=== PATIENT | male | born 1925 | race American Indian/Alaskan Native ===

== ENCOUNTER 2017-01-18 13:23 | Emergency (ER) | payer MEDICARE ==
[2017-01-18 13:35] VITALS: BMI 21.1
[2017-01-18 13:41] VITALS: TEMP 98.2
--- NOTE | 2017-01-18 13:42 | ED PDOC ---
Arrival/HPI - General Time Seen by Provider: 01/18/17 13:27 Historian: Patient, Family (Daughter) - History of Present Illness Time/Duration: Other (Several days) Symptom Onset: Gradual Symptom Course: Unchanged Severity Level: Mild Activities at Onset: Rest Associated Symptoms (Text): 01/18/17 13:40 Daughter reports that for the last several days the patient has been more lethargic than usual and hypotensive with a blood pressure in the range of 90/ 60. His appetite has not been as good as usual. No cough congestion or URI. No vomiting or diarrhea. He has a chronic Mcintosh in place. 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 He denies any chest pain or abdominal pain or dyspnea. No fever or chills. No injury or trauma. There is generalized weakness. Past Medical History - Infectious Disease Hx of Infectious Diseases: None - Tetanus Immunization Tetanus Immunization: Unknown - Cardiac Hx Cardiac Disorders: Yes (cad) Hx Hypertension: Yes - Pulmonary Hx Respiratory Disorders: No - Neurological HX Cerebrovascular Accident: Yes (left side weakness) - HEENT Hx HEENT Disorder: Yes Hx Blind: Yes (left eye opaque) Hx Cataracts: Yes (left eye) Hx Glaucoma: Yes - Renal Hx Renal Disorder: No - Endocrine/Metabolic Hx Endocrine Disorders: No - Hematological/Oncological Hx Blood Disorders: No - Integumentary Hx Dermatological Disorder: No Other/Comment: decubiti buttocks and heel healed, multiple skin discolorations ble and knees, left 2nd toe callous x2 brown in color, dry toenails b/l elbows brown discolored skin, brown skin to buttocks - Musculoskeletal/Rheumatological Hx Arthritis: Yes - Gastrointestinal Hx Gastrointestinal Disorders: Yes Hx Gastroesophageal Reflux: Yes - Genitourinary/Gynecological Hx Genitourinary Disorders: Yes (RETENTION) Hx Incontinence: Yes Hx Prostate Problems: Yes (BPH) - Psychiatric Hx Psychophysiologic Disorder: No Hx Substance Use: No - Surgical History Hx Orthopedic Surgery: Yes (Left hip repair) - Anesthesia Hx Anesthesia: Yes - Suicidal Assessment Feels Threatened In Home Enviroment: No Family/Social History - Physician Review Nursing Documentation Reviewed: Yes Family/Social History: Unknown Family HX Smoking Status: Former Smoker Hx Alcohol Use: No Hx Substance Use: No Hx Substance Use Treatment: No Allergies/Home Meds Allergies/Adverse Reactions: Allergies peanut Allergy (Severe, Verified 01/18/17 13:35) ANAPHYLAXIS PORK Allergy (Verified 01/18/17 13:35) VOMITING Home Medications: Home Meds Medication Instructions Recorded Confirmed Latanoprost 0.005% Opht [XALATAN 1 drp BOTHEYES HS 06/28/13 01/18/17 2.5 Ml] Lisinopril [Zestril] 5 mg PO DAILY 07/18/16 01/18/17 Metoprolol Succinate [Toprol XL] 0.5 tab PO DAILY 07/18/16 01/18/17 Nepafenac [Ilevro] 1 drop LEFTEYE DAILY 07/18/16 01/18/17 Tamsulosin [Flomax] 0.4 mg PO DAILY 07/18/16 01/18/17 Ipratropium [place] [Ipratropium 1 spray NS PRN PRN 01/18/17 01/18/17 [place] 15 ml] Review of Systems - Physician Review All systems were reviewed & negative as marked: Yes - Review of Systems Constitutional: Fatigue. absent: Fevers Respiratory: absent: SOB, Cough, Wheezing Cardiovascular: absent: Chest Pain, Palpitations, Syncope Gastrointestinal: absent: Abdominal Pain, Diarrhea, Vomiting Neurological: absent: Headache, Dizziness Physical Exam Vital Signs Temp Pulse Pulse Resp BP BP Pulse Ox 01/18/17 14:00 98.2 F 01/18/17 13:40 98.2 F 71 18 124/60 95 01/18/17 13:25 71 124/60 Temperature: Afebrile Blood Pressure: Normal Pulse: Regular Respiratory Rate: Normal Appearance: Positive for: Well-Appearing, Non-Toxic, Comfortable Pain Distress: None Mental Status: Positive for: other (Awake alert and cooperative, pale, dense left hemiparesis, chronic Mcintosh catheter in place) - Systems Exam Head: Present: Atraumatic, Normocephalic Pupils: Present: PERRL Extroacular Muscles: Present: EOMI Conjunctiva: Present: Normal Mouth: Present: Moist Mucous Membranes Pharnyx: No: ERYTHEMA, EXUDATE, TONSILS ENLARGED Neck: Present: Normal Range of Motion Respiratory/Chest: Present: Clear to Auscultation, Good Air Exchange, Decreased Breath Sounds. No: Respiratory Distress, Accessory Muscle Use Cardiovascular: Present: Regular Rate and Rhythm, Normal S1, S2. No: Murmurs Abdomen: Present: Normal Bowel Sounds. No: Tenderness, Distention, Peritoneal Signs, Rebound, Guarding Upper Extremity: Present: Normal Inspection. No: Cyanosis, Edema Lower Extremity: Present: Normal Inspection. No: Edema Neurological: Present: GCS=15, CN II-XII Intact, Speech Normal. No: Motor Func Grossly Intact (Old left sided hemiparesis) Skin: Present: Warm, Dry, Normal Color. No: Rashes Medical Decision Making ED Course and Treatment: 01/18/17 14:17 EKG shows normal sinus rhythm rate approximately 70 with a primary AV block and no acute ST or T-wave changes 01/18/17 14:58 Discussed in detail with the daughter. Patient has a chronic Mcintosh catheter in place and his UA may not indicate infection. A culture has been obtained. He will be treated with a dose of IV Rocephin to cover him along with IV fluids. She wants to take him home. If the urine culture is positive we will call in antibiotics for her to give to the patient. - Lab Interpretations Lab Results: 01/18/17 14:00 01/18/17 14:00 Lab Results 01/18/17 14:20: Urine Color Yellow, Urine Appearance Sl cloudy, Urine pH 6.5, Ur Specific [place] 1.020, Urine Protein 30 H, Urine Glucose (UA) Negative, Urine Ketones Negative, Urine Blood Moderate H, Urine Nitrate Positive H, Urine Bilirubin Negative, Urine Urobilinogen 0.2, Ur Leukocyte Esterase Large H, Urine RBC 5 - 10, Urine WBC Tntc, Ur Epithelial Cells 3 - 4, Urine Bacteria Many 01/18/17 14:00: WBC 9.9, RBC 3.94, Hgb 12.3 L, Hct 37.2 L, MCV 94.4, MCH 31.2, MCHC 33.1, RDW 14.1, Plt Count 161, MPV 10.4, Gran % 82.1 H, Lymph % (Auto) 12.4 L, [place] % (Auto) 4.5, Eos % (Auto) 0.9 L, Baso % (Auto) 0.1, Gran # 8.14 H , Lymph # 1.2, [place] # 0.5, Eos # 0.1, Baso # 0.01, Sodium 141, Potassium 4.5, Chloride 102, Carbon Dioxide 32, Anion Gap 12, BUN 32 H, Creatinine 1.1, Est GFR ( Amer) > 60, Est GFR (Non-Af Amer) > 60, Random Glucose 96, Calcium 9.3, Total Bilirubin 0.6, AST 21, ALT 12, Alkaline Phosphatase 236 H, Lactate Dehydrogenase 883 H, Total Creatine Kinase 32 L, Troponin I < 0.01, Total Protein 7.4, Albumin 3.7, Globulin 3.7, Albumin/Globulin Ratio 1.0 L - RAD Interpretation Radiology Orders: 01/18/17 13:35 CHEST PORTABLE [RAD] Stat Chest 1 view shows no infiltrate effusion or cardiomegaly. There is hyperinflation. 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: ED Physician - Medication Orders Current Medication Orders: Discontinued Medications Ceftriaxone Sodium (Rocephin 1 Gram Ivpb) 100 mls @ 200 mls/hr IVPB STAT STA PRN Reason: Protocol Stop: 01/18/17 15:19 Last Admin: 01/18/17 15:04 Dose: 200 MLS/HR eMAR Start Stop Document 01/18/17 15:04 SF (Rec: 01/18/17 15:04 SF [id number]) Intravenous Solution Start Date 01/18/17 Start Time 15:04 End Date 01/18/17 End time 15:34 Total Infusion Time 30 Sodium Chloride (Sodium Chloride 0.9%) 500 mls @ 500 mls/hr IV ONCE ONE Stop: 01/18/17 15:55 Last Admin: 01/18/17 15:05 Dose: 500 MLS/HR eMAR Start Stop Document 01/18/17 15:05 SF (Rec: 01/18/17 15:05 SF [id number]) Intravenous Solution Start Date 01/18/17 Start Time 15:05 End Date 01/18/17 End time 16:05 Total Infusion Time 60 Disposition/Present on Arrival - Present on Arrival Any Indicators Present on Arrival: No History of DVT/PE: No History of Uncontrolled Diabetes: No Urinary Catheter: Yes History of Decub. Ulcer: No History Surgical Site Infection Following: None - Disposition Have Diagnosis and Disposition been Completed?: Yes Diagnosis: Hypotension, UTI (urinary tract infection), Dehydration Disposition: HOME/ ROUTINE Disposition Time: 15:00 Patient Plan: Discharge Patient Problems: Current Active Problems Problem Status Diagnosed Altered mental status Acute Dehydration Acute Hypotension Acute UTI (urinary tract infection) Acute Condition: FAIR Discharge Instructions (ExitCare): Dehydration (ED), Hypotension (ED), Urinary Tract Infection in Men (ED) Additional Instructions: Waiting for urine culture report. Increase fluids. Follow-up with PMD. Follow up in ER as needed.
--- NOTE | 2017-01-18 13:56 | RAD ---
HISTORY: weakness COMPARISON: Chest x-ray performed 07/18/16 TECHNIQUE: Chest, one view. FINDINGS: LUNGS: Hyperinflation may be seen in the setting of COPD. No focal consolidation. Scattered tiny probable calcified granulomas. Please note that chest x-ray has limited sensitivity for the detection of pulmonary masses. PLEURA: No significant pleural effusion identified. No definite pneumothorax. CARDIOVASCULAR: Heart size appears within normal limits. Atherosclerotic calcifications of the aortic knob. OSSEOUS STRUCTURES: Degenerative changes of the spine. VISUALIZED UPPER ABDOMEN: Unremarkable. OTHER FINDINGS: None. IMPRESSION: Hyperinflation may be seen in the setting of COPD.
[2017-01-18 14:15] LABS: ADD MANUAL DIFF? NO
[2017-01-18 14:25] LABS: BASO # 0.01 K/mm3 (0.0-2.0); BASO % 0.1 % (0.0-3.0); EOS # 0.1 (0.0-0.7); EOS % 0.9 % (1.5-5.0); GRAN # 8.14 (1.4-6.5); GRAN % 82.1 % (50.0-68.0); HEMATOCRIT 37.2 % (42.0-52.0); LYMPH # 1.2 (1.2-3.4); LYMPH % 12.4 % (22.0-35.0); MEAN CELL VOLUME 94.4 fL (80.0-105.0); MEAN CORPUSCULAR HEMOGLOBIN 31.2 pg (25.0-35.0); MEAN CORPUSCULAR HGB CONC 33.1 g/dl (31.0-37.0); MEAN PLATELET VOLUME 10.4 fl (7.0-11.0); MONO # 0.5 (0.1-0.6); MONO % 4.5 % (1.0-6.0); PLATELET COUNT 161 10^3/uL (120.0-450.0); RED CELL DISTRIBUTION WIDTH 14.1 % (11.5-14.5); WHITE BLOOD COUNT 9.9 10^3/ul (4.5-11.0)
[2017-01-18 14:34] LABS: ALKALINE PHOSPHATASE 236 U/L (38-133); ALT/SGPT 12 U/L (7-56); AST/SGOT 21 U/L (15-59); BILIRUBIN,TOTAL 0.6 mg/dL (0.2-1.3); BLOOD UREA NITROGEN 32 mg/dL (7-21); CALCIUM 9.3 mg/dL (8.4-10.5); CARBON DIOXIDE 32 mmol/L (21-33); CHLORIDE 102 mmol/L (98-107); GFR AFRICAN-AMERICAN > 60; GLUCOSE,RANDOM 96 mg/dL (70-110); POTASSIUM 4.5 mmol/L (3.6-5.0); SODIUM 141 mmol/L (132-148); TOTAL PROTEIN 7.4 g/dL (5.8-8.3)
[2017-01-18 14:36] LABS: PH,URINE 6.5 (4.7-8.0); URINE BILIRUBIN NEGATIVE (NEGATIVE); URINE BLOOD MODERATE (NEGATIVE); URINE GLUCOSE (UA) NEGATIVE (NEGATIVE); URINE KETONE NEGATIVE (NEGATIVE); URINE LEUKOCYTE ESTERASE LARGE Leu/uL (NEGATIVE); URINE PROTEIN 30 mg/dL (<30 mg/dL); URINE UROBILINOGEN 0.2 E.U./dL (<1 E.U./dL)
[2017-01-18 14:46] LABS: TROPONIN I < 0.01 ng/mL
[2017-01-18 14:47] LABS: URINE APPEARANCE SL CLOUDY (CLEAR); URINE COLOR YELLOW (YELLOW)
[2017-01-18 14:49] LABS: URINE BACTERIA MANY (NEG); URINE WBC TNTC /hpf (0-6)
[2017-01-18] MEDS ORDERED: cefTRIAXone 1 gm 100 ML IVPB STA (14:50)
[2017-01-18] MEDS ORDERED: Sodium Chloride 0.9% 500 ML IV ONE (14:56)
[2017-01-18 16:23] VITALS: PULSE 65
[2017-01-18 18:18] VITALS: BP 122/65; RESP 69; O2SAT 97
--- NOTE | 2017-01-19 09:43 | CARD ---
APPROVED REPORT EKG Measurement Heart [id number] <Conclusion> Sinus rhythm with 1st degree AV block with premature atrial complexes Left anterior fascicular block Anteroseptal infarct, old No change
== END 2017-01-18 18:20 | disposition home or self-care (01) ==
LOC: ED 13:23
DX: I95.9 Hypotension, unspecified (principal); N39.0 Urinary tract infection, site not specified; E86.0 Dehydration; Z87.891 Personal history of nicotine dependence
CPT/HCPCS: 71010; 80053; 81001; 82550; 83615; 84484; 85025; 87086; 93005; 96365; 99285; J0696; J7040

== ENCOUNTER 2017-01-28 12:42 | Inpatient (IN) | payer MEDICARE ==
--- NOTE | 2017-01-28 13:21 | ED PDOC ---
Arrival/HPI - General Chief Complaint: Altered Mental Status Time Seen by Provider: 01/28/17 12:43 Historian: Patient, Family (daughter) - History of Present Illness Narrative History of Present Illness (Text): 01/28/17 12:43 A 89 year old male, whose past medical history includes subarachnoid hemorrhag, CVA (30 years ago that resulted into dense left hemiparesis), seizure disorder , hypertension, and chronic/dwelling Mcintosh catheter, presents to emergency department for evaluation of a wet cough. According to his daughter, the patient has had a wet cough for the past day and a half. She states today patient appeared more short of breath. Daughter states when the visiting nurse came, she listened to his lungs and was concerned about a developing infection. Nurse called patient's PMD, who recommended the patient comes into emergency department for further evaluation. Daughter says patient has been more lethargic over the past day. According to EMS, the patient's blood pressure was 59/30 upon there arrival on the scene so they administered IV fluids. Blood pressure improved to 90's systolic. Patient denies chest pain or abdominal pain. Daughter denies any vomiting, fever, or any other complaints at this time. PMD: Condo Time/Duration: < week (1 day and a half) Symptom Onset: Gradual Symptom Course: Worsening Quality: Other Activities at Onset: Rest Modifying Factors (Text): IV fluids improved blood pressure Context: Home Past Medical History - Provider Review Nursing Documentation Reviewed: Yes - Infectious Disease Hx of Infectious Diseases: None - Tetanus Immunization Tetanus Immunization: Unknown - Cardiac Hx Cardiac Disorders: Yes (cad) Hx Hypertension: Yes - Pulmonary Hx Respiratory Disorders: No Hx Pneumonia: Yes (aspiration) - Neurological HX Cerebrovascular Accident: Yes (left side weakness) - HEENT Hx HEENT Disorder: Yes Hx Blind: Yes (left eye opaque) Hx Cataracts: Yes (left eye) Hx Glaucoma: Yes - Renal Hx Renal Disorder: No - Endocrine/Metabolic Hx Endocrine Disorders: No - Hematological/Oncological Hx Blood Disorders: No - Integumentary Hx Dermatological Disorder: No Other/Comment: decubiti buttocks and heel healed, multiple skin discolorations ble and knees, left 2nd toe callous x2 brown in color, dry toenails b/l elbows brown discolored skin, brown skin to buttocks - Musculoskeletal/Rheumatological Hx Arthritis: Yes - Gastrointestinal Hx Gastrointestinal Disorders: Yes Hx Gastroesophageal Reflux: Yes - Genitourinary/Gynecological Hx Genitourinary Disorders: Yes (RETENTION) Hx Incontinence: Yes Hx Prostate Problems: Yes (BPH) - Psychiatric Hx Psychophysiologic Disorder: No Hx Substance Use: No - Surgical History Hx Orthopedic Surgery: Yes (Left hip repair) - Anesthesia Hx Anesthesia: Yes Hx Anesthesia Reactions: No Hx Malignant Hyperthermia: No - Suicidal Assessment Feels Threatened In Home Enviroment: No Family/Social History - Physician Review Nursing Documentation Reviewed: Yes Family/Social History: Unknown Family HX Smoking Status: Former Smoker Hx Alcohol Use: No Hx Substance Use: No Hx Substance Use Treatment: No Allergies/Home Meds Allergies/Adverse Reactions: Allergies peanut Allergy (Severe, Verified 01/28/17 12:53) ANAPHYLAXIS PORK Allergy (Verified 01/28/17 12:53) VOMITING Home Medications: Home Meds Medication Instructions Recorded Confirmed Latanoprost 0.005% Opht [XALATAN 1 drp BOTHEYES HS 06/28/13 01/28/17 2.5 Ml] Lisinopril [Zestril] 5 mg PO DAILY 07/18/16 01/28/17 Metoprolol Succinate [Toprol XL] 0.5 tab PO DAILY 07/18/16 01/28/17 Nepafenac [Ilevro] 1 drop LEFTEYE DAILY 07/18/16 01/28/17 Tamsulosin [Flomax] 0.4 mg PO DAILY 07/18/16 01/28/17 Ipratropium [place] [Ipratropium 1 spray NS PRN PRN 01/18/17 01/28/17 [place] 15 ml] Review of Systems - Physician Review All systems were reviewed & negative as marked: Yes - Review of Systems Systems not reviewed;Unavailable: Altered Mental Status (limits ROS) Constitutional: Other (lethargic) Respiratory: SOB, Cough, Sputum Cardiovascular: absent: Chest Pain Gastrointestinal: absent: Abdominal Pain, Vomiting Physical Exam Vital Signs Reviewed: Yes Vital Signs Temp Pulse Resp BP Pulse Ox 01/28/17 17:22 98.3 F 93 H 18 105/86 99 01/28/17 15:02 74 18 90/48 L 100 01/28/17 14:25 77 18 99/41 L 100 01/28/17 12:43 98.7 F 85 18 82/48 L 100 Temperature: Afebrile Blood Pressure: Hypotensive Pulse: Regular Respiratory Rate: Normal Appearance: Positive for: Well-Appearing, Non-Toxic, Comfortable, Cachectic Pain Distress: None Mental Status: Positive for: Lethargic. No: Alert and Oriented X 3 (alert and oriented to time and place) - Systems Exam Head: Present: Atraumatic, Normocephalic Pupils: Present: Other (opacified left pupil, and right is reactive to light) Conjunctiva: Present: Normal Mouth: Present: Dry Pharnyx: Present: Normal. No: ERYTHEMA Neck: Present: Normal Range of Motion Respiratory/Chest: Present: Good Air Exchange, Rhonchi (bilaterally). No: Clear to Auscultation, Respiratory Distress, Accessory Muscle Use, Wheezes, Rales Cardiovascular: Present: Regular Rate and Rhythm, Normal S1, S2. No: Murmurs Abdomen: Present: Normal Bowel Sounds. No: Tenderness, Distention, Peritoneal Signs Upper Extremity: Present: Other (chronic dense left hemiparesis). No: Normal Inspection, Cyanosis, Edema Lower Extremity: Present: Other (chronic dense left hemiparesis). No: Normal Inspection, Edema Neurological: Present: GCS=15, CN II-XII Intact, Speech Normal (very minimal speaking ), Other (dense left hemiparesis with atrophy) Skin: Present: Warm, Dry, Normal Color. No: Rashes Psychiatric: Present: Lethargic. No: Oriented x 3 (oriented to person and place ) Medical Decision Making ED Course and Treatment: 01/28/17 12:43 Impression: A 89 year old with productive cough and shortness of breath. Differential Diagnosis included but are not limited to: Pneumonia vs. Bronchitis Plan: -- Chest x-ray -- EKG -- Labs -- Urinalysis -- IV fluids -- Reassess and disposition Prior Visits: Notes and results from previous visits were reviewed. The patient last presented to the emergency department on 01/18/17 for evaluation of lethargy and low blood pressures. Progress Notes: 01/28/17 14:00 Chest X-ray: Creator : Baylee Torres MD COMPARISON: 01/18/2017 FINDINGS: LUNGS: The lungs are hyperinflated and there is peribronchial thickening with chronic changes in both lungs. There is no focal consolidation. PLEURA: No significant pleural effusion identified, no pneumothorax apparent. CARDIOVASCULAR: Normal. OSSEOUS STRUCTURES: No significant abnormalities. VISUALIZED UPPER ABDOMEN: Normal. OTHER FINDINGS: None. IMPRESSION: No active pulmonary disease. COPD. 01/28/17 15:[address] 01/28/17 17:[address]: Creator : Parish Ingram MD COMPARISON: 07/18/2016 FINDINGS: HEMORRHAGE: No intracranial hemorrhage. BRAIN: No mass effect or edema. There is a small amount of gas seen in the right cavernous sinus and along the medial right temporal bone. Most likely, this results from venous air embolism. Severe atrophy. Old right posterior parietal encephalomalacia. Severe chronic microvascular white matter ischemic change, unchanged from prior CT examination. No evidence of acute infarct. VENTRICLES: Unremarkable. No hydrocephalus. CALVARIUM: Unremarkable. PARANASAL SINUSES: Unremarkable as visualized. No significant inflammatory changes. MASTOID AIR CELLS: Unremarkable as visualized. No inflammatory changes. OTHER FINDINGS: None. IMPRESSION: No intracranial mass, hemorrhage or evidence of acute infarct. Atrophy and severe chronic white matter ischemic change. Old right posterior parietal encephalomalacia. Small amount of air in the right cavernous sinus and along medial right temporal bone most likely due to venous air embolism. No additional abnormality. 01/28/17 17:30 Patient's labs with normal total WBC but neutrophilia is present. Chemistry shows pre-renal) BUN/Cr. with dehydration - patient's BP has responded to IVF and up to 105 systolic. lactic acid is normal. Will start antibiotics for presumptive sepsis - discussed with Dr. Diez for admission to his service. - Lab Interpretations Lab Results: 01/28/17 12:59 01/28/17 12:59 Lab Results 01/28/17 12:59: WBC 8.8, RBC 3.67, Hgb 11.5 L, Hct 35.0 L, MCV 95.4, MCH 31.3, MCHC 32.9, RDW 14.1, Plt Count 226, MPV 9.6, Gran % 82.4 H, Lymph % (Auto) 12.4 L, [place] % (Auto) 5.0, Eos % (Auto) 0.1 L, Baso % (Auto) 0.1, Gran # 7.22 H, Lymph # 1.1 L, [place] # 0.4, Eos # 0.0, Baso # 0.01, ESR 66 H, PT 11.0, INR 1.02, APTT 22.7 L, pO2 36, VBG pH 7.28 L, VBG pCO2 59.0, VBG HCO3 27.7, VBG Total CO2 29.5 H, VBG O2 Sat (Calc) 64.1, VBG Base Excess -0.3 L, VBG Potassium 4.0, Glucose 187 H, Lactate 1.4, FiO2 21.0, Sodium 149.0 H, Potassium 3.9, Chloride 118.0 H, Carbon Dioxide 27, Anion Gap 13, BUN 36 H, Creatinine 1.1, Est GFR ( Amer) > 60, Est GFR (Non-Af Amer) > 60, Random Glucose 179 H, Calcium 8.7, Phosphorus 2.7, Magnesium 2.6 H, Total Bilirubin 0.5, AST 31, ALT 14, Alkaline Phosphatase 163 H, Lactate Dehydrogenase 889 H, Total Creatine Kinase 74, Troponin I 0.04 D, C-React Prot High Sens > 15.00 H, Total Protein 6.9, Albumin 3.2, Globulin 3.7, Albumin/Globulin Ratio 0.9 L, Lipase 48, Procalcitonin 0.09 L, Venous Blood Potassium 4.0, Urine Color Yellow, Urine Appearance Sl cloudy, Urine pH 6.0, Ur Specific [place] >= 1.030, Urine Protein 100 H, Urine Glucose (UA) Negative, Urine Ketones Trace H, Urine Blood Large H, Urine Nitrate Negative, Urine Bilirubin Small H, Urine Urobilinogen 1.0 H, Ur Leukocyte Esterase Moderate H, Urine RBC 2 - 5, Urine WBC Tntc, Urine Bacteria Mod 01/28/17 12:53: POC Glucose (mg/dL) 229 H I have reviewed the lab results: Yes - RAD Interpretation Radiology Orders: 01/28/17 13:20 CHEST PORTABLE [RAD] Stat - EKG Interpretation EKG Interpretation (Text): 01/28/17 17:34 NSR @ 83 with left axis deviation with T wave inversions in avL; no other ST/T changes. Interpreted by ED Physician: Yes Type: 12 lead EKG - Medication Orders Current Medication Orders: Sodium Chloride (Sodium Chloride 0.9%) 1,000 mls @ 250 mls/hr IV .Q4H STA Stop: 01/28/17 18:12 Last Admin: 01/28/17 14:45 Dose: 250 MLS/HR eMAR Start Stop Document 01/28/17 14:45 SRE (Rec: 01/28/17 14:45 [id number]) Intravenous Solution Start Date 01/28/17 Start Time 14:45 End Date 01/28/17 End time 16:45 Total Infusion Time 120 Discontinued Medications Sodium Chloride (Sodium Chloride 0.9%) 1,000 mls @ 999 mls/hr IV .Q1H1M STA Stop: 01/28/17 15:12 Last Admin: 01/28/17 14:44 Dose: 999 MLS/HR eMAR Start Stop Document 01/28/17 14:44 SRE (Rec: 01/28/17 14:45 SRE [id number]) Intravenous Solution Start Date 01/28/17 Start Time 14:10 End Date 01/28/17 End time 15:10 Total Infusion Time 60 Cefepime HCl (Maxipime 1gm) 100 mls @ 100 mls/hr IVPB ONCE ONE PRN Reason: Protocol Stop: 01/28/17 16:08 Last Admin: 01/28/17 15:37 Dose: 100 MLS/HR eMAR Start Stop Document 01/28/17 15:37 SRE (Rec: 01/28/17 15:37 [id number] [id number]) Intravenous Solution Start Date 01/28/17 Start Time 15:15 End Date 01/28/17 End time 16:00 Total Infusion Time 45 Vancomycin HCl 1 gm/ Sodium (Chloride) 250 mls @ 133.333 mls/hr IV STAT STA PRN Reason: Protocol Stop: 01/28/17 17:02 Last Admin: 01/28/17 17:20 Dose: 133.333 MLS/HR eMAR Start Stop Document 01/28/17 17:20 SRE (Rec: 01/28/17 17:21 SRE [id number]) Intravenous Solution Start Date 01/28/17 Start Time 17:00 End Date 01/28/17 End time 18:40 Total Infusion Time 100 - Scribe Statement The provider has reviewed the documentation as recorded by the Scriballen Wong, training with Hayder Berrios Provider Scribe Attestation: All medical record entries made by the Scribe were at my direction and personally dictated by me. I have reviewed the chart and agree that the record accurately reflects my personal performance of the history, physical exam, medical decision making, and the department course for this patient. I have also personally directed, reviewed, and agree with the discharge instructions and disposition. Disposition/Present on Arrival - Present on Arrival Any Indicators Present on Arrival: Yes History of DVT/PE: No History of Uncontrolled Diabetes: No Urinary Catheter: Yes History of Decub. Ulcer: No History Surgical Site Infection Following: None - Disposition Have Diagnosis and Disposition been Completed?: Yes Diagnosis: Altered mental status, Hypotension, Dehydration Disposition: HOSPITALIZED Disposition Time: 15:15 Patient Plan: Admission, Telemetry Patient Problems: Current Active Problems Problem Status Diagnosed Altered mental status Acute Hypotension Acute Condition: FAIR
[2017-01-28 13:29] LABS: ADD MANUAL DIFF? NO
[2017-01-28 13:34] LABS: VENOUS BLOOD GAS BASE EXCESS -0.3 mmol/L (0.0-2.0); VENOUS BLOOD PH 7.28 (7.32-7.43)
[2017-01-28 13:41] LABS: BASO # 0.01 K/mm3 (0.0-2.0); BASO % 0.1 % (0.0-3.0); EOS % 0.1 % (1.5-5.0); GRAN # 7.22 (1.4-6.5); GRAN % 82.4 % (50.0-68.0); LYMPH # 1.1 (1.2-3.4); LYMPH % 12.4 % (22.0-35.0); MEAN CELL VOLUME 95.4 fL (80.0-105.0); MEAN CORPUSCULAR HEMOGLOBIN 31.3 pg (25.0-35.0); MEAN CORPUSCULAR HGB CONC 32.9 g/dl (31.0-37.0); MEAN PLATELET VOLUME 9.6 fl (7.0-11.0); MONO # 0.4 (0.1-0.6); PLATELET COUNT 226 10^3/uL (120.0-450.0); RED CELL DISTRIBUTION WIDTH 14.1 % (11.5-14.5); URINE BILIRUBIN SMALL (NEGATIVE); URINE BLOOD LARGE (NEGATIVE); URINE GLUCOSE (UA) NEGATIVE (NEGATIVE); URINE KETONE TRACE mg/dL (NEGATIVE); URINE LEUKOCYTE ESTERASE MODERATE Leu/uL (NEGATIVE); URINE PROTEIN 100 mg/dL (<30 mg/dL); WHITE BLOOD COUNT 8.8 10^3/ul (4.5-11.0)
[2017-01-28 13:47] LABS: ALB/GLOB RATIO 0.9 (1.1-1.8); ALKALINE PHOSPHATASE 163 U/L (38-133); ALT/SGPT 14 U/L (7-56); AST/SGOT 31 U/L (15-59); BILIRUBIN,TOTAL 0.5 mg/dL (0.2-1.3); BLOOD UREA NITROGEN 36 mg/dL (7-21); CALCIUM 8.7 mg/dL (8.4-10.5); CARBON DIOXIDE 27 mmol/L (21-33); CHLORIDE 113 mmol/L (98-107); GFR AFRICAN-AMERICAN > 60; GLUCOSE,RANDOM 179 mg/dL (70-110); LIPASE 48 U/L (23-300); MAGNESIUM 2.6 mg/dL (1.7-2.2); PHOSPHOROUS 2.7 mg/dL (2.5-4.5); POTASSIUM 3.9 mmol/L (3.6-5.0); SODIUM 149 mmol/L (132-148); TOTAL PROTEIN 6.9 g/dL (5.8-8.3)
[2017-01-28 13:49] LABS: URINE APPEARANCE SL CLOUDY (CLEAR); URINE COLOR YELLOW (YELLOW)
[2017-01-28 13:51] LABS: INR 1.02 (0.93-1.08); PARTIAL THROMBOPLASTIN TIME 22.7 Seconds (23.7-30.8)
[2017-01-28 13:53] LABS: URINE BACTERIA MOD (NEG); URINE WBC TNTC /hpf (0-6)
[2017-01-28 13:58] LABS: TROPONIN I 0.04 ng/mL
--- NOTE | 2017-01-28 13:59 | RAD ---
HISTORY: Sepsis Patient COMPARISON: 01/18/2017 FINDINGS: LUNGS: The lungs are hyperinflated and there is peribronchial thickening with chronic changes in both lungs. There is no focal consolidation. PLEURA: No significant pleural effusion identified, no pneumothorax apparent. CARDIOVASCULAR: Normal. OSSEOUS STRUCTURES: No significant abnormalities. VISUALIZED UPPER ABDOMEN: Normal. OTHER FINDINGS: None. IMPRESSION: No active pulmonary disease. COPD.
[2017-01-28] MEDS ORDERED: Sodium Chloride 0.9% 1,000 ML IV STA ×2 (14:12→14:13)
[2017-01-28 14:55] LABS: ERYTHROCYTE SEDIMENTATION RATE 66 mm/hr (0.00-15.0)
[2017-01-28] MEDS ORDERED: Cefepime 1gm in NS 100ml 100 ML IVPB ONE (15:09)
--- NOTE | 2017-01-28 17:12 | CT ---
PROCEDURE: CT HEAD WITHOUT CONTRAST. HISTORY: alt ms COMPARISON: 07/18/2016 TECHNIQUE: Axial computed tomography images were obtained through the head/brain without intravenous contrast. Radiation dose: Total exam DLP = 774.23 mGy-cm. FINDINGS: HEMORRHAGE: No intracranial hemorrhage. BRAIN: No mass effect or edema. There is a small amount of gas seen in the right cavernous sinus and along the medial right temporal bone. Most likely, this results from venous air embolism. Severe atrophy. Old right posterior parietal encephalomalacia. Severe chronic microvascular white matter ischemic change, unchanged from prior CT examination. No evidence of acute infarct. VENTRICLES: Unremarkable. No hydrocephalus. CALVARIUM: Unremarkable. PARANASAL SINUSES: Unremarkable as visualized. No significant inflammatory changes. MASTOID AIR CELLS: Unremarkable as visualized. No inflammatory changes. OTHER FINDINGS: None. IMPRESSION: No intracranial mass, hemorrhage or evidence of acute infarct. Atrophy and severe chronic white matter ischemic change. Old right posterior parietal encephalomalacia. Small amount of air in the right cavernous sinus and along medial right temporal bone most likely due to venous air embolism. No additional abnormality.
[2017-01-28] MEDS ORDERED: Albuterol-Ipratrop 3 mg / 0.5 (3 ml) UD IH PRN (18:13)
[2017-01-28] MEDS: Sodium Chloride 0.9% 1,000 ML IV SCH (18:45)
[2017-01-28 19:54] VITALS: BMI 16.9
[2017-01-28] MEDS ORDERED: Influenza Vaccine 45 MCG/0.5 ml IM ONE (19:54)
[2017-01-28] MEDS ORDERED: Pneumococcal 23-Valent Vaccine IM ONE (19:54)
[2017-01-28] MEDS: Latanoprost 2.5 ml Opht Soln OU SCH (22:08)
[2017-01-28] MEDS: Cefepime 1gm in NS 100ml 100 ML IVPB SCH (22:54)
[2017-01-29] MEDS ORDERED: Sodium Chloride 0.9% 250 ML IV SCH (07:00)
[2017-01-29] MEDS: Metoprolol Succinate 25 mg XL Tab PO SCH (08:21)
--- NOTE | 2017-01-29 09:09 | CARD ---
APPROVED REPORT EKG Measurement Heart [id number] <Conclusion> Atrial fibrillation Left anterior fascicular block Possible Anteroseptal infarct, age undetermined Abnormal ECG
[2017-01-29] MEDS: NEPAFENAC OS SCH (10:11)
[2017-01-29] MEDS: Cefepime 1gm in NS 100ml 100 ML IVPB SCH ×2 (10:12→22:58)
--- NOTE | 2017-01-29 10:13 | HP ---
CHIEF COMPLAINT AND HISTORY OF PRESENT ILLNESS: The patient is an 89-year-old male who is coming int o the hospital because of changes in his mental status. The patient has a past medical history of a subarachnoid hemorrhage and CVA. He has significant left hemiparesis with contractures. 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 The patient is not able t o give much of a history because of his underlying confusion. The patient's daughter had brought the patient in and she says the visiting nurses were concerned about his change in his condition and so was advised to take the patient to the ER. The patient has been more lethargic. His blood pressure has been low. The patient was unable to do a review of symptoms because of the patient's underlying condition. There is no vomiting, fevers or chills according to the notes. ALLERGIES: PEANUTS AND PORK. HOME MEDICATIONS: Xalatan, lisinopril, Toprol, nepafenac, Flomax, ipratropium. PAST MEDICAL HISTORY: 1. Hypertension. 2. 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 3. Dyslipidemia. 4. Subarachnoid hemorrhage. 5. GERD. 6. Seizure disorder. PAST SURGICAL HISTORY: Left hip replacement. SOCIAL HISTORY: No smoking, drinking. He lives with his daughter who is the primary caregiver. FAMILY HISTORY: Noncontributory. PHYSICAL EXAMINATION: VITAL SIGNS: Temperature is 98.7, pulse is 79, blood pressure is 88/53, respirations 20, O2 saturati on 97%, height is 6 feet, weight is 125 pounds, BMI is 17. GENERAL: Patient lying in bed, flat, and in no apparent distress. HEAD AND NECK EXAM: Atraumatic, normocephalic. Conjunctivae are pink. Throat clear and mouth with moist mucosa. Oropharynx benign. EYES: Unable to do an eye exam. NECK: Supple. No JVD, thyromegaly, or adenopathy. No bruits. HEART: S1 and S2 regular rate and rhythm. No murmurs, rubs, or gallops. LUNGS: Clear to auscultation bilaterally. No wheezing rales or rhonchi appreciated. No retraction s on exam. ABDOMEN: Soft, nontender, nondistended. Bowel sounds are positive in all quadrants. No rebound. No hepatosplenomegaly. EXTREMITIES: Left arm, left leg contractions. No cyanosis, clubbing, or edema. NEURO: Unable to assess. PSYCH: Unable to assess. . : No CVA tenderness VASCULAR: 2+ pulses in carotid and pedal pulses. SKIN: No erythema or abnormal nodules noted. BACK: There is left hip stage 1 pressure ulcer. LYMPHADENOPATHY: No anterior cervical or posterior cervical adenopathy. No inguinal adenopathy. LABORATORY DATA: White count of 8.8, hemoglobin 11.5, platelet count is 226. INR is 1.02. Chemistr y shows a pH of 7.28 with a pCO2 of 59: Sodium is 149, potassium is 3.9. AST, ALT are 31 and 39, al k phos of 163, LDH is 889. C-reactive protein is greater than 15. Procalcitonin 0.09. Urine shows blood that is large, nitrites are small and bilirubin is small, esterase is moderate. His EKG shows atrial fibrillation with a rate of 83, the QTC is 460. Head CT done is no intracranial mass, hemorrhage, or evidence of acute infarct with an old right posterior parietal encephalomalacia , small amount of air in the right cavernous sinus. A chest x-ray done shows no active pulmonary disease. ASSESSMENT: 1. Delirium. 2. Urinary tract infection. 3. Dementia, vascular type. 4. Hypotension. 5. Left arm and leg contractures. 6. Dyslipidemia. 7. Gastroesophageal reflux disease. 8. Seizure disorder. 9. Frailty. PLAN: The patient is going to be admitted to the hospital. The patient has low blood pressure. The patient has respiratory rate of 20. The patient's urinalysis is abnormal. Most likely, the patient has sepsis. The patient has urine and blood cultures that are done. The results are pending. The patient was started on IV antibiotics. He had low blood pressures. He was given IV fluids. He is o n timolol for his eyedrops. I will hold off his metoprolol because of his hypotension. He does have a history of hypertension. He is on aspirin. He is going to continue with his Keppra for seizures. He is on Lipitor for dyslipidemia. I will speak to the patient's daughter to give her an update on the patient's diagnosis and plan of care. Overall, prognosis is guarded. I am not sure about his a dvanced directives. We will get palliative care to evaluate the patient as well as he is very frail. Jerome Diez MD cc: [id number] TT: 01/29/2017 10:12:23 tn
--- NOTE | 2017-01-29 11:14 | CON ---
DATE: 01/29/2017 REQUESTING PHYSICIAN: Jerome Diez MD. REASON FOR CONSULTATION: Hypotension. HISTORY: This is an 89-year-old man known to us from prior evaluation and outpatient followup, who w as admitted with increasing cough, weakness. In the Emergency Room, he was markedly hypotensive, whi ch improved with IV fluid administration. He is seen lying in bed on telemetry. He is arousable, but somewhat somnolent. He offers no complai nts. PAST MEDICAL HISTORY: Notable for coronary artery disease, hypertension, hyperlipidemia, carotid dis ease for which he underwent bilateral carotid endarterectomy, history of glaucoma, prior cerebrovascu lar accident. He has had a prior cerebrovascular accident, which caused severe left hemiplegia. He has also had a subarachnoid hemorrhage in the past and has gastroesophageal reflux disease. He under went prior left hip replacement as well. His last stress test was in 2009 revealing a fixed inferior and inferolateral defect with no evidence of ischemia and a normal ejection fraction. CURRENT MEDICATIONS: Include Toprol XL, Flomax, lisinopril, and Xalatan eyedrops. ALLERGIES: He has no drug allergies, but apparently HAS HAD REACTION TO PEANUTS AND PORK IN THE PAST . SOCIAL HISTORY: He is a former smoker. He does not drink. He lives with his daughter. He is ed. FAMILY HISTORY: He is unable to provide at the present time. REVIEW OF SYSTEMS: A 10-point review of systems is limited, but otherwise unremarkable. PHYSICAL EXAMINATION: GENERAL: He is a frail-appearing, very elderly man. VITAL SIGNS: His blood pressure is 96/56 with a pulse of 80 in sinus. Respirations are 16. He is c urrently afebrile, but temperature overnight was 100.5. HEENT: Marked temporal wasting is noted. NECK: Bilateral carotid endarterectomy scar is noted. No JVD present. CHEST: A few scattered rhonchi with no rales. HEART: PMI is displaced laterally with a systolic murmur at the left sternal border. ABDOMEN: Soft, nontender, normoactive bowel sounds. EXTREMITIES: No edema. PSYCHIATRIC: Flat affect noted. NEUROLOGIC: A dense left hemiplegia is present with left-sided contracture as well. DIAGNOSTIC DATA: White count is 8.8 with hematocrit 11.5 and 35.0. Platelet count is 226,000. PT a nd PTT are normal. Potassium is 3.9. Sodium is 149. BUN and creatinine are 36 and 1.1. Alkaline p hosphatase 163, LDH of 889. Troponin is 0.04. Electrocardiogram reveals baseline artifact with underlying sinus rhythm, first-degree AV block. Lef t anterior hemiblock is present as well. Chest x-ray reveals a rotated film with flattened diaphragms and normal cardiac silhouette. IMPRESSION: 1. Weakness and hypotension, appears to be volume-depleted, improved with IV fluids. 2. Possible underlying sepsis. 3. Coronary artery disease appears fairly stable. 4. Status post remote cerebrovascular accident. 5. The rest of the problems as noted. RECOMMENDATIONS: IV fluids should be continued. Cultures have been drawn and are pending. Empiric antibiotics have been started as well, and we will continue. An echocardiogram will be obtained as sriram jim. In general, conservative management appears most appropriate at this time. Thank you for this consultation. I will be happy to follow along as needed. Pancho Mariee MD cc: [id number] TT: 01/29/2017 11:13:40 Confirmation # [id number] Dictation # [id number] [email or web address]
--- NOTE | 2017-01-29 11:51 | CP.PCM.CON ---
History of Present Illness - History of Present Illness History of Present Illness: 89 year old male with PMH of urinary tract infection with Proteus, HTN, history of subarachnoid hemorrhage and cerebrovascular accident with left sided residual weakness, seizure disorder was brought in to [facility] because of cough for the past 2 days. The patient was also noted to have low blood pressure which was responsive to fluid challenge in the ED. The patient denies sore throat, no colds, no SOB currently, no abdominal pain, no nausea or vomiting, no dysuria or diarrhea, however, the patient did have a low grade fever last night. Infectious Diseases consult is requested to further evaluate and manage. Review of Systems - Review of Systems All systems: reviewed and no additional remarkable complaints except (as per HPI ) Past Patient History - Infectious Disease Hx of Infectious Diseases: None - Tetanus Immunizations Tetanus Immunization: Unknown - Past Social History Smoking Status: Former Smoker - CARDIAC Hx Cardiac Disorders: Yes (cad) Hx Hypertension: Yes - PULMONARY Hx Respiratory Disorders: Yes (H/O OF SMOKING CIGARETTES) Hx Bronchitis: Yes Hx Chronic Obstructive Pulmonary Disease (COPD): Yes Hx Pneumonia: Yes (aspiration) - NEUROLOGICAL Hx Neurological Disorder: Yes (SUBARACHNOID HEMORRHAGE) HX Cerebrovascular Accident: Yes (left side weakness) - HEENT Hx HEENT Problems: Yes Hx Blind: Yes (left eye opaque) Hx Cataracts: Yes (left eye) Hx Glaucoma: Yes - RENAL Hx Chronic Kidney Disease: No - ENDOCRINE/METABOLIC Hx Endocrine Disorders: No - HEMATOLOGICAL/ONCOLOGICAL Hx Blood Disorders: No - INTEGUMENTARY Hx Dermatological Problems: Yes Other/Comment: R decubiti buttock SCARRED and heel healed, multiple skin discolorations ble and knees, left 2nd toe callous x2 brown in color, dry toenails b/l elbows brown discolored skin, brown skin to buttocks. 01-28-17 LEFT BUTTOCK WITH DTI,DEEP BURGUNDY COLOR INTACT SKIN.LEFT SIDE OF PINKY TOE WITH A 1.5 CM OPEN WOUND. 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 2ND TOE WITH CALLOUSED SKIN. LEFT NECK AREA HAS A LARGE LUMP MEASUREING 3 CM IN DM SOFT.INTACT. - MUSCULOSKELETAL/RHEUMATOLOGICAL Hx Musculoskeletal Disorders: Yes Hx Arthritis: Yes (CONTRACTURE UPPER AND LE) Hx Falls: Yes - GASTROINTESTINAL Hx Gastrointestinal Disorders: Yes Hx Gastroesophageal Reflux: Yes HX Swallowing Problems: Yes (01-28-17) - GENITOURINARY/GYNECOLOGICAL Hx Genitourinary Disorders: Yes (RETENTION) Hx Incontinence: Yes Hx Prostate Problems: Yes (BPH) - PSYCHIATRIC Hx Psychophysiologic Disorder: Yes Hx Substance Use: No - SURGICAL HISTORY Hx Surgeries: Yes (LEFT NECK LUMP,) Hx Orthopedic Surgery: Yes (Left hip repair) - ANESTHESIA Hx Anesthesia: Yes Hx Anesthesia Reactions: No Hx Malignant Hyperthermia: No Meds Allergies/Adverse Reactions: Allergies Allergy/AdvReac Type Severity Reaction Status Date / Time peanut Allergy Severe ANAPHYLAXIS Verified 01/28/17 17:44 PORK Allergy VOMITING Verified 01/28/17 17:44 - Medications Medications: Current Medications Albuterol/Ipratropium (Duoneb 3 Mg/0.5 Mg (3 Ml) Ud) 3 ml IH [id number] PRN PRN Reason: Shortness of Breath Aspirin (Aspirin Chewable) 81 mg PO DAILY [facility] Atorvastatin Calcium (Lipitor) 10 mg PO DIN [facility] Last Admin: 01/28/17 18:44 Dose: 10 mg Home Med (Home Med) 1 unit OS DAILY [facility] Sodium Chloride (Sodium Chloride 0.9%) 1,000 mls @ 50 mls/hr IV .Q20H [facility] Last Admin: 01/28/17 18:45 Dose: 50 mls/hr Doxycycline Hyclate 100 mg/ (Sodium Chloride) 100 mls @ 100 mls/hr IVPB Q12 [facility] PRN Reason: Protocol Latanoprost (Xalatan Opht) 0.02 ml OU HS [facility] Last Admin: 01/28/17 22:08 Dose: 0.02 ml Levetiracetam (Keppra) 500 mg PO BID [facility] Last Admin: 01/28/17 18:44 Dose: 500 mg Lisinopril (Zestril) 5 mg PO DAILY [facility] Metoprolol Succinate (Toprol Xl) 12.5 mg PO BRK [facility] Tamsulosin HCl (Flomax) 0.4 mg PO DAILY [facility] Timolol Maleate (Timoptic 0.5% Oph Soln) 1 drop OS BID [facility] Last Admin: 01/28/17 18:45 Dose: 1 drop Physical Exam - Constitutional Appears: Non-toxic, No Acute Distress - Head Exam Head Exam: NORMAL INSPECTION - Neck Exam Neck exam: Negative for: Lymphadenopathy, Meningismus - Respiratory Exam Respiratory Exam: Decreased Breath Sounds - Cardiovascular Exam Cardiovascular Exam: +S1, +S2 - GI/Abdominal Exam GI & Abdominal Exam: Soft. absent: Tenderness Results - Vital Signs Recent Vital Signs: Last Vital Signs Temp 98.3 F 01/28/17 19:15 Pulse 82 01/28/17 22:00 Resp 18 01/28/17 19:15 BP 105/86 01/28/17 19:15 Pulse Ox 99 01/28/17 17:22 - Labs Result Diagrams: 01/28/17 12:59 01/28/17 12:59 Assessment & Plan - Assessment and Plan (Free Text) Plan: Assessment Low grade fever, R/O pneumonia R/O acute bronchitis history of urinary tract infection with Proteus history of obstructive uropathy and chronic Mcintosh catheter use HTN history of subarachnoid hemorrhage and cerebrovascular accident with left sided residual weakness seizure disorder Plan started patient on Cefepime and Doxycycline pending blood, urine cx, PCT, CXR Will follow clinically
--- NOTE | 2017-01-29 14:56 | CP.PCM.CON ---
<Jasmin Sweet - Last Filed: 01/29/17 14:52> History of Present Illness - History of Present Illness History of Present Illness: 89 year old male with PMH of urinary tract infection with Proteus, HTN, history of subarachnoid hemorrhage and cerebrovascular accident with left sided residual weakness, seizure disorder seen at bedside with attending Dr. Tovar after podiatry consultation. Patient has left foot ulceration on the outside of his foot. Patient awake and alert but unable to respond to questioning at this time. patient appears in NAD. duoderm dressing noted to left foot. Review of Systems - Constitutional Constitutional: As Per HPI Past Patient History - Infectious Disease Hx of Infectious Diseases: None - Tetanus Immunizations Tetanus Immunization: Unknown - Past Social History Smoking Status: Former Smoker - CARDIAC Hx Cardiac Disorders: Yes (cad) Hx Hypertension: Yes - PULMONARY Hx Respiratory Disorders: Yes (H/O OF SMOKING CIGARETTES) Hx Bronchitis: Yes Hx Chronic Obstructive Pulmonary Disease (COPD): Yes Hx Pneumonia: Yes (aspiration) - NEUROLOGICAL Hx Neurological Disorder: Yes (SUBARACHNOID HEMORRHAGE) HX Cerebrovascular Accident: Yes (left side weakness) - HEENT Hx HEENT Problems: Yes Hx Blind: Yes (left eye opaque) Hx Cataracts: Yes (left eye) Hx Glaucoma: Yes - RENAL Hx Chronic Kidney Disease: No - ENDOCRINE/METABOLIC Hx Endocrine Disorders: No - HEMATOLOGICAL/ONCOLOGICAL Hx Blood Disorders: No - INTEGUMENTARY Hx Dermatological Problems: Yes Other/Comment: R decubiti buttock SCARRED and heel healed, multiple skin discolorations ble and knees, left 2nd toe callous x2 brown in color, dry toenails b/l elbows brown discolored skin, brown skin to buttocks. 01-28-17 LEFT BUTTOCK WITH DTI,DEEP BURGUNDY COLOR INTACT SKIN.LEFT SIDE OF PINKY TOE WITH A 1.5 CM OPEN WOUND. 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 2ND TOE WITH CALLOUSED SKIN. LEFT NECK AREA HAS A LARGE LUMP MEASUREING 3 CM IN DM SOFT.INTACT. - MUSCULOSKELETAL/RHEUMATOLOGICAL Hx Musculoskeletal Disorders: Yes Hx Arthritis: Yes (CONTRACTURE UPPER AND LE) Hx Falls: Yes - GASTROINTESTINAL Hx Gastrointestinal Disorders: Yes Hx Gastroesophageal Reflux: Yes HX Swallowing Problems: Yes (01-28-17) - GENITOURINARY/GYNECOLOGICAL Hx Genitourinary Disorders: Yes (RETENTION) Hx Incontinence: Yes Hx Prostate Problems: Yes (BPH) - PSYCHIATRIC Hx Psychophysiologic Disorder: Yes Hx Substance Use: No - SURGICAL HISTORY Hx Surgeries: Yes (LEFT NECK LUMP,) Hx Orthopedic Surgery: Yes (Left hip repair) - ANESTHESIA Hx Anesthesia: Yes Hx Anesthesia Reactions: No Hx Malignant Hyperthermia: No Meds Allergies/Adverse Reactions: Allergies Allergy/AdvReac Type Severity Reaction Status Date / Time peanut Allergy Severe ANAPHYLAXIS Verified 01/28/17 17:44 PORK Allergy VOMITING Verified 01/28/17 17:44 - Medications Medications: Current Medications Albuterol/Ipratropium (Duoneb 3 Mg/0.5 Mg (3 Ml) Ud) 3 ml IH [id number] PRN PRN Reason: Shortness of Breath Albuterol/Ipratropium (Duoneb 3 Mg/0.5 Mg (3 Ml) Ud) 3 ml IH BIDRESP [facility] Aspirin (Aspirin Chewable) 81 mg PO DAILY [facility] Last Admin: 01/29/17 10:11 Dose: 81 mg Atorvastatin Calcium (Lipitor) 10 mg PO DIN [facility] Last Admin: 01/28/17 18:44 Dose: 10 mg Home Med (Home Med) 1 unit OS DAILY [facility] Last Admin: 01/29/17 10:11 Dose: 1 unit Sodium Chloride (Sodium Chloride 0.9%) 1,000 mls @ 50 mls/hr IV .Q20H [facility] Last Admin: 01/28/17 18:45 Dose: 50 mls/hr Doxycycline Hyclate 100 mg/ (Sodium Chloride) 100 mls @ 100 mls/hr IVPB Q12 [facility] PRN Reason: Protocol Last Admin: 01/29/17 10:12 Dose: 100 mls/hr Cefepime HCl (Maxipime 1gm) 100 mls @ 100 mls/hr IVPB Q12 [facility] PRN Reason: Protocol Last Admin: 01/29/17 10:12 Dose: 100 mls/hr Sodium Chloride (Sodium Chloride 0.9%) 250 mls @ 999 mls/hr IV .Q16M [facility] Last Admin: 01/29/17 07:03 Dose: 999 mls/hr Latanoprost (Xalatan Opht) 0.02 ml OU HS [facility] Last Admin: 01/28/17 22:08 Dose: 0.02 ml Levetiracetam (Keppra) 500 mg PO BID [facility] Last Admin: 01/29/17 10:12 Dose: 500 mg Lisinopril (Zestril) 5 mg PO DAILY [facility] Metoprolol Succinate (Toprol Xl) 12.5 mg PO BRK [facility] Last Admin: 01/29/17 08:21 Dose: Not Given Mupirocin (Bactroban Ointment) 0 gm TOP BID [facility] Tamsulosin HCl (Flomax) 0.4 mg PO DAILY [facility] Last Admin: 01/29/17 10:11 Dose: 0.4 mg Timolol Maleate (Timoptic 0.5% Ophth Soln) 1 drop OS BID [facility] Last Admin: 01/28/17 18:45 Dose: 1 drop Physical Exam - Constitutional Appears: Well, Non-toxic, No Acute Distress - Extremities Exam Additional comments: Vasc: nonpalpable pedal pulses bilaterally, TG wnl, CFT < 3 sec to all digits, no edema, pedal hair absent neuro: grossly diminished derm: superficial ulceration to left lateral 5th metatarsal head measuring 2cm x 1.5cm x 0.2cm with granular base and fibrotic border, no purulence, no probe to bone, no undermining, no malodor, mild serous drainage, no underlying cellulitis, no acute clinical signs of infection pre-ulcerative hyperkeratotic lesion noted to left heel ortho: mild pain on palpation of left lateral foot, contractures of 2nd digits b /l Results - Vital Signs Recent Vital Signs: Last Vital Signs Temp 98.7 F 01/29/17 11:50 Pulse 85 01/29/17 14:00 Resp 18 01/29/17 11:50 BP 151/82 H 01/29/17 11:50 Pulse Ox 97 01/29/17 06:00 - Labs Result Diagrams: 01/28/17 12:59 01/28/17 12:59 Assessment & Plan - Assessment and Plan (Free Text) Assessment: 89 y/o male w/ PMH of urinary tract infection with Proteus, HTN, history of subarachnoid hemorrhage and cerebrovascular accident with left sided residual weakness, seizure disorder seen at bedside for Plan: patient evaluated and seen at bedside with attending Dr. Tovar labs and vitals reviewed; afebrile continue IV abx as per ID applied optifoam to left foot ulceration, heels b/l Rx bactroban ointment to be applied daily to left foot ulcer ordered multipodus boots to offload heels while in bed podiatry will continue to monitor while patient remains in house <Jackie Tovar - Last Filed: 02/02/17 12:24> Results - Vital Signs Recent Vital Signs: Last Vital Signs Temp 97.7 F 02/01/17 06:00 Pulse 80 02/01/17 09:00 Resp 20 02/01/17 06:00 BP 152/79 H 02/01/17 09:00 Pulse Ox 93 L 02/01/17 06:00 - Labs Result Diagrams: 01/31/17 05:30 01/31/17 05:30 Attending/Attestation - Attestation I have personally seen and examined this patient.: Yes I have fully participated in the care of the patient.: Yes I have reviewed all pertinent clinical information: Yes
[2017-01-29] MEDS: Sodium Chloride 0.9% 1,000 ML IV SCH (19:56)
[2017-01-29] MEDS: Albuterol-Ipratrop 3 mg / 0.5 (3 ml) UD IH SCH (20:10)
[2017-01-29] MEDS: Latanoprost 2.5 ml Opht Soln OU SCH (22:59)
[2017-01-30 07:01] LABS: HEMATOCRIT 32.3 % (42.0-52.0); MEAN CELL VOLUME 93.9 fL (80.0-105.0); MEAN CORPUSCULAR HEMOGLOBIN 30.5 pg (25.0-35.0); MEAN CORPUSCULAR HGB CONC 32.5 g/dl (31.0-37.0); MEAN PLATELET VOLUME 9.7 fl (7.0-11.0); RED CELL DISTRIBUTION WIDTH 13.8 % (11.5-14.5); WHITE BLOOD COUNT 9.4 10^3/ul (4.5-11.0)
[2017-01-30 07:22] LABS: ALB/GLOB RATIO 0.8 (1.1-1.8); ALKALINE PHOSPHATASE 148 U/L (38-133); ALT/SGPT 23 U/L (7-56); AST/SGOT 30 U/L (15-59); BILIRUBIN,TOTAL 0.5 mg/dL (0.2-1.3); BLOOD UREA NITROGEN 16 mg/dL (7-21); CALCIUM 8.8 mg/dL (8.4-10.5); CARBON DIOXIDE 24 mmol/L (21-33); CHLORIDE 115 mmol/L (98-107); GFR AFRICAN-AMERICAN > 60; GLUCOSE,RANDOM 97 mg/dL (70-110); POTASSIUM 3.1 mmol/L (3.6-5.0); SODIUM 148 mmol/L (132-148); TOTAL PROTEIN 6.5 g/dL (5.8-8.3)
--- NOTE | 2017-01-30 07:51 | PN ---
DATE: 01/30/2017 SUBJECTIVE: The patient has no complaints of any chest pain, no shortness of breath, no headaches. PHYSICAL EXAMINATION: VITAL SIGNS: Temperature is 98.4, pulse of 80, blood pressure 147/60, respirations 22. GENERAL: The patient comfortable, in no acute distress. HEENT: Anicteric sclerae. Moist mucosa. NECK: No JVD or adenopathy. In the posterior portion of the neck, there is a large mass palpable. No pain. CARDIAC: S1/S2. No murmurs. No rubs. Regular. RESPIRATORY: Clear to auscultation bilaterally. No wheezes, rales, or rhonchi. Good air entry. ABDOMEN: Bowel sounds are positive, soft, nontender, and nondistended. EXTREMITIES: No edema. Has 1+ pulses. Left arm and left leg contractures. LABS: Pending. ASSESSMENT: 1. Urinary tract infection. 2. Left fifth toe 2 x 1.5 cm foot ulceration. 3. Sacral pressure ulcers. 4. Delirium. 5. Dementia, vascular type. 6. Hypotension, improved. 7. Left arm and left leg contractures. 8. Dyslipidemia. 9. Seizure disorder. 10. Gastroesophageal reflux disease. 11. Frailty. 12. Hypernatremia. 13. Sepsis. PLAN: The patient is currently comfortable. He is receiving cefepime for antibiotics. He is on metoprolol. He is receiving his latanoprost 0.005% eyedrops. The patient is on Keppra for seizures. He is on Flomax for his BPH. The patient is on doxycycline for antibiotics. He is on D5W plus fluids. The patient has urine cultures that are positive for gram-positive cocci. Blood cultures are negative. I appreciate the input from Dr. Tovar and Dr. Maldonado as well as Dr. Garay. I did speak to the patient's daughter yesterday to give her an update on the patient's diagnosis and plan of care.Spoke to daughter about D/C in am. Will speak to ID about change of ABx to PO Ampicillin nell UCx being positive Jerome Diez MD cc: [id number] TT: 01/30/2017 07:51:01 Confirmation # [id number] Dictation # [id number] [email or web address]
[2017-01-30] MEDS: Albuterol-Ipratrop 3 mg / 0.5 (3 ml) UD IH SCH ×2 (07:59→20:00)
[2017-01-30] MEDS: Ampicillin/Sulbactam 3 GM in Sodium Chloride 0.9% 100 ML IVPB SCH ×3 (08:20→18:20)
[2017-01-30] MEDS: Potassium Chloride 20 mEq 100 ML IVPB SCH ×2 (08:32→14:15)
--- NOTE | 2017-01-30 08:36 | CP.PCM.PN ---
Subjective - Date & Time of Evaluation Date of Evaluation: 01/30/17 Time of Evaluation: 08:00 - Subjective Subjective: Stable on 2R. Somnolent. No CP or SOB reported. V/S noted. PE: Lungs: clear Cor.: S1S2 Abd.: soft Ext.: no edema Neuro.; somnolent I/O= 1740/900 Labs noted: K+= 3.1 BC x2 NG at 24 hrs. Urine C+S: + Enterococcus faec. Objective - Vital Signs/Intake and Output Vital Signs (last 24 hours): Temp Pulse Resp BP Pulse Ox 98.4 F 80 20 147/60 97 01/30/17 06:00 01/30/17 06:00 01/30/17 06:00 01/30/17 06:00 01/30/17 06:00 Intake and Output: 01/30/17 01/30/17 06:59 18:59 Intake Total 1380 Output Total 600 Balance 780 - Medications Medications: Current Medications Albuterol/Ipratropium (Duoneb 3 Mg/0.5 Mg (3 Ml) Ud) 3 ml IH [id number] PRN PRN Reason: Shortness of Breath Albuterol/Ipratropium (Duoneb 3 Mg/0.5 Mg (3 Ml) Ud) 3 ml IH BIDRESP [facility] Last Admin: 01/30/17 07:59 Dose: 3 ml Aspirin (Aspirin Chewable) 81 mg PO DAILY [facility] Last Admin: 01/29/17 10:11 Dose: 81 mg Atorvastatin Calcium (Lipitor) 10 mg PO DIN [facility] Last Admin: 01/29/17 17:07 Dose: 10 mg Home Med (Home Med) 1 unit OS DAILY [facility] Last Admin: 01/29/17 10:11 Dose: 1 unit Doxycycline Hyclate 100 mg/ (Sodium Chloride) 100 mls @ 100 mls/hr IVPB Q12 [facility] PRN Reason: Protocol Last Admin: 01/29/17 22:58 Dose: 100 mls/hr Dextrose (Dextrose 5% In Water 1000 Ml) 1,000 mls @ 100 mls/hr IV .Q10H [facility] Last Admin: 01/30/17 06:09 Dose: Not Given Potassium Chloride (Potassium Chloride 20 Meq/100 Ml) 100 mls @ 50 mls/hr IVPB Q2H [facility] Stop: 01/30/17 11:59 Ampicillin Sodium/Sulbactam (Sodium 3 gm/ Sodium Chloride) 100 mls @ 200 mls/ hr IVPB Q6 [facility] PRN Reason: Protocol Stop: 02/06/17 08:16 Latanoprost (Xalatan Opht) 0.02 ml OU HS [facility] Last Admin: 01/29/17 22:59 Dose: 0.02 ml Levetiracetam (Keppra) 500 mg PO BID [facility] Last Admin: 01/29/17 17:07 Dose: 500 mg Lisinopril (Zestril) 5 mg PO DAILY [facility] Metoprolol Succinate (Toprol Xl) 12.5 mg PO BRK [facility] Last Admin: 01/29/17 08:21 Dose: Not Given Mupirocin (Bactroban Ointment) 0 gm TOP BID [facility] Last Admin: 01/29/17 17:07 Dose: 1 appl Tamsulosin HCl (Flomax) 0.4 mg PO DAILY [facility] Last Admin: 01/29/17 10:11 Dose: 0.4 mg Timolol Maleate (Timoptic 0.5% [facility] Sol) 1 drop OS BID [facility] Last Admin: 01/28/17 18:45 Dose: 1 drop - Labs Labs: 01/30/17 06:30 01/30/17 06:30 PT 11.0 Seconds (9.9-11.8) 01/28/17 12:59 INR 1.02 (0.93-1.08) 01/28/17 12:59 APTT 22.7 Seconds (23.7-30.8) L 01/28/17 12:59 Assessment and Plan - Assessment and Plan (Free Text) Plan: Assessment; Weak/Initial hypotension/Urosepsis Hypernatremia/Hypokalemia CAD/CABG HBP HLD Dementia Seizure Disorder UTI's/Indwelling Mcintosh CVA CVD/Bilat CEA's SAH Left THR Former Smoker Toe ulceration Glaucoma Plan: IVF/replace K+ AB Monitor I/O, labs, cultures, etc. As per Dr. Diez, ID, Podiatry Will follow. Conservative cardiac care anticipated.
[2017-01-30] MEDS: Metoprolol Succinate 25 mg XL Tab PO SCH (08:37)
[2017-01-30] MEDS ORDERED: Potassium Chloride 20 mEq ER Tab PO ONE ×2 (08:50→18:00)
--- NOTE | 2017-01-30 09:14 | CP.PCM.PN ---
<Jasmin Sweet - Last Filed: 01/30/17 09:11> Subjective - Date & Time of Evaluation Date of Evaluation: 01/30/17 Time of Evaluation: 09:11 - Subjective Subjective: 89 year old male seen at bedside with attending Dr. Tovar for left foot ulceration. Patient awake and alert but unable to respond to questioning at this time. patient appears in NAD. dressing appears clean,dry,intact Objective - Vital Signs/Intake and Output Vital Signs (last 24 hours): Temp Pulse Resp BP Pulse Ox 98.4 F 88 20 120/58 L 97 01/30/17 06:00 01/30/17 08:37 01/30/17 06:00 01/30/17 08:37 01/30/17 06:00 Intake and Output: 01/30/17 01/30/17 06:59 18:59 Intake Total 1380 Output Total 600 Balance 780 - Medications Medications: Current Medications Albuterol/Ipratropium (Duoneb 3 Mg/0.5 Mg (3 Ml) Ud) 3 ml IH [id number] PRN PRN Reason: Shortness of Breath Albuterol/Ipratropium (Duoneb 3 Mg/0.5 Mg (3 Ml) Ud) 3 ml IH BIDRESP [facility] Last Admin: 01/30/17 07:59 Dose: 3 ml Aspirin (Aspirin Chewable) 81 mg PO DAILY [facility] Last Admin: 01/29/17 10:11 Dose: 81 mg Atorvastatin Calcium (Lipitor) 10 mg PO DIN [facility] Last Admin: 01/29/17 17:07 Dose: 10 mg Home Med (Home Med) 1 unit OS DAILY [facility] Last Admin: 01/29/17 10:11 Dose: 1 unit Doxycycline Hyclate 100 mg/ (Sodium Chloride) 100 mls @ 100 mls/hr IVPB Q12 [facility] PRN Reason: Protocol Last Admin: 01/29/17 22:58 Dose: 100 mls/hr Dextrose (Dextrose 5% In Water 1000 Ml) 1,000 mls @ 100 mls/hr IV .Q10H [facility] Last Admin: 01/30/17 06:09 Dose: Not Given Potassium Chloride (Potassium Chloride 20 Meq/100 Ml) 100 mls @ 50 mls/hr IVPB Q2H [facility] Stop: 01/30/17 11:59 Last Admin: 01/30/17 08:32 Dose: 50 mls/hr Ampicillin Sodium/Sulbactam (Sodium 3 gm/ Sodium Chloride) 100 mls @ 200 mls/ hr IVPB Q6 [facility] PRN Reason: Protocol Stop: 02/06/17 08:16 Latanoprost (Xalatan Opht) 0.02 ml OU HS [facility] Last Admin: 01/29/17 22:59 Dose: 0.02 ml Levetiracetam (Keppra) 500 mg PO BID [facility] Last Admin: 01/29/17 17:07 Dose: 500 mg Lisinopril (Zestril) 5 mg PO DAILY [facility] Metoprolol Succinate (Toprol Xl) 12.5 mg PO BRK [facility] Last Admin: 01/30/17 08:37 Dose: 12.5 mg Mupirocin (Bactroban Ointment) 0 gm TOP BID [facility] Last Admin: 01/29/17 17:07 Dose: 1 appl Potassium Chloride (K-Dur 20 Meq Er Tab) 40 meq PO ONCE ONE Stop: 01/30/17 18:01 Tamsulosin HCl (Flomax) 0.4 mg PO DAILY [facility] Last Admin: 01/29/17 10:11 Dose: 0.4 mg Timolol Maleate (Timoptic 0.5% Oph Soln) 1 drop OS BID [facility] Last Admin: 01/28/17 18:45 Dose: 1 drop - Labs Labs: 01/30/17 06:30 01/30/17 06:30 PT 11.0 Seconds (9.9-11.8) 01/28/17 12:59 INR 1.02 (0.93-1.08) 01/28/17 12:59 APTT 22.7 Seconds (23.7-30.8) L 01/28/17 12:59 - Constitutional Appears: Well, Non-toxic, No Acute Distress - Extremities Exam Additional comments: Vasc: nonpalpable pedal pulses bilaterally, TG wnl, CFT < 3 sec to all digits, no edema, pedal hair absent neuro: grossly diminished derm: superficial ulceration to left lateral 5th metatarsal head measuring 2cm x 1.5cm x 0.2cm with granular base and fibrotic border, no purulence, no probe to bone, no undermining, no malodor, mild serous drainage, no underlying cellulitis, no acute clinical signs of infection pre-ulcerative hyperkeratotic lesion noted to left heel ortho: mild pain on palpation of left lateral foot, contractures of 2nd digits b /l - Neurological Exam Neurological Exam: Alert - Psychiatric Exam Psychiatric exam: Normal Affect, Normal Mood Assessment and Plan - Assessment and Plan (Free Text) Assessment: 89 y/o male seen at bedside for left foot ulceration secondary to pressure Plan: patient evaluated and seen at bedside with attending Dr. Tovar labs and vitals reviewed; afebrile continue IV abx as per ID applied bactroban, optifoam to left foot ulceration, heels b/l ordered multipodus boots to offload heels while in bed podiatry will continue to monitor while patient remains in house <Jackie Tovar - Last Filed: 02/02/17 12:24> Objective - Vital Signs/Intake and Output Vital Signs (last 24 hours): Temp Pulse Resp BP Pulse Ox 97.7 F 80 20 152/79 H 93 L 02/01/17 06:00 02/01/17 09:00 02/01/17 06:00 02/01/17 09:00 02/01/17 06:00 - Labs Labs: 01/31/17 05:30 01/31/17 05:30 PT 11.0 Seconds (9.9-11.8) 01/28/17 12:59 INR 1.02 (0.93-1.08) 01/28/17 12:59 APTT 22.7 Seconds (23.7-30.8) L 01/28/17 12:59 Attending/Attestation - Attestation I have personally seen and examined this patient.: Yes I have fully participated in the care of the patient.: Yes I have reviewed all pertinent clinical information, including history, physical exam and plan: Yes
--- NOTE | 2017-01-30 09:31 | CARD ---
APPROVED REPORT EXAM: Two-dimensional and M-mode echocardiogram with Doppler and color Doppler. Other Information Quality : PoorRhythm : INDICATION HYPOTENSION 2D DIMENSIONS Left Atrium (2D)3.7 (1.6-4.0cm)IVSd1.1 (0.7-1.1cm) LVDd3.5 (3.9-5.9cm)PWd1.2 (0.7-1.1cm) Aortic Valve AoV Peak Ivqqwhvw501.0cm/sAoV VTI27.7cmAO Peak GR.8mmHg LVOT Peak Rzpcmaoe268.0cm/sLVOT VTI21.70cmAO Mean GR.4mmHg Mitral Valve MV E Ymqsjbhj65.4cm/sMV A Zhoqzpei095.0cm/sE/A ratio0.7 TDI E/Lateral E'0.0E/Medial E'0.0 Tricuspid Valve TR Peak Rfzeqapa148bq/sRAP [id number] Peak Gr.29mmHg [id number] LEFT VENTRICLE The left ventricle is normal size. There is normal left ventricular wall thickness. The left ventricular function is normal. The left ventricular ejection fraction is within the normal range. There is normal LV segmental wall motion. RIGHT VENTRICLE The right ventricle is normal size. ATRIA The left atrium size is normal. The right atrium size is normal. AORTIC VALVE The aortic valve is not well visualized. MITRAL VALVE The mitral valve is normal in structure. Mitral annular calcification is mild to moderate. TRICUSPID VALVE The tricuspid valve is normal in structure. There is trace to mild tricuspid regurgitation. PULMONIC VALVE The pulmonic valve is not well visualized. GREAT VESSELS The aortic root is normal in size. PERICARDIAL EFFUSION There is a trace circumferential pericardial effusion. <Conclusion> This is a very limited study. The left ventricle is normal size. There is normal left ventricular wall thickness. The left ventricular function is normal.
[2017-01-30] MEDS: NEPAFENAC OS SCH (10:50)
--- NOTE | 2017-01-30 10:57 | CP.PCM.PN ---
Subjective - Date & Time of Evaluation Date of Evaluation: 01/30/17 Time of Evaluation: 08:50 - Subjective Subjective: Comfortable on a chair, not in distress, afebrile overnight. Objective - Vital Signs/Intake and Output Vital Signs (last 24 hours): Temp Pulse Resp BP Pulse Ox 98.4 F 80 20 147/60 97 01/30/17 06:00 01/30/17 06:00 01/30/17 06:00 01/30/17 06:00 01/30/17 06:00 Intake and Output: 01/30/17 01/30/17 06:59 18:59 Intake Total 1380 Output Total 600 Balance 780 - Medications Medications: Current Medications Albuterol/Ipratropium (Duoneb 3 Mg/0.5 Mg (3 Ml) Ud) 3 ml IH [id number] PRN PRN Reason: Shortness of Breath Albuterol/Ipratropium (Duoneb 3 Mg/0.5 Mg (3 Ml) Ud) 3 ml IH BIDRESP [facility] Last Admin: 01/30/17 07:59 Dose: 3 ml Aspirin (Aspirin Chewable) 81 mg PO DAILY [facility] Last Admin: 01/29/17 10:11 Dose: 81 mg Atorvastatin Calcium (Lipitor) 10 mg PO DIN [facility] Last Admin: 01/29/17 17:07 Dose: 10 mg Home Med (Home Med) 1 unit OS DAILY [facility] Last Admin: 01/29/17 10:11 Dose: 1 unit Doxycycline Hyclate 100 mg/ (Sodium Chloride) 100 mls @ 100 mls/hr IVPB Q12 [facility] PRN Reason: Protocol Last Admin: 01/29/17 22:58 Dose: 100 mls/hr Cefepime HCl (Maxipime 1gm) 100 mls @ 100 mls/hr IVPB Q12 [facility] PRN Reason: Protocol Last Admin: 01/29/17 22:58 Dose: 100 mls/hr Dextrose (Dextrose 5% In Water 1000 Ml) 1,000 mls @ 100 mls/hr IV .Q10H [facility] Last Admin: 01/30/17 06:09 Dose: Not Given Potassium Chloride (Potassium Chloride 20 Meq/100 Ml) 100 mls @ 50 mls/hr IVPB Q2H [facility] Stop: 01/30/17 11:59 Latanoprost (Xalatan Opht) 0.02 ml OU HS [facility] Last Admin: 01/29/17 22:59 Dose: 0.02 ml Levetiracetam (Keppra) 500 mg PO BID [facility] Last Admin: 01/29/17 17:07 Dose: 500 mg Lisinopril (Zestril) 5 mg PO DAILY [facility] Metoprolol Succinate (Toprol Xl) 12.5 mg PO BRK [facility] Last Admin: 01/29/17 08:21 Dose: Not Given Mupirocin (Bactroban Ointment) 0 gm TOP BID [facility] Last Admin: 01/29/17 17:07 Dose: 1 appl Tamsulosin HCl (Flomax) 0.4 mg PO DAILY [facility] Last Admin: 01/29/17 10:11 Dose: 0.4 mg Timolol Maleate (Timoptic 0.5% Oph Soln) 1 drop OS BID [facility] Last Admin: 01/28/17 18:45 Dose: 1 drop - Labs Labs: 01/30/17 06:30 01/30/17 06:30 PT 11.0 Seconds (9.9-11.8) 01/28/17 12:59 INR 1.02 (0.93-1.08) 01/28/17 12:59 APTT 22.7 Seconds (23.7-30.8) L 01/28/17 12:59 - Constitutional Appears: Non-toxic, No Acute Distress - Head Exam Head Exam: NORMAL INSPECTION - Neck Exam Neck Exam: absent: Lymphadenopathy, Meningismus - Respiratory Exam Respiratory Exam: Decreased Breath Sounds - Cardiovascular Exam Cardiovascular Exam: +S1, +S2 - GI/Abdominal Exam GI & Abdominal Exam: Soft. 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
--- NOTE | 2017-01-30 13:35 | CP.PCM.CON ---
History of Present Illness - History of Present Illness History of Present Illness: Palliative services consulted by Dr Eulalia Diez Reason: Advance care planning 89 year old male sent from home due to increasing weakness and cough. Wrpup revealed patient t have speis secondary to UTI. He was hypotensive on admission. PMHx:Dementia, CAD, HTN, hyperlipidemia, carotid stenosis s/p bilateral carotid endarterectomy CVA, glaucoma,subarachnoid hemorrhage, seizure disorder, ANIL, left hip replacement. Social History: Former smoker,no alcohol or drug use.,lives with his daughter Gisselle Hu. Family History: Unknown. Advance Care Planning: Daughter states the patient has an Advance Directive. He is a full code. Review Of Systems: Unremarkable, negative. Past Patient History - Infectious Disease Hx of Infectious Diseases: None - Tetanus Immunizations Tetanus Immunization: Unknown - Past Social History Smoking Status: Former Smoker - CARDIAC Hx Cardiac Disorders: Yes Hx Congestive Heart Failure: Yes Hx Hypercholesterolemia: No Hx Hypertension: Yes - PULMONARY Hx Chronic Obstructive Pulmonary Disease (COPD): Yes Hx Pneumonia: No - NEUROLOGICAL HX Cerebrovascular Accident: Yes - HEENT Hx HEENT Problems: Yes Hx Blind: Yes (left eye opaque) Hx Cataracts: Yes (left eye) Hx Glaucoma: Yes - RENAL Hx Renal Failure: No - ENDOCRINE/METABOLIC Hx Diabetes Mellitus Type 1: No Hx Diabetes Mellitus Type 2: No Hx Hypothyroidism: No - HEMATOLOGICAL/ONCOLOGICAL Hx Cancer: No - INTEGUMENTARY Hx Dermatological Problems: Yes Other/Comment: R decubiti buttock SCARRED and heel healed, multiple skin discolorations ble and knees, left 2nd toe callous x2 brown in color, dry toenails b/l elbows brown discolored skin, brown skin to buttocks. 317 LEFT BUTTOCK WITH DTI,DEEP BURGUNDY COLOR INTACT SKIN.LEFT SIDE OF PINKY TOE WITH A 1.5 CM OPEN WOUND. SEES A OUTREACH REPRESENTATIVE.TOENAILS DRY. 2ND TOE WITH CALLOUSED SKIN. LEFT NECK AREA HAS A LARGE LUMP MEASUREING 3 CM IN DM SOFT.INTACT. - MUSCULOSKELETAL/RHEUMATOLOGICAL Hx Arthritis: No Hx Rheumatoid Arthritis: No - GASTROINTESTINAL Hx Gastroesophageal Reflux: Yes - GENITOURINARY/GYNECOLOGICAL Hx Genitourinary Disorders: Yes (RETENTION) Hx Incontinence: Yes Hx Prostate Problems: Yes (BPH) - PSYCHIATRIC Hx Psychophysiologic Disorder: Yes Hx Substance Use: No - SURGICAL HISTORY Hx Surgeries: Yes (LEFT NECK LUMP,) Hx Orthopedic Surgery: Yes (Left hip repair) - ANESTHESIA Hx Anesthesia: Yes Hx Anesthesia Reactions: No Hx Malignant Hyperthermia: No Meds Allergies/Adverse Reactions: Allergies Allergy/AdvReac Type Severity Reaction Status Date / Time peanut Allergy Severe ANAPHYLAXIS Verified 01/28/17 17:44 PORK Allergy VOMITING Verified 01/28/17 17:44 - Medications Medications: Current Medications Albuterol/Ipratropium (Duoneb 3 Mg/0.5 Mg (3 Ml) Ud) 3 ml IH [id number] PRN PRN Reason: Shortness of Breath Albuterol/Ipratropium (Duoneb 3 Mg/0.5 Mg (3 Ml) Ud) 3 ml IH BIDRESP [facility] Last Admin: 01/30/17 07:59 Dose: 3 ml Aspirin (Aspirin Chewable) 81 mg PO DAILY [facility] Last Admin: 01/30/17 10:50 Dose: 81 mg Atorvastatin Calcium (Lipitor) 10 mg PO DIN [facility] Last Admin: 01/29/17 17:07 Dose: 10 mg Home Med (Home Med) 1 unit OS DAILY [facility] Last Admin: 01/30/17 10:50 Dose: 1 unit Doxycycline Hyclate 100 mg/ (Sodium Chloride) 100 mls @ 100 mls/hr IVPB Q12 [facility] PRN Reason: Protocol Last Admin: 01/29/17 22:58 Dose: 100 mls/hr Dextrose (Dextrose 5% In Water 1000 Ml) 1,000 mls @ 100 mls/hr IV .Q10H [facility] Last Admin: 01/30/17 06:09 Dose: Not Given Ampicillin Sodium/Sulbactam (Sodium 3 gm/ Sodium Chloride) 100 mls @ 200 mls/ hr IVPB Q6 [facility] PRN Reason: Protocol Stop: 02/06/17 08:16 Last Admin: 01/30/17 08:20 Dose: 200 mls/hr Latanoprost (Xalatan Opht) 0.02 ml OU HS [facility] Last Admin: 01/29/17 22:59 Dose: 0.02 ml Levetiracetam (Keppra) 500 mg PO BID [facility] Last Admin: 01/30/17 10:50 Dose: 500 mg Lisinopril (Zestril) 5 mg PO DAILY [facility] Metoprolol Succinate (Toprol Xl) 12.5 mg PO BRK [facility] Last Admin: 01/30/17 08:37 Dose: 12.5 mg Mupirocin (Bactroban Ointment) 0 gm TOP BID [facility] Last Admin: 01/30/17 10:53 Dose: Not Given Potassium Chloride (K-Dur 20 Meq Er Tab) 40 meq PO ONCE ONE Stop: 01/30/17 18:01 Tamsulosin HCl (Flomax) 0.4 mg PO DAILY [facility] Last Admin: 01/30/17 10:50 Dose: 0.4 mg Timolol Maleate (Timoptic 0.5% Ophth Soln) 1 drop OS BID [facility] Last Admin: 01/28/17 18:45 Dose: 1 drop Physical Exam - Constitutional Appears: Cachectic, Chronically Ill - Eye Exam Eye Exam: Normal appearance, PERRL - ENT Exam ENT Exam: Mucous Membranes Moist - Neck Exam Neck exam: Positive for: Normal Inspection - Respiratory Exam Respiratory Exam: Decreased Breath Sounds, NORMAL BREATHING PATTERN - Cardiovascular Exam Cardiovascular Exam: REGULAR RHYTHM, +S1, +S2, Systolic Murmur - GI/Abdominal Exam GI & Abdominal Exam: Normal Bowel Sounds, Soft - Extremities Exam Additional comments: left hemiparesis - Back Exam Back exam: NORMAL INSPECTION - Skin Skin Exam: Dry Additional comments: small open wound right buttock - Additional Findings Additional findings: Palliative performance scale rang 30% Results - Vital Signs Recent Vital Signs: Last Vital Signs Temp 98.4 F 01/30/17 06:00 Pulse 88 01/30/17 08:37 Resp 20 01/30/17 06:00 BP 120/58 L 01/30/17 08:37 Pulse Ox 97 01/30/17 06:00 - Labs Result Diagrams: 01/30/17 06:30 01/30/17 06:30 Labs: Laboratory Results - last 24 hr 01/30/17 06:30 WBC 9.4 RBC 3.44 L Hgb 10.5 L Hct 32.3 L MCV 93.9 MCH 30.5 MCHC 32.5 RDW 13.8 Plt Count 194 MPV 9.7 Sodium 148 Potassium 3.1 L Chloride 115 H Carbon Dioxide 24 Anion Gap 12 BUN 16 Creatinine 0.8 Est GFR ( Amer) > 60 Est GFR (Non-Af Amer) > 60 Random Glucose 97 Calcium 8.8 Total Bilirubin 0.5 AST 30 ALT 23 Alkaline Phosphatase 148 H Total Protein 6.5 Albumin 2.9 L Globulin 3.6 Albumin/Globulin Ratio 0.8 L Assessment & Plan - Assessment and Plan (Free Text) Assessment: 89 year old male admitted with UTI, weakness, dehydration, hypotension. The patient is sitting in chair. He responds to simple questions. Appetite fair , swallowing pudding without difficulty. Patient's daughter Iris at bedside. She is her father's multimedia designer direct care staffer and health care proxy. She states that her father has been through a lot over the past few years but feels he still has good quality of life. She states he has an Advanced Directive at home. When asked of her father's wishes she states he wants "everything done". She understands that this means aggressive measures such as CPR, intubation and mechanical ventilation.Benefits and burdens of these interventions explained. Daughter wants her father to remain a full code at this time. Time spent discussing goals of care and advance care planning with daughter, 20 minutes Plan: No new recommendations. Thank you for allowing me to participate in this patients care
[2017-01-30] MEDS: Latanoprost 2.5 ml Opht Soln OU SCH (21:47)
[2017-01-31] MEDS: Ampicillin/Sulbactam 3 GM in Sodium Chloride 0.9% 100 ML IVPB SCH ×4 (00:58→18:32)
[2017-01-31 06:48] LABS: HEMATOCRIT 32.3 % (42.0-52.0); MEAN CORPUSCULAR HEMOGLOBIN 30.8 pg (25.0-35.0); MEAN CORPUSCULAR HGB CONC 33.4 g/dl (31.0-37.0); MEAN PLATELET VOLUME 9.4 fl (7.0-11.0); RED CELL DISTRIBUTION WIDTH 13.9 % (11.5-14.5); WHITE BLOOD COUNT 7.3 10^3/ul (4.5-11.0)
[2017-01-31 07:01] LABS: ALB/GLOB RATIO 0.8 (1.1-1.8); ALKALINE PHOSPHATASE 143 U/L (38-133); ALT/SGPT 22 U/L (7-56); AST/SGOT 24 U/L (15-59); BILIRUBIN,TOTAL 0.5 mg/dL (0.2-1.3); BLOOD UREA NITROGEN 10 mg/dL (7-21); CALCIUM 8.5 mg/dL (8.4-10.5); CARBON DIOXIDE 25 mmol/L (21-33); CHLORIDE 110 mmol/L (98-107); GFR AFRICAN-AMERICAN > 60; GLUCOSE,RANDOM 88 mg/dL (70-110); MAGNESIUM 1.9 mg/dL (1.7-2.2); POTASSIUM 3.5 mmol/L (3.6-5.0); SODIUM 141 mmol/L (132-148)
[2017-01-31] MEDS: Metoprolol Succinate 25 mg XL Tab PO SCH (08:04)
--- NOTE | 2017-01-31 08:29 | CP.PCM.PN ---
Subjective - Date & Time of Evaluation Date of Evaluation: 01/31/17 Time of Evaluation: 08:00 - Subjective Subjective: Stable on 2R. No CP or SOB reported. V/S noted. PE: Lungs: clear Cor.: S1S2 Abd.: soft Ext.: no edema Neuro.; confusion I/O= 1680/350 Labs noted: K+= 3.5 BC x2 NG at 48 hrs. Urine C+S: + Enterococcus faec. Echo: Very limited study. NL LV fx. Objective - Vital Signs/Intake and Output Vital Signs (last 24 hours): Temp Pulse Resp BP Pulse Ox 98.0 F 76 18 143/53 L 97 01/31/17 05:53 01/31/17 08:04 01/31/17 05:53 01/31/17 08:04 01/30/17 06:00 Intake and Output: 01/31/17 01/31/17 06:59 18:59 Intake Total 1680 Output Total 350 Balance 1330 - Medications Medications: Current Medications Albuterol/Ipratropium (Duoneb 3 Mg/0.5 Mg (3 Ml) Ud) 3 ml IH [id number] PRN PRN Reason: Shortness of Breath Last Admin: 01/31/17 08:12 Dose: 3 ml Aspirin (Aspirin Chewable) 81 mg PO DAILY [facility] Last Admin: 01/30/17 10:50 Dose: 81 mg Atorvastatin Calcium (Lipitor) 10 mg PO DIN [facility] Last Admin: 01/30/17 18:20 Dose: 10 mg Home Med (Home Med) 1 unit OS DAILY [facility] Last Admin: 01/30/17 10:50 Dose: 1 unit Doxycycline Hyclate 100 mg/ (Sodium Chloride) 100 mls @ 100 mls/hr IVPB Q12 [facility] PRN Reason: Protocol Last Admin: 01/30/17 21:46 Dose: 100 mls/hr Dextrose (Dextrose 5% In Water 1000 Ml) 1,000 mls @ 100 mls/hr IV .Q10H [facility] Last Admin: 01/30/17 21:55 Dose: 100 mls/hr Ampicillin Sodium/Sulbactam (Sodium 3 gm/ Sodium Chloride) 100 mls @ 200 mls/ hr IVPB Q6 [facility] PRN Reason: Protocol Stop: 02/06/17 08:16 Last Admin: 01/31/17 06:04 Dose: 200 mls/hr Latanoprost (Xalatan Opht) 0.02 ml OU HS [facility] Last Admin: 01/30/17 21:47 Dose: 0.02 ml Levetiracetam (Keppra) 500 mg PO BID [facility] Last Admin: 01/30/17 18:20 Dose: 500 mg Lisinopril (Zestril) 5 mg PO DAILY [facility] Metoprolol Succinate (Toprol Xl) 12.5 mg PO BRK [facility] Last Admin: 01/31/17 08:04 Dose: 12.5 mg Mupirocin (Bactroban Ointment) 0 gm TOP BID [facility] Last Admin: 01/30/17 18:30 Dose: Not Given Tamsulosin HCl (Flomax) 0.4 mg PO DAILY [facility] Last Admin: 01/30/17 10:50 Dose: 0.4 mg Timolol Maleate (Timoptic 0.5% Oph Soln) 1 drop OS BID [facility] Last Admin: 01/28/17 18:45 Dose: 1 drop - Labs Labs: 01/31/17 05:30 01/31/17 05:30 PT 11.0 Seconds (9.9-11.8) 01/28/17 12:59 INR 1.02 (0.93-1.08) 01/28/17 12:59 APTT 22.7 Seconds (23.7-30.8) L 01/28/17 12:59 Assessment and Plan - Assessment and Plan (Free Text) Plan: Assessment; Weak/Initial hypotension/Urosepsis Hypernatremia/Hypokalemia CAD/CABG HBP HLD Dementia Seizure Disorder UTI's/Indwelling Mcintosh CVA CVD/Bilat CEA's SAH Left THR Former Smoker Toe ulceration Glaucoma Plan: AB PO KCL Monitor I/O, labs, cultures, etc. As per Dr. Diez, ID, Podiatry Conservative cardiac care anticipated. Can D/C tel.
[2017-01-31] MEDS ORDERED: Potassium Chloride 20 mEq ER Tab PO ONE ×2 (08:44→10:00)
[2017-01-31] MEDS: NEPAFENAC OS SCH ×3 (09:46→10:18)
--- NOTE | 2017-01-31 11:19 | DS ---
This is an 89-year-old male who had come into the hospital with sepsis. The patient was found to hav e a urinary tract infection secondary to Enterococcus faecalis. It was sensitive to ampicillin. The patient had improvement of his symptoms. He was much more awake and alert. He was seen by Johanna Schreiber for end-of-life evaluation, and the patient's daughter did not wish to m po him DNR; would prefer a Full Code. The patient is currently comfortable. He has no complaints o f any headaches, or dizziness, no nausea. Temperature is 98, pulse of 76, blood pressure is 143/53, respirations 18. GENERAL: The patient comfortable, in no acute distress. HEENT: Anicteric sclerae. Moist mucosa. NECK: No JVD or adenopathy. CARDIAC: S1/S2. No murmurs. No rubs. Regular. RESPIRATORY: Clear to auscultation bilaterally. No wheezes, rales, or rhonchi. Good air entry. ABDOMEN: Bowel sounds are positive, soft, nontender, and nondistended. EXTREMITIES: No edema. Has 1+ pulses. The left foot: There is a foot ulceration. In the left h ip and right, there is a small stage I pressure ulcer. ASSESSMENT: 1. Urinary tract infection secondary to Enterococcus faecalis. 2. Sepsis. 3. Left 5th toe 2 x 1.5 cm foot ulceration. 4. Sacral pressure ulcer, stage I. 5. Delirium, resolved. 6. Dementia, vascular type. 7. Left arm and left leg contractures. 8. Hypotension, improved. 9. Dyslipidemia. 10. Seizure disorder. 11. Gastroesophageal reflux disease. 12. Gastroesophageal reflux disease. 13. Frailty. 14. Hypernatremia, improved. PLAN: The patient is currently comfortable. He is able to take p.o. antibiotics. I will see if ID is comfortable changing the patient to oral antibiotics. The patient is currently on nebulizer treat ments. He is going to be on Keppra for his seizures. He is on Lipitor for dyslipidemia. He is on h is eye drops, latanoprost 0.05%. The patient's Zestril has been on hold because of his hypertension. He is on a pureed diet, but this is because he was confused when he first came in. He should be ab le to take in a regular diet. The patient was also seen by physical therapy, and he does not qualify for physical therapy because of his spastic tone in the left upper extremity and lower extremity, bu t he does not have much skill for inpatient rehabilitation. CONDITION: Stable. ACTIVITIES: Increase as tolerated. FOLLOWUP: With primary care doctor in 1-2 weeks after discharge. Jerome Diez MD cc: [id number] TT: 01/31/2017 11:19:10 jn
--- NOTE | 2017-01-31 11:31 | PQF GENQUE ---
This form is a permanent part of the medical record Dr. Garay, Patient admitted with UTI with hx chronic klein catheter use. Please specify, if possible, if the UTI is a catheter associated infection so coding can be more accurate. Also the term "urosepsis" has been used. Is this a localized UTI or sepsis infection secondary to urinary source? Clarification of your documentation is requested to better reflect the severity of illness and intensity of treatment of your patient. Indicators present [] Specify: [] [] Specify: [] [] Specify: [] [] Specify: [] Location in the medical record that reflects the above clinical findings: [] Treatment Provided: [] PHYSICIAN'S RESPONSE Based on your medical judgment of the clinical indicators outlined above please clarify the following: [] Practitioner response [] If unable to determine, please check the box, sign and date. Present On Admission (POA) Indicator: [] Present at the time of admission [X] Not present at the time of admission [] Clinically Undetermined Patient has UTI not related to catheter. In responding to this query, please exercise your independent professional judgment. The fact that a question is asked does not imply that any particular answer is desired or expected. Thank you for your clarification on this documentation. If you have any questions please call:[ ] * Thank you, [ ]Diamante Byrne [facility] #[id number] thrill performer AWA
--- NOTE | 2017-01-31 12:40 | CP.PCM.PN ---
Subjective - Date & Time of Evaluation Date of Evaluation: 01/31/17 Time of Evaluation: 09:05 - Subjective Subjective: Comfortable in bed, not in distress, no fevers, feeling a little better. Objective - Vital Signs/Intake and Output Vital Signs (last 24 hours): Temp Pulse Resp BP Pulse Ox 98.0 F 76 18 143/53 L 97 01/31/17 05:53 01/31/17 08:04 01/31/17 05:53 01/31/17 08:04 01/30/17 06:00 Intake and Output: 01/31/17 01/31/17 06:59 18:59 Intake Total 1680 Output Total 350 Balance 1330 - Medications Medications: Current Medications Albuterol/Ipratropium (Duoneb 3 Mg/0.5 Mg (3 Ml) Ud) 3 ml IH [id number] PRN PRN Reason: Shortness of Breath Last Admin: 01/31/17 08:12 Dose: 3 ml Aspirin (Aspirin Chewable) 81 mg PO DAILY [facility] Last Admin: 01/30/17 10:50 Dose: 81 mg Atorvastatin Calcium (Lipitor) 10 mg PO DIN [facility] Last Admin: 01/30/17 18:20 Dose: 10 mg Home Med (Home Med) 1 unit OS DAILY [facility] Last Admin: 01/30/17 10:50 Dose: 1 unit Doxycycline Hyclate 100 mg/ (Sodium Chloride) 100 mls @ 100 mls/hr IVPB Q12 [facility] PRN Reason: Protocol Last Admin: 01/30/17 21:46 Dose: 100 mls/hr Dextrose (Dextrose 5% In Water 1000 Ml) 1,000 mls @ 100 mls/hr IV .Q10H [facility] Last Admin: 01/30/17 21:55 Dose: 100 mls/hr Ampicillin Sodium/Sulbactam (Sodium 3 gm/ Sodium Chloride) 100 mls @ 200 mls/ hr IVPB Q6 [facility] PRN Reason: Protocol Stop: 02/06/17 08:16 Last Admin: 01/31/17 06:04 Dose: 200 mls/hr Latanoprost (Xalatan Opht) 0.02 ml OU HS [facility] Last Admin: 01/30/17 21:47 Dose: 0.02 ml Levetiracetam (Keppra) 500 mg PO BID [facility] Last Admin: 01/30/17 18:20 Dose: 500 mg Lisinopril (Zestril) 5 mg PO DAILY [facility] Metoprolol Succinate (Toprol Xl) 12.5 mg PO BRK [facility] Last Admin: 01/31/17 08:04 Dose: 12.5 mg Mupirocin (Bactroban Ointment) 0 gm TOP BID [facility] Last Admin: 01/30/17 18:30 Dose: Not Given Tamsulosin HCl (Flomax) 0.4 mg PO DAILY [facility] Last Admin: 01/30/17 10:50 Dose: 0.4 mg Timolol Maleate (Timoptic 0.5% Ophth Soln) 1 drop OS BID [facility] Last Admin: 01/28/17 18:45 Dose: 1 drop - Labs Labs: 01/31/17 05:30 01/31/17 05:30 PT 11.0 Seconds (9.9-11.8) 01/28/17 12:59 INR 1.02 (0.93-1.08) 01/28/17 12:59 APTT 22.7 Seconds (23.7-30.8) L 01/28/17 12:59 - Constitutional Appears: Non-toxic, No Acute Distress - Head Exam Head Exam: NORMAL INSPECTION - ENT Exam ENT Exam: Mucous Membranes Moist - Neck Exam Neck Exam: absent: Lymphadenopathy, Meningismus - Respiratory Exam Respiratory Exam: Decreased Breath Sounds - Cardiovascular Exam Cardiovascular Exam: +S1, +S2 - GI/Abdominal Exam GI & Abdominal Exam: Soft. 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 Ortiz, patient can be switched to PO Augmentin or Ampicillin, PSA level should be followed up Will follow clinically while the patient is in the hospital
--- NOTE | 2017-01-31 14:23 | CP.PCM.PN ---
<Jasmin Sweet - Last Filed: 01/31/17 14:21> Subjective - Date & Time of Evaluation Date of Evaluation: 01/31/17 Time of Evaluation: 14:22 - Subjective Subjective: 89 year old male seen at bedside for left foot ulceration. Patient awake and alert but unable to respond to questioning at this time. patient appears in NAD. dressing appears clean,dry,intact Objective - Vital Signs/Intake and Output Vital Signs (last 24 hours): Temp Pulse Resp BP Pulse Ox 97.1 F L 113 H 19 163/73 H 97 01/31/17 12:00 01/31/17 12:00 01/31/17 12:00 01/31/17 12:00 01/30/17 06:00 Intake and Output: 01/31/17 01/31/17 06:59 18:59 Intake Total 1680 Output Total 350 Balance 1330 - Medications Medications: Current Medications Albuterol/Ipratropium (Duoneb 3 Mg/0.5 Mg (3 Ml) Ud) 3 ml IH [id number] PRN PRN Reason: Shortness of Breath Last Admin: 01/31/17 08:12 Dose: 3 ml Aspirin (Aspirin Chewable) 81 mg PO DAILY [facility] Last Admin: 01/31/17 09:44 Dose: 81 mg Atorvastatin Calcium (Lipitor) 10 mg PO DIN [facility] Last Admin: 01/30/17 18:20 Dose: 10 mg Home Med (Home Med) 1 unit OS DAILY [facility] Last Admin: 01/31/17 10:18 Dose: 1 unit Doxycycline Hyclate 100 mg/ (Sodium Chloride) 100 mls @ 100 mls/hr IVPB Q12 [facility] PRN Reason: Protocol Last Admin: 01/31/17 09:45 Dose: 100 mls/hr Dextrose (Dextrose 5% In Water 1000 Ml) 1,000 mls @ 100 mls/hr IV .Q10H [facility] Last Admin: 01/30/17 21:55 Dose: 100 mls/hr Ampicillin Sodium/Sulbactam (Sodium 3 gm/ Sodium Chloride) 100 mls @ 200 mls/ hr IVPB Q6 [facility] PRN Reason: Protocol Stop: 02/06/17 08:16 Last Admin: 01/31/17 11:21 Dose: 200 mls/hr Latanoprost (Xalatan Opht) 0.02 ml OU HS [facility] Last Admin: 01/30/17 21:47 Dose: 0.02 ml Levetiracetam (Keppra) 500 mg PO BID [facility] Last Admin: 01/31/17 09:45 Dose: 500 mg Lisinopril (Zestril) 5 mg PO DAILY [facility] Metoprolol Succinate (Toprol Xl) 12.5 mg PO BRK [facility] Last Admin: 01/31/17 08:04 Dose: 12.5 mg Mupirocin (Bactroban Ointment) 0 gm TOP BID [facility] Last Admin: 01/31/17 09:38 Dose: Not Given Tamsulosin HCl (Flomax) 0.4 mg PO DAILY [facility] Last Admin: 01/31/17 09:44 Dose: 0.4 mg Timolol Maleate (Timoptic 0.5% Oph Soln) 1 drop OS BID [facility] Last Admin: 01/28/17 18:45 Dose: 1 drop - Labs Labs: 01/31/17 05:30 01/31/17 05:30 PT 11.0 Seconds (9.9-11.8) 01/28/17 12:59 INR 1.02 (0.93-1.08) 01/28/17 12:59 APTT 22.7 Seconds (23.7-30.8) L 01/28/17 12:59 - Constitutional Appears: Well, Non-toxic, No Acute Distress - Extremities Exam Additional comments: Vasc: nonpalpable pedal pulses bilaterally, TG wnl, CFT < 3 sec to all digits, no edema, pedal hair absent neuro: grossly diminished derm: superficial ulceration to left lateral 5th metatarsal head measuring 2cm x 1.5cm x 0.2cm with granular base and fibrotic border, no purulence, no probe to bone, no undermining, no malodor, mild serous drainage, no underlying cellulitis, no acute clinical signs of infection pre-ulcerative hyperkeratotic lesion noted to left heel ortho: mild pain on palpation of left lateral foot, contractures of 2nd digits b /l - Neurological Exam Neurological Exam: Alert, Awake, Oriented x3 - Psychiatric Exam Psychiatric exam: Normal Affect, Normal Mood Assessment and Plan - Assessment and Plan (Free Text) Assessment: 89 y/o male seen at bedside for left foot ulceration secondary to pressure Plan: patient evaluated discussed in detail with attending Dr. Arloro labs and vitals reviewed; afebrile continue IV abx as per ID applied bactroban, optifoam to left foot ulceration, heels b/l ordered multipodus boots to offload heels while in bed podiatry will continue to monitor while patient remains in house <Kvng Sinclair - Last Filed: 01/31/17 14:46> Objective - Vital Signs/Intake and Output Vital Signs (last 24 hours): Temp Pulse Resp BP Pulse Ox 97.1 F L 113 H 19 163/73 H 97 01/31/17 12:00 01/31/17 12:00 01/31/17 12:00 01/31/17 12:00 01/30/17 06:00 Intake and Output: 01/31/17 01/31/17 06:59 18:59 Intake Total 1680 Output Total 350 Balance 1330 - Medications Medications: Current Medications Albuterol/Ipratropium (Duoneb 3 Mg/0.5 Mg (3 Ml) Ud) 3 ml IH [id number] PRN PRN Reason: Shortness of Breath Last Admin: 01/31/17 08:12 Dose: 3 ml Aspirin (Aspirin Chewable) 81 mg PO DAILY [facility] Last Admin: 01/31/17 09:44 Dose: 81 mg Atorvastatin Calcium (Lipitor) 10 mg PO DIN [facility] Last Admin: 01/30/17 18:20 Dose: 10 mg Home Med (Home Med) 1 unit OS DAILY [facility] Last Admin: 01/31/17 10:18 Dose: 1 unit Doxycycline Hyclate 100 mg/ (Sodium Chloride) 100 mls @ 100 mls/hr IVPB Q12 [facility] PRN Reason: Protocol Last Admin: 01/31/17 09:45 Dose: 100 mls/hr Dextrose (Dextrose 5% In Water 1000 Ml) 1,000 mls @ 100 mls/hr IV .Q10H [facility] Last Admin: 01/30/17 21:55 Dose: 100 mls/hr Ampicillin Sodium/Sulbactam (Sodium 3 gm/ Sodium Chloride) 100 mls @ 200 mls/ hr IVPB Q6 [facility] PRN Reason: Protocol Stop: 02/06/17 08:16 Last Admin: 01/31/17 11:21 Dose: 200 mls/hr Latanoprost (Xalatan Opht) 0.02 ml OU HS [facility] Last Admin: 01/30/17 21:47 Dose: 0.02 ml Levetiracetam (Keppra) 500 mg PO BID [facility] Last Admin: 01/31/17 09:45 Dose: 500 mg Lisinopril (Zestril) 5 mg PO DAILY [facility] Metoprolol Succinate (Toprol Xl) 12.5 mg PO BRK [facility] Last Admin: 01/31/17 08:04 Dose: 12.5 mg Mupirocin (Bactroban Ointment) 0 gm TOP BID [facility] Last Admin: 01/31/17 09:38 Dose: Not Given Tamsulosin HCl (Flomax) 0.4 mg PO DAILY [facility] Last Admin: 01/31/17 09:44 Dose: 0.4 mg Timolol Maleate (Timoptic 0.5% Oph Soln) 1 drop OS BID [facility] Last Admin: 01/28/17 18:45 Dose: 1 drop - Labs Labs: 01/31/17 05:30 01/31/17 05:30 PT 11.0 Seconds (9.9-11.8) 01/28/17 12:59 INR 1.02 (0.93-1.08) 01/28/17 12:59 APTT 22.7 Seconds (23.7-30.8) L 01/28/17 12:59 Attending/Attestation - Attestation I have personally seen and examined this patient.: Yes I have fully participated in the care of the patient.: Yes I have reviewed all pertinent clinical information, including history, physical exam and plan: Yes
[2017-01-31 17:01] VITALS: RESP 20
[2017-01-31] MEDS: Latanoprost 2.5 ml Opht Soln OU SCH (23:18)
[2017-02-01] MEDS: Ampicillin/Sulbactam 3 GM in Sodium Chloride 0.9% 100 ML IVPB SCH ×2 (01:05→06:10)
[2017-02-01 06:09] VITALS: TEMP 97.7; O2SAT 93
--- NOTE | 2017-02-01 08:36 | CP.PCM.PN ---
Subjective - Date & Time of Evaluation Date of Evaluation: 02/01/17 Time of Evaluation: 08:20 - Subjective Subjective: 89 year old male seen at bedside for left foot ulceration. Patient sleeping upon arrival, reacting to tactile and verbal mstimuli, but unable to respond to questioning at this time. Patient appears in NAD and resting comfortably. Objective - Vital Signs/Intake and Output Vital Signs (last 24 hours): Temp Pulse Resp BP Pulse Ox 97.7 F 77 20 154/66 H 93 L 02/01/17 06:00 02/01/17 06:00 02/01/17 06:00 02/01/17 06:00 02/01/17 06:00 Intake and Output: 02/01/17 02/01/17 06:59 18:59 Intake Total 420 Output Total 700 Balance -280 - Medications Medications: Current Medications Albuterol/Ipratropium (Duoneb 3 Mg/0.5 Mg (3 Ml) Ud) 3 ml IH [id number] PRN PRN Reason: Shortness of Breath Last Admin: 01/31/17 08:12 Dose: 3 ml Aspirin (Aspirin Chewable) 81 mg PO DAILY [facility] Last Admin: 01/31/17 09:44 Dose: 81 mg Atorvastatin Calcium (Lipitor) 10 mg PO DIN [facility] Last Admin: 01/31/17 18:32 Dose: 10 mg Home Med (Home Med) 1 unit OS DAILY [facility] Last Admin: 01/31/17 10:18 Dose: 1 unit Doxycycline Hyclate 100 mg/ (Sodium Chloride) 100 mls @ 100 mls/hr IVPB Q12 [facility] PRN Reason: Protocol Last Admin: 02/01/17 01:05 Dose: Not Given Dextrose (Dextrose 5% In Water 1000 Ml) 1,000 mls @ 100 mls/hr IV .Q10H [facility] Last Admin: 02/01/17 01:04 Dose: Not Given Ampicillin Sodium/Sulbactam (Sodium 3 gm/ Sodium Chloride) 100 mls @ 200 mls/ hr IVPB Q6 [facility] PRN Reason: Protocol Stop: 02/06/17 08:16 Last Admin: 02/01/17 06:10 Dose: Not Given Latanoprost (Xalatan Opht) 0.02 ml OU HS [facility] Last Admin: 01/31/17 23:18 Dose: 0.02 ml Levetiracetam (Keppra) 500 mg PO BID [facility] Last Admin: 01/31/17 18:32 Dose: 500 mg Lisinopril (Zestril) 5 mg PO DAILY [facility] Metoprolol Succinate (Toprol Xl) 12.5 mg PO BRK [facility] Last Admin: 01/31/17 08:04 Dose: 12.5 mg Mupirocin (Bactroban Ointment) 0 gm TOP BID [facility] Last Admin: 01/31/17 18:40 Dose: Not Given Tamsulosin HCl (Flomax) 0.4 mg PO DAILY [facility] Last Admin: 01/31/17 09:44 Dose: 0.4 mg Timolol Maleate (Timoptic 0.5% Oph Soln) 1 drop OS BID [facility] Last Admin: 01/28/17 18:45 Dose: 1 drop - Labs Labs: 01/31/17 05:30 01/31/17 05:30 PT 11.0 Seconds (9.9-11.8) 01/28/17 12:59 INR 1.02 (0.93-1.08) 01/28/17 12:59 APTT 22.7 Seconds (23.7-30.8) L 01/28/17 12:59 - Constitutional Appears: Well, Non-toxic, No Acute Distress - Extremities Exam Additional comments: VASC: Non-palpable pedal pulses bilaterally, TG wnl, CFT < 3 sec to all digits , no edema, pedal hair absent NEURO: grossly diminished DERM: Superficial ulceration to left lateral 5th metatarsal head measuring 2cm x 1.2cm x 0.1cm with granular base and fibrotic border, no purulence, no probe to bone, no undermining, no malodor, mild serous drainage, no underlying cellulitis, no acute clinical signs of infection pre-ulcerative hyperkeratotic lesion noted to left heel MUSCK: mild pain on palpation of left lateral foot, contractures of 2nd digits b /l Assessment and Plan - Assessment and Plan (Free Text) Assessment: 89 y/o male seen at bedside for left foot ulceration secondary to pressure Plan: Patient evaluated & treated at bedside, with attending Dr. Sinclair present. Chart , labs, and vitals reviewed. Labs and vitals reviewed; afebrile Continue IV abx as per ID Applied bactroban, optifoam to left foot ulceration, heels b/l Ordered multipodus boots to offload heels while in bed Podiatry will continue to monitor while patient remains in house
[2017-02-01] MEDS: Metoprolol Succinate 25 mg XL Tab PO SCH (08:54)
[2017-02-01] MEDS: NEPAFENAC OS SCH (09:01)
[2017-02-01 09:08] VITALS: BP 152/79; PULSE 80
--- NOTE | 2017-02-02 00:08 | PN ---
DATE: 02/01/2017 HISTORY OF PRESENT ILLNESS: The patient was admitted to the hospital with sepsis. He was found to h ave UTI with Enterococcus faecalis. He was treated with IV antibiotics, symptoms improved. He was f ound to have elevated PSA of 72. He has prior history of seizure disorder and subarachnoid hemorrhag e and CVA. He also has anemia with hemoglobin of 10.8. PAST MEDICAL HISTORY: Seizure disorder, GE reflux, recurrent UTI, dementia, CVA. PAST SURGICAL HISTORY: Left hip replacement. SOCIAL HISTORY: No history of smoking, drinking. Lives with a daughter at home. FAMILY HISTORY: Negative in mother, father. CURRENT MEDICATIONS: Augmentin q. 6 hours, aspirin 81 mg daily, Lipitor 10 mg daily, doxycycline 100 daily, lisinopril 5 daily, metoprolol 12.5 scheduled, Flomax 0.4 mg daily, DuoNeb 3 mL q. 4 hours p. r.n. REVIEW OF SYSTEMS: As per HPI. PHYSICAL EXAMINATION: GENERAL: Comfortable in bed, in no acute distress. VITAL SIGNS: Temperature 97.8, heart rate is 80 per minute, blood pressure 150/79, oxygen saturation 93% on oxygen via nasal cannula. HEENT: Normal. NECK: No lymphadenopathy. CARDIOVASCULAR: S1, S2 normal. No murmur, no gallop. LUNGS: Air entry present, equal bilateral. No added sounds. ABDOMEN: Soft, nontender, no hepatosplenomegaly. EXTREMITIES: Left leg contractions. SKIN: No edema. NEUROLOGIC: Cannot be assessed. VASCULAR: 2+ pulsations, pedal. SKIN: No erythema. LYMPHADENOPATHY: None. LABORATORY DATA: White count 7.3, hemoglobin 10.8, hematocrit 32.3, MCV 92, platelet count 178. Sod ium 141, potassium 3.5, BUN 10, creatinine 0.8. Total bilirubin 0.5, alkaline phosphatase 143. PSA 96.9. ASSESSMENT: 1. Anemia. 2. Elevated prostate-specific antigen. 3. Urinary tract infection. 4. Hypertension. 5. Gastroesophageal reflux. 6. Dementia. PLAN: Hemoglobin and hematocrit stable during hospitalization. He had anemia and granulocytosis and lymphopenia also. Blood count remains stable. He has mild coagulopathy with mildly elevated PTT. No overt bleeding. He has elevated PSA of 96. Prostate cancer needs to be ruled out. He has a hist ory of CVA, stable. UTI resolved with IV antibiotics. Seizure disorder, none recently. He will be discharged home today. Nellie Corley MD cc: [id number] TT: 02/02/2017 00:07:40 Confirmation # [id number] Dictation # [id number] vn
== END 2017-02-01 10:51 | disposition home or self-care (01) | DRG 872 ==
LOC: ED 12:42 → ERH 15:18 → 2RNO 17:33
PROVIDERS: ADMIT Internal Medicine Nephrology; ATTEND Internal Medicine Nephrology
DX: A41.9 Sepsis, unspecified organism (principal); L89.151 Pressure ulcer of sacral region, stage 1; E87.0 Hyperosmolality and hypernatremia; I11.0 Hypertensive heart disease with heart failure; J44.0 Chronic obstructive pulmonary disease with (acute) lower respiratory infection; I69.354 Hemiplegia and hemiparesis following cerebral infarction affecting left non-dominant side; I50.9 Heart failure, unspecified; N39.0 Urinary tract infection, site not specified; I95.9 Hypotension, unspecified; F01.50 Vascular dementia, unspecified severity, without behavioral disturbance, psychotic disturbance, mood disturbance, and anxiety; E86.0 Dehydration; D64.9 Anemia, unspecified; B95.2 Enterococcus as the cause of diseases classified elsewhere; E78.5 Hyperlipidemia, unspecified; G40.909 Epilepsy, unspecified, not intractable, without status epilepticus; H40.9 Unspecified glaucoma; H54.42 Blindness, left eye, normal vision right eye; I25.10 Atherosclerotic heart disease of native coronary artery without angina pectoris; K21.9 Gastro-esophageal reflux disease without esophagitis; L97.529 Non-pressure chronic ulcer of other part of left foot with unspecified severity; N40.0 Benign prostatic hyperplasia without lower urinary tract symptoms; Z79.899 Other long term (current) drug therapy; Z87.01 Personal history of pneumonia (recurrent); Z87.440 Personal history of urinary (tract) infections; Z87.891 Personal history of nicotine dependence; Z96.642 Presence of left artificial hip joint; Z91.010 Allergy to peanuts; Z87.892 Personal history of anaphylaxis; Z91.018 Allergy to other foods; M20.5X2 Other deformities of toe(s) (acquired), left foot; M20.5X1 Other deformities of toe(s) (acquired), right foot; M24.50 Contracture, unspecified joint; N40.1 Benign prostatic hyperplasia with lower urinary tract symptoms; R33.8 Other retention of urine; R32 Unspecified urinary incontinence; H26.9 Unspecified cataract; R22.1 Localized swelling, mass and lump, neck; Z91.81 History of falling; Z95.1 Presence of aortocoronary bypass graft; J20.9 Acute bronchitis, unspecified; L89.899 Pressure ulcer of other site, unspecified stage; R97.20 Elevated prostate specific antigen [PSA]

== ENCOUNTER 2017-02-26 19:46 | Inpatient (IN) | payer MEDICARE ==
[2017-02-26] MEDS ORDERED: Vancomycin 1gm in NS 250ml 1 GM/250 ML BAG IVPB STA (20:02)
[2017-02-26] MEDS ORDERED: Piperacill/Tazo 4.5gm in NS 4.5 GM/100 ML BAG IVPB STA (20:02)
--- NOTE | 2017-02-26 20:03 | ED PDOC ---
Arrival/HPI - General Time Seen by Provider: 02/26/17 19:47 Historian: EMS - History of Present Illness Narrative History of Present Illness (Text): 02/26/17 20:00 89 year old male with a past medical history that includes hypertension, hyperlipidemia, CVA with right sided deficit, presents to the emergency department with decreasing mental status for the past two days. EMS reports patient's blood pressure was approx 80/40 after 500 cc's and satting in the 80' s in the field. As per EMS, family reports at baseline the patient is alert and oriented x 3. Family also reports patient presented with similar symptoms two weeks ago when he had an "infection." On arrival, patient is arousable by sternal rub but non verbal. Time/Duration: < week Symptom Onset: Gradual Symptom Course: Unchanged Modifying Factors (Text): None Associated Symptoms (Text): None Past Medical History - Provider Review Nursing Documentation Reviewed: Yes - Infectious Disease Hx of Infectious Diseases: None - Tetanus Immunization Tetanus Immunization: Unknown - Cardiac Hx Cardiac Disorders: Yes Hx Congestive Heart Failure: Yes Hx Hypertension: Yes - Pulmonary Hx Chronic Obstructive Pulmonary Disease (COPD): Yes Hx Pneumonia: No - Neurological HX Cerebrovascular Accident: Yes - HEENT Hx HEENT Disorder: Yes Hx Blind: Yes (left eye opaque) Hx Cataracts: Yes (left eye) Hx Glaucoma: Yes - Renal Hx Renal Failure: No - Endocrine/Metabolic Hx Diabetes Mellitus Type 1: No Hx Diabetes Mellitus Type 2: No Hx Hypothyroidism: No - Hematological/Oncological Hx Cancer: No - Integumentary Hx Dermatological Disorder: Yes Other/Comment: R decubiti buttock SCARRED and heel healed, multiple skin discolorations ble and knees, left 2nd toe callous x2 brown in color, dry toenails b/l elbows brown discolored skin, brown skin to buttocks. 01-28-17 LEFT BUTTOCK WITH DTI,DEEP BURGUNDY COLOR INTACT SKIN.LEFT SIDE OF PINKY TOE WITH A 1.5 CM OPEN WOUND. 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 2ND TOE WITH CALLOUSED SKIN. LEFT NECK AREA HAS A LARGE LUMP MEASUREING 3 CM IN DM SOFT.INTACT. - Musculoskeletal/Rheumatological Hx Arthritis: No Hx Rheumatoid Arthritis: No - Gastrointestinal Hx Gastroesophageal Reflux: Yes - Genitourinary/Gynecological Hx Genitourinary Disorders: Yes (RETENTION) Hx Incontinence: Yes Hx Prostate Problems: Yes (BPH) - Psychiatric Hx Psychophysiologic Disorder: Yes Hx Substance Use: No - Surgical History Hx Orthopedic Surgery: Yes (Left hip repair) - Anesthesia Hx Anesthesia: Yes Hx Anesthesia Reactions: No Hx Malignant Hyperthermia: No - Suicidal Assessment Feels Threatened In Home Enviroment: No Family/Social History - Physician Review Nursing Documentation Reviewed: Yes Family/Social History: Unknown Family HX Smoking Status: Former Smoker Hx Alcohol Use: No Hx Substance Use: No Hx Substance Use Treatment: No Allergies/Home Meds Allergies/Adverse Reactions: Allergies peanut Allergy (Severe, Verified 01/28/17 17:44) ANAPHYLAXIS PORK Allergy (Verified 01/28/17 17:44) VOMITING Home Medications: Home Meds Medication Instructions Recorded Confirmed Latanoprost 0.005% Opht [XALATAN 1 drp BOTHEYES HS 06/28/13 01/28/17 2.5 Ml] Lisinopril [Zestril] 5 mg PO DAILY 07/18/16 01/28/17 Metoprolol Succinate [Toprol XL] 0.5 tab PO DAILY 07/18/16 01/31/17 Nepafenac [Ilevro] 1 drop LEFTEYE DAILY 07/18/16 01/31/17 Tamsulosin [Flomax] 0.4 mg PO DAILY 07/18/16 01/31/17 Ipratropium Austin [Ipratropium 1 spray NS PRN PRN 01/18/17 01/28/17 Austin 15 ml] Ampicillin 500 mg PO TID 01/31/17 01/31/17 Review of Systems - Review of Systems Systems not reviewed;Unavailable: Altered Mental Status Physical Exam Vital Signs Reviewed: Yes Vital Signs Temp Pulse Resp BP Pulse Ox 02/27/17 00:00 90 18 100/70 95 02/26/17 22:39 118 H 16 126/80 97 02/26/17 22:27 126/80 02/26/17 20:17 99.7 F H 88 18 130/90 95 02/26/17 20:16 130/90 Appearance: Positive for: Ill-Appearing Mental Status: Positive for: Lethargic - Systems Exam Head: Present: Atraumatic Pupils: Present: PERRL Mouth: Present: Dry Nose (External): Present: Atraumatic Neck: Present: Normal Range of Motion Respiratory/Chest: Present: Clear to Auscultation, Respiratory Distress Cardiovascular: Present: Regular Rate and Rhythm Abdomen: No: Distention Genitourinary Male: Present: Other (klein in place draining concentrated urine) Upper Extremity: No: Edema Lower Extremity: Present: Edema Neurological: Present: Other (opens eyes, localized painful stimulus. chronic left side deficit from old stroke. ) Skin: Present: Dry, Other (decreased skin turgor) Psychiatric: No: Oriented x 3 Medical Decision Making ED Course and Treatment: EKG shows sinus tachycardia at 116 BPM with LAFB (old), no STEMI. Interpreted by me. 02/26/17 21:15 Case discussed with drivers' cash clerk Dr. Bloom who evaluated patient in ER and accepts patient to ICU. Case discussed with interventional radiologist Dr. Nicolas who recommends starting Heparin, getting MELISSA- he will review results tonight. cxr- RLL opacity - Critical Care Critical Care Minutes: 90 minutes - Lab Interpretations Microbiology Results: Microbiology Results 02/26/17 21:00 Blood Blood Culture - Final Corynebacterium Species 02/26/17 21:00 Blood Gram Stain - Final 02/26/17 20:37 Blood Blood Culture - Final Corynebacterium Species 02/26/17 20:37 Blood Gram Stain - Final Lab Results: 02/26/17 20:37 02/26/17 20:37 Lab Results 02/26/17 21:00: Urine Color Yellow, Urine Appearance Sl cloudy, Urine pH 5.5, Ur Specific Ponder >= 1.030, Urine Protein 100 H, Urine Glucose (UA) Negative, Urine Ketones 15 H, Urine Blood Large H, Urine Nitrate Negative, Urine Bilirubin Moderate H, Urine Urobilinogen 1.0 H, Ur Leukocyte Esterase Moderate H , Urine RBC 25 - 30, Urine WBC 2 - 5, Ur Epithelial Cells 0 - 2, Amorphous Sediment Many, Urine Bacteria Many 02/26/17 20:37: Levetiracetam 50.2 02/26/17 20:37: Sodium 153 H, Chloride 120 H, Potassium 4.3, Carbon Dioxide 18 L , Anion Gap 19, BUN 90 H, Creatinine 3.6 H, Est GFR ( Amer) 19, Est GFR ( Non-Af Amer) 16, Random Glucose 190 H, Calcium 8.3 L, Phosphorus 4.0, Magnesium 2.6 H, Total Bilirubin 0.7, AST 33, ALT 39, Alkaline Phosphatase 201 H, Troponin I 0.28 H* D, Total Protein 6.5, Albumin 2.9 L, Globulin 3.6, Albumin/ Globulin Ratio 0.8 L 02/26/17 20:37: pO2 65 H, VBG pH 7.37, VBG pCO2 34.0 L, VBG HCO3 19.7 L, VBG Total CO2 20.7 L, VBG O2 Sat (Calc) 93.8 H, VBG Base Excess -4.8 L, VBG Potassium 4.7, Sodium 152.0 H, Chloride 124.0 H, Glucose 203 H, Lactate 3.0 H, FiO2 21.0, Venous Blood Potassium 4.7 02/26/17 20:37: PT 14.0 H, INR 1.30 H, APTT 25.0 02/26/17 20:37: WBC 18.0 H D, RBC 3.79, Hgb 11.8 L, Hct 35.3 L, MCV 93.1, MCH 31.1, MCHC 33.4, RDW 15.3 H, Plt Count 147, MPV 10.5, Neutrophils % (Manual) 67 , Band Neutrophils % 24 H*, Lymphocytes % (Manual) 7 L, Monocytes % (Manual) 0 L , Metamyelocytes % 2, Platelet Evaluation Normal, Basophilic Stippling 1+ - RAD Interpretation Radiology Orders: 02/26/17 20:02 CHEST PORTABLE [RAD] Stat 02/26/17 20:05 HEAD W/O CONTRAST [CT] Stat - EKG Interpretation Interpreted by ED Physician: Yes Type: 12 lead EKG - Medication Orders Current Medication Orders: Heparin Sodium (Porcine) (Heparin) 5,000 units SC Q12 [facility]ANYA PRN Reason: Protocol Last Admin: 03/01/17 22:16 Dose: 5,000 units Home Med (Home Med) 1 unit OS DAILY [facility] Last Admin: 03/03/17 10:33 Dose: 1 unit Hydromorphone HCl (Dilaudid) 0.5 mg IVP Q4H PRN PRN Reason: Pain, moderate (4-7) Levetiracetam (Keppra 500mg Ivpb) 500 mg in 100 mls @ 400 mls/hr IVPB Q12 [facility] Last Admin: 03/03/17 10:19 Dose: 400 mls/hr Daptomycin 290 mg/ Sodium (Chloride) 100 mls @ 200 mls/hr IV Q48H [facility] Stop: 03/07/17 21:16 Last Admin: 03/02/17 23:35 Dose: 200 mls/hr Meropenem 1g/NS 100mL IVPB (Meropenem 1g/Ns 100ml Ivpb) 1 gm in 100 mls @ 100 mls/hr IVPB Q12 [facility] PRN Reason: Protocol Stop: 03/12/17 10:01 Latanoprost (Xalatan Opht) 0 ml OS HS [facility] Last Admin: 03/02/17 22:42 Dose: 2.5 ml Pantoprazole Sodium (Protonix Inj) 40 mg IVP DAILY [facility] Last Admin: 03/03/17 10:20 Dose: 40 mg Pilocarpine HCl (Isopto Carpine 2% Opht Soln) 0 ml OS DAILY [facility] Last Admin: 03/03/17 10:33 Dose: 1 drop Timolol Maleate (Timoptic 0.5% Ophth Soln) 1 drop OS BID [facility] Last Admin: 03/03/17 18:33 Dose: 1 drop Discontinued Medications Bacitracin (Bacitracin) Confirm Administered Dose 50,000 unit .ROUTE .STK-MED ONE Stop: 03/03/17 12:11 Bupivacaine HCl (Marcaine 0.5%) Confirm Administered Dose 30 ml .ROUTE .STK-MED ONE Stop: 03/03/17 12:11 Last Admin: 03/03/17 13:02 Dose: 15 ml Dextrose (Dextrose 50% Inj) 50 ml IVP ONCE ONE Stop: 02/27/17 05:56 Last Admin: 02/27/17 06:01 Dose: 50 ml Dextrose (Dextrose 50% Inj) Confirm Administered Dose 50 ml .ROUTE .STK-MED ONE Stop: 02/27/17 06:02 Last Admin: 02/27/17 06:12 Dose: Dextrose (Dextrose 50% Inj) 25 ml IVP ONCE ONE Stop: 02/27/17 17:20 Last Admin: 02/27/17 17:43 Dose: 25 ml Dextrose (Dextrose 50% Inj) Confirm Administered Dose 50 ml .ROUTE .STK-MED ONE Stop: 02/28/17 08:06 Last Admin: 02/28/17 08:09 Dose: 50 ml Dextrose (Dextrose 50% Inj) Confirm Administered Dose 50 ml .ROUTE .STK-MED ONE Stop: 02/28/17 09:06 Last Admin: 02/28/17 09:07 Dose: 50 ml Dextrose (Dextrose 50% Inj) Confirm Administered Dose 50 ml .ROUTE .STK-MED ONE Stop: 02/28/17 17:40 Last Admin: 02/28/17 17:43 Dose: 50 ml Dextrose (Dextrose 50% Inj) Confirm Administered Dose 50 ml .ROUTE .STK-MED ONE Stop: 03/01/17 06:01 Last Admin: 03/01/17 06:08 Dose: 50 ml Dextrose (Dextrose 50% Inj) 50 ml IVP ONCE ONE Stop: 03/01/17 06:08 Last Admin: 03/01/17 06:35 Dose: 50 ml Comments: [id number] Dextrose (Dextrose 50% Inj) Confirm Administered Dose 50 ml .ROUTE .STK-MED ONE Stop: 03/01/17 11:40 Last Admin: 03/01/17 11:44 Dose: 50 ml Dextrose (Dextrose 50% Inj) Confirm Administered Dose 50 ml .ROUTE .STK-MED ONE Stop: 03/01/17 14:44 Last Admin: 03/01/17 14:50 Dose: 50 ml Dextrose (Dextrose 50% Inj) 50 ml IVP ONCE ONE Stop: 03/02/17 06:12 Last Admin: 03/02/17 06:21 Dose: 50 ml Dextrose (Dextrose 50% Inj) Confirm Administered Dose 50 ml .ROUTE .STK-MED ONE Stop: 03/02/17 08:21 Last Admin: 03/02/17 08:27 Dose: 50 ml Dextrose (Dextrose 50% Inj) Confirm Administered Dose 50 ml .ROUTE .STK-MED ONE Stop: 03/02/17 16:52 Last Admin: 03/02/17 16:56 Dose: 50 ml Ephedrine (Ephedrine) Confirm Administered Dose 50 mg .ROUTE .STK-MED ONE Stop: 03/03/17 12:15 Etomidate (Amidate) Confirm Administered Dose 20 mg IV .STK-MED ONE Stop: 03/03/17 11:24 Fentanyl (Fentanyl) Confirm Administered Dose 100 mcg .ROUTE .STK-MED ONE Stop: 03/03/17 11:22 Heparin Sodium (Porcine) (Heparin) 4,400 units 80 units/kg (4400 units) IV ONCE ONE PRN Reason: Protocol Stop: 02/26/17 22:43 Last Admin: 02/26/17 22:59 Dose: 4,400 units Hydromorphone HCl (Dilaudid) 0.5 mg IVP Q15M PRN PRN Reason: Pain, moderate (4-7) Stop: 03/03/17 15:23 Norepinephrine Bitartrate 4 mg (/ Sodium Chloride) 254 mls @ 19.05 mls/hr IV .[id number] PRN; Protocol; 5 MCG/MIN PRN Reason: TITRATE PER MD ORDER Last Admin: 02/26/17 20:38 Dose: 19.05 mls/hr Sodium Chloride 2,000 ml/ IV (SUPPLIES) 2,000 mls @ 3,265.86 mls/hr IV ONCE ONE PRN Reason: 60 ML/KG/HR Stop: 02/26/17 20:03 Last Admin: 02/26/17 20:38 Dose: 3,265.86 mls/hr Vancomycin HCl (Vancomycin 1gm) 1 gm in 250 mls @ 167 mls/hr IVPB STAT STA PRN Reason: Protocol Stop: 02/26/17 21:31 Last Admin: 02/26/17 21:28 Dose: 167 mls/hr Piperacillin Sod/Tazobactam Sod (Zosyn 4.5 Gm In Ns 100ml) 4.5 gm in 100 mls @ 200 mls/hr IVPB STAT STA PRN Reason: Protocol Stop: 02/26/17 20:31 Last Admin: 02/26/17 21:05 Dose: 200 mls/hr Azithromycin (Zithromax 500mg In Ns) 500 mg in 250 mls @ 167 mls/hr IVPB STAT STA PRN Reason: Protocol Stop: 02/26/17 23:42 Last Admin: 02/26/17 22:59 Dose: 167 mls/hr Sodium Chloride (Sodium Chloride 0.9%) 1,000 mls @ 999 mls/hr IV .Q1H1M [facility] Stop: 02/26/17 23:38 Last Admin: 02/26/17 22:59 Dose: 999 mls/hr Heparin Sodium/Sodium Chloride (Heparin 25985 Units/250ml 1/2 Normal Saline) 25 ,000 units in 250 mls @ 10.53 mls/hr IV .[id number] PRN; Protocol; 18 UNITS/KG/HR PRN Reason: ADJUST RATE PER PROTOCOL Last Titration: 02/27/17 15:12 Dose: 12 units/kg/hr, 7.02 mls/hr Cefepime HCl 0.5 gm/ Sodium (Chloride) 100 mls @ 100 mls/hr IVPB Q24H [facility] PRN Reason: Protocol Last Admin: 02/27/17 01:05 Dose: 100 mls/hr Vancomycin HCl (Vancomycin 1gm) 1 gm in 250 mls @ 167 mls/hr IVPB Q12H [facility] PRN Reason: Protocol Last Admin: 02/28/17 08:45 Dose: 167 mls/hr Sodium Chloride (Sodium Chloride 0.9%) 500 mls @ 500 mls/hr IV .Q1H [facility] Stop: 02/27/17 05:15 Last Admin: 02/27/17 04:36 Dose: 500 mls/hr Dextrose/Sodium Chloride (Dextrose 5%/0.45% Ns 1000 Ml) 1,000 mls @ 150 mls/hr IV .[id number] [facility] Last Admin: 02/27/17 06:13 Dose: 150 mls/hr Dextrose (Dextrose 5% In Water 1000 Ml) 1,000 mls @ 125 mls/hr IV .Q8H [facility] Last Admin: 03/01/17 02:28 Dose: 125 mls/hr Heparin Sodium/Sodium Chloride (Heparin 18469 Units/250ml 1/2 Normal Saline) 25 ,000 units in 250 mls @ 8.72 mls/hr IV .Q24H PRN; Protocol; 18 UNITS/KG/HR PRN Reason: ADJUST RATE PER PROTOCOL Last Admin: 02/27/17 15:49 Dose: 12 units/kg/hr, 5.813 mls/hr Ceftaroline Fosamil 300 mg/ (Sodium Chloride) 50 mls @ 50 mls/hr IVPB Q12H [facility] PRN Reason: Protocol Stop: 03/08/17 20:01 Last Admin: 03/02/17 21:51 Dose: 50 mls/hr Heparin Sodium (Porcine) (Heparin 1000 Units/500 Ml Ns) Confirm Administered Dose 500 mls @ ud IV .STK-MED ONE Stop: 02/28/17 15:30 Potassium Chloride (Potassium Chloride 20 Meq/100 Ml) 20 meq in 100 mls @ 50 mls/hr IV Q2H [facility] Stop: 03/01/17 13:29 Last Admin: 03/01/17 18:17 Dose: 50 mls/hr Potassium Chloride 40 meq/ (Sodium Chloride) 1,020 mls @ 100 mls/hr IV .[id number] [facility] Last Admin: 03/02/17 05:15 Dose: 100 mls/hr Sodium Chloride (Sodium Chloride 0.9%) 500 mls @ 999 mls/hr IV .Q31M [facility] Stop: 03/01/17 10:17 Last Admin: 03/01/17 10:00 Dose: 999 mls/hr Sodium Chloride (Sodium Chloride 0.9%) 500 mls @ 999 mls/hr IV .Q31M [facility] Stop: 03/01/17 15:33 Last Admin: 03/01/17 15:05 Dose: 999 mls/hr Potassium Phosphate 40 mmole/ (Dextrose/Sodium Chloride) 1,013.3333 mls @ 75 mls/hr IV .[id number] [facility] Potassium Phosphate 20 mmole/ (Dextrose/Sodium Chloride) 1,006.6667 mls @ 75 mls/hr IV .[id number] [facility] Stop: 03/03/17 07:40 Last Admin: 03/03/17 07:08 Dose: 75 mls/hr Ampicillin 2 gm/ Sodium (Chloride) 100 mls @ 200 mls/hr IVPB Q6 [facility] PRN Reason: Protocol Stop: 03/17/17 00:01 Last Admin: 03/03/17 18:33 Dose: 200 mls/hr Potassium Chloride (Potassium Chloride 10 Meq/100 Ml) 10 meq in 100 mls @ 50 mls/hr IVPB Q2H [facility] Stop: 03/03/17 12:29 Last Admin: 03/03/17 11:29 Dose: Lactated Ringer's (Lactated Ringer's) 1,000 mls @ 75 mls/hr IV .[id number] [facility] Stop: 03/03/17 15:24 Lidocaine (Lidocaine (Bolus)) Confirm Administered Dose 100 mg IV .STK-MED ONE Stop: 03/03/17 11:23 Lidocaine HCl (Lidocaine 2% 20ml Vial) Confirm Administered Dose 20 ml .ROUTE .STK-MED ONE Stop: 02/28/17 15:30 Phenylephrine HCl (Phenylephrine Inj) Confirm Administered Dose 10 mg .ROUTE .STK-MED ONE Stop: 03/03/17 11:03 Propofol (Diprivan) Confirm Administered Dose 200 mg .ROUTE .STK-MED ONE Stop: 03/03/17 11:25 Rocuronium Austin (Zemuron) Confirm Administered Dose 50 mg .ROUTE .STK-MED ONE Stop: 03/03/17 11:22 - Scribe Statement The provider has reviewed the documentation as recorded by the Joanne Cooley Provider Scribe Attestation: All medical record entries made by the Joanne were at my direction and personally dictated by me. I have reviewed the chart and agree that the record accurately reflects my personal performance of the history, physical exam, medical decision making, and the department course for this patient. I have also personally directed, reviewed, and agree with the discharge instructions and disposition. Disposition/Present on Arrival - Present on Arrival Any Indicators Present on Arrival: Yes History of DVT/PE: No History of Uncontrolled Diabetes: No Urinary Catheter: Yes History Surgical Site Infection Following: None - Disposition Have Diagnosis and Disposition been Completed?: Yes Diagnosis: UTI (urinary tract infection), Altered mental status, Sepsis, Ischemia of foot , Pneumonia Disposition: HOSPITALIZED Disposition Time: 21:15 Patient Problems: Current Active Problems Problem Status Onset Altered mental status Acute Ischemia of foot Acute Pneumonia Acute Sepsis Acute UTI (urinary tract infection) Acute Condition: CRITICAL
[2017-02-26 20:57] LABS: VENOUS BLOOD GAS BASE EXCESS -4.8 mmol/L (0.0-2.0); VENOUS BLOOD PH 7.37 (7.32-7.43)
[2017-02-26 21:03] LABS: HEMATOCRIT 35.3 % (42.0-52.0); INR 1.3 (0.93-1.08); MEAN CELL VOLUME 93.1 fL (80.0-105.0); MEAN CORPUSCULAR HEMOGLOBIN 31.1 pg (25.0-35.0); MEAN CORPUSCULAR HGB CONC 33.4 g/dl (31.0-37.0); MEAN PLATELET VOLUME 10.5 fl (7.0-11.0); PLATELET COUNT 147 [, 10^3/uL] (120.0-450.0); RED CELL DISTRIBUTION WIDTH 15.3 % (11.5-14.5)
[2017-02-26 21:04] LABS: ADD MANUAL DIFF? YES
[2017-02-26 21:07] LABS: ALB/GLOB RATIO 0.8 (1.1-1.8); BILIRUBIN,TOTAL 0.7 mg/dL (0.2-1.3); CALCIUM 8.3 mg/dL (8.4-10.5); MAGNESIUM 2.6 mg/dL (1.7-2.2); POTASSIUM 4.3 mmol/L (3.6-5.0); TOTAL PROTEIN 6.5 g/dL (5.8-8.3)
[2017-02-26 21:17] LABS: PH,URINE 5.5 (4.7-8.0); URINE BILIRUBIN MODERATE (NEGATIVE); URINE BLOOD LARGE (NEGATIVE); URINE GLUCOSE (UA) NEGATIVE (NEGATIVE); URINE KETONE 15 mg/dL (NEGATIVE); URINE LEUKOCYTE ESTERASE MODERATE Leu/uL (NEGATIVE); URINE PROTEIN 100 mg/dL (<30 mg/dL)
[2017-02-26 21:20] LABS: URINE APPEARANCE SL CLOUDY (CLEAR); URINE COLOR YELLOW (YELLOW)
[2017-02-26 21:21] LABS: TROPONIN I 0.28 ng/mL
[2017-02-26] MEDS ORDERED: Heparin25000 units/250ml 1/2NS 25,000 UNITS/250 ML BAG IV PRN ×2 (21:25→22:42)
[2017-02-26 21:26] LABS: URINE AMORPHOUS SEDIMENT MANY; URINE BACTERIA MANY (NEG); URINE EPITHELIAL CELLS 0 - 2 /hpf (0-5); URINE RBC 25 - 30 /hpf (0-2)
--- NOTE | 2017-02-26 22:01 | CP.PCM.CON ---
<Pallavi Mahajan - Last Filed: 02/27/17 00:30> History of Present Illness - History of Present Illness History of Present Illness: Critical Care Consult note for Dr. Niraj Mahajan, PGY-1 Pt S & E at bedside. History as per daughter at bedside. 89M w/PMH sig for dementia, CAD, HTN, HLD, carotid s/p B/L carotid endarterectomy, CVA, glaucoma, subarachnoid hemorrhage, seizure disorder, GERD, recurrent UTIs w/indwelling Klein, recent HCAP, toe ulceration admitted to ICU for lethargy x 4-5 days. Daughter reports that for the past few days, pt has been hypotensive at home with poor appetite, lethargy, fatigue , weakness, increased sleeping, decreased mobility. Pt is usually in bed or sits in a wheelchair. Daughter notes that dusky appearance of left lower leg/ foot is new- likely within the past 1-2 days. Baseline pt is verbal, however sometimes withdraws into himself. Unable to obtain ROS from pt due to AMS/acuity of condition PMH:Dementia, CAD, HTN, HLD, carotid stenosis s/p B/L carotid endarterectomy, CVA, glaucoma, subarachnoid hemorrhage, seizure disorder, GERD, recurrent UTIs w /indwelling Klein, recent HCAP, toe ulceration PSH: left hip replacement, B/L carotid endarterectomy All: Peanuts (anaphylaxis), pork (emesis) SH: Former tobacco use, no ETOH or illicit drug use. Lives with Daughter- Gisselle Hu. Pt recently in Rehab 09/2016 for weakness/deconditioning. Pt usually in bed or sits in wheelchair. Pt requires assistance with all ADLs. Family History: Unknown. PMD: Condo Review of Systems - Review of Systems Systems not reviewed;Unavailable: Acuity of Condition, Dementia, Altered Mental Status All systems: reviewed and no additional remarkable complaints except - Constitutional Constitutional: Fatigue, Lethargy, Malaise, Weight Loss, Weakness - Genitourinary Genitourinary: Freq UTI - Integumentary Integumentary: Non-Healing Lesions, Skin Ulcer - Neurological Neurological: Behavioral Changes, Focal Weakness (chronic, Left hemiparesis) - Psychiatric Psychiatric: Abnormal Sleep Pattern, Change in Appetite (decreased) Past Patient History - Infectious Disease Hx of Infectious Diseases: None - Tetanus Immunizations Tetanus Immunization: Unknown - Past Social History Smoking Status: Former Smoker - CARDIAC Hx Cardiac Disorders: Yes Hx Congestive Heart Failure: Yes Hx Hypertension: Yes - PULMONARY Hx Chronic Obstructive Pulmonary Disease (COPD): Yes Hx Pneumonia: No - NEUROLOGICAL HX Cerebrovascular Accident: Yes - HEENT Hx HEENT Problems: Yes Hx Blind: Yes (left eye opaque) Hx Cataracts: Yes (left eye) Hx Glaucoma: Yes - RENAL Hx Renal Failure: No - ENDOCRINE/METABOLIC Hx Diabetes Mellitus Type 1: No Hx Diabetes Mellitus Type 2: No Hx Hypothyroidism: No - HEMATOLOGICAL/ONCOLOGICAL Hx Cancer: No - INTEGUMENTARY Hx Dermatological Problems: Yes Other/Comment: R decubiti buttock SCARRED and heel healed, multiple skin discolorations ble and knees, left 2nd toe callous x2 brown in color, dry toenails b/l elbows brown discolored skin, brown skin to buttocks. 01-28-17 LEFT BUTTOCK WITH DTI,DEEP BURGUNDY COLOR INTACT SKIN.LEFT SIDE OF PINKY TOE WITH A 1.5 CM OPEN WOUND. SEES A INSIDE SALES DIRECTOR.TOENAILS DRY. 2ND TOE WITH CALLOUSED SKIN. LEFT NECK AREA HAS A LARGE LUMP MEASUREING 3 CM IN DM SOFT.INTACT. - MUSCULOSKELETAL/RHEUMATOLOGICAL Hx Arthritis: No Hx Rheumatoid Arthritis: No - GASTROINTESTINAL Hx Gastroesophageal Reflux: Yes - GENITOURINARY/GYNECOLOGICAL Hx Genitourinary Disorders: Yes (RETENTION) Hx Incontinence: Yes Hx Prostate Problems: Yes (BPH) - PSYCHIATRIC Hx Psychophysiologic Disorder: Yes Hx Substance Use: No - SURGICAL HISTORY Hx Orthopedic Surgery: Yes (Left hip repair) - ANESTHESIA Hx Anesthesia: Yes Hx Anesthesia Reactions: No Hx Malignant Hyperthermia: No Meds Allergies/Adverse Reactions: Allergies Allergy/AdvReac Type Severity Reaction Status Date / Time peanut Allergy Severe ANAPHYLAXIS Verified 01/28/17 17:44 PORK Allergy VOMITING Verified 01/28/17 17:44 - Medications Medications: Current Medications Norepinephrine Bitartrate 4 mg (/ Sodium Chloride) 254 mls @ 19.05 mls/hr IV .[id number] PRN; Protocol; 5 MCG/MIN PRN Reason: TITRATE PER MD ORDER Last Admin: 02/26/17 20:38 Dose: 19.05 mls/hr Heparin Sodium/Sodium Chloride (Heparin 14457 Units/250ml 1/2 Normal Saline) 25 ,000 units in 250 mls @ 9.798 mls/hr IV .Q24H PRN; Protocol; 18 UNITS/KG/HR PRN Reason: ADJUST RATE PER PROTOCOL Physical Exam - Constitutional Appears: Cachectic, Chronically Ill - Head Exam Head Exam: absent: NORMAL INSPECTION (temporal wasting) - Respiratory Exam Respiratory Exam: NORMAL BREATHING PATTERN. absent: Accessory Muscle Use, Clear to Auscultation Bilateral (coase breath sounds B/L), Rhonchi, Wheezes, Respiratory Distress, Stridor - Cardiovascular Exam Cardiovascular Exam: Tachycardia, +S1, +S2 - GI/Abdominal Exam GI & Abdominal Exam: Diminished Bowel Sounds, Soft. absent: Distended, Firm, Guarding, Tenderness - Exam Additional comments: indwelling klein in place - Extremities Exam Extremities exam: Negative for: normal inspection (Left lower extremity/foot cold to touch with dusky appearance vs. RLE, severe muscle wasting noted, Left hand severely contracted. ), tenderness, pedal pulses present (no popliteal, dorsalis pedis or posterior tibial on palpation of Left lower extremity, popliteal present on right extremity) Additional comments: IO present in Right shoulder, Right groin with peripheral line at groin - Neurological Exam Additional comments: Pt currently non verbal - Psychiatric Exam Additional comments: non verbal - Skin Additional comments: Left lower extremity dusky compared to right lower extremity Results - Vital Signs Recent Vital Signs: Last Vital Signs Temp Pulse Resp BP 130/90 02/26/17 20:16 Pulse Ox - Labs Result Diagrams: 02/26/17 20:37 02/26/17 20:37 Assessment & Plan - Assessment and Plan (Free Text) Assessment: 89M w/PMH sig for dementia and multiple comorbidities admitted to ICU for AMS, failure to thrive, lethargy likely due to severe sepsis with response to IVF. Pt to be managed in ICU. Plan: Neuro hx Dementia, carotid stenosis s/p B/L carotid endarterectomy, CVA, glaucoma, subarachnoid hemorrhage, seizure disorder, stable HOB to 30 degrees Neuro checks Q4H CT brain- findings suggestive of cavernous venous thrombosis as per [facility]. Pt already on Heparin drip Pt already on IV ABx Will order MR venogram to evaluate for acute vs. chornic cavernous venous thrombosis vs. artifact on imaging Keppra 1000mg Q12H for seizure d/o Monitor Cardio Hx CAD, HTN, HL BP 130/90 Briefly on pressors in ED- discontinued MAPT >75% HR low 100's Troponin 0.28, likely 2/2 renal failure Maintain IVF for hemodynamic stability Target euvolemia On Heparin drip FU AM trop Monitor Pulm Hx HCAP- recent O2 via NC Target SaO2 >94% SaO2 95% HOB to 30 degrees VBG pH 7.37, pO2 65, pCO2 34, HCO3 19.7 CXR -hyperinflation of lung mendes- RLL infiltrate vs. atelectasis Pt already on vancomycin and cefepime FU AM ABG Monitor Renal KIMBERLY BUN 90 Cr 3.6 Free water deficit= 2.3L Hypernatremia at 153- likely 2/2 dehydration Hypermagnesemia at 2.6 NS@150 Daily wts Strict I/O's Monitor lytes daily GI Hx GERD NPO T bili 0.7 AST 33 ALT 39 ALP 201 Protonix Endo BS 190 Accuchecks Q6H Will consider insulin coverage if required Target euglycemia Monitor recurrent UTIs w/indwelling Klein Will replace Klein U/A pos for mod LE, neg for nitrates, mod bilirubin, 100 protein, 15 ketones, lrg blood I/O's FU Urine cx Monitor ID leukocytosis 18 Bandemia 24 Lactate 3.0 U/A positive for mod LE, neg for nitrates Given Vancomycin 1gm in ED Given Zosyn 4.5gm in ED Given Azithromycin in ED Started on Vancomycin Started on Cefepime FU Blood cx FU urine cx FU procalcitonin ID consult as per primary Heme Hgb 11.8, baseline 10.8-13.9 Hct 35.3m baseline 32.3 - 40.5 INR 1.3 Bandemia 24 Musculosketal Hx toe ulceration Wound care PRN Severe cachexia Dietary consult (?)- TPN vs. tube feeds? Possible LLE ischemic limb FU stat MELISSA FU IR recs- Parish phipps GI/DVT ppx SCDS contraindicated due to possible ischemic limb On Heparin drip Protonix Dispo Admit to ICU VS @4H Full code as per daughter/POA DW attending - Date & Time Date: 02/26/17 Time: 22:06 <Yayo Bloom - Last Filed: 02/27/17 00:55> Meds - Medications Medications: Current Medications Heparin Sodium/Sodium Chloride (Heparin 13709 Units/250ml 1/2 Normal Saline) 25 ,000 units in 250 mls @ 10.53 mls/hr IV .[id number] PRN; Protocol; 18 UNITS/KG/HR PRN Reason: ADJUST RATE PER PROTOCOL Cefepime HCl 0.5 gm/ Sodium (Chloride) 100 mls @ 100 mls/hr IVPB Q24H SARANYA PRN Reason: Protocol Sodium Chloride (Sodium Chloride 0.9%) 1,000 mls @ 150 mls/hr IV .Q6H40M SARANYA Vancomycin HCl (Vancomycin 1gm) 1 gm in 250 mls @ 167 mls/hr IVPB Q12H SARANYA PRN Reason: Protocol Levetiracetam (Keppra 500mg Ivpb) 500 mg in 100 mls @ 400 mls/hr IVPB Q12 SARANYA Pantoprazole Sodium (Protonix Inj) 40 mg IVP DAILY SARANYA Results - Vital Signs Recent Vital Signs: Last Vital Signs Temp Pulse 118 H 02/26/17 22:39 Resp 16 02/26/17 22:39 BP 126/80 02/26/17 22:39 Pulse Ox 97 02/26/17 22:39 - Labs Result Diagrams: 02/26/17 20:37 02/26/17 20:37 Attending/Attestation - Attestation I have personally seen and examined this patient.: Yes I have fully participated in the care of the patient.: Yes I have reviewed all pertinent clinical information: Yes Notes (Text): 02/27/17 00:40 I agree with the above mentioned note by Dr. Mahajan with the following additions/ exceptions: 89 y/o male with an extensive PMHx (CVA with residual left sided weakness, Dementia, Htn, CAD, Carotid stenosis s/p bilateral CEA >20yrs ago, history of multiple SAH's, Seizure disorder, GERD, recurrent UTI's and a recent hospitalization for HCAP was brought to the ED today by EMS after his daughter noticed failure to thrive type symptoms for the past 4-5 days along with a discolored and cold left foot for the past 1-2 days as well. Patient was noted to be acidotic in the ED with a + UTI; hypernatremia and KIMBERLY indicating dehydration and failure to thrive with a Free water deficit of 2.5L; Bandemia with an unclear source (Pt has an active UTI, for which the klein has been changed and he's started on IV Abx; also a possible RLL/RML PNA which would be considered HCAP given his recent hospitalizations as well as the left as well as the left lower extremity with a possible arterial occlusion). His CT of the head was read as a possible venous sinus thrombosis vs a hyperdense artifact. Patient will be admitted to the ICU for further care and monitoring to include IVF resuscitation, IV Abx; MELISSA's performed stat in the ED and reviewed by Dr. Phipps (Interventional Radiology); recommended heparin drip which has been running, no acute intervention planned at this time. I discussed the case at length with both the patient's daughter and son who are aware of the grim prognosis and multiple comorbidities and they elect to continue aggressive management including Intubation with mechanical ventilation and ACLS in the event of cardiac arrest. Case discussed with Dr. Yepez in the ED at great length all labs and images available thus far on today's visit have been reviewed personally Total time of care: greater than 60 minutes
[2017-02-26 22:11] LABS: NEUTROPHIL 67 % (50.0-70.0)
[2017-02-26 22:13] LABS: BAND 24 % (0-2)
[2017-02-26] MEDS ORDERED: Azithromycin 500MG/NS 250ml 500 MG/250 ML BAG IVPB STA (22:13)
[2017-02-26 22:14] LABS: METAMYELOCYTE 2 %; PLATELET ESTIMATE NORMAL (NORMAL)
[2017-02-26] MEDS ORDERED: Sodium Chloride 0.9% 1,000 ML IV STA (22:38)
[2017-02-26 22:43] VITALS: BMI 17.0
[2017-02-27] MEDS ORDERED: Cefepime 0.5 GM in Sodium Chloride 0.9% 100 ML IVPB SCH (00:15)
[2017-02-27] MEDS ORDERED: Sodium Chloride 0.9% 1,000 ML IV SCH (00:15)
[2017-02-27] MEDS ORDERED: levETIRAcetam 1,000 MG in Sodium Chloride 0.9% 100 ML IV ONE (00:28)
[2017-02-27] MEDS: levETIRAcetam 500mg IVPB 500 MG/100 ML BAG IVPB SCH ×3 (01:15→23:00)
[2017-02-27 01:35] LABS: ARTERIAL BLOOD GAS HCO3 14.9 mmol/L (21-28)
--- NOTE | 2017-02-27 02:37 | PCM.SEPTIC ---
<Pallavi Mahajan - Last Filed: 02/27/17 02:34> Sepsis Progress Note - Reassessment Type Date of Evaluation: 02/27/17 Time of Evaluation: 02:38 Reassessment Type: Non-invasive reassessment - Non Invasive Reassessment Were the most recent vital sign reviewed: Yes Vital Sign (Latest): Temp Pulse Resp BP Pulse Ox 99.7 F H 90 18 100/70 95 02/26/17 20:17 02/27/17 00:00 02/27/17 00:00 02/27/17 00:00 02/27/17 00:00 Cardiovascular: Yes: Regular Rate, Rhythm Respiratory: Yes: Normal Breath Sounds. No: Decreased Breath Sounds, Accessory Muscle Use, Crackles, Rales, Rhonchi, Stridor, Wheezing, Respiratory Distress, Plerual Rub Capillary Refill: Delayed Skin: Mottled (Left lower extremity) - Invasive Reassessment (complete 2 of 4) Was a Central Venous Pressure Measurement obtained within 6 Hours after the presentation of septic shock: No Was a central venous oxygen measurement obtained within 6 hours after the presentation of septic shock: No Was a bedside cardiovascular ultrasound performed within 6 hours after the presentation of septic shock: No Was a passive leg raise performed or was a fluid challenge performed within 6 hrs of the initial fluid bolus: No Fluid Challenge performed: Yes <Yayo Bloom - Last Filed: 02/27/17 07:41> Sepsis Progress Note - Non Invasive Reassessment Vital Sign (Latest): Temp Pulse Resp BP Pulse Ox 97.1 F L 90 17 98/43 L 95 02/27/17 01:00 02/27/17 05:56 02/27/17 05:56 02/27/17 01:00 02/27/17 00:00 Was a passive leg raise performed or was a fluid challenge performed within 6 hrs of the initial fluid bolus: Yes Fluid Challenge performed: Yes
[2017-02-27 02:58] LABS: VENOUS BLOOD GAS BASE EXCESS -8.2 mmol/L (0.0-2.0); VENOUS BLOOD PH 7.35 (7.32-7.43)
[2017-02-27 03:23] LABS: HEMATOCRIT 33.4 % (42.0-52.0); MEAN CELL VOLUME 94.9 fL (80.0-105.0); MEAN CORPUSCULAR HEMOGLOBIN 30.1 pg (25.0-35.0); MEAN CORPUSCULAR HGB CONC 31.7 g/dl (31.0-37.0); MEAN PLATELET VOLUME 10.5 fl (7.0-11.0); PLATELET COUNT 117 [, 10^3/uL] (120.0-450.0); RED CELL DISTRIBUTION WIDTH 15.6 % (11.5-14.5); WHITE BLOOD COUNT 16.7 [, 10^3/ul] (4.5-11.0)
[2017-02-27 03:29] LABS: ADD MANUAL DIFF? YES
[2017-02-27 03:30] LABS: ALB/GLOB RATIO 0.8 (1.1-1.8); BILIRUBIN,TOTAL 0.7 mg/dL (0.2-1.3); CALCIUM 8.2 mg/dL (8.4-10.5); MAGNESIUM 2.5 mg/dL (1.7-2.2); PHOSPHOROUS 4.4 mg/dL (2.5-4.5); POTASSIUM 4.1 mmol/L (3.6-5.0)
[2017-02-27 03:41] LABS: INR 1.37 (0.93-1.08); PARTIAL THROMBOPLASTIN TIME 126.9 Seconds (23.7-30.8)
[2017-02-27] MEDS ORDERED: Sodium Chloride 0.9% 500 ML IV STA (04:16)
[2017-02-27 04:29] LABS: TROPONIN I 0.29 ng/mL
[2017-02-27 05:53] LABS: NEUTROPHIL 84 % (50.0-70.0)
[2017-02-27 05:55] LABS: PLATELET ESTIMATE LOW (NORMAL)
[2017-02-27] MEDS ORDERED: Dextrose 50% SYRINGE Inj (50 ml) IVP ONE ×2 (05:55→17:19)
[2017-02-27 06:01] LABS: BAND 10 % (0-2)
[2017-02-27] MEDS ORDERED: Dextrose 50% SYRINGE Inj (50 ml) ONE (06:01)
[2017-02-27] MEDS ORDERED: Dextrose 5%/0.45% NS 1,000 ML IV SCH (06:15)
--- NOTE | 2017-02-27 08:17 | CT ---
PROCEDURE: CT HEAD WITHOUT CONTRAST. HISTORY: ams COMPARISON: 01/28/2017 TECHNIQUE: Axial computed tomography images were obtained through the head/brain without intravenous contrast. Radiation dose: Total exam DLP = 774 mGy-cm. This CT exam was performed using one or more of the following dose reduction techniques: Automated exposure control, adjustment of the mA and/or kV according to patient size, and/or use of iterative reconstruction technique. FINDINGS: HEMORRHAGE: No intracranial hemorrhage. BRAIN: No mass effect or edema. Severe chronic microvascular changes are seen in the periventricular white matter right greater than left. There is also an old infarct of the right basal ganglia. There is a moderate amount of atrophy right greater than left. VENTRICLES: Unremarkable. No hydrocephalus. CALVARIUM: Unremarkable. PARANASAL SINUSES: Unremarkable as visualized. No significant inflammatory changes. MASTOID AIR CELLS: Unremarkable as visualized. No inflammatory changes. OTHER FINDINGS: The report concurs with the preliminary [facility] report IMPRESSION: Severe chronic microvascular changes. No acute intracranial findings
--- NOTE | 2017-02-27 08:36 | US ---
PROCEDURE: Lower extremity MELISSA exam HISTORY: Peripheral vascular disease with ischemic pain PHYSICIAN(S): Parish Nicolas MD. FINDINGS: The ABIs are severely abnormal bilaterally. The right MELISSA is 0.39. The left MELISSA is not obtainable The left PVR waveforms at are flat at all levels. No pressures are obtainable. The right low thigh PVR waveform is normal. The right calf PVR waveform is severely blunted. This is consistent with distal right SFA, popliteal, and/or trifurcation disease. The right ankle and metatarsal waveforms are flat. IMPRESSION: 1. Severely abnormal ABIs bilaterally. 2. The left PVR waveforms are flat at all levels. 3. Distal right SFA, popliteal, and/ trifurcation disease. 4. The right ankle and metatarsal waveforms are flat.
--- NOTE | 2017-02-27 08:50 | RAD ---
HISTORY: Sepsis Patient COMPARISON: 01/28/2017 FINDINGS: LUNGS: Opacity at right base suspicious for pneumonia. No other abnormal opacity elsewhere. PLEURA: No evidence of pleural effusion. Extreme left costophrenic angle is not included on this film. No pneumothorax. CARDIOVASCULAR: Normal. OSSEOUS STRUCTURES: No significant abnormalities. VISUALIZED UPPER ABDOMEN: Normal. OTHER FINDINGS: None. IMPRESSION: Right basilar infiltrate. Probable pneumonia. Followup advised.
[2017-02-27] MEDS: Vancomycin 1gm in NS 250ml 1 GM/250 ML BAG IVPB SCH ×2 (09:29→20:46)
[2017-02-27] MEDS ORDERED: levETIRAcetam 1,000 MG in Sodium Chloride 0.9% 100 ML IV SCH (10:00)
--- NOTE | 2017-02-27 10:36 | CARD ---
APPROVED REPORT EKG Measurement Heart [id number] TN [id number] <Conclusion> Sinus tachycardia with premature atrial complexes RSR' or QR pattern in V1 suggests right ventricular conduction delay Inferior infarct, age undetermined Possible Anterolateral infarct, age undetermined Abnormal ECG
--- NOTE | 2017-02-27 13:47 | HP ---
CHIEF COMPLAINT AND HISTORY OF PRESENT ILLNESS: This is an 89-year-old male who is coming into the [facility] with a past medical history of CVA, dyslipidemia, and hypertension. He is having worsening a ltered mental status. The patient's daughter states that his foot started changing color about 2 day s ago. He was brought in for further evaluation. His blood pressure was in the 80s. He was given I V fluids in the Emergency Room by EMS. He is usually awake and alert and able to answer questions. He was recently discharged from the hospital about 1 month ago. He is not able to answer any questio ns as he is significantly confused. ALLERGIES: PEANUTS AND PORK. PAST MEDICAL HISTORY: 1. Hypertension. 2. 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 3. Dyslipidemia. 4. Subarachnoid hemorrhage. 5. GERD. 6. Seizures. PAST SURGICAL HISTORY: Left hip replacement. SOCIAL HISTORY: He does not smoke or drink. His daughter is the primary transport operations inspector. MEDICATIONS: Unknown but I did review the meds from in the computer. FAMILY HISTORY: Unable to assess. PHYSICAL EXAMINATION: VITAL SIGNS: Temperature is 99.7, pulse of 78, respirations 12, blood pressure is 97/36. Height is 6 foot 1 inch. Weight is 106 pounds. BMI is ____. GENERAL: Patient lying in bed, flat, and in no apparent distress. HEAD AND NECK EXAM: Atraumatic, normocephalic. Conjunctivae are pink. Throat clear and mouth with moist mucosa. Oropharynx benign. EYES: Eye exam unable to assess. NECK: Supple. No JVD, thyromegaly, or adenopathy. No bruits. HEART: S1 and S2 regular rate and rhythm. No murmurs, rubs, or gallops. LUNGS: Clear to auscultation bilaterally. No wheezing rales or rhonchi appreciated. No retraction s on exam. ABDOMEN: Soft, nontender, nondistended. Bowel sounds are positive in all quadrants. No rebound. No hepatosplenomegaly. EXTREMITIES: In the left leg, there are no pulses. Pulse is only felt in the femoral area. There i s discoloration and changes in the left side, possibly early gangrene. There is a callus that is on the left toe. NEURO: Unable to assess. PSYCH: Unable to assess. : No CVA tenderness VASCULAR: 2+ pulses in carotid and pedal pulses. SKIN: No erythema or abnormal nodules noted. SPINE: Normal curvature. LYMPHADENOPATHY: No anterior cervical or posterior cervical adenopathy. No inguinal adenopathy. BACK: There is a right decubitus ulcer. LABORATORY DATA: White count of 18, hemoglobin 11.8. Chemistry shows sodium 153, bicarb of 18, crea tinine is 3.6, and troponin 0.28. All of the other blood work has been reviewed. Chest x-ray done shows right basilar infiltrates. Dopplers of the legs show severe abnormal ABIs christopher aterally, the left ____ is flat ____ veins. CT of the head done shows severe chronic microvascular changes. EKG shows a heart rate of 116 that s hows sinus tachycardia. There are nonspecific ST changes. ASSESSMENT: 1. Sepsis. 2. Left leg gangrene. 3. Peripheral arterial disease. 4. Hypernatremia. 5. Acute kidney injury. 6. Cerebrovascular accident with left-sided residual weakness. 7. Dyslipidemia. 8. Hypotension. PLAN: The patient is critically ill, is admitted to the ICU. He has a high white count. He has a l eft leg that shows ischemia. He has overall poor prognosis given that he has multiple comorbidities and is not a good surgical candidate. I did speak to Dr. Parish Nicolas regarding intervention and he d id not feel that he is a candidate. The patient is on Keppra for his seizures. He is on heparin. Eulalia villa is going to be on Protonix. I did speak to the patient's daughter at length to give her an update on the patient's diagnosis and plan of care. He will most likely need to be comfort care. We will g et palliative care to evaluate. I also spoke with Dr. Beatty, the patient's primary care doctor, and he also spoke with the daughter to recommend that the patient be made comfortable, no aggressive hali ures to be done as his prognosis is poor and he most likely will not survive this unfortunate illness that he has been admitted for. Jerome Diez MD cc: [id number] TT: 02/27/2017 13:46:51 sn
[2017-02-27 14:22] LABS: VENOUS BLOOD GAS BASE EXCESS -9.3 mmol/L (0.0-2.0); VENOUS BLOOD PH 7.26 (7.32-7.43)
[2017-02-27 14:33] LABS: CALCIUM 8.1 mg/dL (8.4-10.5); POTASSIUM 3.4 mmol/L (3.6-5.0)
[2017-02-27] MEDS ORDERED: Heparin25000 units/250ml 1/2NS 25,000 UNITS/250 ML BAG IV PRN (15:22)
--- NOTE | 2017-02-27 15:56 | CP.CCUPN ---
<Nadir Ibrahim - Last Filed: 02/27/17 16:10> CCU Subjective - Physician Review Subjective (Free Text): 02/27/17 15:53 Patient seen and examined at bedside in the ICU. Not responsive to staff during exam, minimally responsive to son in room at bedside on repeat exam. No retraction from noxious stimuli, no response to verbal stimuli, eyes not tracking staff in room. On high flow nasal canula. CCU Objective - Vital Signs / Intake & Output Vital Signs (Last 4 hours): Vital Signs Temp Pulse Resp BP 02/27/17 13:27 90 14 02/27/17 13:26 89 11 L 02/27/17 13:25 90 15 02/27/17 13:24 89 12 02/27/17 13:23 91 H 13 02/27/17 13:22 89 13 02/27/17 13:21 88 14 02/27/17 13:20 89 12 02/27/17 13:19 95 H 12 02/27/17 13:18 90 12 02/27/17 13:17 88 16 02/27/17 13:16 89 12 02/27/17 13:15 92 H 13 02/27/17 13:14 91 H 13 02/27/17 13:13 89 13 02/27/17 13:12 91 H 13 02/27/17 13:11 92 H 14 02/27/17 13:10 89 13 02/27/17 13:09 89 12 02/27/17 13:08 87 11 L 02/27/17 13:07 92 H 12 02/27/17 13:06 92 H 13 02/27/17 13:05 87 13 02/27/17 13:04 87 13 02/27/17 13:03 92 H 14 02/27/17 13:02 89 14 02/27/17 13:01 90 13 02/27/17 13:00 104/44 L 02/27/17 12:59 97 H 13 02/27/17 12:58 91 H 13 02/27/17 12:57 89 13 02/27/17 12:56 88 11 L 02/27/17 12:55 89 12 02/27/17 12:54 85 13 02/27/17 12:53 91 H 11 L 02/27/17 12:52 90 14 02/27/17 12:51 83 12 02/27/17 12:50 89 11 L 02/27/17 12:49 92 H 13 02/27/17 12:48 88 12 02/27/17 12:47 85 11 L 02/27/17 12:46 89 12 02/27/17 12:45 91 H 13 02/27/17 12:44 87 12 02/27/17 12:43 84 9 L 02/27/17 12:42 86 11 L 02/27/17 12:41 86 12 02/27/17 12:40 90 13 02/27/17 12:39 91 H 12 02/27/17 12:38 90 11 L 02/27/17 12:22 13 02/27/17 12:19 78 11 L 02/27/17 12:18 89 11 L 02/27/17 12:17 90 12 02/27/17 12:16 87 13 02/27/17 12:15 90 13 02/27/17 12:14 88 13 02/27/17 12:13 87 13 02/27/17 12:12 90 13 02/27/17 12:11 90 13 02/27/17 12:10 87 12 02/27/17 12:09 87 13 02/27/17 12:08 87 12 02/27/17 12:07 85 12 02/27/17 12:06 88 12 02/27/17 12:05 84 12 02/27/17 12:04 85 12 02/27/17 12:03 88 13 02/27/17 12:02 99 H 12 02/27/17 12:01 89 13 02/27/17 12:00 97.7 F 97/36 L 02/27/17 11:59 93 H 12 02/27/17 11:58 102 H 11 L 02/27/17 11:57 117 H 12 02/27/17 11:56 12 02/27/17 11:55 95 H 13 02/27/17 11:54 92 H 12 Intake and Output (Last 8hrs): Intake & Output 02/27/17 02/27/17 02/27/17 06:59 14:59 22:59 Intake Total 1152 147 Output Total 175 Balance 977 147 Weight 48.444 kg Intake: IV 1152 147 Left Hand 1152 Output: Stool 175 Other: Voiding Method Indwelling Catheter - Physical Exam Physical Exam Limitations: Positive for: Other (AMS/unresponsiveness) Head: Positive for: Atraumatic, Normocephalic Pupils: Positive for: PERRL Extroacular Muscles: Positive for: Other (not moving eyes/following commands for EOMI testing, no avoiding of direct light challenge for PERRL, intermittently moving eyes to track son in room). Negative for: EOMI Conjunctiva: Positive for: Other (dirty sclera). Negative for: Injected, Icteric Mouth: Positive for: Moist Mucous Membranes Nose (External): Positive for: Atraumatic, Other (wearing high flow nasal canula ). Negative for: Abrasion, Contusion, Laceration Neck: Positive for: Trachea Midline. Negative for: JVD Respiratory/Chest: Positive for: Decreased Breath Sounds (decreased in all mendes), Rhonchi (mild ronchi in bilateral bases). Negative for: Clear to Auscultation, Good Air Exchange, Tachypneic Cardiovascular: Positive for: Regular Rate and Rhythm, Normal S1, S2. Negative for: Murmurs, Irregular Rhythm, Tachycardic, Bradycardic Abdomen: Negative for: Distention, Mass/Organomegaly Upper Extremity: Positive for: Other (thin and frail upper limbs, +1 radial pulses) Lower Extremity: Positive for: Other (right leg warm to palpation, no open wounds on RLE; LLE dusky, cool to palpation, open non-healing ulcer along left 5th toe not actively oozing/bleeding) Neurological: Negative for: GCS=15 ([id number]), Speech Normal, Motor Func Grossly Intact Skin: Positive for: Warm, Dry, Normal Color, Other (Except as noted in lower extremities exam) Psychiatric: Positive for: Other (not arousable on exam, minimal arousability with son in room) - Medications Active Medications: Active Medications Generic Name Dose Route Start Last Admin Trade Name Freq PRN Reason Stop Dose Admin Cefepime HCl 0.5 gm/ Sodium 100 mls @ 100 mls/hr 02/27/17 00:15 02/27/17 01: 05 Chloride IVPB 100 mls/hr Q24H SARANYA Administration Protocol Vancomycin HCl 1 gm in 250 mls @ 167 mls/hr 02/27/17 08:00 02/27/17 09:29 Vancomycin 1gm IVPB 167 mls/hr Q12H SARANYA Administration Protocol Levetiracetam 500 mg in 100 mls @ 400 mls/hr 02/27/17 00:45 02/27/17 09:45 Keppra 500mg Ivpb IVPB 400 mls/hr Q12 SARANYA Administration Dextrose 1,000 mls @ 125 mls/hr 02/27/17 11:30 02/27/17 12:03 Dextrose 5% In Water 1000 Ml IV 125 mls/hr .Q8H SARANYA Administration Heparin Sodium/Sodium Chloride 25,000 units in 250 mls @ 8.72 mls/hr 02/27/17 15:22 02/27/17 15:49 Heparin 22085 Units/250ml 1/2 Normal Saline IV 12 units/kg/hr .Q24H PRN 5.813 mls/hr ADJUST RATE PER PROTOCOL Administration Protocol 18 UNITS/KG/HR Pantoprazole Sodium 40 mg 02/27/17 10:00 02/27/17 09:43 Protonix Inj IVP 40 mg DAILY SARANYA Administration - Patient Studies Lab Studies: Lab Studies 02/27/17 02/27/17 02/27/17 Range/Units 14:15 14:15 14:15 WBC (4.5-11.0) 10^3/ul RBC (3.5-6.1) 10^6/uL Hgb (14.0-18.0) gm/dL Hct (42.0-52.0) % MCV (80.0-105.0) fL MCH (25.0-35.0) pg MCHC (31.0-37.0) g/dl RDW (11.5-14.5) % Plt Count (120.0-450.0) 10^3/uL MPV (7.0-11.0) fl Neutrophils % (Manual) (50.0-70.0) % Band Neutrophils % (0-2) % Lymphocytes % (Manual) (22.0-35.0) % Monocytes % (Manual) Platelet Evaluation (NORMAL) PT (9.9-11.8) Seconds INR (0.93-1.08) APTT 103.9 H* (23.7-30.8) Seconds pCO2 (35-45) mm/Hg pO2 31 (80-100) mm/Hg HCO3 (21-28) mmol/L ABG pH (7.35-7.45) ABG Total CO2 (22-28) mmol.L ABG O2 Saturation (95-98) % ABG Base Excess (-2.0-3.0) mmol/L ABG Potassium (3.6-5.2) mmol/L VBG pH 7.26 L (7.32-7.43) VBG pCO2 38.0 L (40-60) VBG HCO3 17.1 L (21-28) mmol/l VBG Total CO2 18.3 L (22-28) mmol.L VBG O2 Sat (Calc) 54.7 (40-65) % VBG Base Excess -9.3 L (0.0-2.0) mmol/L VBG Potassium 3.4 L (3.6-5.2) mmol/L Sodium 153.0 H 154 H (132-148) mmol/L Chloride 131.0 H 124 H (98-107) mmol/L Glucose 135 H (75-110) mg/dl Lactate 3.2 H (0.7-2.1) mmol/L FiO2 21.0 % Potassium 3.4 L (3.6-5.0) mmol/L Carbon Dioxide 17 L (21-33) mmol/L Anion Gap 16 (10-20) BUN 70 H (7-21) mg/dL Creatinine 2.3 H (0.5-1.4) mg/dL Est GFR ( Amer) 33 Est GFR (Non-Af Amer) 27 POC Glucose (mg/dL) (65-110) mg/dL Random Glucose 126 H (70-110) mg/dL Calcium 8.1 L (8.4-10.5) mg/dL Phosphorus (2.5-4.5) mg/dL Magnesium (1.7-2.2) mg/dL Total Bilirubin (0.2-1.3) mg/dL AST (15-59) U/L ALT (7-56) U/L Alkaline Phosphatase (38-133) U/L Total Creatine Kinase (35-230) U/L CK-MB (CK-2) (0.0-3.6) ng/mL CK-MB (CK-2) % (2.5-3.0) % Troponin I ng/mL Total Protein (5.8-8.3) g/dL Albumin (3.0-4.8) g/dL Globulin gm/dL Albumin/Globulin Ratio (1.1-1.8) Procalcitonin (0.19-0.49) NG/ML Arterial Blood Potassium (3.6-5.2) mmol/L Venous Blood Potassium 3.4 L (3.6-5.2) mmol/L 02/27/17 02/27/17 02/27/17 Range/Units 05:52 03:05 03:05 WBC (4.5-11.0) 10^3/ul RBC (3.5-6.1) 10^6/uL Hgb (14.0-18.0) gm/dL Hct (42.0-52.0) % MCV (80.0-105.0) fL MCH (25.0-35.0) pg MCHC (31.0-37.0) g/dl RDW (11.5-14.5) % Plt Count (120.0-450.0) 10^3/uL MPV (7.0-11.0) fl Neutrophils % (Manual) (50.0-70.0) % Band Neutrophils % (0-2) % Lymphocytes % (Manual) (22.0-35.0) % Monocytes % (Manual) Platelet Evaluation (NORMAL) PT 14.8 H (9.9-11.8) Seconds INR 1.37 H (0.93-1.08) APTT 126.9 H* (23.7-30.8) Seconds pCO2 (35-45) mm/Hg pO2 (80-100) mm/Hg HCO3 (21-28) mmol/L ABG pH (7.35-7.45) ABG Total CO2 (22-28) mmol.L ABG O2 Saturation (95-98) % ABG Base Excess (-2.0-3.0) mmol/L ABG Potassium (3.6-5.2) mmol/L VBG pH (7.32-7.43) VBG pCO2 (40-60) VBG HCO3 (21-28) mmol/l VBG Total CO2 (22-28) mmol.L VBG O2 Sat (Calc) (40-65) % VBG Base Excess (0.0-2.0) mmol/L VBG Potassium (3.6-5.2) mmol/L Sodium (132-148) mmol/L Chloride (98-107) mmol/L Glucose (75-110) mg/dl Lactate (0.7-2.1) mmol/L FiO2 % Potassium (3.6-5.0) mmol/L Carbon Dioxide (21-33) mmol/L Anion Gap (10-20) BUN (7-21) mg/dL Creatinine (0.5-1.4) mg/dL Est GFR ( Amer) Est GFR (Non-Af Amer) POC Glucose (mg/dL) 40 L (65-110) mg/dL Random Glucose (70-110) mg/dL Calcium (8.4-10.5) mg/dL Phosphorus (2.5-4.5) mg/dL Magnesium (1.7-2.2) mg/dL Total Bilirubin (0.2-1.3) mg/dL AST (15-59) U/L ALT (7-56) U/L Alkaline Phosphatase (38-133) U/L Total Creatine Kinase (35-230) U/L CK-MB (CK-2) (0.0-3.6) ng/mL CK-MB (CK-2) % (2.5-3.0) % Troponin I ng/mL Total Protein (5.8-8.3) g/dL Albumin (3.0-4.8) g/dL Globulin gm/dL Albumin/Globulin Ratio (1.1-1.8) Procalcitonin 4.81 H (0.19-0.49) NG/ML Arterial Blood Potassium (3.6-5.2) mmol/L Venous Blood Potassium (3.6-5.2) mmol/L 02/27/17 02/27/17 02/27/17 Range/Units 03:05 03:05 02:40 WBC 16.7 H (4.5-11.0) 10^3/ul RBC 3.52 (3.5-6.1) 10^6/uL Hgb 10.6 L (14.0-18.0) gm/dL Hct 33.4 L (42.0-52.0) % MCV 94.9 (80.0-105.0) fL MCH 30.1 (25.0-35.0) pg MCHC 31.7 (31.0-37.0) g/dl RDW 15.6 H (11.5-14.5) % Plt Count 117 L (120.0-450.0) 10^3/uL MPV 10.5 (7.0-11.0) fl Neutrophils % (Manual) 84 H (50.0-70.0) % Band Neutrophils % 10 H (0-2) % Lymphocytes % (Manual) 6 L (22.0-35.0) % Monocytes % (Manual) TEST NOT PERFORMED Platelet Evaluation Low (NORMAL) PT (9.9-11.8) Seconds INR (0.93-1.08) APTT (23.7-30.8) Seconds pCO2 (35-45) mm/Hg pO2 (80-100) mm/Hg HCO3 (21-28) mmol/L ABG pH (7.35-7.45) ABG Total CO2 (22-28) mmol.L ABG O2 Saturation (95-98) % ABG Base Excess (-2.0-3.0) mmol/L ABG Potassium (3.6-5.2) mmol/L VBG pH (7.32-7.43) VBG pCO2 (40-60) VBG HCO3 (21-28) mmol/l VBG Total CO2 (22-28) mmol.L VBG O2 Sat (Calc) (40-65) % VBG Base Excess (0.0-2.0) mmol/L VBG Potassium (3.6-5.2) mmol/L Sodium 156 H* (132-148) mmol/L Chloride 122 H (98-107) mmol/L Glucose (75-110) mg/dl Lactate (0.7-2.1) mmol/L FiO2 % Potassium 4.1 (3.6-5.0) mmol/L Carbon Dioxide 18 L (21-33) mmol/L Anion Gap 20 (10-20) BUN 79 H (7-21) mg/dL Creatinine 3.0 H (0.5-1.4) mg/dL Est GFR ( Amer) 24 Est GFR (Non-Af Amer) 20 POC Glucose (mg/dL) 122 H (65-110) mg/dL Random Glucose 134 H (70-110) mg/dL Calcium 8.2 L (8.4-10.5) mg/dL Phosphorus 4.4 (2.5-4.5) mg/dL Magnesium 2.5 H (1.7-2.2) mg/dL Total Bilirubin 0.7 (0.2-1.3) mg/dL AST 40 (15-59) U/L ALT 43 (7-56) U/L Alkaline Phosphatase 200 H (38-133) U/L Total Creatine Kinase 691 H (35-230) U/L CK-MB (CK-2) 8.2 H (0.0-3.6) ng/mL CK-MB (CK-2) % 1.2 L (2.5-3.0) % Troponin I 0.29 H* ng/mL Total Protein 6.0 (5.8-8.3) g/dL Albumin 2.7 L (3.0-4.8) g/dL Globulin 3.3 gm/dL Albumin/Globulin Ratio 0.8 L (1.1-1.8) Procalcitonin (0.19-0.49) NG/ML Arterial Blood Potassium (3.6-5.2) mmol/L Venous Blood Potassium (3.6-5.2) mmol/L 02/27/17 02/27/17 Range/Units 02:30 01:20 WBC (4.5-11.0) 10^3/ul RBC (3.5-6.1) 10^6/uL Hgb (14.0-18.0) gm/dL Hct (42.0-52.0) % MCV (80.0-105.0) fL MCH (25.0-35.0) pg MCHC (31.0-37.0) g/dl RDW (11.5-14.5) % Plt Count (120.0-450.0) 10^3/uL MPV (7.0-11.0) fl Neutrophils % (Manual) (50.0-70.0) % Band Neutrophils % (0-2) % Lymphocytes % (Manual) (22.0-35.0) % Monocytes % (Manual) Platelet Evaluation (NORMAL) PT (9.9-11.8) Seconds INR (0.93-1.08) APTT (23.7-30.8) Seconds pCO2 24 L (35-45) mm/Hg pO2 66 H 160.0 H (80-100) mm/Hg HCO3 14.9 L (21-28) mmol/L ABG pH 7.40 (7.35-7.45) ABG Total CO2 15.6 L (22-28) mmol.L ABG O2 Saturation 99.9 H (95-98) % ABG Base Excess -8.0 L (-2.0-3.0) mmol/L ABG Potassium 3.4 L (3.6-5.2) mmol/L VBG pH 7.35 (7.32-7.43) VBG pCO2 29.0 L (40-60) VBG HCO3 16.0 L (21-28) mmol/l VBG Total CO2 16.9 L (22-28) mmol.L VBG O2 Sat (Calc) 93.9 H (40-65) % VBG Base Excess -8.2 L (0.0-2.0) mmol/L VBG Potassium 4.2 (3.6-5.2) mmol/L Sodium 153.0 H 155.0 H (132-148) mmol/L Chloride 129.0 H 134.0 H (98-107) mmol/L Glucose 146 H 136 H (75-110) mg/dl Lactate 3.2 H 1.0 (0.7-2.1) mmol/L FiO2 21.0 100.0 % Potassium (3.6-5.0) mmol/L Carbon Dioxide (21-33) mmol/L Anion Gap (10-20) BUN (7-21) mg/dL Creatinine (0.5-1.4) mg/dL Est GFR ( Amer) Est GFR (Non-Af Amer) POC Glucose (mg/dL) (65-110) mg/dL Random Glucose (70-110) mg/dL Calcium (8.4-10.5) mg/dL Phosphorus (2.5-4.5) mg/dL Magnesium (1.7-2.2) mg/dL Total Bilirubin (0.2-1.3) mg/dL AST (15-59) U/L ALT (7-56) U/L Alkaline Phosphatase (38-133) U/L Total Creatine Kinase (35-230) U/L CK-MB (CK-2) (0.0-3.6) ng/mL CK-MB (CK-2) % (2.5-3.0) % Troponin I ng/mL Total Protein (5.8-8.3) g/dL Albumin (3.0-4.8) g/dL Globulin gm/dL Albumin/Globulin Ratio (1.1-1.8) Procalcitonin (0.19-0.49) NG/ML Arterial Blood Potassium 3.4 L (3.6-5.2) mmol/L Venous Blood Potassium 4.2 (3.6-5.2) mmol/L Laboratory Results - last 24 hr 02/27/17 02/27/17 02/27/17 01:20 02:30 02:40 WBC RBC Hgb Hct MCV MCH MCHC RDW Plt Count MPV Neutrophils % (Manual) Band Neutrophils % Lymphocytes % (Manual) Monocytes % (Manual) Platelet Evaluation PT INR APTT pCO2 24 L pO2 160.0 H 66 H HCO3 14.9 L ABG pH 7.40 ABG Total CO2 15.6 L ABG O2 Saturation 99.9 H ABG Base Excess -8.0 L ABG Potassium 3.4 L VBG pH 7.35 VBG pCO2 29.0 L VBG HCO3 16.0 L VBG Total CO2 16.9 L VBG O2 Sat (Calc) 93.9 H VBG Base Excess -8.2 L VBG Potassium 4.2 Sodium 155.0 H 153.0 H Chloride 134.0 H 129.0 H Glucose 136 H 146 H Lactate 1.0 3.2 H FiO2 100.0 21.0 Potassium Carbon Dioxide Anion Gap BUN Creatinine Est GFR ( Amer) Est GFR (Non-Af Amer) POC Glucose (mg/dL) 122 H Random Glucose Calcium Phosphorus Magnesium Total Bilirubin AST ALT Alkaline Phosphatase Total Creatine Kinase CK-MB (CK-2) CK-MB (CK-2) % Troponin I Total Protein Albumin Globulin Albumin/Globulin Ratio Procalcitonin Arterial Blood Potassium 3.4 L Venous Blood Potassium 4.2 02/27/17 02/27/17 02/27/17 03:05 03:05 03:05 WBC 16.7 H RBC 3.52 Hgb 10.6 L Hct 33.4 L MCV 94.9 MCH 30.1 MCHC 31.7 RDW 15.6 H Plt Count 117 L MPV 10.5 Neutrophils % (Manual) 84 H Band Neutrophils % 10 H Lymphocytes % (Manual) 6 L Monocytes % (Manual) TEST NOT PERFORMED Platelet Evaluation Low PT 14.8 H INR 1.37 H APTT 126.9 H* pCO2 pO2 HCO3 ABG pH ABG Total CO2 ABG O2 Saturation ABG Base Excess ABG Potassium VBG pH VBG pCO2 VBG HCO3 VBG Total CO2 VBG O2 Sat (Calc) VBG Base Excess VBG Potassium Sodium 156 H* Chloride 122 H Glucose Lactate FiO2 Potassium 4.1 Carbon Dioxide 18 L Anion Gap 20 BUN 79 H Creatinine 3.0 H Est GFR ( Amer) 24 Est GFR (Non-Af Amer) 20 POC Glucose (mg/dL) Random Glucose 134 H Calcium 8.2 L Phosphorus 4.4 Magnesium 2.5 H Total Bilirubin 0.7 AST 40 ALT 43 Alkaline Phosphatase 200 H Total Creatine Kinase 691 H CK-MB (CK-2) 8.2 H CK-MB (CK-2) % 1.2 L Troponin I 0.29 H* Total Protein 6.0 Albumin 2.7 L Globulin 3.3 Albumin/Globulin Ratio 0.8 L Procalcitonin Arterial Blood Potassium Venous Blood Potassium 02/27/17 02/27/17 02/27/17 03:05 05:52 14:15 WBC RBC Hgb Hct MCV MCH MCHC RDW Plt Count MPV Neutrophils % (Manual) Band Neutrophils % Lymphocytes % (Manual) Monocytes % (Manual) Platelet Evaluation PT INR APTT pCO2 pO2 HCO3 ABG pH ABG Total CO2 ABG O2 Saturation ABG Base Excess ABG Potassium VBG pH VBG pCO2 VBG HCO3 VBG Total CO2 VBG O2 Sat (Calc) VBG Base Excess VBG Potassium Sodium 154 H Chloride 124 H Glucose Lactate FiO2 Potassium 3.4 L Carbon Dioxide 17 L Anion Gap 16 BUN 70 H Creatinine 2.3 H Est GFR ( Amer) 33 Est GFR (Non-Af Amer) 27 POC Glucose (mg/dL) 40 L Random Glucose 126 H Calcium 8.1 L Phosphorus Magnesium Total Bilirubin AST ALT Alkaline Phosphatase Total Creatine Kinase CK-MB (CK-2) CK-MB (CK-2) % Troponin I Total Protein Albumin Globulin Albumin/Globulin Ratio Procalcitonin 4.81 H Arterial Blood Potassium Venous Blood Potassium 02/27/17 02/27/17 14:15 14:15 WBC RBC Hgb Hct MCV MCH MCHC RDW Plt Count MPV Neutrophils % (Manual) Band Neutrophils % Lymphocytes % (Manual) Monocytes % (Manual) Platelet Evaluation PT INR APTT 103.9 H* pCO2 pO2 31 HCO3 ABG pH ABG Total CO2 ABG O2 Saturation ABG Base Excess ABG Potassium VBG pH 7.26 L VBG pCO2 38.0 L VBG HCO3 17.1 L VBG Total CO2 18.3 L VBG O2 Sat (Calc) 54.7 VBG Base Excess -9.3 L VBG Potassium 3.4 L Sodium 153.0 H Chloride 131.0 H Glucose 135 H Lactate 3.2 H FiO2 21.0 Potassium Carbon Dioxide Anion Gap BUN Creatinine Est GFR ( Amer) Est GFR (Non-Af Amer) POC Glucose (mg/dL) Random Glucose Calcium Phosphorus Magnesium Total Bilirubin AST ALT Alkaline Phosphatase Total Creatine Kinase CK-MB (CK-2) CK-MB (CK-2) % Troponin I Total Protein Albumin Globulin Albumin/Globulin Ratio Procalcitonin Arterial Blood Potassium Venous Blood Potassium 3.4 L Fingerstick Blood Sugar Results: 99 Review of Systems - Review of Systems Systems not reviewed;Unavailable: Other (unresponsive) Critical Care Progress Note - Nutrition Nutrition: Nutrition Category Date Time Status NPO Diet [DIET] Diets 02/27/17 Breakfast Ordered Assessment/Plan - Assessment and Plan (Free Text) Assessment: This is a 89 yo AA M with significant PMH including dementia, multiple vasculopathies, recent HCAP, and seizure disorder who was admitted to ICU for AMS/lethargy likely due to severe sepsis and ischemic left leg. After discussion with IR and ICU staff, patient's daughter (OFELIA Pitts) has elected for the patient to be made DNR/DNI and is pending discussion with Palliative Service regarding comfort-care/hospice/home-hospice. Plan: Neuro: -hx Dementia, carotid stenosis s/p B/L carotid endarterectomy, CVA, glaucoma, subarachnoid hemorrhage, seizure disorder -Neuro checks Q4H -CT brain- findings suggestive of cavernous venous thrombosis, on heparin drip -Keppra 1000mg Q12H for seizure d/o -maintain normothermia Cardio: -Hx CAD, HTN, HL -Briefly on pressors in ED- discontinued since arrival in ICU -Maintain MAP > 65 -Troponin 0.28, repeat 0.29; more likely 2/2 renal failure than ACS, continue to monitor -On Heparin drip for ischemic leg and cavernous sinus thrombosis, also covers for DVT -Ischemic left leg, IR consulted but notes nothing to be done, recs continue heparin drip Pulm: -Hx recent HCAP -On high flow nasal canula, unable to get readings from pulse ox on multiple body sites but ABG/VBG indicates appropriate sats -Target SaO2 > 92%, paO2 > 60 -DNR/DNI as per daughter, documentation in chart -HOB to 30 degrees, aspiration precautions -CXR -hyperinflation of lung mendes- RLL infiltrate vs. atelectasis -vancomycin and cefepime for abx coverage GI: -NPO -Protonix for GI ppx -severe cachexia Renal: -KIMBERLY on CKD -Cr improved to 2.3 (was 3.6) -Hypernatremia 156 on admit likely 2/2 dehydration, now 154 -monitor and replete electolytes as needed -avoid nephrotoxic drugs as feasible -recurrent UTIs w/indwelling Mcintosh -U/A pos for mod LE, neg for nitrates, mod bilirubin, 100 protein, 15 ketones, lrg blood -f/u urine cultures Endo: Maintain euglycemia (BG 140-180) ID: -leukocytosis decreased to 16.7 -Bandemia decreased to 10 -U/A positive for mod LE, neg for nitrates, CXR indicative of possible infiltrates -Given Vancomycin, Zosyn, and Zithromax x1 each in ED, currently on Vanco and Cefepime -F/U Blood and urine cx -procal 4.81 -ID consulted, appreciate all recs Heme: -Hgb 10.6 (was 11.8) -INR 1.37 this AM -Heparin drip for ischemic leg and cavernous venous thrombosis, covers DVT ppx as well Musculosketal: -Hx L-toe ulceration, non-healing on exam -Wound care PRN -LLE ischemic limb, on heparin drip, as per IR no intervention to be done -muscle wasting and cachexia, but given AMS high risk for feeds at this time Dispo: ICU, now DNR/DNI per daughter, pending hospice/comfort-care decision by daughter after meeting with Palliative FEN: NPO Access: Peripheral IV Consults: IR, ID, Palliative Ppx: Protonix for GI, Heparin drip covers for DVT Patient seen, reviewed, and discussed with attending, Dr. Valadez. - Date & Time Date: 02/27/17 Time: 16:29 <Rory TELLO,Inamul H - Last Filed: 02/27/17 17:05> CCU Objective - Vital Signs / Intake & Output Vital Signs (Last 4 hours): Vital Signs Temp Pulse Resp 02/27/17 16:57 93 H 14 02/27/17 16:56 96 H 17 02/27/17 16:55 94 H 11 L 02/27/17 16:54 93 H 13 02/27/17 16:53 90 12 02/27/17 16:52 93 H 11 L 02/27/17 16:51 89 11 L 02/27/17 16:50 89 13 02/27/17 16:49 87 12 02/27/17 16:48 90 13 02/27/17 16:47 93 H 11 L 02/27/17 16:46 91 H 11 L 02/27/17 16:45 89 12 02/27/17 16:44 91 H 12 02/27/17 16:43 89 12 02/27/17 16:42 87 12 02/27/17 16:41 90 12 02/27/17 16:40 98 H 12 02/27/17 16:39 93 H 13 02/27/17 16:38 95 H 13 02/27/17 16:37 88 12 02/27/17 16:36 93 H 12 02/27/17 16:35 91 H 12 02/27/17 16:34 92 H 16 02/27/17 16:33 95 H 18 02/27/17 16:32 99 H 20 02/27/17 16:00 97.4 F L 02/27/17 13:27 90 14 02/27/17 13:26 89 11 L 02/27/17 13:25 90 15 02/27/17 13:24 89 12 02/27/17 13:23 91 H 13 02/27/17 13:22 89 13 02/27/17 13:21 88 14 02/27/17 13:20 89 12 02/27/17 13:19 95 H 12 02/27/17 13:18 90 12 02/27/17 13:17 88 16 02/27/17 13:16 89 12 02/27/17 13:15 92 H 13 02/27/17 13:14 91 H 13 02/27/17 13:13 89 13 02/27/17 13:12 91 H 13 02/27/17 13:11 92 H 14 02/27/17 13:10 89 13 02/27/17 13:09 89 12 02/27/17 13:08 87 11 L 02/27/17 13:07 92 H 12 02/27/17 13:06 92 H 13 02/27/17 13:05 87 13 Intake and Output (Last 8hrs): Intake & Output 02/27/17 02/27/17 02/27/17 06:59 14:59 22:59 Intake Total 1152 147 Output Total 175 Balance 977 147 Weight 106 lb 12.8 oz Intake: IV 1152 147 Left Hand 1152 Output: Stool 175 Other: Voiding Method Indwelling Catheter - Medications Active Medications: Active Medications Generic Name Dose Route Start Last Admin Trade Name Freq PRN Reason Stop Dose Admin Cefepime HCl 0.5 gm/ Sodium 100 mls @ 100 mls/hr 02/27/17 00:15 02/27/17 01: 05 Chloride IVPB 100 mls/hr Q24H SARANYA Administration Protocol Vancomycin HCl 1 gm in 250 mls @ 167 mls/hr 02/27/17 08:00 02/27/17 09:29 Vancomycin 1gm IVPB 167 mls/hr Q12H SARANYA Administration Protocol Levetiracetam 500 mg in 100 mls @ 400 mls/hr 02/27/17 00:45 02/27/17 09:45 Keppra 500mg Ivpb IVPB 400 mls/hr Q12 SARANYA Administration Dextrose 1,000 mls @ 125 mls/hr 02/27/17 11:30 02/27/17 12:03 Dextrose 5% In Water 1000 Ml IV 125 mls/hr .Q8H SARANYA Administration Heparin Sodium/Sodium Chloride 25,000 units in 250 mls @ 8.72 mls/hr 02/27/17 15:22 02/27/17 15:49 Heparin 69408 Units/250ml 1/2 Normal Saline IV 12 units/kg/hr .Q24H PRN 5.813 mls/hr ADJUST RATE PER PROTOCOL Administration Protocol 18 UNITS/KG/HR Pantoprazole Sodium 40 mg 02/27/17 10:00 02/27/17 09:43 Protonix Inj IVP 40 mg DAILY SARANYA Administration - Patient Studies Lab Studies: Lab Studies 02/27/17 02/27/17 02/27/17 Range/Units 14:15 14:15 14:15 WBC (4.5-11.0) 10^3/ul RBC (3.5-6.1) 10^6/uL Hgb (14.0-18.0) gm/dL Hct (42.0-52.0) % MCV (80.0-105.0) fL MCH (25.0-35.0) pg MCHC (31.0-37.0) g/dl RDW (11.5-14.5) % Plt Count (120.0-450.0) 10^3/uL MPV (7.0-11.0) fl Neutrophils % (Manual) (50.0-70.0) % Band Neutrophils % (0-2) % Lymphocytes % (Manual) (22.0-35.0) % Monocytes % (Manual) Platelet Evaluation (NORMAL) PT (9.9-11.8) Seconds INR (0.93-1.08) APTT 103.9 H* (23.7-30.8) Seconds pCO2 (35-45) mm/Hg pO2 31 (80-100) mm/Hg HCO3 (21-28) mmol/L ABG pH (7.35-7.45) ABG Total CO2 (22-28) mmol.L ABG O2 Saturation (95-98) % ABG Base Excess (-2.0-3.0) mmol/L ABG Potassium (3.6-5.2) mmol/L VBG pH 7.26 L (7.32-7.43) VBG pCO2 38.0 L (40-60) VBG HCO3 17.1 L (21-28) mmol/l VBG Total CO2 18.3 L (22-28) mmol.L VBG O2 Sat (Calc) 54.7 (40-65) % VBG Base Excess -9.3 L (0.0-2.0) mmol/L VBG Potassium 3.4 L (3.6-5.2) mmol/L Sodium 153.0 H 154 H (132-148) mmol/L Chloride 131.0 H 124 H (98-107) mmol/L Glucose 135 H (75-110) mg/dl Lactate 3.2 H (0.7-2.1) mmol/L FiO2 21.0 % Potassium 3.4 L (3.6-5.0) mmol/L Carbon Dioxide 17 L (21-33) mmol/L Anion Gap 16 (10-20) BUN 70 H (7-21) mg/dL Creatinine 2.3 H (0.5-1.4) mg/dL Est GFR ( Amer) 33 Est GFR (Non-Af Amer) 27 POC Glucose (mg/dL) (65-110) mg/dL Random Glucose 126 H (70-110) mg/dL Calcium 8.1 L (8.4-10.5) mg/dL Phosphorus (2.5-4.5) mg/dL Magnesium (1.7-2.2) mg/dL Total Bilirubin (0.2-1.3) mg/dL AST (15-59) U/L ALT (7-56) U/L Alkaline Phosphatase (38-133) U/L Total Creatine Kinase (35-230) U/L CK-MB (CK-2) (0.0-3.6) ng/mL CK-MB (CK-2) % (2.5-3.0) % Troponin I ng/mL Total Protein (5.8-8.3) g/dL Albumin (3.0-4.8) g/dL Globulin gm/dL Albumin/Globulin Ratio (1.1-1.8) Procalcitonin (0.19-0.49) NG/ML Arterial Blood Potassium (3.6-5.2) mmol/L Venous Blood Potassium 3.4 L (3.6-5.2) mmol/L 02/27/17 02/27/17 02/27/17 Range/Units 05:52 03:05 03:05 WBC (4.5-11.0) 10^3/ul RBC (3.5-6.1) 10^6/uL Hgb (14.0-18.0) gm/dL Hct (42.0-52.0) % MCV (80.0-105.0) fL MCH (25.0-35.0) pg MCHC (31.0-37.0) g/dl RDW (11.5-14.5) % Plt Count (120.0-450.0) 10^3/uL MPV (7.0-11.0) fl Neutrophils % (Manual) (50.0-70.0) % Band Neutrophils % (0-2) % Lymphocytes % (Manual) (22.0-35.0) % Monocytes % (Manual) Platelet Evaluation (NORMAL) PT 14.8 H (9.9-11.8) Seconds INR 1.37 H (0.93-1.08) APTT 126.9 H* (23.7-30.8) Seconds pCO2 (35-45) mm/Hg pO2 (80-100) mm/Hg HCO3 (21-28) mmol/L ABG pH (7.35-7.45) ABG Total CO2 (22-28) mmol.L ABG O2 Saturation (95-98) % ABG Base Excess (-2.0-3.0) mmol/L ABG Potassium (3.6-5.2) mmol/L VBG pH (7.32-7.43) VBG pCO2 (40-60) VBG HCO3 (21-28) mmol/l VBG Total CO2 (22-28) mmol.L VBG O2 Sat (Calc) (40-65) % VBG Base Excess (0.0-2.0) mmol/L VBG Potassium (3.6-5.2) mmol/L Sodium (132-148) mmol/L Chloride (98-107) mmol/L Glucose (75-110) mg/dl Lactate (0.7-2.1) mmol/L FiO2 % Potassium (3.6-5.0) mmol/L Carbon Dioxide (21-33) mmol/L Anion Gap (10-20) BUN (7-21) mg/dL Creatinine (0.5-1.4) mg/dL Est GFR ( Amer) Est GFR (Non-Af Amer) POC Glucose (mg/dL) 40 L (65-110) mg/dL Random Glucose (70-110) mg/dL Calcium (8.4-10.5) mg/dL Phosphorus (2.5-4.5) mg/dL Magnesium (1.7-2.2) mg/dL Total Bilirubin (0.2-1.3) mg/dL AST (15-59) U/L ALT (7-56) U/L Alkaline Phosphatase (38-133) U/L Total Creatine Kinase (35-230) U/L CK-MB (CK-2) (0.0-3.6) ng/mL CK-MB (CK-2) % (2.5-3.0) % Troponin I ng/mL Total Protein (5.8-8.3) g/dL Albumin (3.0-4.8) g/dL Globulin gm/dL Albumin/Globulin Ratio (1.1-1.8) Procalcitonin 4.81 H (0.19-0.49) NG/ML Arterial Blood Potassium (3.6-5.2) mmol/L Venous Blood Potassium (3.6-5.2) mmol/L 02/27/17 02/27/17 02/27/17 Range/Units 03:05 03:05 02:40 WBC 16.7 H (4.5-11.0) 10^3/ul RBC 3.52 (3.5-6.1) 10^6/uL Hgb 10.6 L (14.0-18.0) gm/dL Hct 33.4 L (42.0-52.0) % MCV 94.9 (80.0-105.0) fL MCH 30.1 (25.0-35.0) pg MCHC 31.7 (31.0-37.0) g/dl RDW 15.6 H (11.5-14.5) % Plt Count 117 L (120.0-450.0) 10^3/uL MPV 10.5 (7.0-11.0) fl Neutrophils % (Manual) 84 H (50.0-70.0) % Band Neutrophils % 10 H (0-2) % Lymphocytes % (Manual) 6 L (22.0-35.0) % Monocytes % (Manual) TEST NOT PERFORMED Platelet Evaluation Low (NORMAL) PT (9.9-11.8) Seconds INR (0.93-1.08) APTT (23.7-30.8) Seconds pCO2 (35-45) mm/Hg pO2 (80-100) mm/Hg HCO3 (21-28) mmol/L ABG pH (7.35-7.45) ABG Total CO2 (22-28) mmol.L ABG O2 Saturation (95-98) % ABG Base Excess (-2.0-3.0) mmol/L ABG Potassium (3.6-5.2) mmol/L VBG pH (7.32-7.43) VBG pCO2 (40-60) VBG HCO3 (21-28) mmol/l VBG Total CO2 (22-28) mmol.L VBG O2 Sat (Calc) (40-65) % VBG Base Excess (0.0-2.0) mmol/L VBG Potassium (3.6-5.2) mmol/L Sodium 156 H* (132-148) mmol/L Chloride 122 H (98-107) mmol/L Glucose (75-110) mg/dl Lactate (0.7-2.1) mmol/L FiO2 % Potassium 4.1 (3.6-5.0) mmol/L Carbon Dioxide 18 L (21-33) mmol/L Anion Gap 20 (10-20) BUN 79 H (7-21) mg/dL Creatinine 3.0 H (0.5-1.4) mg/dL Est GFR ( Amer) 24 Est GFR (Non-Af Amer) 20 POC Glucose (mg/dL) 122 H (65-110) mg/dL Random Glucose 134 H (70-110) mg/dL Calcium 8.2 L (8.4-10.5) mg/dL Phosphorus 4.4 (2.5-4.5) mg/dL Magnesium 2.5 H (1.7-2.2) mg/dL Total Bilirubin 0.7 (0.2-1.3) mg/dL AST 40 (15-59) U/L ALT 43 (7-56) U/L Alkaline Phosphatase 200 H (38-133) U/L Total Creatine Kinase 691 H (35-230) U/L CK-MB (CK-2) 8.2 H (0.0-3.6) ng/mL CK-MB (CK-2) % 1.2 L (2.5-3.0) % Troponin I 0.29 H* ng/mL Total Protein 6.0 (5.8-8.3) g/dL Albumin 2.7 L (3.0-4.8) g/dL Globulin 3.3 gm/dL Albumin/Globulin Ratio 0.8 L (1.1-1.8) Procalcitonin (0.19-0.49) NG/ML Arterial Blood Potassium (3.6-5.2) mmol/L Venous Blood Potassium (3.6-5.2) mmol/L 02/27/17 02/27/17 Range/Units 02:30 01:20 WBC (4.5-11.0) 10^3/ul RBC (3.5-6.1) 10^6/uL Hgb (14.0-18.0) gm/dL Hct (42.0-52.0) % MCV (80.0-105.0) fL MCH (25.0-35.0) pg MCHC (31.0-37.0) g/dl RDW (11.5-14.5) % Plt Count (120.0-450.0) 10^3/uL MPV (7.0-11.0) fl Neutrophils % (Manual) (50.0-70.0) % Band Neutrophils % (0-2) % Lymphocytes % (Manual) (22.0-35.0) % Monocytes % (Manual) Platelet Evaluation (NORMAL) PT (9.9-11.8) Seconds INR (0.93-1.08) APTT (23.7-30.8) Seconds pCO2 24 L (35-45) mm/Hg pO2 66 H 160.0 H (80-100) mm/Hg HCO3 14.9 L (21-28) mmol/L ABG pH 7.40 (7.35-7.45) ABG Total CO2 15.6 L (22-28) mmol.L ABG O2 Saturation 99.9 H (95-98) % ABG Base Excess -8.0 L (-2.0-3.0) mmol/L ABG Potassium 3.4 L (3.6-5.2) mmol/L VBG pH 7.35 (7.32-7.43) VBG pCO2 29.0 L (40-60) VBG HCO3 16.0 L (21-28) mmol/l VBG Total CO2 16.9 L (22-28) mmol.L VBG O2 Sat (Calc) 93.9 H (40-65) % VBG Base Excess -8.2 L (0.0-2.0) mmol/L VBG Potassium 4.2 (3.6-5.2) mmol/L Sodium 153.0 H 155.0 H (132-148) mmol/L Chloride 129.0 H 134.0 H (98-107) mmol/L Glucose 146 H 136 H (75-110) mg/dl Lactate 3.2 H 1.0 (0.7-2.1) mmol/L FiO2 21.0 100.0 % Potassium (3.6-5.0) mmol/L Carbon Dioxide (21-33) mmol/L Anion Gap (10-20) BUN (7-21) mg/dL Creatinine (0.5-1.4) mg/dL Est GFR ( Amer) Est GFR (Non-Af Amer) POC Glucose (mg/dL) (65-110) mg/dL Random Glucose (70-110) mg/dL Calcium (8.4-10.5) mg/dL Phosphorus (2.5-4.5) mg/dL Magnesium (1.7-2.2) mg/dL Total Bilirubin (0.2-1.3) mg/dL AST (15-59) U/L ALT (7-56) U/L Alkaline Phosphatase (38-133) U/L Total Creatine Kinase (35-230) U/L CK-MB (CK-2) (0.0-3.6) ng/mL CK-MB (CK-2) % (2.5-3.0) % Troponin I ng/mL Total Protein (5.8-8.3) g/dL Albumin (3.0-4.8) g/dL Globulin gm/dL Albumin/Globulin Ratio (1.1-1.8) Procalcitonin (0.19-0.49) NG/ML Arterial Blood Potassium 3.4 L (3.6-5.2) mmol/L Venous Blood Potassium 4.2 (3.6-5.2) mmol/L Laboratory Results - last 24 hr 02/27/17 02/27/17 02/27/17 01:20 02:30 02:40 WBC RBC Hgb Hct MCV MCH MCHC RDW Plt Count MPV Neutrophils % (Manual) Band Neutrophils % Lymphocytes % (Manual) Monocytes % (Manual) Platelet Evaluation PT INR APTT pCO2 24 L pO2 160.0 H 66 H HCO3 14.9 L ABG pH 7.40 ABG Total CO2 15.6 L ABG O2 Saturation 99.9 H ABG Base Excess -8.0 L ABG Potassium 3.4 L VBG pH 7.35 VBG pCO2 29.0 L VBG HCO3 16.0 L VBG Total CO2 16.9 L VBG O2 Sat (Calc) 93.9 H VBG Base Excess -8.2 L VBG Potassium 4.2 Sodium 155.0 H 153.0 H Chloride 134.0 H 129.0 H Glucose 136 H 146 H Lactate 1.0 3.2 H FiO2 100.0 21.0 Potassium Carbon Dioxide Anion Gap BUN Creatinine Est GFR ( Amer) Est GFR (Non-Af Amer) POC Glucose (mg/dL) 122 H Random Glucose Calcium Phosphorus Magnesium Total Bilirubin AST ALT Alkaline Phosphatase Total Creatine Kinase CK-MB (CK-2) CK-MB (CK-2) % Troponin I Total Protein Albumin Globulin Albumin/Globulin Ratio Procalcitonin Arterial Blood Potassium 3.4 L Venous Blood Potassium 4.2 02/27/17 02/27/17 02/27/17 03:05 03:05 03:05 WBC 16.7 H RBC 3.52 Hgb 10.6 L Hct 33.4 L MCV 94.9 MCH 30.1 MCHC 31.7 RDW 15.6 H Plt Count 117 L MPV 10.5 Neutrophils % (Manual) 84 H Band Neutrophils % 10 H Lymphocytes % (Manual) 6 L Monocytes % (Manual) TEST NOT PERFORMED Platelet Evaluation Low PT 14.8 H INR 1.37 H APTT 126.9 H* pCO2 pO2 HCO3 ABG pH ABG Total CO2 ABG O2 Saturation ABG Base Excess ABG Potassium VBG pH VBG pCO2 VBG HCO3 VBG Total CO2 VBG O2 Sat (Calc) VBG Base Excess VBG Potassium Sodium 156 H* Chloride 122 H Glucose Lactate FiO2 Potassium 4.1 Carbon Dioxide 18 L Anion Gap 20 BUN 79 H Creatinine 3.0 H Est GFR ( Amer) 24 Est GFR (Non-Af Amer) 20 POC Glucose (mg/dL) Random Glucose 134 H Calcium 8.2 L Phosphorus 4.4 Magnesium 2.5 H Total Bilirubin 0.7 AST 40 ALT 43 Alkaline Phosphatase 200 H Total Creatine Kinase 691 H CK-MB (CK-2) 8.2 H CK-MB (CK-2) % 1.2 L Troponin I 0.29 H* Total Protein 6.0 Albumin 2.7 L Globulin 3.3 Albumin/Globulin Ratio 0.8 L Procalcitonin Arterial Blood Potassium Venous Blood Potassium 02/27/17 02/27/17 02/27/17 03:05 05:52 14:15 WBC RBC Hgb Hct MCV MCH MCHC RDW Plt Count MPV Neutrophils % (Manual) Band Neutrophils % Lymphocytes % (Manual) Monocytes % (Manual) Platelet Evaluation PT INR APTT pCO2 pO2 HCO3 ABG pH ABG Total CO2 ABG O2 Saturation ABG Base Excess ABG Potassium VBG pH VBG pCO2 VBG HCO3 VBG Total CO2 VBG O2 Sat (Calc) VBG Base Excess VBG Potassium Sodium 154 H Chloride 124 H Glucose Lactate FiO2 Potassium 3.4 L Carbon Dioxide 17 L Anion Gap 16 BUN 70 H Creatinine 2.3 H Est GFR ( Amer) 33 Est GFR (Non-Af Amer) 27 POC Glucose (mg/dL) 40 L Random Glucose 126 H Calcium 8.1 L Phosphorus Magnesium Total Bilirubin AST ALT Alkaline Phosphatase Total Creatine Kinase CK-MB (CK-2) CK-MB (CK-2) % Troponin I Total Protein Albumin Globulin Albumin/Globulin Ratio Procalcitonin 4.81 H Arterial Blood Potassium Venous Blood Potassium 02/27/17 02/27/17 14:15 14:15 WBC RBC Hgb Hct MCV MCH MCHC RDW Plt Count MPV Neutrophils % (Manual) Band Neutrophils % Lymphocytes % (Manual) Monocytes % (Manual) Platelet Evaluation PT INR APTT 103.9 H* pCO2 pO2 31 HCO3 ABG pH ABG Total CO2 ABG O2 Saturation ABG Base Excess ABG Potassium VBG pH 7.26 L VBG pCO2 38.0 L VBG HCO3 17.1 L VBG Total CO2 18.3 L VBG O2 Sat (Calc) 54.7 VBG Base Excess -9.3 L VBG Potassium 3.4 L Sodium 153.0 H Chloride 131.0 H Glucose 135 H Lactate 3.2 H FiO2 21.0 Potassium Carbon Dioxide Anion Gap BUN Creatinine Est GFR ( Amer) Est GFR (Non-Af Amer) POC Glucose (mg/dL) Random Glucose Calcium Phosphorus Magnesium Total Bilirubin AST ALT Alkaline Phosphatase Total Creatine Kinase CK-MB (CK-2) CK-MB (CK-2) % Troponin I Total Protein Albumin Globulin Albumin/Globulin Ratio Procalcitonin Arterial Blood Potassium Venous Blood Potassium 3.4 L Critical Care Progress Note - Nutrition Nutrition: Nutrition Category Date Time Status NPO Diet [DIET] Diets 02/27/17 Breakfast Ordered Attending/Attestation - Attestation I have personally seen and examined this patient.: Yes I have fully participated in the care of the patient.: Yes I have reviewed all pertinent clinical information: Yes Notes (Text): 02/27/17 17:04 89 y/o M transfered [facility] ICU for L ischemic Limb No plans for revascularization per IR. Family aware of th epoor prognosis . SEPSIS from ischemia. Cachectic patient with no QOL. On HFNC , non verbal and poor mental status. On empiric abx and supportive care awaiting family to come in after Palliative meeting to plan for HOSPICE - comfort care. cc time 55 min
--- NOTE | 2017-02-27 17:17 | CP.PCM.CON ---
History of Present Illness - History of Present Illness History of Present Illness: Palliative consult requested by Dr Eulalia Diez Reason: Goals of care/hospice discussion 89 year old male presented with cyanotic, cold, femoral pulse obtained via doppler. Patient's daughter reports increased lethargy altered mental status.Left lower extremity doppler showed severely abnormal MELISSA bilaterally, left PVR waveforms flat at all levels, distal SFA, popliteal and trifurcation disease. PMHX: Dementia, CAD, HTN, carotid artery stenosis, s/p bilateral carotid endarterectomy, CVA, glaucoma, subarachnoid hemorrhage, seizure disorder, GERD, left hip replacement, UTI. Social History: Former smoker,no alcohol or drug use. , lives with his daughter OFELIA Jacome. Family History: Non contributory. Advance Care Planning: The patent has an Advanced Directive. He is DNR/DNI. Review of Systems: Unable to obtains patient is altered Past Patient History - Infectious Disease Hx of Infectious Diseases: None - Tetanus Immunizations Tetanus Immunization: Unknown - Past Social History Smoking Status: Never Smoked - CARDIAC Hx Cardiac Disorders: Yes Hx Congestive Heart Failure: Yes Hx Hypertension: Yes - PULMONARY Hx Chronic Obstructive Pulmonary Disease (COPD): Yes Hx Pneumonia: No - NEUROLOGICAL HX Cerebrovascular Accident: Yes - HEENT Hx HEENT Problems: Yes Hx Blind: Yes (left eye opaque) Hx Cataracts: Yes (left eye) Hx Glaucoma: Yes - RENAL Hx Renal Failure: No - ENDOCRINE/METABOLIC Hx Diabetes Mellitus Type 1: No Hx Diabetes Mellitus Type 2: No Hx Hypothyroidism: No - HEMATOLOGICAL/ONCOLOGICAL Hx Cancer: No - INTEGUMENTARY Hx Dermatological Problems: Yes Other/Comment: R decubiti buttock SCARRED and heel healed, multiple skin discolorations ble and knees, left 2nd toe callous x2 brown in color, dry toenails b/l elbows brown discolored skin, brown skin to buttocks. 01-28-17 LEFT BUTTOCK WITH DTI,DEEP BURGUNDY COLOR INTACT SKIN.LEFT SIDE OF PINKY TOE WITH A 1.5 CM OPEN WOUND. 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 2ND TOE WITH CALLOUSED SKIN. LEFT NECK AREA HAS A LARGE LUMP MEASUREING 3 CM IN DM SOFT.INTACT. - MUSCULOSKELETAL/RHEUMATOLOGICAL Hx Arthritis: No Hx Falls: No - GASTROINTESTINAL Hx Gastroesophageal Reflux: Yes - GENITOURINARY/GYNECOLOGICAL Hx Genitourinary Disorders: Yes (RETENTION) Hx Incontinence: Yes Hx Prostate Problems: Yes (BPH) - PSYCHIATRIC Hx Psychophysiologic Disorder: Yes - SURGICAL HISTORY Hx Orthopedic Surgery: Yes (Left hip repair) - ANESTHESIA Hx Anesthesia: Yes Hx Anesthesia Reactions: No Hx Malignant Hyperthermia: No Meds Allergies/Adverse Reactions: Allergies Allergy/AdvReac Type Severity Reaction Status Date / Time peanut Allergy Severe ANAPHYLAXIS Verified 01/28/17 17:44 PORK Allergy VOMITING Verified 01/28/17 17:44 - Medications Medications: Current Medications Cefepime HCl 0.5 gm/ Sodium (Chloride) 100 mls @ 100 mls/hr IVPB Q24H SARANYA PRN Reason: Protocol Last Admin: 02/27/17 01:05 Dose: 100 mls/hr Vancomycin HCl (Vancomycin 1gm) 1 gm in 250 mls @ 167 mls/hr IVPB Q12H SARANYA PRN Reason: Protocol Last Admin: 02/27/17 09:29 Dose: 167 mls/hr Levetiracetam (Keppra 500mg Ivpb) 500 mg in 100 mls @ 400 mls/hr IVPB Q12 [facility] Last Admin: 02/27/17 09:45 Dose: 400 mls/hr Dextrose (Dextrose 5% In Water 1000 Ml) 1,000 mls @ 125 mls/hr IV .Q8H [facility] Last Admin: 02/27/17 12:03 Dose: 125 mls/hr Heparin Sodium/Sodium Chloride (Heparin 08246 Units/250ml 1/2 Normal Saline) 25 ,000 units in 250 mls @ 8.72 mls/hr IV .Q24H PRN; Protocol; 18 UNITS/KG/HR PRN Reason: ADJUST RATE PER PROTOCOL Last Admin: 02/27/17 15:49 Dose: 12 units/kg/hr, 5.813 mls/hr Pantoprazole Sodium (Protonix Inj) 40 mg IVP DAILY [facility] Last Admin: 02/27/17 09:43 Dose: 40 mg Physical Exam - Constitutional Appears: Cachectic, Chronically Ill - Head Exam Head Exam: NORMAL INSPECTION - Eye Exam Eye Exam: PERRL - ENT Exam ENT Exam: Mucous Membranes Moist - Neck Exam Additional comments: small movable mass left posterior neck - Respiratory Exam Respiratory Exam: Decreased Breath Sounds, NORMAL BREATHING PATTERN - Cardiovascular Exam Cardiovascular Exam: REGULAR RHYTHM, +S1, +S2 - GI/Abdominal Exam GI & Abdominal Exam: Normal Bowel Sounds, Soft Additional comments: n0 tenderness or guarding - Exam Additional comments: klein - Extremities Exam Additional comments: ledft lower extremity cyanotic, pulseless - Neurological Exam Neurological exam: Altered - Skin Skin Exam: Dry, Pallor Additional comments: left heal ulcer - Additional Findings Additional findings: Palliative performance scale rating 20 % Results - Vital Signs Recent Vital Signs: Last Vital Signs Temp 97.4 F L 02/27/17 16:00 Pulse 93 H 02/27/17 16:57 Resp 14 02/27/17 16:57 BP 104/44 L 02/27/17 13:00 Pulse Ox 95 02/27/17 00:00 - Labs Result Diagrams: 02/27/17 03:05 02/27/17 14:15 Labs: Laboratory Results - last 24 hr 02/27/17 02/27/17 02/27/17 01:20 02:30 02:40 WBC RBC Hgb Hct MCV MCH MCHC RDW Plt Count MPV Neutrophils % (Manual) Band Neutrophils % Lymphocytes % (Manual) Monocytes % (Manual) Platelet Evaluation PT INR APTT pCO2 24 L pO2 160.0 H 66 H HCO3 14.9 L ABG pH 7.40 ABG Total CO2 15.6 L ABG O2 Saturation 99.9 H ABG Base Excess -8.0 L ABG Potassium 3.4 L VBG pH 7.35 VBG pCO2 29.0 L VBG HCO3 16.0 L VBG Total CO2 16.9 L VBG O2 Sat (Calc) 93.9 H VBG Base Excess -8.2 L VBG Potassium 4.2 Sodium 155.0 H 153.0 H Chloride 134.0 H 129.0 H Glucose 136 H 146 H Lactate 1.0 3.2 H FiO2 100.0 21.0 Potassium Carbon Dioxide Anion Gap BUN Creatinine Est GFR ( Amer) Est GFR (Non-Af Amer) POC Glucose (mg/dL) 122 H Random Glucose Calcium Phosphorus Magnesium Total Bilirubin AST ALT Alkaline Phosphatase Total Creatine Kinase CK-MB (CK-2) CK-MB (CK-2) % Troponin I Total Protein Albumin Globulin Albumin/Globulin Ratio Procalcitonin Arterial Blood Potassium 3.4 L Venous Blood Potassium 4.2 02/27/17 02/27/17 02/27/17 03:05 03:05 03:05 WBC 16.7 H RBC 3.52 Hgb 10.6 L Hct 33.4 L MCV 94.9 MCH 30.1 MCHC 31.7 RDW 15.6 H Plt Count 117 L MPV 10.5 Neutrophils % (Manual) 84 H Band Neutrophils % 10 H Lymphocytes % (Manual) 6 L Monocytes % (Manual) TEST NOT PERFORMED Platelet Evaluation Low PT 14.8 H INR 1.37 H APTT 126.9 H* pCO2 pO2 HCO3 ABG pH ABG Total CO2 ABG O2 Saturation ABG Base Excess ABG Potassium VBG pH VBG pCO2 VBG HCO3 VBG Total CO2 VBG O2 Sat (Calc) VBG Base Excess VBG Potassium Sodium 156 H* Chloride 122 H Glucose Lactate FiO2 Potassium 4.1 Carbon Dioxide 18 L Anion Gap 20 BUN 79 H Creatinine 3.0 H Est GFR ( Amer) 24 Est GFR (Non-Af Amer) 20 POC Glucose (mg/dL) Random Glucose 134 H Calcium 8.2 L Phosphorus 4.4 Magnesium 2.5 H Total Bilirubin 0.7 AST 40 ALT 43 Alkaline Phosphatase 200 H Total Creatine Kinase 691 H CK-MB (CK-2) 8.2 H CK-MB (CK-2) % 1.2 L Troponin I 0.29 H* Total Protein 6.0 Albumin 2.7 L Globulin 3.3 Albumin/Globulin Ratio 0.8 L Procalcitonin Arterial Blood Potassium Venous Blood Potassium 02/27/17 02/27/17 02/27/17 03:05 05:52 14:15 WBC RBC Hgb Hct MCV MCH MCHC RDW Plt Count MPV Neutrophils % (Manual) Band Neutrophils % Lymphocytes % (Manual) Monocytes % (Manual) Platelet Evaluation PT INR APTT pCO2 pO2 HCO3 ABG pH ABG Total CO2 ABG O2 Saturation ABG Base Excess ABG Potassium VBG pH VBG pCO2 VBG HCO3 VBG Total CO2 VBG O2 Sat (Calc) VBG Base Excess VBG Potassium Sodium 154 H Chloride 124 H Glucose Lactate FiO2 Potassium 3.4 L Carbon Dioxide 17 L Anion Gap 16 BUN 70 H Creatinine 2.3 H Est GFR ( Amer) 33 Est GFR (Non-Af Amer) 27 POC Glucose (mg/dL) 40 L Random Glucose 126 H Calcium 8.1 L Phosphorus Magnesium Total Bilirubin AST ALT Alkaline Phosphatase Total Creatine Kinase CK-MB (CK-2) CK-MB (CK-2) % Troponin I Total Protein Albumin Globulin Albumin/Globulin Ratio Procalcitonin 4.81 H Arterial Blood Potassium Venous Blood Potassium 02/27/17 02/27/17 14:15 14:15 WBC RBC Hgb Hct MCV MCH MCHC RDW Plt Count MPV Neutrophils % (Manual) Band Neutrophils % Lymphocytes % (Manual) Monocytes % (Manual) Platelet Evaluation PT INR APTT 103.9 H* pCO2 pO2 31 HCO3 ABG pH ABG Total CO2 ABG O2 Saturation ABG Base Excess ABG Potassium VBG pH 7.26 L VBG pCO2 38.0 L VBG HCO3 17.1 L VBG Total CO2 18.3 L VBG O2 Sat (Calc) 54.7 VBG Base Excess -9.3 L VBG Potassium 3.4 L Sodium 153.0 H Chloride 131.0 H Glucose 135 H Lactate 3.2 H FiO2 21.0 Potassium Carbon Dioxide Anion Gap BUN Creatinine Est GFR ( Amer) Est GFR (Non-Af Amer) POC Glucose (mg/dL) Random Glucose Calcium Phosphorus Magnesium Total Bilirubin AST ALT Alkaline Phosphatase Total Creatine Kinase CK-MB (CK-2) CK-MB (CK-2) % Troponin I Total Protein Albumin Globulin Albumin/Globulin Ratio Procalcitonin Arterial Blood Potassium Venous Blood Potassium 3.4 L Assessment & Plan - Assessment and Plan (Free Text) Assessment: 89 year old male admitted with lethargy, alerted mental status, cyantoc left lower extremity. History of dementia, CVA , left kirill paresis. Patient is known to me from previous admission. Daughter and I had an extensive discussion regarding goals of care and advance care planning. Daughter was was not ready to initiate DNR/DNI at that time. Today patient daughter spoke with medical staff via phone and agreed to make patient DNR/DNI. I spoke with daughter via phone as well. She understands the seriousness of her father condition and poor prognosis. She agreed to meet with me in the morning to further discuss options for care. Time spent in goals of care discussion, 20 minutes Plan: Will assist with advance care planning
--- NOTE | 2017-02-27 20:26 | CP.PCM.CON ---
<Matt Hernández - Last Filed: 02/27/17 21:45> History of Present Illness - History of Present Illness History of Present Illness: General Surgery Consult For Dr. Peña CC: AMS and cold foot X 1 week HPI: This is an 89M with a PMH of multiple CVSs, HTN, HLD, Glaucoma, Seizures, Recurrent UTIs with chronic indwelling catheters. He presented with a 1 week history of AMS and a cold left lower extremity that was noted in the ED. The family reports that the patient's confusion is only a week old and that the patient is "with it" otherwise. The family reports that the patient is not mobile and gets around using a wheel chair. The patient is non verbal history was taken from family and extrapolated from other medical notes. PMH: See Above PSH: Coratid endarterectomy bilaterally ALL: Peanuts, Pork Review of Systems - Review of Systems Systems not reviewed;Unavailable: Altered Mental Status Past Patient History - Infectious Disease Hx of Infectious Diseases: None - Tetanus Immunizations Tetanus Immunization: Unknown - Past Social History Smoking Status: Never Smoked - CARDIAC Hx Cardiac Disorders: Yes Hx Congestive Heart Failure: Yes Hx Hypertension: Yes - PULMONARY Hx Chronic Obstructive Pulmonary Disease (COPD): Yes Hx Pneumonia: No - NEUROLOGICAL HX Cerebrovascular Accident: Yes - HEENT Hx HEENT Problems: Yes Hx Blind: Yes (left eye opaque) Hx Cataracts: Yes (left eye) Hx Glaucoma: Yes - RENAL Hx Renal Failure: No - ENDOCRINE/METABOLIC Hx Diabetes Mellitus Type 1: No Hx Diabetes Mellitus Type 2: No Hx Hypothyroidism: No - HEMATOLOGICAL/ONCOLOGICAL Hx Cancer: No - INTEGUMENTARY Hx Dermatological Problems: Yes Other/Comment: R decubiti buttock SCARRED and heel healed, multiple skin discolorations ble and knees, left 2nd toe callous x2 brown in color, dry toenails b/l elbows brown discolored skin, brown skin to buttocks. 01-28-17 LEFT BUTTOCK WITH DTI,DEEP BURGUNDY COLOR INTACT SKIN.LEFT SIDE OF PINKY TOE WITH A 1.5 CM OPEN WOUND. SEES A DRY MIXER.TOENAILS DRY. 2ND TOE WITH CALLOUSED SKIN. LEFT NECK AREA HAS A LARGE LUMP MEASUREING 3 CM IN DM SOFT.INTACT. - MUSCULOSKELETAL/RHEUMATOLOGICAL Hx Arthritis: No Hx Falls: No - GASTROINTESTINAL Hx Gastroesophageal Reflux: Yes - GENITOURINARY/GYNECOLOGICAL Hx Genitourinary Disorders: Yes (RETENTION) Hx Incontinence: Yes Hx Prostate Problems: Yes (BPH) - PSYCHIATRIC Hx Psychophysiologic Disorder: Yes - SURGICAL HISTORY Hx Orthopedic Surgery: Yes (Left hip repair) - ANESTHESIA Hx Anesthesia: Yes Hx Anesthesia Reactions: No Hx Malignant Hyperthermia: No Meds Allergies/Adverse Reactions: Allergies Allergy/AdvReac Type Severity Reaction Status Date / Time peanut Allergy Severe ANAPHYLAXIS Verified 01/28/17 17:44 PORK Allergy VOMITING Verified 01/28/17 17:44 - Medications Medications: Current Medications Vancomycin HCl (Vancomycin 1gm) 1 gm in 250 mls @ 167 mls/hr IVPB Q12H [facility] PRN Reason: Protocol Last Admin: 02/27/17 09:29 Dose: 167 mls/hr Levetiracetam (Keppra 500mg Ivpb) 500 mg in 100 mls @ 400 mls/hr IVPB Q12 [facility] Last Admin: 02/27/17 09:45 Dose: 400 mls/hr Dextrose (Dextrose 5% In Water 1000 Ml) 1,000 mls @ 125 mls/hr IV .Q8H [facility] Last Admin: 02/27/17 12:03 Dose: 125 mls/hr Heparin Sodium/Sodium Chloride (Heparin 25129 Units/250ml 1/2 Normal Saline) 25 ,000 units in 250 mls @ 8.72 mls/hr IV .Q24H PRN; Protocol; 18 UNITS/KG/HR PRN Reason: ADJUST RATE PER PROTOCOL Last Admin: 02/27/17 15:49 Dose: 12 units/kg/hr, 5.813 mls/hr Ceftaroline Fosamil 300 mg/ (Sodium Chloride) 50 mls @ 50 mls/hr IVPB Q12H [facility] PRN Reason: Protocol Stop: 03/08/17 20:01 Pantoprazole Sodium (Protonix Inj) 40 mg IVP DAILY [facility] Last Admin: 02/27/17 09:43 Dose: 40 mg Physical Exam - Constitutional Appears: Confused, Cachectic - Head Exam Head Exam: ATRAUMATIC - Eye Exam Eye Exam: EOMI - ENT Exam ENT Exam: Mucous Membranes Moist - Respiratory Exam Respiratory Exam: NORMAL BREATHING PATTERN - Cardiovascular Exam Cardiovascular Exam: +S1, +S2 - GI/Abdominal Exam GI & Abdominal Exam: Soft. absent: Distended, Tenderness - Extremities Exam Additional comments: Left lower extremity cold cyanotic, and atrophic - Neurological Exam Neurological exam: Altered - Skin Skin Exam: Mottled Results - Vital Signs Recent Vital Signs: Last Vital Signs Temp 99.1 F 02/27/17 19:05 Pulse 88 02/27/17 19:05 Resp 16 02/27/17 19:05 BP 133/106 H 02/27/17 19:05 Pulse Ox 86 L 02/27/17 19:05 - Labs Result Diagrams: 02/27/17 03:05 02/27/17 14:15 Labs: Laboratory Results - last 24 hr 02/27/17 02/27/17 02/27/17 01:20 02:30 02:40 WBC RBC Hgb Hct MCV MCH MCHC RDW Plt Count MPV Neutrophils % (Manual) Band Neutrophils % Lymphocytes % (Manual) Monocytes % (Manual) Platelet Evaluation PT INR APTT pCO2 24 L pO2 160.0 H 66 H HCO3 14.9 L ABG pH 7.40 ABG Total CO2 15.6 L ABG O2 Saturation 99.9 H ABG Base Excess -8.0 L ABG Potassium 3.4 L VBG pH 7.35 VBG pCO2 29.0 L VBG HCO3 16.0 L VBG Total CO2 16.9 L VBG O2 Sat (Calc) 93.9 H VBG Base Excess -8.2 L VBG Potassium 4.2 Sodium 155.0 H 153.0 H Chloride 134.0 H 129.0 H Glucose 136 H 146 H Lactate 1.0 3.2 H FiO2 100.0 21.0 Potassium Carbon Dioxide Anion Gap BUN Creatinine Est GFR ( Amer) Est GFR (Non-Af Amer) POC Glucose (mg/dL) 122 H Random Glucose Calcium Phosphorus Magnesium Total Bilirubin AST ALT Alkaline Phosphatase Total Creatine Kinase CK-MB (CK-2) CK-MB (CK-2) % Troponin I Total Protein Albumin Globulin Albumin/Globulin Ratio Procalcitonin Arterial Blood Potassium 3.4 L Venous Blood Potassium 4.2 02/27/17 02/27/17 02/27/17 03:05 03:05 03:05 WBC 16.7 H RBC 3.52 Hgb 10.6 L Hct 33.4 L MCV 94.9 MCH 30.1 MCHC 31.7 RDW 15.6 H Plt Count 117 L MPV 10.5 Neutrophils % (Manual) 84 H Band Neutrophils % 10 H Lymphocytes % (Manual) 6 L Monocytes % (Manual) TEST NOT PERFORMED Platelet Evaluation Low PT 14.8 H INR 1.37 H APTT 126.9 H* pCO2 pO2 HCO3 ABG pH ABG Total CO2 ABG O2 Saturation ABG Base Excess ABG Potassium VBG pH VBG pCO2 VBG HCO3 VBG Total CO2 VBG O2 Sat (Calc) VBG Base Excess VBG Potassium Sodium 156 H* Chloride 122 H Glucose Lactate FiO2 Potassium 4.1 Carbon Dioxide 18 L Anion Gap 20 BUN 79 H Creatinine 3.0 H Est GFR ( Amer) 24 Est GFR (Non-Af Amer) 20 POC Glucose (mg/dL) Random Glucose 134 H Calcium 8.2 L Phosphorus 4.4 Magnesium 2.5 H Total Bilirubin 0.7 AST 40 ALT 43 Alkaline Phosphatase 200 H Total Creatine Kinase 691 H CK-MB (CK-2) 8.2 H CK-MB (CK-2) % 1.2 L Troponin I 0.29 H* Total Protein 6.0 Albumin 2.7 L Globulin 3.3 Albumin/Globulin Ratio 0.8 L Procalcitonin Arterial Blood Potassium Venous Blood Potassium 02/27/17 02/27/17 02/27/17 03:05 05:52 14:15 WBC RBC Hgb Hct MCV MCH MCHC RDW Plt Count MPV Neutrophils % (Manual) Band Neutrophils % Lymphocytes % (Manual) Monocytes % (Manual) Platelet Evaluation PT INR APTT pCO2 pO2 HCO3 ABG pH ABG Total CO2 ABG O2 Saturation ABG Base Excess ABG Potassium VBG pH VBG pCO2 VBG HCO3 VBG Total CO2 VBG O2 Sat (Calc) VBG Base Excess VBG Potassium Sodium 154 H Chloride 124 H Glucose Lactate FiO2 Potassium 3.4 L Carbon Dioxide 17 L Anion Gap 16 BUN 70 H Creatinine 2.3 H Est GFR ( Amer) 33 Est GFR (Non-Af Amer) 27 POC Glucose (mg/dL) 40 L Random Glucose 126 H Calcium 8.1 L Phosphorus Magnesium Total Bilirubin AST ALT Alkaline Phosphatase Total Creatine Kinase CK-MB (CK-2) CK-MB (CK-2) % Troponin I Total Protein Albumin Globulin Albumin/Globulin Ratio Procalcitonin 4.81 H Arterial Blood Potassium Venous Blood Potassium 02/27/17 02/27/17 14:15 14:15 WBC RBC Hgb Hct MCV MCH MCHC RDW Plt Count MPV Neutrophils % (Manual) Band Neutrophils % Lymphocytes % (Manual) Monocytes % (Manual) Platelet Evaluation PT INR APTT 103.9 H* pCO2 pO2 31 HCO3 ABG pH ABG Total CO2 ABG O2 Saturation ABG Base Excess ABG Potassium VBG pH 7.26 L VBG pCO2 38.0 L VBG HCO3 17.1 L VBG Total CO2 18.3 L VBG O2 Sat (Calc) 54.7 VBG Base Excess -9.3 L VBG Potassium 3.4 L Sodium 153.0 H Chloride 131.0 H Glucose 135 H Lactate 3.2 H FiO2 21.0 Potassium Carbon Dioxide Anion Gap BUN Creatinine Est GFR ( Amer) Est GFR (Non-Af Amer) POC Glucose (mg/dL) Random Glucose Calcium Phosphorus Magnesium Total Bilirubin AST ALT Alkaline Phosphatase Total Creatine Kinase CK-MB (CK-2) CK-MB (CK-2) % Troponin I Total Protein Albumin Globulin Albumin/Globulin Ratio Procalcitonin Arterial Blood Potassium Venous Blood Potassium 3.4 L Assessment & Plan - Assessment and Plan (Free Text) Assessment: TThis is an 89M with a PMH of multiple CVSs, HTN, HLD, Glaucoma, Seizures, Recurrent UTIs with chronic indwelling catheters for whome we have been consulted due to a, ischemis left lower limb It is my opinion that the only surgical option would be an AKA for this patient , however due to his current medical state it would be dangerous and it is my opinion that the patient will not survive the operation. D/W Dr. Casey Hernández PGY-1 <Gerber Peña - Last Filed: 06/04/17 00:39> Results - Vital Signs Recent Vital Signs: Last Vital Signs Temp 97.4 F L 03/12/17 07:30 Pulse 60 03/12/17 13:48 Resp 33 H 03/12/17 07:30 BP 141/57 L 03/12/17 07:30 Pulse Ox 90 L 03/12/17 07:30 - Labs Result Diagrams: 03/12/17 10:30 03/12/17 10:30 Assessment & Plan - Assessment and Plan (Free Text) Plan: Patient was seen and examined by me. I agree with assessment and plan as per resident's note. - Date & Time Date: 02/27/17 Time: 21:10
--- NOTE | 2017-02-28 03:20 | CON ---
DATE: 02/27/2017 The patient seen earlier today in the ICU and patient is in 129, bed 4. CHIEF COMPLAINT: Weakness and leukocytosis x 1 day. HISTORY OF PRESENT ILLNESS: This is an 89-year-old male with hypertension, history of subarachnoid h emorrhage, cerebrovascular accident, left-sided weakness, seizures, urinary tract infections, obstruc tive uropathy, and dementia with a history of bilateral carotid endarterectomy and history of left hi p surgery, who is ALLERGIC TO PEANUTS AND PORK, admitted with a diagnosis of septic shock and acute l imb ischemia and infectious consultation requested this morning. As of this morning, the patient's m ental status was very poor, unable to get any history. Information is what is gathered from the nurs e of the patient. There has been low-grade fevers and the left leg ischemia and no abdom inal pain, diarrhea is reported. He has been short of breath. PAST MEDICAL HISTORY: Significant for subarachnoid hemorrhage, cerebrovascular accident, left-sided weakness, seizures, urinary tract infection, obstructive uropathy, dementia, hypertension. PAST SURGICAL HISTORY: Includes bilateral carotid endarterectomy, left hip surgery. ALLERGIES: THE PATIENT IS ALLERGIC TO PEANUTS AND PORK. MEDICATIONS: Reviewed at home. PHYSICAL EXAMINATION: GENERAL: The patient is in bed, appearing end-stage cachectic with a BMI of only 14. VITAL SIGNS: Temperature of 99.7, respiratory rate of 15. A heart rate of 93, blood pressure is 105 /50. HEENT: Unremarkable. There is temporal wasting. NECK: Supple. LUNGS: Have decreased breath sounds. HEART: Normal S1, S2. ABDOMEN: Soft, nontender. EXTREMITIES: The left leg is cold. LABORATORY EXAMINATION: Reveals a white count of 18,000, 24% bandemia. Coagulation is noted. Chemi stries reveal the patient has a BUN of 70, creatinine of 2.3. The patient's creatinine in the past h as been 0.8 and on admission it was 3.6. Microbiology reveals the blood cultures are no growth. Con sultations are reviewed. CAT scan is reviewed. ASSESSMENT AND PLAN: This is an 89-year-old male with hypertension, subarachnoid hemorrhage, cerebro vascular accident, left-sided weakness, seizures, urinary tract infection, obstructive uropathy, kaushik ntia, severe sepsis, left leg ischemia with acute kidney injury. We will treat the patient with Tefl alberto. Overall, prognosis is quite poor. Should consider hospice setting for this patient, who is cac hectic with end-stage. Jesus Brenner MD cc: [id number] TT: 02/28/2017 03:19:33 Confirmation # [id number] Dictation # [id number] tn
[2017-02-28 07:14] LABS: INR 1.16 (0.93-1.08); PARTIAL THROMBOPLASTIN TIME 50.9 Seconds (23.7-30.8)
[2017-02-28 07:17] LABS: BASO # 0.01 [, K/mm3] (0.0-2.0); EOS % 0.1 % (1.5-5.0); GRAN % 92.7 % (50.0-68.0); HEMATOCRIT 35.6 % (42.0-52.0); LYMPH # 1.1 (1.2-3.4); LYMPH % 5.1 % (22.0-35.0); MEAN CELL VOLUME 100.6 fL (80.0-105.0); MEAN CORPUSCULAR HEMOGLOBIN 30.8 pg (25.0-35.0); MEAN CORPUSCULAR HGB CONC 30.6 g/dl (31.0-37.0); MEAN PLATELET VOLUME 12.1 fl (7.0-11.0); MONO # 0.5 (0.1-0.6); MONO % 2.1 % (1.0-6.0); PLATELET COUNT 120 [, 10^3/uL] (120.0-450.0); RED CELL DISTRIBUTION WIDTH 16.4 % (11.5-14.5)
[2017-02-28 07:21] LABS: ALB/GLOB RATIO 0.8 (1.1-1.8); BILIRUBIN,TOTAL 0.6 mg/dL (0.2-1.3); CALCIUM 8.3 mg/dL (8.4-10.5); MAGNESIUM 2.4 mg/dL (1.7-2.2); PHOSPHOROUS 8.2 mg/dL (2.5-4.5); TOTAL PROTEIN 5.5 g/dL (5.8-8.3)
[2017-02-28 07:28] LABS: ADD MANUAL DIFF? NO
[2017-02-28 07:34] LABS: POTASSIUM 3.8 mmol/L (3.6-5.0)
--- NOTE | 2017-02-28 07:44 | PN ---
DATE: 02/28/2017 SUBJECTIVE: The patient is confused, not able to communicate. PHYSICAL EXAMINATION: VITAL SIGNS: Temperature is 99.1, pulse of 88, blood pressure is 133/106, respirations 16. GENERAL: The patient comfortable, in no acute distress. HEENT: Anicteric sclerae. Moist mucosa. NECK: No JVD or adenopathy. CARDIAC: S1/S2. No murmurs. No rubs. Regular. RESPIRATORY: Clear to auscultation bilaterally. No wheezes, rales, or rhonchi. Good air entry. ABDOMEN: Bowel sounds are positive, soft, nontender, and nondistended. EXTREMITIES: No edema. Has 1+ pulses. LABORATORIES: Yesterday's white count of 16.7. His sodium is 154, creatinine is 2.3. ASSESSMENT: 1. Sepsis. 2. Left leg ischemia with gangrene. 3. Hypernatremia. 4. Acute kidney injury. 5. Cerebrovascular accident with left-sided residual weakness. 6. Dyslipidemia. 7. Hypotension, improved. 8. Do not resuscitate/do not intubate. PLAN: The patient is currently comfortable. He has a significant ischemia in the left leg. He is n ot a surgical candidate nor is he a candidate for interventional radiology per Dr. Parish Nicolas. He i s being followed by Yuly Schreiber for end of life care. I did speak to the patient's daughter yest kayla. She is going to be meeting this morning with Johanna Schreiber. I appreciate her input. The pat jorge has clinically declined. He is malnourished. His weight is 106 pounds. He has an albumin of 2 .7. He is moderately malnourished. The patient is on heparin. He is also on Keppra. The patient i s going to be on Teflaro for antibiotics. He remains n.p.o. Jerome Diez MD cc: [id number] TT: 02/28/2017 07:44:15 Confirmation # [id number] Dictation # [id number] en
[2017-02-28] MEDS ORDERED: Dextrose 50% SYRINGE Inj (50 ml) ONE ×3 (08:05→17:39)
[2017-02-28] MEDS: Vancomycin 1gm in NS 250ml 1 GM/250 ML BAG IVPB SCH (08:45)
--- NOTE | 2017-02-28 09:38 | CP.PCM.PN ---
<Jesus Thakur - Last Filed: 02/28/17 09:38> Subjective - Date & Time of Evaluation Date of Evaluation: 02/28/17 Time of Evaluation: 09:38 - Subjective Subjective: Dr. Jesus Thakur PGY1 Surgery Note for Dr. Peña Patient seen and examined at bedside; is verbal but a man of very few words says "he is fine and has no pain". Objective - Vital Signs/Intake and Output Vital Signs (last 24 hours): Temp Pulse Resp BP Pulse Ox 97.6 F 92 H 20 116/50 L 93 L 02/28/17 08:00 02/28/17 08:00 02/28/17 08:00 02/28/17 08:00 02/28/17 08:00 Intake and Output: 02/28/17 02/28/17 06:59 18:59 Intake Total 1000 Output Total 275 Balance 725 - Medications Medications: Current Medications Heparin Sodium (Porcine) (Heparin) 5,000 units SC Q12 [facility] PRN Reason: Protocol Last Admin: 02/28/17 09:18 Dose: 5,000 units Levetiracetam (Keppra 500mg Ivpb) 500 mg in 100 mls @ 400 mls/hr IVPB Q12 [facility] Last Admin: 02/27/17 23:00 Dose: 400 mls/hr Dextrose (Dextrose 5% In Water 1000 Ml) 1,000 mls @ 125 mls/hr IV .Q8H [facility]ANYA Last Admin: 02/28/17 03:30 Dose: Not Given Ceftaroline Fosamil 300 mg/ (Sodium Chloride) 50 mls @ 50 mls/hr IVPB Q12H [facility] PRN Reason: Protocol Stop: 03/08/17 20:01 Last Admin: 02/28/17 09:18 Dose: 50 mls/hr Pantoprazole Sodium (Protonix Inj) 40 mg IVP DAILY [facility] Last Admin: 02/28/17 09:18 Dose: 40 mg - Labs Labs: 02/28/17 06:30 02/28/17 06:30 PT 12.5 Seconds (9.9-11.8) H 02/28/17 06:30 INR 1.16 (0.93-1.08) H 02/28/17 06:30 APTT 50.9 Seconds (23.7-30.8) H 02/28/17 06:30 - Constitutional Appears: Non-toxic - Head Exam Additional comments: Appears: Confused, Cachectic - Head Exam Head Exam: ATRAUMATIC - Eye Exam Eye Exam: EOMI - ENT Exam ENT Exam: Mucous Membranes Moist, no teeth present - Respiratory Exam Respiratory Exam: NORMAL BREATHING PATTERN - Cardiovascular Exam Cardiovascular Exam: +S1, +S2 - GI/Abdominal Exam GI & Abdominal Exam: Soft. absent: Distended, Tenderness - Extremities Exam Additional comments: Left lower extremity cold cyanotic, and atrophic, no palpable pulses by either palpation or doppler - Neurological Exam Neurological exam: Altered - Skin Skin Exam: Mottled Assessment and Plan - Assessment and Plan (Free Text) Assessment: This is an 89M with a PMHx of multiple CVA's, HTN, HLD, Glaucoma, Seizures, Recurrent UTIs with chronic indwelling catheters for whom we have been consulted due to a, ischemic left lower limb It is the opinion of the attending physician that the only surgical option would be an AKA for this patient, however due to his current medical state it would be extremely dangerous and the patient would likely not survive the operation, or anesthesia. The patients clinical status remains unchanged D/W Dr. Casey Thakur PGY1 Surgery Note for Dr. Peña <Gerber Peña - Last Filed: 06/04/17 00:40> Objective - Vital Signs/Intake and Output Vital Signs (last 24 hours): Temp Pulse Resp BP Pulse Ox 97.4 F L 60 33 H 141/57 L 90 L 03/12/17 07:30 03/12/17 13:48 03/12/17 07:30 03/12/17 07:30 03/12/17 07:30 - Labs Labs: 03/12/17 10:30 03/12/17 10:30 PT 13.2 Seconds (9.9-11.8) H 03/11/17 07:00 INR 1.22 (0.93-1.08) H 03/11/17 07:00 APTT 30.3 Seconds (23.7-30.8) 03/11/17 07:00 Assessment and Plan - Assessment and Plan (Free Text) Plan: Patient was seen and examined by me. I agree with assessment and plan as per resident's note.
[2017-02-28] MEDS: levETIRAcetam 500mg IVPB 500 MG/100 ML BAG IVPB SCH ×2 (10:21→21:11)
--- NOTE | 2017-02-28 11:36 | CP.PCM.PN ---
Subjective - Date & Time of Evaluation Date of Evaluation: 02/28/17 Time of Evaluation: 09:00 - Subjective Subjective: He is more alert today, responding to simple questions. Denies pain Objective - Vital Signs/Intake and Output Vital Signs (last 24 hours): Temp Pulse Resp BP Pulse Ox 97.6 F 92 H 20 116/50 L 93 L 02/28/17 08:00 02/28/17 08:00 02/28/17 08:00 02/28/17 08:00 02/28/17 08:00 Intake and Output: 02/28/17 02/28/17 06:59 18:59 Intake Total 1000 Output Total 275 Balance 725 - Medications Medications: Current Medications Heparin Sodium (Porcine) (Heparin) 5,000 units SC Q12 [facility] PRN Reason: Protocol Last Admin: 02/28/17 09:18 Dose: 5,000 units Levetiracetam (Keppra 500mg Ivpb) 500 mg in 100 mls @ 400 mls/hr IVPB Q12 [facility] Last Admin: 02/28/17 10:21 Dose: 400 mls/hr Dextrose (Dextrose 5% In Water 1000 Ml) 1,000 mls @ 125 mls/hr IV .Q8H [facility] Last Admin: 02/28/17 03:30 Dose: Not Given Ceftaroline Fosamil 300 mg/ (Sodium Chloride) 50 mls @ 50 mls/hr IVPB Q12H [facility] PRN Reason: Protocol Stop: 03/08/17 20:01 Last Admin: 02/28/17 09:18 Dose: 50 mls/hr Pantoprazole Sodium (Protonix Inj) 40 mg IVP DAILY [facility] Last Admin: 02/28/17 09:18 Dose: 40 mg - Labs Labs: 02/28/17 06:30 02/28/17 06:30 PT 12.5 Seconds (9.9-11.8) H 02/28/17 06:30 INR 1.16 (0.93-1.08) H 02/28/17 06:30 APTT 50.9 Seconds (23.7-30.8) H 02/28/17 06:30 - Constitutional Appears: Chronically Ill - Eye Exam Eye Exam: Normal appearance, PERRL - ENT Exam ENT Exam: Mucous Membranes Moist - Respiratory Exam Respiratory Exam: Decreased Breath Sounds, NORMAL BREATHING PATTERN - Cardiovascular Exam Cardiovascular Exam: REGULAR RHYTHM, +S1, +S2 - GI/Abdominal Exam GI & Abdominal Exam: Soft, Normal Bowel Sounds - Neurological Exam Neurological Exam: Alert - Skin Skin Exam: Dry Assessment and Plan - Assessment and Plan (Free Text) Assessment: 89 year old male admitted with altered mental status, lethargy, cyantoic left lower extremity. I met with patient's daughter Gisselle( OFELIA). We discussed patient's current medical status. Gisselle verbalized understanding of her father's condition but having a hard time accepting situation. She states that her father has "bounced back" so many other times in the past. I explained the severity of the situation and that it was unlikely for him to do so under the current circumstances. We discussed hospice care and the support services they could offer her. Gisselle was open to the idea but wanted to speak with surgical team regarding amputation in terms of comfort. She wants to take her father home but is very concerned about caring for him if his leg becomes gangrenous. I expressed that surgery carried risks and that he might not survive the procedure. She is contemplating her options. Gisselle had a preliminary meeting with distance education faculty liaison to discuss services. She will also speak with surgical team before making any further decisions Time spent in conversation with daughter regarding goals of care and end of life discussion, 30 minutes Plan: Continue current medical management Will support family in establishing goals of care.
--- NOTE | 2017-02-28 15:10 | PN ---
DATE: 02/28/2017 The patient is in bed, seen in room 560. The patient seen early this morning in room 560. The patie nt is chronically ill, end-stage. PHYSICAL EXAMINATION: VITAL SIGNS: Temperature is 97, blood pressure is 110/60, respiratory rate of 20, heart rate of 92. HEENT: Unremarkable. NECK: Supple. LUNGS: Have decreased breath sounds. HEART: Normal S1, S2. ABDOMEN: Soft. EXTREMITIES: Examination of the leg is unchanged. Review of the medications reveals the patient to be on Teflaro. Blood cultures are no growth. MRSA is not detected. Yuly Schreiber's note is reviewed. Dr. Thakur's note is reviewed. ASSESSMENT AND PLAN: An 89-year-old male with hypertension, subarachnoid hemorrhage, cerebrovascular accident, left-sided weakness, seizures, urinary tract infection, obstructive uropathy, dementia, ad mitted on this admission with severe sepsis, left leg ischemia, acute kidney injury, on Teflaro. Ove rall prognosis is quite poor. Jesus Brenner MD cc: [id number] TT: 02/28/2017 15:09:15 Confirmation # [id number] Dictation # [id number] tn
[2017-02-28] MEDS ORDERED: Lidocaine 2% Inj (20ml) ONE (15:29)
--- NOTE | 2017-02-28 17:30 | VASCULAR ---
PROCEDURE: Ultrasound and fluoroscopically placed right upper extremity PICC line. HISTORY: Severe sepsis. Bilateral lower extremity ischemia with left leg gangrene. Needs PICC line. PHYSICIAN(S): Parish Nicolas MD. TECHNIQUE: The relative risks and indications of the procedure were explained to the patient's daughter and consent obtained. The patient was placed supine on the arteriogram table and the right arm prepped and draped in the usual sterile fashion. A tourniquet was applied to the right axilla. 1% Xylocaine was used to anesthetize the skin and soft tissues at the puncture site above the elbow. The right basilic vein was punctured under direct ultrasound guidance with a micropuncture set. A 0.018 guidewire was advanced centrally and used to measure the length to the SVC/RA junction. A 5 [place] single-lumen PICC line 48 cm long was advanced to the SVC/RA junction. The catheter was flushed and secured. The patient tolerated the procedure well. IMPRESSION: 1. Ultrasound and fluoroscopically placed right upper extremity PICC line. A 5 [place] single-lumen PICC line 48 cm long was advanced to the SVC/RA junction.
[2017-02-28] MEDS ORDERED: DAPTOmycin 500 mg Inj (Cubicin) IV SCH (20:45)
[2017-03-01] MEDS ORDERED: Dextrose 50% SYRINGE Inj (50 ml) ONE ×3 (06:00→14:43)
[2017-03-01 06:04] LABS: HEMATOCRIT 25.6 % (42.0-52.0); MEAN CELL VOLUME 91.4 fL (80.0-105.0); MEAN CORPUSCULAR HEMOGLOBIN 31.1 pg (25.0-35.0); MEAN PLATELET VOLUME 10.3 fl (7.0-11.0); PLATELET COUNT 109 [, 10^3/uL] (120.0-450.0); WHITE BLOOD COUNT 15.4 [, 10^3/ul] (4.5-11.0)
[2017-03-01] MEDS ORDERED: Dextrose 50% SYRINGE Inj (50 ml) IVP ONE (06:07)
[2017-03-01 06:16] LABS: ALB/GLOB RATIO 0.8 (1.1-1.8); ALKALINE PHOSPHATASE 173 U/L (38-133); ALT/SGPT 50 U/L (7-56); AST/SGOT 89 U/L (15-59); BILIRUBIN,TOTAL 0.6 mg/dL (0.2-1.3); BLOOD UREA NITROGEN 36 mg/dL (7-21); CARBON DIOXIDE 19 mmol/L (21-33); CHLORIDE 114 mmol/L (98-107); GFR AFRICAN-AMERICAN > 60; GLUCOSE,RANDOM 128 mg/dL (70-110); MAGNESIUM 1.9 mg/dL (1.7-2.2); PHOSPHOROUS 2.2 mg/dL (2.5-4.5); SODIUM 142 mmol/L (132-148); TOTAL PROTEIN 4.9 g/dL (5.8-8.3)
[2017-03-01 06:23] LABS: ADD MANUAL DIFF? YES
[2017-03-01 06:32] LABS: POTASSIUM 2.5 mmol/L (3.6-5.0)
[2017-03-01 06:40] LABS: INR 1.14 (0.93-1.08); PARTIAL THROMBOPLASTIN TIME 43.6 Seconds (23.7-30.8)
[2017-03-01 08:37] LABS: HYPOCHROMIA 1+; NEUTROPHIL 92 % (50.0-70.0); PLATELET ESTIMATE LOW (NORMAL)
[2017-03-01 08:38] LABS: ANISOCYTOSIS SLIGHT; POIKILOCYTOSIS SLIGHT
[2017-03-01] MEDS ORDERED: Sodium Chloride 0.9% 500 ML IV STA ×2 (09:47→15:03)
[2017-03-01] MEDS: levETIRAcetam 500mg IVPB 500 MG/100 ML BAG IVPB SCH ×2 (11:44→22:17)
--- NOTE | 2017-03-01 18:01 | CP.PCM.PN ---
Subjective - Date & Time of Evaluation Date of Evaluation: 03/01/17 Time of Evaluation: 18:00 - Subjective Subjective: Surgery: Dr. Nagel covering for Dr. Peña Pt seen and examined. Leg remains cold and pulseless. Pt s/p PICC RUE. With PICC in place, pt currently has arm precautions preventing BP from being taken. BP is being taken in LUE. BP readings have been low w. systolic in the 70s. After receiving 2L bolus. BP remained unchanged. Case was later d.w family. Pt daughter states that PMD has advised that BP not be taken in L arm given the deficits following his stroke, that it would give false reading. BP was reattempted in the forearm of RUE below the PICC and pt had systolic in the 120s. Case was discussed in detail w. pt family. Family was made aware that the prognosis is poor. The treatment for his ischemic leg would be an AKA. Given the pts multiple commorbidities, there is a high chance he would not survive the operation. It was also explained that the prognosis for not proceeding with AKA is dismal as well. Even though the pt is a DNR/DNI, family would like everything to be done to save pt. In order to proceed w. surgery it was explained that pt has to be medically optimized. Pt family states that they understand. It was also explained if pt BP remains low and unresponsive to IVF. The next step in management would be pressor support and even with this, that outcome remains poor. Family states that they understand and would like to proceed with pressor support if it is indicated. Objective - Vital Signs/Intake and Output Vital Signs (last 24 hours): Temp Pulse Resp BP Pulse Ox 98.5 F 96 H 16 119/58 L 90 L 03/01/17 16:00 03/01/17 17:26 03/01/17 16:00 03/01/17 17:26 03/01/17 07:27 Intake and Output: 03/01/17 03/01/17 06:59 18:59 Intake Total 0 3000 Output Total 300 300 Balance -300 2700 - Medications Medications: Current Medications Heparin Sodium (Porcine) (Heparin) 5,000 units SC Q12 [facility] PRN Reason: Protocol Last Admin: 03/01/17 09:52 Dose: 5,000 units Levetiracetam (Keppra 500mg Ivpb) 500 mg in 100 mls @ 400 mls/hr IVPB Q12 [facility] Last Admin: 03/01/17 11:44 Dose: 400 mls/hr Ceftaroline Fosamil 300 mg/ (Sodium Chloride) 50 mls @ 50 mls/hr IVPB Q12H [facility] PRN Reason: Protocol Stop: 03/08/17 20:01 Last Admin: 03/01/17 08:32 Dose: 50 mls/hr Daptomycin 290 mg/ Sodium (Chloride) 100 mls @ 200 mls/hr IV Q48H [facility] Stop: 03/07/17 21:16 Last Admin: 02/28/17 23:27 Dose: 200 mls/hr Potassium Chloride 40 meq/ (Sodium Chloride) 1,020 mls @ 100 mls/hr IV .[id number] [facility] Last Admin: 03/01/17 09:59 Dose: 100 mls/hr Pantoprazole Sodium (Protonix Inj) 40 mg IVP DAILY [facility] Last Admin: 03/01/17 09:52 Dose: 40 mg - Labs Labs: 03/01/17 05:45 03/01/17 05:45 PT 12.3 Seconds (9.9-11.8) H 03/01/17 05:45 INR 1.14 (0.93-1.08) H 03/01/17 05:45 APTT 43.6 Seconds (23.7-30.8) H 03/01/17 05:45 - Constitutional Appears: Non-toxic, No Acute Distress, Cachectic, Chronically Ill - Head Exam Head Exam: ATRAUMATIC, NORMOCEPHALIC - Eye Exam Eye Exam: EOMI. absent: Scleral icterus - Respiratory Exam Respiratory Exam: NORMAL BREATHING PATTERN. absent: Accessory Muscle Use, Respiratory Distress - GI/Abdominal Exam GI & Abdominal Exam: Soft. absent: Tenderness - Extremities Exam Additional comments: cold, pulseless L leg w. mottling - Neurological Exam Neurological Exam: Alert, Awake Assessment and Plan - Assessment and Plan (Free Text) Assessment: 89M w. ischemic L leg -Take BP at R forearm -Medically optimize pt for possible AKA -NPO, hold heparin -case discussed in detail w. Pt daughter Gisselle Hu. She is aware that prognosis is poor and that surgery is very high risk. She would still like to proceed w. surgery if the pt can be medically optimized. We will plan accordingly -will d/w Dr. Robe Taylor PGY2
--- NOTE | 2017-03-01 20:34 | PN ---
DATE: 03/01/2017 The patient was seen earlier in [facility], bed 1. The patient is in poor condition overall and appears end -stage, chronically ill, cachectic. OBJECTIVE: VITAL SIGNS: Temperature 98, blood pressure is 119/50, respiratory rate of 18, heart rate of 97. HEENT: Unremarkable. NECK: Supple. LUNGS: Have decreased breath sounds. HEART: Normal S1, S2. ABDOMEN: Soft. LABORATORY EXAMINATION: Reveals a white count of 15,400, hemoglobin of 8 and platelets of 109 and co agulation is noted. Chemistries reveal the BUN of 36, creatinine of 1.3. Urinalysis is noted with 2 -5 WBCs. Microbiology reveals there is gram-positive cocci in the blood in chains and further identi fication and sensitivity is noted. The urine culture is negative. MRSA nasal screen is negative. Review of the orders reveals the patient to be on daptomycin and ceftaroline. Dr. Jesus Thakur's not e from yesterday is reviewed. Dr. Bajwa note is reviewed from today. Dr. Parish Nicolas's note from yesterday is reviewed. ASSESSMENT AND PLAN: This is an 89-year-old male seen earlier today in [facility] with hypertension, histor y of subarachnoid hemorrhage, cerebrovascular accident, left-sided weakness, seizures, urinary tract infection, admitted with severe sepsis, left leg ischemia, gram-positive cocci bacteremia, acute kidn ey injury on daptomycin and Teflaro, awaiting for identification and sensitivity of the gram-positive cocci and should have an echocardiogram to rule out underlying endocarditis. Overall prognosis is q uite poor for this 89-year-old male, cachectic and wasting with a BMI of 14. Should consider a hospi ce situation and setting for this patient who appears terminal. Jesus Brenner MD cc: 350 TT: 03/01/2017 20:33:26 Confirmation # [id number] Dictation # [id number] lizett
[2017-03-02] MEDS ORDERED: Dextrose 50% SYRINGE Inj (50 ml) IVP ONE (06:11)
[2017-03-02] MEDS ORDERED: Dextrose 50% SYRINGE Inj (50 ml) ONE ×2 (08:20→16:51)
[2017-03-02 08:27] LABS: ADD MANUAL DIFF? NO
[2017-03-02 08:37] LABS: EOS % 0.2 % (1.5-5.0); GRAN # 12.42 (1.4-6.5); GRAN % 93.7 % (50.0-68.0); LYMPH # 0.5 (1.2-3.4); LYMPH % 3.8 % (22.0-35.0); MEAN CELL VOLUME 90.8 fL (80.0-105.0); MEAN CORPUSCULAR HEMOGLOBIN 30.8 pg (25.0-35.0); MEAN CORPUSCULAR HGB CONC 33.9 g/dl (31.0-37.0); MEAN PLATELET VOLUME 10.5 fl (7.0-11.0); MONO # 0.3 (0.1-0.6); MONO % 2.3 % (1.0-6.0); PLATELET COUNT 110 [, 10^3/uL] (120.0-450.0); RED CELL DISTRIBUTION WIDTH 15.2 % (11.5-14.5); WHITE BLOOD COUNT 13.3 [, 10^3/ul] (4.5-11.0)
[2017-03-02 08:39] LABS: INR 1.14 (0.93-1.08); PARTIAL THROMBOPLASTIN TIME 39.4 Seconds (23.7-30.8)
[2017-03-02 08:43] LABS: ALB/GLOB RATIO 0.7 (1.1-1.8); ALKALINE PHOSPHATASE 146 U/L (38-133); ALT/SGPT 51 U/L (7-56); AST/SGOT 84 U/L (15-59); BILIRUBIN,TOTAL 0.7 mg/dL (0.2-1.3); BLOOD UREA NITROGEN 26 mg/dL (7-21); CARBON DIOXIDE 19 mmol/L (21-33); CHLORIDE 120 mmol/L (98-107); GFR AFRICAN-AMERICAN > 60; GLUCOSE,RANDOM 183 mg/dL (70-110); MAGNESIUM 1.8 mg/dL (1.7-2.2); POTASSIUM 3.5 mmol/L (3.6-5.0); SODIUM 144 mmol/L (132-148); TOTAL PROTEIN 4.6 g/dL (5.8-8.3)
[2017-03-02 09:02] LABS: HEMATOCRIT 22.7 % (42.0-52.0)
[2017-03-02] MEDS: levETIRAcetam 500mg IVPB 500 MG/100 ML BAG IVPB SCH ×2 (11:49→23:09)
--- NOTE | 2017-03-02 14:04 | CP.PCM.PN ---
Subjective - Date & Time of Evaluation Date of Evaluation: 03/02/17 Time of Evaluation: 07:01 - Subjective Subjective: General Surgery Progress Note for Dr. Nagel This 89M was seen and examined this Am at bedside. Nurse reports no acute events overnight. Discussed surgical options with family who are interested in surgical intervention at this time. Objective - Vital Signs/Intake and Output Vital Signs (last 24 hours): Temp Pulse Resp BP Pulse Ox 97.8 F 61 18 120/66 94 L 03/02/17 07:26 03/02/17 07:26 03/02/17 07:26 03/02/17 07:26 03/02/17 07:26 - Medications Medications: Current Medications Heparin Sodium (Porcine) (Heparin) 5,000 units SC Q12 [facility] PRN Reason: Protocol Last Admin: 03/01/17 22:16 Dose: 5,000 units Levetiracetam (Keppra 500mg Ivpb) 500 mg in 100 mls @ 400 mls/hr IVPB Q12 [facility] Last Admin: 03/02/17 11:49 Dose: 400 mls/hr Ceftaroline Fosamil 300 mg/ (Sodium Chloride) 50 mls @ 50 mls/hr IVPB Q12H [facility] PRN Reason: Protocol Stop: 03/08/17 20:01 Last Admin: 03/02/17 08:57 Dose: 50 mls/hr Daptomycin 290 mg/ Sodium (Chloride) 100 mls @ 200 mls/hr IV Q48H [facility] Stop: 03/07/17 21:16 Last Admin: 02/28/17 23:27 Dose: 200 mls/hr Potassium Chloride 40 meq/ (Sodium Chloride) 1,020 mls @ 100 mls/hr IV .[id number] [facility] Last Admin: 03/02/17 05:15 Dose: 100 mls/hr Pantoprazole Sodium (Protonix Inj) 40 mg IVP DAILY [facility] Last Admin: 03/02/17 11:49 Dose: 40 mg - Labs Labs: 03/02/17 07:30 03/02/17 07:30 PT 12.3 Seconds (9.9-11.8) H 03/02/17 07:30 INR 1.14 (0.93-1.08) H 03/02/17 07:30 APTT 39.4 Seconds (23.7-30.8) H 03/02/17 07:30 - Constitutional Appears: Non-toxic, No Acute Distress, Cachectic, Chronically Ill - Head Exam Head Exam: ATRAUMATIC, NORMOCEPHALIC - Eye Exam Eye Exam: EOMI. absent: Scleral icterus - Respiratory Exam Respiratory Exam: NORMAL BREATHING PATTERN. absent: Accessory Muscle Use, Respiratory Distress - GI/Abdominal Exam GI & Abdominal Exam: Soft. absent: Tenderness - Extremities Exam Additional comments: cold, pulseless L leg w. mottling - Neurological Exam Neurological Exam: Alert, Awake Assessment and Plan - Assessment and Plan (Free Text) Assessment: 89M w. ischemic L leg -Take BP at R forearm -Medically optimize pt for possible AKA -NPO, hold heparin -Possible OR tomorrow morning -d/w Dr. Robe Hernández PGY-1
--- NOTE | 2017-03-02 17:37 | PN ---
DATE: 03/02/2017 The patient is in bed, in no acute distress, nontoxic. PHYSICAL EXAMINATION: VITAL SIGNS: Temperature is 98, blood pressure is 120/60, respiratory rate of 16. HEENT: Unremarkable. NECK: Supple. LUNGS: Have decreased breath sounds. HEART: Normal S1, S2. ABDOMEN: Soft, nontender. LABORATORY DATA: Reveals a white count is down to 13,000, hemoglobin of 7, platelets of 110. The pa tient did have 24% bandemia. Chemistries reveal the BUN of 26, creatinine is 1.2, alkaline phosphata se is 146. Urinalysis is noted. Toxicology is noted. Microbiology reveals the patient has had gram -positive cocci in the blood which is in chains. The second blood culture is a gram-positive cocci a lso and a gram-positive murray. I called microbiology. It is not identified as a Listeria as of now. It is negative for Enterococcus by PNA FISH, probable strep. REVIEW OF ORDERS: Reveals the patient to be on daptomycin and ceftaroline. Dr. Matt Hernández's prog ress note is reviewed. ASSESSMENT AND PLAN: This is an 89-year-old male who was seen earlier today with history of hyperten donavon, history of subarachnoid hemorrhage, cerebrovascular accident, left-sided weakness, seizures, ur inary tract infection, admitted on this admission with severe sepsis with left leg ischemia with a gr am-positive cocci bacteremia and a gram-positive murray bacteremia with acute kidney injury with left le g ischemia. On daptomycin and Teflaro. Overall prognosis is quite poor for this patient. Must rule out endocarditis with embolic disease to the leg. An echocardiogram has been ordered. Should consi cele hospice setting in this patient who is cachectic, end-stage wasting syndrome with a BMI of 14. W ill check on the echo result. Jesus Brenner MD cc: 350 TT: 03/02/2017 17:36:07 Confirmation # [id number] Dictation # [id number] mn
[2017-03-02] MEDS ORDERED: NS IV SCH ×2 (18:15→18:36)
[2017-03-02] MEDS ORDERED: Potassium Chloride 40 MEQ in Dextrose 5%/0.9% NS 1,000 ML IV SCH (18:15)
[2017-03-02] MEDS ORDERED: POTASSIUM PHOSPHATE IV SCH ×2 (18:15→18:36)
[2017-03-02] MEDS ORDERED: DEXTROSE IV SCH ×2 (18:15→18:36)
--- NOTE | 2017-03-02 18:56 | PN ---
DATE: 03/02/2017 SUBJECTIVE: The patient opens eyes. He is able to answer simple questions. He denies any headaches . No chest pain. PHYSICAL EXAMINATION: VITAL SIGNS: Temperature is 97.6, pulse of 94, blood pressure 144/86, respirations 18. GENERAL: Patient lying in bed, flat, and in no apparent distress. HEAD AND NECK EXAM: Atraumatic, normocephalic. Conjunctivae are pink. Throat clear and mouth with moist mucosa. Oropharynx benign. EYES: Extraocular movements are intact. PERRLA. NECK: Supple. No JVD, thyromegaly, or adenopathy. No bruits. HEART: S1 and S2 regular rate and rhythm. No murmurs, rubs, or gallops. LUNGS: Clear to auscultation bilaterally. No wheezing rales or rhonchi appreciated. No retraction s on exam. ABDOMEN: Soft, nontender, nondistended. Bowel sounds are positive in all quadrants. No rebound. No hepatosplenomegaly. EXTREMITIES: No cyanosis, clubbing, or edema. Left leg ischemia. NEURO: No facial asymmetry, tongue is midline, no uvula deviation. Power is 5/5 in upper extremity and 5/5 in lower extremity. Sensation is normal in upper extremity and lower extremity. PSYCH: Awake, alert, oriented x3. No anxiety or depression symptoms. Good insight. Normal affec t. : No CVA tenderness VASCULAR: 2+ pulses in carotid and pedal pulses. SKIN: No erythema or abnormal nodules noted. SPINE: Normal curvature. LYMPHADENOPATHY: No anterior cervical or posterior cervical adenopathy. No inguinal adenopathy. LABORATORY DATA: White count of 13.3, hemoglobin 7.7, creatinine is 1.2. Potassium 3.5. ASSESSMENT: 1. Sepsis. 2. Left leg ischemia with gangrene. 3. Hypernatremia, improved. 4. Acute kidney injury, improved. 5. Cerebrovascular accident with left-sided residual weakness. 6. Dyslipidemia. 7. Hypotension, improved. 8. Do not resuscitate/do not intubate. PLAN: The patient has blood cultures that are positive for gram-positive cocci. The patient's elect rolytes have significantly improved. The white count is near normal. He does have a low hemoglobin. He has low phosphorus. This will need to be replaced as well. He is clinically better than he was yesterday. I did speak to the patient's daughter. She is still interested in surgery even though s he understands the risks. We will continue the patient on daptomycin. He is on IV fluids with ole l saline. He is on Teflaro. The patient is on Protonix IV. Echo has been ordered to rule out endoc arditis. I did speak to Dr. Nagel regarding the case. The patient's family does want to take the risk of complications and even given that the patient may improve with amputation. Jerome Diez MD cc: 358 TT: 03/02/2017 18:54:51 Confirmation # [id number] Dictation # [id number] mn
[2017-03-02] MEDS ORDERED: Latanoprost 2.5 ml Opht Soln OS SCH (22:00)
[2017-03-02] MEDS: Latanoprost 2.5 ml Opht Soln OS SCH (22:42)
[2017-03-03] MEDS: Ampicillin 2 GM in Sodium Chloride 0.9% 100 ML IVPB SCH ×3 (01:12→18:33)
[2017-03-03 06:03] LABS: HEMATOCRIT 31.8 % (42.0-52.0); MEAN CELL VOLUME 88.8 fL (80.0-105.0); MEAN CORPUSCULAR HEMOGLOBIN 30.7 pg (25.0-35.0); MEAN CORPUSCULAR HGB CONC 34.6 g/dl (31.0-37.0); MEAN PLATELET VOLUME 9.6 fl (7.0-11.0); PLATELET COUNT 101 [, 10^3/uL] (120.0-450.0); RED CELL DISTRIBUTION WIDTH 15.2 % (11.5-14.5); WHITE BLOOD COUNT 13.6 [, 10^3/ul] (4.5-11.0)
[2017-03-03 06:08] LABS: INR 1.12 (0.93-1.08); PARTIAL THROMBOPLASTIN TIME 32.2 Seconds (23.7-30.8)
[2017-03-03 06:18] LABS: ADD MANUAL DIFF? YES
[2017-03-03 06:39] LABS: CHLORIDE 124 mmol/L (98-107)
[2017-03-03 06:40] LABS: ALB/GLOB RATIO 0.7 (1.1-1.8); ALKALINE PHOSPHATASE 142 U/L (38-133); ALT/SGPT 55 U/L (7-56); AST/SGOT 98 U/L (15-59); BILIRUBIN,TOTAL 1.2 mg/dL (0.2-1.3); BLOOD UREA NITROGEN 22 mg/dL (7-21); CALCIUM 8.4 mg/dL (8.4-10.5); CARBON DIOXIDE 19 mmol/L (21-33); GFR AFRICAN-AMERICAN > 60; GLUCOSE,RANDOM 95 mg/dL (70-110); MAGNESIUM 1.8 mg/dL (1.7-2.2); PHOSPHOROUS 2.7 mg/dL (2.5-4.5); POTASSIUM 3.5 mmol/L (3.6-5.0); SODIUM 148 mmol/L (132-148)
[2017-03-03 07:03] LABS: BAND 5 % (0-2); EOSINOPHIL 1 % (0.0-3.0); NEUTROPHIL 87 % (50.0-70.0); PLATELET ESTIMATE LOW (NORMAL)
--- NOTE | 2017-03-03 08:07 | PN ---
DATE: 03/01/2017 SUBJECTIVE: The patient is not communicating well. He does not open his eyes. PHYSICAL EXAMINATION: VITAL SIGNS: Temperature is 98.3, pulse of 51, blood pressure 73/48, respirations are 18 GENERAL: The patient comfortable, in no acute distress. HEENT: Anicteric sclerae. Moist mucosa. NECK: No JVD or adenopathy. CARDIAC: S1/S2. No murmurs. No rubs. Regular. RESPIRATORY: Clear to auscultation bilaterally. No wheezes, rales, or rhonchi. Good air entry. ABDOMEN: Bowel sounds are positive, soft, nontender, and nondistended. EXTREMITIES: No edema. Has 1+ pulses. LABORATORY DATA: White count of 15.4, hemoglobin of 8.7. Potassium is 2.5, creatinine is 1.3. ASSESSMENT: 1. Hypokalemia. 2. ____. 3. Acute kidney injury: 4. Cerebrovascular accident with left-sided residual weakness. 5. Left leg ischemia with gangrene. 6. Dyslipidemia. 7. Hypotension. 8. Do not resuscitate/do not intubate. ____ requires dextrose IV. He is on daptomycin for antibiotics. I will place him on normal saline w ith potassium. The patient is on Teflaro. He is currently n.p.o. Overall, prognosis is guarded. T he patient's daughter is aware of the prognosis that is poor for the patient. PICC line has been chano chris for IV hydration. Jerome Diez MD cc: 358 TT: 03/01/2017 10:10:40 Confirmation # [id number] Dictation # [id number] tn
--- NOTE | 2017-03-03 09:41 | PN ---
DATE: 03/03/2017 SUBJECTIVE: The patient opens eyes, follows simple commands. PHYSICAL EXAMINATION: VITAL SIGNS: Temperature is 97.5, pulse is 75, blood pressure 150/64, respirations 18. GENERAL: The patient comfortable, in no acute distress. HEENT: Anicteric sclerae. Moist mucosa. NECK: No JVD or adenopathy. CARDIAC: S1/S2. No murmurs. No rubs. Regular. RESPIRATORY: Clear to auscultation bilaterally. No wheezes, rales, or rhonchi. Good air entry. ABDOMEN: Bowel sounds are positive, soft, nontender, and nondistended. EXTREMITIES: No edema. Has 1+ pulses. Left foot with gangrene and discoloration. LABORATORY DATA: White count of 13.6, hemoglobin is 11.0, potassium is 3.5, creatinine is 1.2. ASSESSMENT: 1. Left leg ischemia. 2. Sepsis. 3. natremia, improved. 4. Acute kidney injury, improved. 5. Cerebrovascular accident with left-sided residual weakness. 6. Dyslipidemia. 7. Hypotension, improved. 8. Hypophosphatemia. PLAN: The patient is currently on dextrose with phosphorus and potassium that he received overnight. The patient is on meropenem for antibiotics. He is on Protonix. There are discussions about the s urgery. He is at high risk of having complications from his surgery including . The patient's family is aware. I did have a discussion with the patient's daughter, Gisselle, today, yesterday and the day before. The patient is on daptomycin for antibiotics. Overall, prognosis is guarded. Jerome Diez MD cc: 358 TT: 03/03/2017 09:40:56 Confirmation # [id number] Dictation # [id number] [email or web address]
[2017-03-03] MEDS: levETIRAcetam 500mg IVPB 500 MG/100 ML BAG IVPB SCH ×2 (10:19→21:15)
[2017-03-03] MEDS: Pilocarpine 2% Opht (15ml) OS SCH (10:33)
[2017-03-03] MEDS: NEPAFENAC 0.3% OS SCH (10:33)
--- NOTE | 2017-03-03 10:51 | CP.PCM.PN ---
Subjective - Date & Time of Evaluation Date of Evaluation: 03/03/17 Time of Evaluation: 09:00 - Subjective Subjective: Lethargic, answers simple questions. Denies pain. In no apparent distress Objective - Vital Signs/Intake and Output Vital Signs (last 24 hours): Temp Pulse Resp BP Pulse Ox 97.5 F L 75 18 150/64 93 L 03/03/17 07:24 03/03/17 07:24 03/03/17 07:24 03/03/17 07:24 03/03/17 07:24 Intake and Output: 03/03/17 03/03/17 06:59 18:59 Intake Total 650 Output Total 200 Balance 450 - Medications Medications: Current Medications Heparin Sodium (Porcine) (Heparin) 5,000 units SC Q12 [facility] PRN Reason: Protocol Last Admin: 03/01/17 22:16 Dose: 5,000 units Home Med (Home Med) 1 unit OS DAILY [facility] Last Admin: 03/03/17 10:33 Dose: 1 unit Levetiracetam (Keppra 500mg Ivpb) 500 mg in 100 mls @ 400 mls/hr IVPB Q12 [facility] Last Admin: 03/03/17 10:19 Dose: 400 mls/hr Daptomycin 290 mg/ Sodium (Chloride) 100 mls @ 200 mls/hr IV Q48H [facility] Stop: 03/07/17 21:16 Last Admin: 03/02/17 23:35 Dose: 200 mls/hr Ampicillin 2 gm/ Sodium (Chloride) 100 mls @ 200 mls/hr IVPB Q6 [facility] PRN Reason: Protocol Stop: 03/17/17 00:01 Last Admin: 03/03/17 05:23 Dose: 200 mls/hr Meropenem 1g/NS 100mL IVPB (Meropenem 1g/Ns 100ml Ivpb) 1 gm in 100 mls @ 100 mls/hr IVPB Q12 [facility] PRN Reason: Protocol Stop: 03/12/17 10:01 Potassium Chloride (Potassium Chloride 10 Meq/100 Ml) 10 meq in 100 mls @ 50 mls/hr IVPB Q2H [facility] Stop: 03/03/17 12:29 Last Admin: 03/03/17 10:04 Dose: 50 mls/hr Latanoprost (Xalatan Opht) 0 ml OS HS [facility] Last Admin: 03/02/17 22:42 Dose: 2.5 ml Pantoprazole Sodium (Protonix Inj) 40 mg IVP DAILY [facility] Last Admin: 03/03/17 10:20 Dose: 40 mg Pilocarpine HCl (Isopto Carpine 2% Opht Soln) 0 ml OS DAILY [facility] Last Admin: 03/03/17 10:33 Dose: 1 drop Timolol Maleate (Timoptic 0.5% Ophth Soln) 1 drop OS BID [facility] Last Admin: 03/03/17 10:42 Dose: 1 drop - Labs Labs: 03/03/17 05:30 03/03/17 05:30 PT 12.1 Seconds (9.9-11.8) H 03/03/17 05:30 INR 1.12 (0.93-1.08) H 03/03/17 05:30 APTT 32.2 Seconds (23.7-30.8) H 03/03/17 05:30 - Constitutional Appears: Cachectic, Chronically Ill - Head Exam Head Exam: NORMAL INSPECTION - Eye Exam Eye Exam: Normal appearance, PERRL - ENT Exam ENT Exam: Mucous Membranes Moist - Respiratory Exam Respiratory Exam: Decreased Breath Sounds, NORMAL BREATHING PATTERN - Cardiovascular Exam Cardiovascular Exam: REGULAR RHYTHM, +S1, +S2 - GI/Abdominal Exam GI & Abdominal Exam: Soft, Normal Bowel Sounds - Extremities Exam Additional comments: cold , cyanotic LLE. left sided hemiparesis - Back Exam Back Exam: NORMAL INSPECTION - Skin Skin Exam: Dry, Warm Assessment and Plan - Assessment and Plan (Free Text) Assessment: 89 year old male admitted with sepsis, anemia, loss of pulses in left lower extremity. History of CVA residual left sided weakness, dementia,CAD, HTN, bilateral carotid stenosis, seizure disorder. Patient's children at beside. Family understands the risks of left AKA . They understand that due to patient ages and comorbidities he is high risk and could during surgery or from complications of surgery. Family hoping that by proceeding with amputation, he will progress more comfortably towards end of life. Patient's daughter Gisselle states that she intends to initiate hospice services upon discharge to home. Psychosocial support given. Plan: Will follow and assist with establishing future goals of care
[2017-03-03] MEDS ORDERED: Phenylephrine 10 mg/ml Inj ONE (11:02)
[2017-03-03] MEDS ORDERED: Rocuronium 10 mg/ml (5 ml) ONE (11:21)
[2017-03-03] MEDS ORDERED: Etomidate 20 mg/10ml Inj IV ONE (11:23)
[2017-03-03] MEDS ORDERED: Propofol 10 mg/ml Inj (20 ML) ONE (11:24)
[2017-03-03] MEDS ORDERED: Bupivacaine 0.5% Inj(30mL) ONE (12:10)
[2017-03-03] MEDS ORDERED: ePHEDrine 50 mg/ml Inj ONE (12:14)
--- NOTE | 2017-03-03 13:20 | PCM.SURG1 ---
Surgeon's Initial Post Op Note - Surgeon's Notes Surgeon: Dr. Nagel Capsule Inspector: Dr. Lee PGY-2, Dr. Soriano PGY-1 Type of Anesthesia: General Endo Anesthesia Administered By: Dr. Rosado Pre-Operative Diagnosis: left ischemic foot/leg Operative Findings: See operative report Post-Operative Diagnosis: Same Operation Performed: Left above knee amputation Specimen/Specimens Removed: left leg above knee Estimated Blood Loss: EBL {In ML}: 10 Blood Products Given: N/A Drains Used: Parviz Post-Op Condition: Fair Date of Surgery/Procedure: 03/03/17 Time of Surgery/Procedure: 13:21
[2017-03-03] MEDS ORDERED: Lactated Ringer's 1,000 ML IV SCH (13:23)
[2017-03-03] MEDS ORDERED: HYDROmorphone 0.5 mg/0.5 ml ISec IVP PRN (13:23)
--- NOTE | 2017-03-03 19:19 | PN ---
DATE: 03/03/2017 The patient is in bed, in no acute distress, nontoxic. PHYSICAL EXAMINATION: VITAL SIGNS: Temperature is 98, blood pressure is 104/70, respiratory rate of 22. HEENT: Unremarkable. NECK: Supple. LUNGS: Have decreased breath sounds. HEART: Normal S1, S2. ABDOMEN: Soft, nontender. LABORATORY DATA: Reveals the patient's white count of 13,600, hemoglobin of 11 and platelets of 101. Bandemia has improved. Chemistries reveal the BUN of 22, creatinine of 1.2. Alkaline phosphatase is noted. Urinalysis is noted. MICROBIOLOGY: Reported as corynebacterium species. I was notified last night that there has been a change in the reporting. They corrected prior results of a gram-positive cocci; it has been changed to a gram- positive bacillus now identified as corynebacterium. Repeat blood cultures are pending. An echocardiogram is also pending. ASSESSMENT AND PLAN: This is an 89-year-old male seen earlier today with hypertension, subarachnoid; history of subarachnoid hemorrhage, history of cerebrovascular accident with left-sided weakness, se izures and urinary tract infection, admitted with severe sepsis with left leg ischemia and corynebact erium bacteremia, must rule out endocarditis, on daptomycin, with acute kidney injury. The patient i s taken to the operating room today and had an [id number] amputation. Waiting for echocardiogram results. Will discontinue the ampicillin, which was empirically started for possible listeria. Melo l continue with the daptomycin and meropenem. Check on the repeat blood cultures and echo results. W e must rule out endocarditis with embolic disease. Overall prognosis is quite poor for this end-stag e cachectic 89-year-old with a body mass index of only 14, who is presenting with severe sepsis with left leg ischemia status post above-knee amputation. Jesus Brenner MD cc: 350 TT: 03/03/2017 19:19:05 Confirmation # [id number] Dictation # [id number] mn
[2017-03-03] MEDS: Meropenem 1g/NS 100mL IVPB 1 GM/100 ML PIGGYBACK IVPB SCH (21:16)
[2017-03-03] MEDS: Latanoprost 2.5 ml Opht Soln OS SCH (21:16)
[2017-03-03] MEDS: HYDROmorphone 0.5 mg/0.5 ml ISec IVP PRN (21:45)
--- NOTE | 2017-03-04 08:15 | CP.PCM.PN ---
Subjective - Date & Time of Evaluation Date of Evaluation: 03/04/17 Time of Evaluation: 07:30 - Subjective Subjective: Surgery Progress note. Dr. Nagel Pt seen and examined at bedside. No acute events overnight. Patient nods to respond to questions, no apparent distress. As per nursing staff, patient requested pain medication only once last night. No N/V/D. No Abd pain. No F/C. No new complaints Objective - Vital Signs/Intake and Output Vital Signs (last 24 hours): Temp Pulse Resp BP Pulse Ox 98.8 F 82 12 90/58 L 94 L 03/04/17 07:30 03/04/17 07:30 03/04/17 07:30 03/04/17 07:30 03/04/17 07:30 Intake and Output: 03/04/17 03/04/17 06:59 18:59 Intake Total 1680 Output Total 800 Balance 880 - Medications Medications: Current Medications Heparin Sodium (Porcine) (Heparin) 5,000 units SC Q12 [facility] PRN Reason: Protocol Last Admin: 03/01/17 22:16 Dose: 5,000 units Home Med (Home Med) 1 unit OS DAILY [facility] Last Admin: 03/03/17 10:33 Dose: 1 unit Hydromorphone HCl (Dilaudid) 0.5 mg IVP Q4H PRN PRN Reason: Pain, moderate (4-7) Last Admin: 03/03/17 21:45 Dose: 0.5 mg Levetiracetam (Keppra 500mg Ivpb) 500 mg in 100 mls @ 400 mls/hr IVPB Q12 [facility] Last Admin: 03/03/17 21:15 Dose: 400 mls/hr Daptomycin 290 mg/ Sodium (Chloride) 100 mls @ 200 mls/hr IV Q48H [facility] Stop: 03/07/17 21:16 Last Admin: 03/02/17 23:35 Dose: 200 mls/hr Meropenem 1g/NS 100mL IVPB (Meropenem 1g/Ns 100ml Ivpb) 1 gm in 100 mls @ 100 mls/hr IVPB Q12 [facility] PRN Reason: Protocol Stop: 03/12/17 10:01 Last Admin: 03/03/17 21:16 Dose: 100 mls/hr Latanoprost (Xalatan Opht) 0 ml OS HS [facility] Last Admin: 03/03/17 21:16 Dose: 2.5 ml Pantoprazole Sodium (Protonix Inj) 40 mg IVP DAILY [facility] Last Admin: 03/03/17 10:20 Dose: 40 mg Pilocarpine HCl (Isopto Carpine 2% Opht Soln) 0 ml OS DAILY [facility] Last Admin: 03/03/17 10:33 Dose: 1 drop Timolol Maleate (Timoptic 0.5% Ophth Soln) 1 drop OS BID [facility] Last Admin: 03/03/17 18:33 Dose: 1 drop - Labs Labs: 03/03/17 05:30 03/03/17 05:30 PT 12.1 Seconds (9.9-11.8) H 03/03/17 05:30 INR 1.12 (0.93-1.08) H 03/03/17 05:30 APTT 32.2 Seconds (23.7-30.8) H 03/03/17 05:30 - Constitutional Appears: Well, No Acute Distress - Head Exam Head Exam: ATRAUMATIC, NORMAL INSPECTION, NORMOCEPHALIC - Eye Exam Eye Exam: EOMI. absent: Scleral icterus - ENT Exam ENT Exam: Mucous Membranes Moist - Respiratory Exam Respiratory Exam: NORMAL BREATHING PATTERN - GI/Abdominal Exam GI & Abdominal Exam: Soft. absent: Tenderness - Extremities Exam Additional comments: Left Lower extremity bandage clean, dry and intact. Parviz drain in place, to suction, minimal output. - Neurological Exam Neurological Exam: Awake - Skin Skin Exam: Dry, Intact, Normal Color, Warm Assessment and Plan - Assessment and Plan (Free Text) Assessment: 89yo M with Left Ischemic Leg s/p Left AKA on 03/04/17 - Pain management - Continue to monitor drain output. - Keep Dressing clean, dry and intact - PPN vs. Swallow eval noted. Patient may advance diet if tolerated. Discussed case with Dr. Robe Soriano PGY1 Surgery pager: [phone]
--- NOTE | 2017-03-04 08:58 | CP.PCM.PN ---
Subjective - Date & Time of Evaluation Date of Evaluation: 03/03/17 Time of Evaluation: 14:00 - Subjective Subjective: Pt seen after L lower ext amputation Called from PACU for unclear reason. The patient is known from previous admission w/ Sepsis and declining functional status. Plan were to place the patient on Hospice, but amputation was done for palliative reasons. Pt remains DNR/DNI without any escalation of care. Hospice planned per Palliative care nurse. The patient doesn't require ICU admission at this time. Please call if plans have changed. Objective - Vital Signs/Intake and Output Vital Signs (last 24 hours): Temp Pulse Resp BP Pulse Ox 98.8 F 82 12 90/58 L 94 L 03/04/17 07:30 03/04/17 07:30 03/04/17 07:30 03/04/17 07:30 03/04/17 07:30 Intake and Output: 03/04/17 03/04/17 06:59 18:59 Intake Total 1680 Output Total 800 Balance 880 - Medications Medications: Current Medications Heparin Sodium (Porcine) (Heparin) 5,000 units SC Q12 [facility] PRN Reason: Protocol Last Admin: 03/01/17 22:16 Dose: 5,000 units Home Med (Home Med) 1 unit OS DAILY [facility] Last Admin: 03/03/17 10:33 Dose: 1 unit Hydromorphone HCl (Dilaudid) 0.5 mg IVP Q4H PRN PRN Reason: Pain, moderate (4-7) Last Admin: 03/03/17 21:45 Dose: 0.5 mg Levetiracetam (Keppra 500mg Ivpb) 500 mg in 100 mls @ 400 mls/hr IVPB Q12 [facility] Last Admin: 03/03/17 21:15 Dose: 400 mls/hr Daptomycin 290 mg/ Sodium (Chloride) 100 mls @ 200 mls/hr IV Q48H [facility] Stop: 03/07/17 21:16 Last Admin: 03/02/17 23:35 Dose: 200 mls/hr Meropenem 1g/NS 100mL IVPB (Meropenem 1g/Ns 100ml Ivpb) 1 gm in 100 mls @ 100 mls/hr IVPB Q12 [facility] PRN Reason: Protocol Stop: 03/12/17 10:01 Last Admin: 03/03/17 21:16 Dose: 100 mls/hr Latanoprost (Xalatan Opht) 0 ml OS HS [facility] Last Admin: 03/03/17 21:16 Dose: 2.5 ml Pantoprazole Sodium (Protonix Inj) 40 mg IVP DAILY [facility] Last Admin: 03/03/17 10:20 Dose: 40 mg Pilocarpine HCl (Isopto Carpine 2% Opht Soln) 0 ml OS DAILY [facility] Last Admin: 03/03/17 10:33 Dose: 1 drop Timolol Maleate (Timoptic 0.5% Ophth Soln) 1 drop OS BID [facility] Last Admin: 03/03/17 18:33 Dose: 1 drop - Labs Labs: 03/03/17 05:30 03/03/17 05:30 PT 12.1 Seconds (9.9-11.8) H 03/03/17 05:30 INR 1.12 (0.93-1.08) H 03/03/17 05:30 APTT 32.2 Seconds (23.7-30.8) H 03/03/17 05:30
[2017-03-04] MEDS: Pilocarpine 2% Opht (15ml) OS SCH (09:23)
[2017-03-04] MEDS: NEPAFENAC 0.3% OS SCH (09:23)
[2017-03-04] MEDS: Meropenem 1g/NS 100mL IVPB 1 GM/100 ML PIGGYBACK IVPB SCH ×2 (09:43→21:25)
[2017-03-04 09:59] LABS: ADD MANUAL DIFF? NO
[2017-03-04 10:01] LABS: BASO # 0.01 [, K/mm3] (0.0-2.0); BASO % 0.1 % (0.0-3.0); EOS # 0.2 (0.0-0.7); EOS % 1.8 % (1.5-5.0); GRAN # 12.22 (1.4-6.5); GRAN % 89.8 % (50.0-68.0); HEMATOCRIT 34.4 % (42.0-52.0); LYMPH # 0.6 (1.2-3.4); LYMPH % 4.4 % (22.0-35.0); MEAN CELL VOLUME 89.1 fL (80.0-105.0); MEAN CORPUSCULAR HEMOGLOBIN 30.6 pg (25.0-35.0); MEAN CORPUSCULAR HGB CONC 34.3 g/dl (31.0-37.0); MEAN PLATELET VOLUME 9.4 fl (7.0-11.0); MONO # 0.5 (0.1-0.6); MONO % 3.9 % (1.0-6.0); PLATELET COUNT 101 [, 10^3/uL] (120.0-450.0); RED CELL DISTRIBUTION WIDTH 16.2 % (11.5-14.5); WHITE BLOOD COUNT 13.6 [, 10^3/ul] (4.5-11.0)
[2017-03-04 10:11] LABS: CHLORIDE 122 mmol/L (98-107)
[2017-03-04 10:13] LABS: ALB/GLOB RATIO 0.6 (1.1-1.8); ALKALINE PHOSPHATASE 144 U/L (38-133); ALT/SGPT 51 U/L (7-56); AST/SGOT 52 U/L (15-59); BILIRUBIN,TOTAL 0.8 mg/dL (0.2-1.3); BLOOD UREA NITROGEN 20 mg/dL (7-21); CALCIUM 8.1 mg/dL (8.4-10.5); CARBON DIOXIDE 19 mmol/L (21-33); GFR AFRICAN-AMERICAN > 60; GLUCOSE,RANDOM 82 mg/dL (70-110); MAGNESIUM 1.7 mg/dL (1.7-2.2); POTASSIUM 3.4 mmol/L (3.6-5.0); SODIUM 150 mmol/L (132-148); TOTAL PROTEIN 5.2 g/dL (5.8-8.3)
--- NOTE | 2017-03-04 11:19 | OP ---
PROCEDURE DATE: 03/03/2017 PREOPERATIVE DIAGNOSIS: [id number]-ydr-[id number] amputation on the left side. POSTOPERATIVE DIAGNOSIS: Vjdix-dzs-cath amputation on the left side. SURGEON: Osman Nagel MD. ASSISTANTS: Ana Maria Villarreal DO and Dwain Brooks DO ESTIMATED BLOOD LOSS: Minimal. INDICATIONS: The patient has an ischemic limb with contractures, not expected to ever walk or recover. He is a DNR/DNI. DESCRIPTION OF PROCEDURE: In the operating room, the patient was identified by name, number, procedure, laterality, my aranv, his name, number, birthday, and wrist band. The left leg had been previously marked. The anticipated incision was mapped out. The leg was then prepped draped, exsanguinated with an Esmarch bandage, and the tourniquet put up to 300. With the successful timeout and successful prep and drape, the area was exposed. A fish mouth incision was made through the skin and subcutaneous tissues down to the fascia circumferentially. The muscle was then taken down from exposing the bone was a little bit low. The periosteal elevator was used to expose it a little bit higher, and the bone was taken with the saw. The artery was readily identified. It was doubly clamped and tied with a suture ligature. The nerves were identified, high ligated, and clamped and tied. Circumferentially, the muscle was then debrided. Hemostasis was assured. The tourniquet was let down. There was very little bleeding. Bone wax was placed in the bone. There was some bleeding. It was viable at this point. A Parviz was placed medially, and the incision was closed with #1 Vicryl followed by kike. A pressure dressing was applied. The patient was taken to the recovery room in good condition after sponge and needle count was declared correct, noting that the tourniquet was let down, and following that, a 15- minute period looking for hemostasis was easily achieved. The patient was taken to the recovery room in good condition after sponge and needle count was declared correct. Osman Nagel MD cc: [id number] TT: 03/04/2017 10:07:31 Beto # [id number] carmelita 03/04/2017 10:18:18 AWA
--- NOTE | 2017-03-04 15:22 | PN ---
DATE: 03/04/2017 SUBJECTIVE: The patient is not able to answer many questions. He opens his eyes. PHYSICAL EXAMINATION: VITAL SIGNS: Temperature is 98.8, pulse of 82, blood pressure is 90/58, respirations 12. GENERAL: The patient comfortable, in no acute distress. HEENT: Anicteric sclerae. Moist mucosa. NECK: No JVD or adenopathy. CARDIAC: S1/S2. No murmurs. No rubs. Regular. RESPIRATORY: Clear to auscultation bilaterally. No wheezes, rales, or rhonchi. Good air entry. ABDOMEN: Bowel sounds are positive, soft, nontender, and nondistended. EXTREMITIES: No edema. Has 1+ pulses. Left AKA. LABS: White count of 13.6, hemoglobin 11.8, creatinine is 1.2. Sodium is 150, potassium 3.4. ASSESSMENT: 1. Left above-knee amputation. 2. Hypernatremia. 3. Sepsis. 4. Hypokalemia. 5. Cerebrovascular accident with left-sided residual weakness. 6. Dyslipidemia. 7. Hypophosphatemia, improved. PLAN: The patient is currently comfortable. The patient's sodium is elevated at 150, potassium is 3 . 4. He is not able to eat because of failing swallowing evaluation. I will start him on PPN. The patient is going to be on D5W. He is going to be on his timolol eyedrops. He was given potassium IV . He is on daptomycin for antibiotics. Will continue to follow the patient closely. Overall progno sis is guarded. Jerome Diez MD cc: [id number] TT: 03/04/2017 15:21:45 Confirmation # [id number] Dictation # [id number] mn
[2017-03-04] MEDS: levETIRAcetam 500mg IVPB 500 MG/100 ML BAG IVPB SCH ×2 (17:39→21:25)
[2017-03-04] MEDS ORDERED: Amino/Dext 5/20 1,000 ML IV SCH (18:00)
[2017-03-04] MEDS: DEXT IV SCH (18:01)
[2017-03-04] MEDS: AMINO IV SCH (18:01)
--- NOTE | 2017-03-04 19:35 | CARD ---
APPROVED REPORT EXAM: Two-dimensional and M-mode echocardiogram with Doppler and color Doppler. INDICATION Infection:Rule out subacute bacterial endocarditis Aortic Valve AoV Peak Rhoplmfn077.0cm/Debbie Peak GR.15mmHg Mitral Valve MV E Gkputmhh44.9cm/sMV A Omzvddss786.0cm/sE/A ratio0.6 TDI E/Lateral E'0.0E/Medial E'0.0 Tricuspid Valve TR Peak Xccvlayb833gy/sRAP [id number] Peak Gr.25mmHg [id number] LEFT VENTRICLE The left ventricle is normal size. There is normal left ventricular wall thickness. The left ventricular function is normal. The left ventricular ejection fraction is within the normal range. Transmitral Doppler flow pattern is Grade I-abnormal relaxation pattern. RIGHT VENTRICLE The right ventricle is normal size. There is normal right ventricular wall thickness. The right ventricular systolic function is normal. ATRIA The left atrium size is normal. The right atrium size is normal. AORTIC VALVE The aortic valve is not well visualized. MITRAL VALVE The mitral valve is not well visualized. TRICUSPID VALVE There is mild pulmonary hypertension. PERICARDIAL EFFUSION There is a trace loculated anterior pericardial effusion. <Conclusion> Very poor Echow window. The Valvular structures are not well visualized
--- NOTE | 2017-03-04 19:36 | CP.PCM.PN ---
Subjective - Date & Time of Evaluation Date of Evaluation: 03/04/17 Time of Evaluation: 09:50 - Subjective Subjective: Patient is comfortable, afebrile, not in distress. Objective - Vital Signs/Intake and Output Vital Signs (last 24 hours): Temp Pulse Resp BP Pulse Ox 98.8 F 82 12 90/58 L 94 L 03/04/17 07:30 03/04/17 07:30 03/04/17 07:30 03/04/17 07:30 03/04/17 07:30 Intake and Output: 03/04/17 03/04/17 06:59 18:59 Intake Total 1680 Output Total 800 Balance 880 - Medications Medications: Current Medications Heparin Sodium (Porcine) (Heparin) 5,000 units SC Q12 [facility] PRN Reason: Protocol Last Admin: 03/01/17 22:16 Dose: 5,000 units Home Med (Home Med) 1 unit OS DAILY [facility] Last Admin: 03/03/17 10:33 Dose: 1 unit Hydromorphone HCl (Dilaudid) 0.5 mg IVP Q4H PRN PRN Reason: Pain, moderate (4-7) Last Admin: 03/03/17 21:45 Dose: 0.5 mg Levetiracetam (Keppra 500mg Ivpb) 500 mg in 100 mls @ 400 mls/hr IVPB Q12 [facility] Last Admin: 03/03/17 21:15 Dose: 400 mls/hr Daptomycin 290 mg/ Sodium (Chloride) 100 mls @ 200 mls/hr IV Q48H [facility] Stop: 03/07/17 21:16 Last Admin: 03/02/17 23:35 Dose: 200 mls/hr Meropenem 1g/NS 100mL IVPB (Meropenem 1g/Ns 100ml Ivpb) 1 gm in 100 mls @ 100 mls/hr IVPB Q12 [facility] PRN Reason: Protocol Stop: 03/12/17 10:01 Last Admin: 03/03/17 21:16 Dose: 100 mls/hr Amino Acids (Clinimix 5/20 % (1000 Ml)) 1,000 mls @ 41.667 mls/hr IV .Q24H [facility] Stop: 03/07/17 17:59 Latanoprost (Xalatan Opht) 0 ml OS HS [facility] Last Admin: 03/03/17 21:16 Dose: 2.5 ml Pantoprazole Sodium (Protonix Inj) 40 mg IVP DAILY [facility] Last Admin: 03/03/17 10:20 Dose: 40 mg Pilocarpine HCl (Isopto Carpine 2% Opht Soln) 0 ml OS DAILY [facility] Last Admin: 03/03/17 10:33 Dose: 1 drop Timolol Maleate (Timoptic 0.5% Ophth Soln) 1 drop OS BID [facility] Last Admin: 03/03/17 18:33 Dose: 1 drop - Labs Labs: 03/03/17 05:30 03/03/17 05:30 PT 12.1 Seconds (9.9-11.8) H 03/03/17 05:30 INR 1.12 (0.93-1.08) H 03/03/17 05:30 APTT 32.2 Seconds (23.7-30.8) H 03/03/17 05:30 - Constitutional Appears: Non-toxic, No Acute Distress - Head Exam Head Exam: NORMAL INSPECTION - ENT Exam ENT Exam: Mucous Membranes Moist - Neck Exam Neck Exam: absent: Lymphadenopathy, Meningismus - Respiratory Exam Respiratory Exam: Decreased Breath Sounds - Cardiovascular Exam Cardiovascular Exam: +S1, +S2 - GI/Abdominal Exam GI & Abdominal Exam: Soft. absent: Tenderness Assessment and Plan - Assessment and Plan (Free Text) Plan: Assessment Severe sepsis secondary to left lower leg ischemia S/P left above the knee amputation POD #1 Corynebacterium bacteremia R/P endocarditis history of UTI with Enterococcus faecalis history of urinary tract infection with Proteus history of obstructive uropathy and chronic Mcintosh catheter use HTN history of subarachnoid hemorrhage and cerebrovascular accident with left sided residual weakness seizure disorder Plan continue Daptomycin and Merrem pending repeat blood cx, 2D echo Will monitor clinically
[2017-03-04] MEDS: Latanoprost 2.5 ml Opht Soln OS SCH (21:25)
--- NOTE | 2017-03-05 08:59 | PN ---
DATE: 03/05/2017 DATE: 03/05/2017 SUBJECTIVE: The patient opens eyes, is able to answer yes and no questions. No headaches or dizzine ss. PHYSICAL EXAMINATION: VITAL SIGNS: Temperature is 99.1, pulse of 109. Blood pressure is 137/71, respirations 18, O2 satur ation 98%. GENERAL: The patient is comfortable, in no acute distress. HEENT: Anicteric sclerae. Moist mucosa. NECK: No JVD or adenopathy. CARDIAC: S1/S2. No murmurs. No rubs. Regular. RESPIRATORY: Clear to auscultation bilaterally. No wheezes, rales, or rhonchi. Good air entry. ABDOMEN: Bowel sounds are positive, soft, nontender, and nondistended. EXTREMITIES: In the left leg, there is an gblsp-kfo-azeh amputation. LABORATORY DATA: White count of 13.6, hemoglobin 11.8. Chemistry shows a sodium 150. The potassium is 3.4. ASSESSMENT: 1. Sepsis. 2. Left above-knee amputation. 3. Hypernatremia. 4. Hypokalemia. 5. Cerebrovascular accident with left-sided residual weakness. 6. Dyslipidemia. 7. Hypophosphatemia, improved. PLAN: The patient is currently comfortable. He denies any pain. He is on PPN. The patient is on daptomycin for antibiotics. This is going to be continued. The patient is on heparin for DVT prophy laxis. He is on meropenem for antibiotics. The patient is on eyedrops. He is not able to swallow. He is n.p.o. We will repeat the patient's blood work tomorrow. Jerome Diez MD cc: [id number] TT: 03/05/2017 08:59:00 Confirmation # [id number] Dictation # [id number] carmelita
--- NOTE | 2017-03-05 09:47 | CP.PCM.PN ---
Subjective - Date & Time of Evaluation Date of Evaluation: 03/05/17 Time of Evaluation: 06:45 - Subjective Subjective: Surgery Progress note. Dr. Nagel Pt seen and examined at bedside. No acute events reported by nursing staff overnight. Patient is more alert and responds by nodding. Denies any pain. Objective - Vital Signs/Intake and Output Vital Signs (last 24 hours): Temp Pulse Resp BP Pulse Ox 97.9 F 84 18 197/93 H 97 03/05/17 08:42 03/05/17 08:42 03/05/17 08:42 03/05/17 08:42 03/05/17 08:42 Intake and Output: 03/05/17 03/05/17 06:59 18:59 Intake Total 1162 Output Total 1365 Balance -203 - Medications Medications: Current Medications Heparin Sodium (Porcine) (Heparin) 5,000 units SC Q12 [facility] PRN Reason: Protocol Last Admin: 03/01/17 22:16 Dose: 5,000 units Home Med (Home Med) 1 unit OS DAILY [facility] Last Admin: 03/04/17 09:23 Dose: 1 unit Hydromorphone HCl (Dilaudid) 0.5 mg IVP Q4H PRN PRN Reason: Pain, moderate (4-7) Last Admin: 03/03/17 21:45 Dose: 0.5 mg Levetiracetam (Keppra 500mg Ivpb) 500 mg in 100 mls @ 400 mls/hr IVPB Q12 [facility] Last Admin: 03/04/17 21:25 Dose: 400 mls/hr Daptomycin 290 mg/ Sodium (Chloride) 100 mls @ 200 mls/hr IV Q48H [facility] Stop: 03/07/17 21:16 Last Admin: 03/04/17 21:40 Dose: 200 mls/hr Meropenem 1g/NS 100mL IVPB (Meropenem 1g/Ns 100ml Ivpb) 1 gm in 100 mls @ 100 mls/hr IVPB Q12 [facility] PRN Reason: Protocol Stop: 03/12/17 10:01 Last Admin: 03/04/17 21:25 Dose: 100 mls/hr Amino Acids (Clinimix 5/20 % (2000 Ml)) 2,000 mls @ 42 mls/hr IV .Q24H [facility] Stop: 03/05/17 17:47 Last Admin: 03/04/17 18:01 Dose: 42 mls/hr Insulin Human Regular (Humulin R Low) 0 units SC ACHS [facility] PRN Reason: Protocol Latanoprost (Xalatan Opht) 0 ml OS HS [facility] Last Admin: 03/04/17 21:25 Dose: 2.5 ml Pantoprazole Sodium (Protonix Inj) 40 mg IVP DAILY [facility] Last Admin: 03/04/17 17:42 Dose: 40 mg Pilocarpine HCl (Isopto Carpine 2% Opht Soln) 0 ml OS DAILY [facility] Last Admin: 03/04/17 09:23 Dose: 1 drop Timolol Maleate (Timoptic 0.5% Ophth Soln) 1 drop OS BID [facility] Last Admin: 03/04/17 19:44 Dose: 1 drop - Labs Labs: 03/04/17 09:00 03/04/17 09:00 PT 12.1 Seconds (9.9-11.8) H 03/03/17 05:30 INR 1.12 (0.93-1.08) H 03/03/17 05:30 APTT 32.2 Seconds (23.7-30.8) H 03/03/17 05:30 - Constitutional Appears: Well, No Acute Distress - Head Exam Head Exam: ATRAUMATIC, NORMAL INSPECTION, NORMOCEPHALIC - Eye Exam Eye Exam: EOMI - Respiratory Exam Respiratory Exam: NORMAL BREATHING PATTERN - Extremities Exam Additional comments: Left Lower Extremity: Bandage clean, dry and intact. Parviz drain in place: 15cc of serrosanguinous output since insertion. - Neurological Exam Neurological Exam: Alert, Awake Assessment and Plan - Assessment and Plan (Free Text) Assessment: 89yo M with Left Ischemic Leg s/p Left AKA on 03/04/17 - Pain management - Continue to monitor drain output. Dressing change, and drain removal on POD 5. - Keep Dressing clean, dry and intact - Noted TPN for nutrition. Discussed case with Dr. Robe Soriano PGY1 Surgery pager: [phone]
[2017-03-05] MEDS: NEPAFENAC 0.3% OS SCH (10:17)
[2017-03-05] MEDS: Pilocarpine 2% Opht (15ml) OS SCH (10:17)
[2017-03-05] MEDS: levETIRAcetam 500mg IVPB 500 MG/100 ML BAG IVPB SCH ×2 (10:18→23:14)
[2017-03-05] MEDS: Meropenem 1g/NS 100mL IVPB 1 GM/100 ML PIGGYBACK IVPB SCH (10:18)
[2017-03-05 10:50] LABS: ADD MANUAL DIFF? NO
[2017-03-05 10:56] LABS: BASO # 0.01 [, K/mm3] (0.0-2.0); BASO % 0.1 % (0.0-3.0); EOS # 0.2 (0.0-0.7); EOS % 1.7 % (1.5-5.0); GRAN # 11.38 (1.4-6.5); HEMATOCRIT 33.9 % (42.0-52.0); LYMPH # 0.8 (1.2-3.4); MEAN CELL VOLUME 89.9 fL (80.0-105.0); MEAN CORPUSCULAR HEMOGLOBIN 30.8 pg (25.0-35.0); MEAN CORPUSCULAR HGB CONC 34.2 g/dl (31.0-37.0); MEAN PLATELET VOLUME 9.4 fl (7.0-11.0); MONO # 0.5 (0.1-0.6); MONO % 4.2 % (1.0-6.0); PLATELET COUNT 120 [, 10^3/uL] (120.0-450.0); RED CELL DISTRIBUTION WIDTH 16.1 % (11.5-14.5); WHITE BLOOD COUNT 12.9 [, 10^3/ul] (4.5-11.0)
[2017-03-05 11:05] LABS: CHLORIDE 121 mmol/L (98-107)
[2017-03-05 11:06] LABS: ALB/GLOB RATIO 0.7 (1.1-1.8); ALKALINE PHOSPHATASE 144 U/L (38-133); ALT/SGPT 48 U/L (7-56); AST/SGOT 32 U/L (15-59); BILIRUBIN,TOTAL 0.8 mg/dL (0.2-1.3); BLOOD UREA NITROGEN 22 mg/dL (7-21); CALCIUM 8.3 mg/dL (8.4-10.5); CARBON DIOXIDE 21 mmol/L (21-33); CHOLESTEROL 92 mg/dL (130-200); GFR AFRICAN-AMERICAN > 60; GLUCOSE,RANDOM 174 mg/dL (70-110); MAGNESIUM 1.6 mg/dL (1.7-2.2); POTASSIUM 3.1 mmol/L (3.6-5.0); SODIUM 149 mmol/L (132-148); TOTAL PROTEIN 5.4 g/dL (5.8-8.3)
[2017-03-05] MEDS: Insulin Reg-LOW-Coverage SC SCH (12:04)
[2017-03-05] MEDS ORDERED: Magnesium Sulfate 2 GM in Sodium Chloride 0.9% 100 ML IVPB ONE (12:30)
[2017-03-05] MEDS: DEXT IV SCH (17:48)
[2017-03-05] MEDS: AMINO IV SCH (17:48)
--- NOTE | 2017-03-05 18:56 | CP.PCM.PN ---
Subjective - Date & Time of Evaluation Date of Evaluation: 03/05/17 Time of Evaluation: 10:00 - Subjective Subjective: Comfortable in bed, not in distress, afebrile. Objective - Vital Signs/Intake and Output Vital Signs (last 24 hours): Temp Pulse Resp BP Pulse Ox 97.4 F L 77 19 136/98 H 99 03/05/17 16:00 03/05/17 16:00 03/05/17 16:00 03/05/17 16:00 03/05/17 16:00 Intake and Output: 03/05/17 03/05/17 06:59 18:59 Intake Total 1162 0 Output Total 1365 500 Balance -203 -500 - Medications Medications: Current Medications Heparin Sodium (Porcine) (Heparin) 5,000 units SC Q12 [facility] PRN Reason: Protocol Last Admin: 03/01/17 22:16 Dose: 5,000 units Home Med (Home Med) 1 unit OS DAILY [facility] Last Admin: 03/05/17 10:17 Dose: 1 unit Hydromorphone HCl (Dilaudid) 0.5 mg IVP Q4H PRN PRN Reason: Pain, moderate (4-7) Last Admin: 03/03/17 21:45 Dose: 0.5 mg Levetiracetam (Keppra 500mg Ivpb) 500 mg in 100 mls @ 400 mls/hr IVPB Q12 [facility] Last Admin: 03/05/17 10:18 Dose: 400 mls/hr Daptomycin 290 mg/ Sodium (Chloride) 100 mls @ 200 mls/hr IV Q48H [facility] Stop: 03/07/17 21:16 Last Admin: 03/04/17 21:40 Dose: 200 mls/hr Meropenem 1g/NS 100mL IVPB (Meropenem 1g/Ns 100ml Ivpb) 1 gm in 100 mls @ 100 mls/hr IVPB Q12 [facility] PRN Reason: Protocol Stop: 03/12/17 10:01 Last Admin: 03/05/17 10:18 Dose: 100 mls/hr Amino Acids (Clinimix 5/20 % (2000 Ml)) 2,000 mls @ 42 mls/hr IV .Q24H [facility] Stop: 03/08/17 17:59 Last Admin: 03/05/17 17:48 Dose: 42 mls/hr Insulin Human Regular (Humulin R Low) 0 units SC ACHS [facility] PRN Reason: Protocol Last Admin: 03/05/17 12:04 Dose: 1 units Latanoprost (Xalatan Opht) 0 ml OS HS [facility] Last Admin: 03/04/17 21:25 Dose: 2.5 ml Pantoprazole Sodium (Protonix Inj) 40 mg IVP DAILY [facility] Last Admin: 03/05/17 10:18 Dose: 40 mg Pilocarpine HCl (Isopto Carpine 2% Opht Soln) 0 ml OS DAILY [facility] Last Admin: 03/05/17 10:17 Dose: 1 drop Timolol Maleate (Timoptic 0.5% Ophth Soln) 1 drop OS BID [facility] Last Admin: 03/05/17 17:50 Dose: 1 drop - Labs Labs: 03/05/17 10:00 03/05/17 10:00 PT 12.1 Seconds (9.9-11.8) H 03/03/17 05:30 INR 1.12 (0.93-1.08) H 03/03/17 05:30 APTT 32.2 Seconds (23.7-30.8) H 03/03/17 05:30 - Constitutional Appears: Non-toxic - Head Exam Head Exam: NORMAL INSPECTION - ENT Exam ENT Exam: Mucous Membranes Moist - Neck Exam Neck Exam: absent: Lymphadenopathy, Meningismus - Respiratory Exam Respiratory Exam: Decreased Breath Sounds - Cardiovascular Exam Cardiovascular Exam: +S1, +S2 - GI/Abdominal Exam GI & Abdominal Exam: Soft. absent: Tenderness - Extremities Exam Additional comments: left AKA stump with bandages and dressings in place Assessment and Plan - Assessment and Plan (Free Text) Plan: Assessment Severe sepsis secondary to left lower leg ischemia S/P left above the knee amputation POD #2 Corynebacterium bacteremia R/O endocarditis history of UTI with Enterococcus faecalis history of urinary tract infection with Proteus history of obstructive uropathy and chronic Mcintosh catheter use HTN history of subarachnoid hemorrhage and cerebrovascular accident with left sided residual weakness seizure disorder Plan continue Daptomycin - will d/c Merrem since the patient already had AKA and the margins are viable; repeat blood cx on 03/03/2017 are negative so far; 2D echo has poor windows and we are unable to rule out vegetations Will monitor clinically
[2017-03-05] MEDS: Latanoprost 2.5 ml Opht Soln OS SCH (23:18)
[2017-03-06 06:39] LABS: HEMATOCRIT 34.5 % (42.0-52.0); MEAN CELL VOLUME 89.6 fL (80.0-105.0); MEAN CORPUSCULAR HEMOGLOBIN 30.4 pg (25.0-35.0); MEAN CORPUSCULAR HGB CONC 33.9 g/dl (31.0-37.0); MEAN PLATELET VOLUME 9.6 fl (7.0-11.0); RED CELL DISTRIBUTION WIDTH 16.2 % (11.5-14.5); WHITE BLOOD COUNT 14.9 [, 10^3/ul] (4.5-11.0)
[2017-03-06 07:05] LABS: ALB/GLOB RATIO 0.7 (1.1-1.8); ALKALINE PHOSPHATASE 142 U/L (38-133); ALT/SGPT 49 U/L (7-56); AST/SGOT 39 U/L (15-59); BILIRUBIN,TOTAL 0.9 mg/dL (0.2-1.3); BLOOD UREA NITROGEN 23 mg/dL (7-21); CALCIUM 8.6 mg/dL (8.4-10.5); CARBON DIOXIDE 21 mmol/L (21-33); CHLORIDE 120 mmol/L (98-107); GFR AFRICAN-AMERICAN > 60; GLUCOSE,RANDOM 152 mg/dL (70-110); POTASSIUM 3.2 mmol/L (3.6-5.0); SODIUM 148 mmol/L (132-148); TOTAL PROTEIN 5.3 g/dL (5.8-8.3)
[2017-03-06] MEDS: HYDROmorphone 0.5 mg/0.5 ml ISec IVP PRN ×2 (08:14→20:39)
--- NOTE | 2017-03-06 09:37 | PN ---
DATE: 03/06/2017 DATE: 03/06/2017 SUBJECTIVE: The patient opens HIS eyes, but is not responding this morning. PHYSICAL EXAMINATION: VITAL SIGNS: Temperature is 98.2, pulse of 91. Blood pressure IS 149/98, respirations 18. GENERAL: The patient is comfortable, in no acute distress. HEENT: Anicteric sclerae. Moist mucosa. NECK: No JVD or adenopathy. CARDIAC: S1/S2. No murmurs. No rubs. Regular. RESPIRATORY: Clear to auscultation bilaterally. No wheezes, rales, or rhonchi. Good air entry. ABDOMEN: Bowel sounds are positive, soft, nontender, and nondistended. EXTREMITIES: No edema. Has 1+ pulses. In the left leg, there is an AKA. LABORATORY DATA: White count of 14.9, hemoglobin 11.7. Potassium is 3.2. ASSESSMENT: 1. Sepsis. 2. Status post left above-knee amputation. 3. Hypernatremia, improved. 4. Hypokalemia. 5. Cerebrovascular accident with left-sided residual weakness. 6. Dyslipidemia. 7. Hypophosphatemia. 8. Dysphagia. PLAN: The patient is currently comfortable, does not appear to be in pain. The patient is on PPN. He is going to be on daptomycin. He is on Dilaudid for pain. The patient is on magnesium replacemen t, and he is on Protonix IV. The patient will need potassium replacement as well. The discharge chano nning is in progress. The patient has severe oropharyngeal dysphagia. The patient is at high risk f or aspiration. We will see if the patient qualifies for PEG placement. Jerome Diez MD cc: [id number] TT: 03/06/2017 09:37:16 Confirmation # [id number] Dictation # [id number] jn
[2017-03-06] MEDS: Insulin Reg-LOW-Coverage SC SCH ×4 (10:04→22:01)
[2017-03-06] MEDS: NEPAFENAC 0.3% OS SCH (11:00)
[2017-03-06] MEDS: levETIRAcetam 500mg IVPB 500 MG/100 ML BAG IVPB SCH ×2 (11:30→21:59)
[2017-03-06] MEDS: Pilocarpine 2% Opht (15ml) OS SCH (11:31)
--- NOTE | 2017-03-06 14:02 | CP.PCM.PN ---
Subjective - Date & Time of Evaluation Date of Evaluation: 03/06/17 Time of Evaluation: 11:30 - Subjective Subjective: General Surgery Dr. Nagel Pt S&E @bedside. NAEO. Pt sleeping comfortably. minimal NGT output. Objective - Vital Signs/Intake and Output Vital Signs (last 24 hours): Temp Pulse Resp BP Pulse Ox 98.2 F 91 H 18 149/98 H 98 03/06/17 07:30 03/06/17 07:30 03/06/17 07:30 03/06/17 07:30 03/06/17 07:30 Intake and Output: 03/06/17 03/06/17 06:59 18:59 Intake Total 0 Output Total 1000 Balance -1000 - Medications Medications: Current Medications Heparin Sodium (Porcine) (Heparin) 5,000 units SC Q12 SARANYA PRN Reason: Protocol Last Admin: 03/01/17 22:16 Dose: 5,000 units Home Med (Home Med) 1 unit OS DAILY [facility] Last Admin: 03/06/17 11:00 Dose: 1 unit Hydromorphone HCl (Dilaudid) 0.5 mg IVP Q4H PRN PRN Reason: Pain, moderate (4-7) Last Admin: 03/06/17 08:14 Dose: 0.5 mg Levetiracetam (Keppra 500mg Ivpb) 500 mg in 100 mls @ 400 mls/hr IVPB Q12 [facility]ANYA Last Admin: 03/06/17 11:30 Dose: 400 mls/hr Amino Acids (Clinimix 5/20 % (2000 Ml)) 2,000 mls @ 42 mls/hr IV .Q24H [facility]ANYA Stop: 03/08/17 17:59 Last Admin: 03/05/17 17:48 Dose: 42 mls/hr Daptomycin 290 mg/ Sodium (Chloride) 100 mls @ 200 mls/hr IV DAILY [facility]ANYA PRN Reason: Protocol Stop: 03/11/17 10:01 Insulin Human Regular (Humulin R Low) 0 units SC ACHS SARANYA PRN Reason: Protocol Last Admin: 03/06/17 12:30 Dose: Not Given Latanoprost (Xalatan Opht) 0 ml OS HS [facility] Last Admin: 03/05/17 23:18 Dose: 2.5 ml Pantoprazole Sodium (Protonix Inj) 40 mg IVP DAILY [facility] Last Admin: 03/06/17 11:00 Dose: 40 mg Pilocarpine HCl (Isopto Carpine 2% Opht Soln) 0 ml OS DAILY [facility] Last Admin: 03/06/17 11:31 Dose: 1 drop Timolol Maleate (Timoptic 0.5% Ophth Soln) 1 drop OS BID [facility] Last Admin: 03/06/17 11:00 Dose: 1 drop - Labs Labs: 03/06/17 06:00 03/06/17 06:00 PT 12.1 Seconds (9.9-11.8) H 03/03/17 05:30 INR 1.12 (0.93-1.08) H 03/03/17 05:30 APTT 32.2 Seconds (23.7-30.8) H 03/03/17 05:30 - Constitutional Appears: Non-toxic, No Acute Distress, Cachectic - Head Exam Head Exam: NORMAL INSPECTION - Eye Exam Eye Exam: Normal appearance - ENT Exam ENT Exam: Mucous Membranes Moist - Respiratory Exam Respiratory Exam: NORMAL BREATHING PATTERN. absent: Accessory Muscle Use, Respiratory Distress - GI/Abdominal Exam GI & Abdominal Exam: Soft. absent: Distended - Extremities Exam Additional comments: L AKA. dressing c/d/i. lynn in place - Neurological Exam Neurological Exam: absent: Awake - Skin Skin Exam: Dry, Normal Color, Warm Assessment and Plan - Assessment and Plan (Free Text) Assessment: 89 y/o M POD#3 s/p L AKA for ishemia - cont pain management - monitor drain output - dressing change and drain removal on POD 5 - cont TPN - awaiting LTAC placement Pt discussed w/ Dr. Robe Campos DO PGY1
--- NOTE | 2017-03-06 15:37 | PN ---
DATE: 03/06/2017 The patient is in bed in no acute distress, nontoxic. PHYSICAL EXAMINATION: VITAL SIGNS: Temperature is 98, blood pressure is 140/70, respiratory rate of 16. HEENT: Unremarkable. NECK: Supple. LUNGS: Decreased breath sounds. HEART: Normal S1, S2. ABDOMEN: Soft, nontender. LABORATORY EXAMINATION: Reveals a white count of 14,000; hemoglobin of 11 and platelets of 106. Kimber mistries reveal a BUN of 23, creatinine of 1.0. Urinalysis is noted and 2-5 WBCs. MICROBIOLOGY: Reveals the blood cultures are positive, gram-positive cocci in clusters in 1 bottle. Initial ones are positive for corynebacterium and the patient is currently on daptomycin. ASSESSMENT AND PLAN: An 89-year-old with severe sepsis secondary to left lower leg ischemia, status post left above-knee amputation post-procedure day #3 with corynebacterium bacteremia. Must rule out underlying endocarditis in this patient. Currently on daptomycin. Would repeat blood cultures now. One bottle is positive for gram-positive cocci and the patient's echo result reveals, read by Dr. Eulalia hennessy, the valve structures are not visualized as per Dr. Isabel. Jesus Brenner MD cc: 350 TT: 03/06/2017 15:36:49 Confirmation # [id number] Dictation # [id number] sn
[2017-03-06] MEDS: AMINO IV SCH (19:13)
[2017-03-06] MEDS: DEXT IV SCH (19:13)
[2017-03-06] MEDS: Latanoprost 2.5 ml Opht Soln OS SCH (22:00)
--- NOTE | 2017-03-06 22:09 | CON ---
DATE: 03/06/2017 REQUESTING PHYSICIAN: Dr. Diez. REASON FOR CONSULTATION: I have been asked to see this 89-year-old male with multiple comorbidities including multiple CVAs with left-sided weakness, hypertension, seizures who was brought to the [facility] about 1 week ago with worsening mental status as well as an ischemic left leg. The patient under went a left AKA for an ischemic left leg. The patient has had oropharyngeal dysphagia and has not be en able to take anything by mouth. He is currently a DNR and do not intubate. He underwent a swallo wing evaluation on 03/01, which showed severe oropharyngeal dysphagia. I have been asked to see this patient for possible PEG placement. He is currently receiving hyperalimentation. The patient's luis ghter is at the bedside. The patient in the hospital was also found to have Corynebacterium bacterem ia. PAST MEDICAL HISTORY: As above. Again, the patient has a history of CVA, subarachnoid bleed, hypert ension, peripheral arterial disease, hyperlipidemia, GERD, and seizure disorder. PAST SURGICAL HISTORY: The patient had a gastrostomy tube put over 5 years ago when he had a subarac hnoid hemorrhage and this was removed after the patient improved from a subarachnoid hemorrhage and w as again able to swallow. PAST SURGICAL HISTORY: Notable for left hip replacement. SOCIAL HISTORY: He lives at home with his daughter who is the primary supervisor cabinetmaker. REVIEW OF SYSTEMS: A 14-point review of systems is unobtainable as the patient currently is aphasic. PHYSICAL EXAMINATION: GENERAL: Elderly male, lying in bed, appearing comfortable. VITAL SIGNS: Reveal temperature of 98.3, blood pressure 125/84, heart rate 96. HEENT: Reveal bitemporal wasting. Conjunctivae pale. NECK: Supple. CHEST: Revealed distant breath sounds. HEART: Reveals regular rate and rhythm. ABDOMEN: Soft, scaphoid, nontender. EXTREMITIES: Show a left AKA. LABORATORY DATA: Revealed a white blood cell count 14.9, hemoglobin 11.7. Chemistries reveal potass ium of 3.2, albumin 2.1, total protein of 5.3. IMPRESSION: An 89-year-old male with multiple comorbidities including CVA, subarachnoid hemorrhage, status post left above-knee amputation, Corynebacterium sepsis with severe oropharyngeal dysphagia. I have discussed the risks and benefits of PEG placement with the patient's daughter. She asks that she be given several days to make a decision on a feeding tube as opposed to just palliative care giv en the patient's poor overall prognosis. RECOMMENDATIONS: 1. Await family decision on PEG. Julito Myers MD cc: 79 TT: 03/06/2017 22:08:56 Confirmation # [id number] Dictation # [id number] mn
[2017-03-07] MEDS: Insulin Reg-LOW-Coverage SC SCH ×4 (07:03→21:36)
[2017-03-07 07:23] LABS: ADD MANUAL DIFF? NO
[2017-03-07 07:27] LABS: BASO # 0.01 [, K/mm3] (0.0-2.0); BASO % 0.1 % (0.0-3.0); EOS # 0.2 (0.0-0.7); EOS % 1.1 % (1.5-5.0); GRAN # 13.63 (1.4-6.5); GRAN % 90.2 % (50.0-68.0); HEMATOCRIT 30.9 % (42.0-52.0); LYMPH # 0.9 (1.2-3.4); LYMPH % 6.2 % (22.0-35.0); MEAN CELL VOLUME 90.4 fL (80.0-105.0); MEAN CORPUSCULAR HEMOGLOBIN 30.4 pg (25.0-35.0); MEAN CORPUSCULAR HGB CONC 33.7 g/dl (31.0-37.0); MEAN PLATELET VOLUME 9.2 fl (7.0-11.0); MONO # 0.4 (0.1-0.6); MONO % 2.4 % (1.0-6.0); PLATELET COUNT 90 [, 10^3/uL] (120.0-450.0); RED CELL DISTRIBUTION WIDTH 16.5 % (11.5-14.5); WHITE BLOOD COUNT 15.1 [, 10^3/ul] (4.5-11.0)
[2017-03-07 07:48] LABS: ALB/GLOB RATIO 0.7 (1.1-1.8); ALKALINE PHOSPHATASE 132 U/L (38-133); ALT/SGPT 53 U/L (7-56); AST/SGOT 47 U/L (15-59); BILIRUBIN,TOTAL 0.7 mg/dL (0.2-1.3); BLOOD UREA NITROGEN 26 mg/dL (7-21); CALCIUM 8.6 mg/dL (8.4-10.5); CARBON DIOXIDE 23 mmol/L (21-33); CHLORIDE 119 mmol/L (98-107); GFR AFRICAN-AMERICAN > 60; GLUCOSE,RANDOM 113 mg/dL (70-110); MAGNESIUM 1.7 mg/dL (1.7-2.2); POTASSIUM 3.6 mmol/L (3.6-5.0); SODIUM 146 mmol/L (132-148)
--- NOTE | 2017-03-07 07:49 | PN ---
DATE: 03/07/2017 SUBJECTIVE: The patient opens eyes, does not communicate well, not answering my questions today. PHYSICAL EXAMINATION: VITAL SIGNS: Temperature is 98.3, pulse of 96, blood pressure is 125/84, respirations 18. GENERAL: The patient comfortable, in no acute distress. HEENT: Anicteric sclerae. Moist mucosa. NECK: No JVD or adenopathy. CARDIAC: S1/S2. No murmurs. No rubs. Regular. RESPIRATORY: Clear to auscultation bilaterally. No wheezes, rales, or rhonchi. Good air entry. ABDOMEN: Bowel sounds are positive, soft, nontender, and nondistended. EXTREMITIES: In the left leg, AKA. No edema. Has 1+ pulses. LABORATORIES: White count of 14.9, hemoglobin 11.7. Creatinine is 1.0, potassium is 3.2. These are from yesterday. ASSESSMENT: 1. Dysphagia. 2. Status post above knee amputation. 3. Hypernatremia, improved. 4. Hypokalemia. 5. Cerebrovascular accident with left-sided residual weakness. 6. Dyslipidemia. 7. Hypophosphatemia, improved. 8. Do not resuscitate/do not intubate. PLAN: The patient is currently comfortable. I have reviewed the notes from Dr. Myers. The patient h as not been eating. I have asked Dr. Myers to evaluate the patient's dysphagia. I have started the p atient on IV nutrition, but temporarily. Dr. Myers did speak to the patient's daughter about percutan eous endoscopic gastrostomy placement and she is going to be making decision about it. I did speak t o the patient's daughter yesterday to give her an update on the patient's diagnosis and plan of care. It does not seem that he is going to be improving enough in the short term to be able to swallow. The patient is on heparin for deep venous thrombosis prophylaxis. He is on timolol eyedrops. He is on IV anti-seizure medications, levetiracetam. The patient is receiving insulin coverage. He is on daptomycin for antibiotics. He has 1 blood culture bottle that is negative and another blood culture bottle that shows gram-positive cocci in clusters. Overall prognosis remains guarded. Jerome Diez MD cc: [phone] TT: 03/07/2017 07:49:31 Confirmation # [id number] Dictation # [id number] en
--- NOTE | 2017-03-07 10:21 | CP.PCM.PN ---
Subjective - Date & Time of Evaluation Date of Evaluation: 03/07/17 Time of Evaluation: 10:00 - Subjective Subjective: Surgery Progress note. Dr. Nagel Pt seen and examined at bedside. Patient is non-verbal but nods to questions. No acute distress. Denies any current pain. No acute events reported by nursing staff. Objective - Vital Signs/Intake and Output Vital Signs (last 24 hours): Temp Pulse Resp BP Pulse Ox 97.3 F L 91 H 18 117/77 97 03/07/17 07:30 03/07/17 07:30 03/07/17 07:30 03/07/17 07:30 03/07/17 07:30 Intake and Output: 03/07/17 03/07/17 06:59 18:59 Intake Total 600 Output Total 760 Balance -160 - Medications Medications: Current Medications Heparin Sodium (Porcine) (Heparin) 5,000 units SC Q12 SARANYA PRN Reason: Protocol Last Admin: 03/01/17 22:16 Dose: 5,000 units Home Med (Home Med) 1 unit OS DAILY [facility] Last Admin: 03/06/17 11:00 Dose: 1 unit Hydromorphone HCl (Dilaudid) 0.5 mg IVP Q4H PRN PRN Reason: Pain, moderate (4-7) Last Admin: 03/06/17 20:39 Dose: 0.5 mg Levetiracetam (Keppra 500mg Ivpb) 500 mg in 100 mls @ 400 mls/hr IVPB Q12 [facility] Last Admin: 03/06/17 21:59 Dose: 400 mls/hr Daptomycin 290 mg/ Sodium (Chloride) 100 mls @ 200 mls/hr IV DAILY [facility] PRN Reason: Protocol Stop: 03/11/17 10:01 Last Admin: 03/06/17 19:01 Dose: 200 mls/hr Chromium/Copper/Manganese/Zinc 1 ml/ Multivitamins/Vitamin C 10 ml/ Amino Acids/ Electrolytes/Dextrose 1,011 mls @ 42 mls/hr IV .Q24H SARANYA Fat Emulsion Intravenous (Intralipid 20%) 250 mls @ 21 mls/hr IV 1800 SARANYA Insulin Human Regular (Humulin R Low) 0 units SC ACHS SARANYA PRN Reason: Protocol Last Admin: 03/06/17 22:01 Dose: Not Given Latanoprost (Xalatan Opht) 0 ml OS HS [facility] Last Admin: 03/06/17 22:00 Dose: 2.5 ml Pantoprazole Sodium (Protonix Inj) 40 mg IVP DAILY [facility] Last Admin: 03/06/17 11:00 Dose: 40 mg Pilocarpine HCl (Isopto Carpine 2% Opht Soln) 0 ml OS DAILY [facility] Last Admin: 03/06/17 11:31 Dose: 1 drop Timolol Maleate (Timoptic 0.5% Ophth Soln) 1 drop OS BID [facility] Last Admin: 03/06/17 19:01 Dose: 1 drop - Labs Labs: 03/07/17 06:45 03/07/17 06:45 PT 12.1 Seconds (9.9-11.8) H 03/03/17 05:30 INR 1.12 (0.93-1.08) H 03/03/17 05:30 APTT 32.2 Seconds (23.7-30.8) H 03/03/17 05:30 - Constitutional Appears: Well, No Acute Distress - Head Exam Head Exam: ATRAUMATIC, NORMAL INSPECTION, NORMOCEPHALIC - Eye Exam Eye Exam: EOMI - Respiratory Exam Respiratory Exam: NORMAL BREATHING PATTERN - Exam Additional comments: Mcintosh present - Extremities Exam Additional comments: Left AKA: bandage clean, dry and intact. Parviz drain in place with minimal output. bandage and dressing changed at bedside. Skin incision with good approximation of skin edges, clean, dry, intact. Staple line intact. Assessment and Plan - Assessment and Plan (Free Text) Assessment: 89yo M with left ischemic leg. S/P Left AKA on 03/03. POD#4 - Leukocytosis - Drain removed today, 03/07. Dressing changed - continue pain management - noted TPN for nutrition. - f/u ID recs, continue Abx Discussed case with Dr. Robe Soriano PGY1 surgery pager: [phone]
--- NOTE | 2017-03-07 10:34 | PN ---
DATE: 03/07/2017 The patient is in bed in no acute distress, nontoxic. PHYSICAL EXAMINATION: VITAL SIGNS: Temperature is 97, blood pressure is 117/70, respiratory rate of 18. HEENT: Unremarkable. NECK: Supple. LUNGS: Have decreased breath sounds. HEART: Normal S1, S2. ABDOMEN: Soft, nontender. LABORATORY DATA: Reveals a white count of 15,000, hemoglobin of 10, platelets of 90. Reveals a BUN of 26, creatinine of 1.0. Urinalysis is noted. Blood cultures are positive for gram-p ositive cocci in clusters, coag negative. Dr. Diez's note is reviewed. ASSESSMENT AND PLAN: An 89-year-old with severe sepsis secondary to left lower leg ischemia, status post left [id number] amputation, post-procedure day #4 with corynebacterium bacteremia. Repeat c ulture coag negative in 1 bottle, most likely a contamination. The patient is on daptomycin and wait ing for repeat cultures. Overall prognosis is poor. Jesus Brenner MD cc: 350 TT: 03/07/2017 10:34:06 Confirmation # [id number] Dictation # [id number] margarita
[2017-03-07] MEDS: levETIRAcetam 500mg IVPB 500 MG/100 ML BAG IVPB SCH ×2 (11:47→21:37)
[2017-03-07] MEDS: NEPAFENAC 0.3% OS SCH (11:49)
[2017-03-07] MEDS: Pilocarpine 2% Opht (15ml) OS SCH (11:50)
--- NOTE | 2017-03-07 14:20 | PN ---
DATE: 03/07/2017 SUBJECTIVE: The patient is lying in bed. He is awake and appears alert. He is aphasic. He also ap pears to be somewhat confused. PHYSICAL EXAMINATION: VITAL SIGNS: Reveal temperature of 97.3, blood pressure 117/77, heart rate 91. ABDOMEN: Soft, nontender. LABORATORY DATA: Reveal white blood cell count 15.1, hemoglobin 10.4. Revealed chloride 119, BUN 26 , albumin is 2. Blood cultures are positive for gram-positive cocci in clusters. IMPRESSION: An 89-year-old male with ischemic left leg, status post above knee amputation with histo ry of multiple cerebrovascular accidents, corynebacterium sepsis with oropharyngeal dysphagia. The p atient's ultimate prognosis is extremely poor. Family is deciding whether to pursue a course of pall iative care and possible hospice versus insertion of a percutaneous endoscopic gastrostomy. RECOMMENDATIONS: 1. Will repeat a swallowing eval now that the patient is more awake. 2. Await family decision on percutaneous endoscopic gastrostomy placement. Julito Myers MD cc: 79 TT: 03/07/2017 14:19:43 Confirmation # [id number] Dictation # [id number] en
[2017-03-07 15:34] LABS: URINE BILIRUBIN NEGATIVE (NEGATIVE); URINE BLOOD SMALL (NEGATIVE); URINE GLUCOSE (UA) NEGATIVE (NEGATIVE); URINE KETONE NEGATIVE (NEGATIVE); URINE LEUKOCYTE ESTERASE NEGATIVE Leu/uL (NEGATIVE); URINE PROTEIN 30 mg/dL (<30 mg/dL); URINE UROBILINOGEN 0.2 E.U./dL (<1 E.U./dL)
--- NOTE | 2017-03-07 15:36 | CP.PCM.PN ---
Subjective - Date & Time of Evaluation Date of Evaluation: 03/07/17 Time of Evaluation: 10:30 - Subjective Subjective: Lethargic. Answers simple yes and no questions. In no distress Objective - Vital Signs/Intake and Output Vital Signs (last 24 hours): Temp Pulse Resp BP Pulse Ox 97.3 F L 91 H 18 117/77 97 03/07/17 07:30 03/07/17 07:30 03/07/17 07:30 03/07/17 07:30 03/07/17 07:30 Intake and Output: 03/07/17 03/07/17 06:59 18:59 Intake Total 600 Output Total 760 Balance -160 - Medications Medications: Current Medications Heparin Sodium (Porcine) (Heparin) 5,000 units SC Q12 SARANYA PRN Reason: Protocol Last Admin: 03/01/17 22:16 Dose: 5,000 units Home Med (Home Med) 1 unit OS DAILY [facility] Last Admin: 03/07/17 11:49 Dose: 1 unit Levetiracetam (Keppra 500mg Ivpb) 500 mg in 100 mls @ 400 mls/hr IVPB Q12 [facility] Last Admin: 03/07/17 11:47 Dose: 400 mls/hr Daptomycin 290 mg/ Sodium (Chloride) 100 mls @ 200 mls/hr IV DAILY [facility] PRN Reason: Protocol Stop: 03/11/17 10:01 Last Admin: 03/07/17 15:00 Dose: 200 mls/hr Chromium/Copper/Manganese/Zinc 1 ml/ Multivitamins/Vitamin C 10 ml/ Amino Acids/ Electrolytes/Dextrose 1,011 mls @ 42 mls/hr IV .Q24H [facility] Fat Emulsion Intravenous (Intralipid 20%) 250 mls @ 21 mls/hr IV 1800 [facility] Insulin Human Regular (Humulin R Low) 0 units SC ACHS SARANYA PRN Reason: Protocol Last Admin: 03/07/17 11:30 Dose: Not Given Latanoprost (Xalatan Opht) 0 ml OS HS [facility] Last Admin: 03/06/17 22:00 Dose: 2.5 ml Pantoprazole Sodium (Protonix Inj) 40 mg IVP DAILY [facility] Last Admin: 03/07/17 11:48 Dose: 40 mg Pilocarpine HCl (Isopto Carpine 2% Opht Soln) 0 ml OS DAILY [facility] Last Admin: 03/07/17 11:50 Dose: 1 drop Timolol Maleate (Timoptic 0.5% Ophth Soln) 1 drop OS BID [facility] Last Admin: 03/07/17 11:49 Dose: 1 drop - Labs Labs: 03/07/17 06:45 03/07/17 06:45 PT 12.1 Seconds (9.9-11.8) H 03/03/17 05:30 INR 1.12 (0.93-1.08) H 03/03/17 05:30 APTT 32.2 Seconds (23.7-30.8) H 03/03/17 05:30 - Constitutional Appears: Cachectic, Chronically Ill - Eye Exam Eye Exam: Normal appearance, PERRL - ENT Exam ENT Exam: Mucous Membranes Moist - Respiratory Exam Respiratory Exam: Decreased Breath Sounds, NORMAL BREATHING PATTERN - Cardiovascular Exam Cardiovascular Exam: REGULAR RHYTHM, +S1 - GI/Abdominal Exam GI & Abdominal Exam: Soft, Normal Bowel Sounds - Extremities Exam Additional comments: left AKA dressing dry - Back Exam Back Exam: NORMAL INSPECTION - Skin Skin Exam: Dry, Pallor Assessment and Plan - Assessment and Plan (Free Text) Assessment: 89 year male admitted with sepsis, dysphagia, left lower extremity s/p left AKA. Family had originally stated that they wanted to purse hospice care after patient had left AKA surgery. Daughter indicated that she wanted to take the patient home with hospice and already had a preliminary meeting with [facility] tank wagon operator. I spoke with patient's daughter Gisselle and her brother this morning. Family states that they were offered option to transfer to LTAC in order to complete antibiotic therapy. The patient remains NPO as he failed prior speech and swallow exam. Currently receiving TPN. Family also considering PEG placement. We discussed the befits and burdens of both options for care. Family undecided at this time. They indicated that they are going to see several LTAC facility's before making any decisions. Family specifically asked if hospice can be initiated at a later point in time. I explained that hospice was a personal choice based on goals of care and that it could be considered in the future if the family was not ready at this time. Encouraged to come to decision regarding this matter sot that outsole caser can work on appropriate discharge plan. Psychosocial support given. Time spent in discussion with patient family regarding goals of care and hospice services , 45 minutes Plan: Will follow and assist with establishing future goals of care No further recommendations at this time
[2017-03-07 15:38] LABS: URINE APPEARANCE CLEAR (CLEAR); URINE COLOR YELLOW (YELLOW)
[2017-03-07 15:46] LABS: URINE BACTERIA FEW (NEG); URINE EPITHELIAL CELLS 0 - 2 /hpf (0-5); URINE WBC 0 - 2 /hpf (0-6)
[2017-03-07] MEDS: Fat Emulsion 20% IV 250 ML IV SCH (18:13)
[2017-03-07] MEDS: Latanoprost 2.5 ml Opht Soln OS SCH (21:36)
[2017-03-08 06:45] LABS: HEMATOCRIT 29.2 % (42.0-52.0); MEAN CELL VOLUME 92.7 fL (80.0-105.0); MEAN CORPUSCULAR HEMOGLOBIN 30.8 pg (25.0-35.0); MEAN CORPUSCULAR HGB CONC 33.2 g/dl (31.0-37.0); MEAN PLATELET VOLUME 9.9 fl (7.0-11.0); RED CELL DISTRIBUTION WIDTH 16.3 % (11.5-14.5); WHITE BLOOD COUNT 15.4 [, 10^3/ul] (4.5-11.0)
[2017-03-08 06:51] LABS: BILIRUBIN,TOTAL 0.6 mg/dL (0.2-1.3); CALCIUM 8.8 mg/dL (8.4-10.5); GFR AFRICAN-AMERICAN > 60; GLUCOSE,RANDOM 113 mg/dL (70-110); MAGNESIUM 1.7 mg/dL (1.7-2.2); PHOSPHOROUS 2.3 mg/dL (2.5-4.5); POTASSIUM 3.4 mmol/L (3.6-5.0)
[2017-03-08 07:02] LABS: ALB/GLOB RATIO 0.6 (1.1-1.8); ALKALINE PHOSPHATASE 154 U/L (38-133); ALT/SGPT 84 U/L (7-56); AST/SGOT 93 U/L (15-59); BLOOD UREA NITROGEN 26 mg/dL (7-21); CARBON DIOXIDE 21 mmol/L (21-33); CHLORIDE 115 mmol/L (98-107); SODIUM 142 mmol/L (132-148)
[2017-03-08] MEDS: Insulin Reg-LOW-Coverage SC SCH ×4 (09:04→22:06)
[2017-03-08] MEDS: levETIRAcetam 500mg IVPB 500 MG/100 ML BAG IVPB SCH ×2 (10:24→21:31)
[2017-03-08] MEDS: NEPAFENAC 0.3% OS SCH (10:26)
[2017-03-08] MEDS: Pilocarpine 2% Opht (15ml) OS SCH (10:26)
--- NOTE | 2017-03-08 11:44 | PN ---
DATE: 03/08/2017 SUBJECTIVE: The patient is in bed in no acute distress, nontoxic. PHYSICAL EXAMINATION: VITAL SIGNS: Temperature is 98, blood pressure is 105/60, respiratory rate of 16. HEENT: Unremarkable. NECK: Supple. LUNGS: Have decreased breath sounds. HEART: Normal S1, S2. ABDOMEN: Soft, nontender. LABORATORY EXAMINATION: Reveals a white count of 15,400, hemoglobin of 9, BUN of 26, creatinine 0.9, and procalcitonin is 4.81. Microbiology reveals coag negative staph. The repeat blood cultures from 03/07 are no growth. Review of orders reveals the patient to be on daptomycin. Yuly Schreiber's note is reviewed cooler man. ASSESSMENT AND PLAN: The patient is an 89-year-old with severe sepsis with left lower ischemia, stat us post left [id number] amputation and post-procedure day #5, with corynebacterium bacteremia and repeat blood culture, most likely a contamination on daptomycin. Patient for possible PEG tube plac ement. Will follow closely with you. Jesus Brenner MD cc: 350 TT: 03/08/2017 11:44:00 Confirmation # [id number] Dictation # [id number] [email or web address]
--- NOTE | 2017-03-08 11:54 | PN ---
DATE: 03/08/2017 SUBJECTIVE: The patient is 89 years old, cachectic and malnourished, lying in bed with head side at least 70-degree. Still has gurgling secretion in his upper throat, upper lung region and back of the throat. Seems to be lethargic. Opens eyes on verbal command. PHYSICAL EXAMINATION: VITAL SIGNS: He is afebrile, pulse 87, respirations 18, blood pressure 105/66. LUNGS: Bilateral rattling in upper lung region. HEART: S1, S2. ABDOMEN: Soft, nontender, no rebound, no guarding. NEUROLOGIC: He is sleepy, but arousable. LABORATORY EXAMINATION: WBC is 15.4, hemoglobin 9.7, hematocrit 29.2, platelet of 105. Chemistry: Sodium 142, potassium 3.4, chloride 115, CO2 21, BUN 26, creatinine 0.9, blood sugar 113. LFTs shows AST 93, ALT 84, alkaline phosphatase is 154, Keppra level is 50. His latest blood cultures are nega tive. Blood culture done on 03/03 positive for coagulase negative staph. ASSESSMENT AND PLAN: 1. Cachexia and malnutrition. 2. Dysphagia. 3. Electrolyte imbalance. 4. Hypokalemia. 5. Status post dehydration and hyponatremia that has improved. 6. Status post left AKA history of CVA in the past with left-sided weakness. PLAN: At this point, patient is on nutrition, he is getting daptomycin. His blood sugar is be ing monitored. He is requiring intermittent suction. He is on Keppra and Protonix. We will supplem ent his potassium. The patient is DNR. Poor prognosis. Tyler Hathaway MD cc: [phone] TT: 03/08/2017 11:54:10 Confirmation # [id number] Dictation # [id number] carmelita
--- NOTE | 2017-03-08 14:29 | CP.PCM.PN ---
Subjective - Date & Time of Evaluation Date of Evaluation: 03/08/17 Time of Evaluation: 14:20 - Subjective Subjective: Patient has very poor veins,needs iv access. Objective - Vital Signs/Intake and Output Vital Signs (last 24 hours): Temp Pulse Resp BP Pulse Ox 98.2 F 87 18 105/66 89 L 03/08/17 09:51 03/08/17 09:51 03/08/17 09:51 03/08/17 09:51 03/08/17 09:51 Intake and Output: 03/08/17 03/08/17 06:59 18:59 Output Total 450 Balance -450 - Medications Medications: Current Medications Heparin Sodium (Porcine) (Heparin) 5,000 units SC Q12 [facility] PRN Reason: Protocol Last Admin: 03/01/17 22:16 Dose: 5,000 units Home Med (Home Med) 1 unit OS DAILY [facility] Last Admin: 03/08/17 10:26 Dose: 1 unit Levetiracetam (Keppra 500mg Ivpb) 500 mg in 100 mls @ 400 mls/hr IVPB Q12 [facility] Last Admin: 03/08/17 10:24 Dose: 400 mls/hr Daptomycin 290 mg/ Sodium (Chloride) 100 mls @ 200 mls/hr IV DAILY [facility] PRN Reason: Protocol Stop: 03/11/17 10:01 Last Admin: 03/08/17 10:25 Dose: 200 mls/hr Chromium/Copper/Manganese/Zinc 1 ml/ Multivitamins/Vitamin C 10 ml/ Amino Acids/ Electrolytes/Dextrose 1,011 mls @ 42 mls/hr IV .Q24H [facility] Last Admin: 03/07/17 18:13 Dose: 42 mls/hr Fat Emulsion Intravenous (Intralipid 20%) 250 mls @ 21 mls/hr IV 1800 [facility] Last Admin: 03/07/17 18:13 Dose: 21 mls/hr Insulin Human Regular (Humulin R Low) 0 units SC ACHS [facility] PRN Reason: Protocol Last Admin: 03/08/17 09:04 Dose: Not Given Latanoprost (Xalatan Opht) 0 ml OS HS [facility] Last Admin: 03/07/17 21:36 Dose: 2.5 ml Pantoprazole Sodium (Protonix Inj) 40 mg IVP DAILY [facility] Last Admin: 03/08/17 10:27 Dose: 40 mg Pilocarpine HCl (Isopto Carpine 2% Opht Soln) 0 ml OS DAILY [facility] Last Admin: 03/08/17 10:26 Dose: 1 drop Timolol Maleate (Timoptic 0.5% Ophth Soln) 1 drop OS BID [facility] Last Admin: 03/08/17 10:26 Dose: 1 drop - Labs Labs: 03/08/17 06:30 03/08/17 06:30 PT 12.1 Seconds (9.9-11.8) H 03/03/17 05:30 INR 1.12 (0.93-1.08) H 03/03/17 05:30 APTT 32.2 Seconds (23.7-30.8) H 03/03/17 05:30 - Constitutional Appears: No Acute Distress Assessment and Plan - Assessment and Plan (Free Text) Assessment: Poor venous access Plan: Hep lock inserted in the L forearm. # 24 angiocath used.
[2017-03-08] MEDS: Fat Emulsion 20% IV 250 ML IV SCH (17:09)
[2017-03-08] MEDS: Latanoprost 2.5 ml Opht Soln OS SCH (21:32)
[2017-03-09] MEDS: Insulin Reg-LOW-Coverage SC SCH ×4 (07:50→22:42)
[2017-03-09] MEDS: levETIRAcetam 500mg IVPB 500 MG/100 ML BAG IVPB SCH ×2 (10:30→22:28)
[2017-03-09] MEDS: NEPAFENAC 0.3% OS SCH (10:31)
[2017-03-09] MEDS: Pilocarpine 2% Opht (15ml) OS SCH (10:31)
--- NOTE | 2017-03-09 11:47 | PN ---
DATE: 03/09/2017 The patient is in bed in no acute distress, nontoxic. PHYSICAL EXAMINATION: VITAL SIGNS: Temperature is 98, blood pressure is 116/70, respiratory rate of 18. HEENT: Unremarkable. NECK: Supple. LUNGS: Have decreased breath sounds. HEART: Normal S1, S2. ABDOMEN: Soft, nontender. LABORATORY DATA: Reveals a white count of 15,400, hemoglobin of 9, platelets of 105. Chemistries ar e noted. BUN of 26, creatinine of 0.9. Microbiology is noted. Dr. King's note is reviewed. ASSESSMENT AND PLAN: This is an 89-year-old with severe sepsis, left lower ischemia status post left above-knee amputation, status post procedure post with corynebacterium bacteremia. Repeat cult ures negative with contamination, currently on daptomycin. Questionable percutaneous endoscopic gastrostomy tube placement. Dr. Hathaway's note is reviewed. Concerned about endocarditis in this p atient who had a cerebrovascular accident and a cold foot, unable to decipher through the echo findin gs, currently on daptomycin day #7 of 28 days. We will order a sed rate, C-reactive protein and CPK. Jesus Brenner MD cc: [phone] TT: 03/09/2017 11:46:35 Confirmation # [id number] Dictation # [id number] mn
--- NOTE | 2017-03-09 15:26 | PN ---
DATE: 03/09/2017 The patient is an 89-year-old, seen and examined, malnourished, cachectic, n.p.o., unable to swallow and has gurgling secretions in upper lung region. PHYSICAL EXAMINATION: VITAL SIGNS: He is afebrile, pulse 87, respirations 18, blood pressure 111/67. LUNGS: Bilateral soft crackle in upper lung region. HEART: S1, S2 audible. ABDOMEN: Soft, nontender, no rebound, no guarding. NEUROLOGIC: He is awake and alert. He is status post left above knee amputation. LABORATORY EXAMINATION: WBCs 15.4, hemoglobin 9.7, hematocrit 29.2, platelets 105. PT 12.1, INR 1.1 2. Chemistry: Sodium 142, potassium 3.4, chloride 115, CO2 21, BUN 26, creatinine 0.9, blood sugar of 113. Urine culture from 03/07 negative. Blood cultures on 03/07 are also negative. ASSESSMENT: 1. Malnutrition and cachexia. 2. Dysphagia. 3. Electrolyte imbalance. 4. Improved renal insufficiency. 5. Status post left above knee amputation. PLAN: The patient is DNR and DNI. At this point, he needs supportive care. Currently, he is gettin g TPN. He is on daptomycin. He is on DVT prophylaxis and I discussed with patient need to have inte rmittent suction to clear up his throat. Tyler Hathaway MD cc: [phone] TT: 03/09/2017 15:25:31 Confirmation # [id number] Dictation # [id number] en
[2017-03-09] MEDS: Fat Emulsion 20% IV 250 ML IV SCH (18:00)
--- NOTE | 2017-03-09 22:27 | PN ---
DATE: 03/09/[address] Julito Myers. This patient was seen and evaluated earlier today, discussed with the nursing staff. On examination, the patient is comfortable. Appeared very cachectic, has been getting TPN. PHYSICAL EXAMINATION: VITAL SIGNS: Afebrile, pulse 87, respirations 18, blood pressure 111/67. HEENT: Atraumatic, anicteric. NECK: Supple. HEART: S1, S2 heard. LUNGS: Bilateral air entry present. A few crackles . ABDOMEN: Soft. There is no mass palpable. EXTREMITIES: No tenderness. LABORATORY DATA: Hemoglobin 9.7, hematocrit 29.2, INR 1.1, WBC is 15.4. IMPRESSION/PLAN: Malnutrition and cachexia, history of dysphagia, status post below knee amputation. The patient is a DNR/DNI on TPN. The patient is on daptomycin. Awaiting for the family's decision regarding the gastrostomy tube. Ihsan Calderon MD cc: [phone] TT: 03/09/2017 22:26:51 Confirmation # [id number] Dictation # [id number] alexandru BILLINGS
[2017-03-09] MEDS: Latanoprost 2.5 ml Opht Soln OS SCH (22:28)
--- NOTE | 2017-03-10 07:43 | PN ---
DATE: 03/10/2017 SUBJECTIVE: The patient does not communicate well. The patient does open eyes , but does not respond. PHYSICAL EXAMINATION: VITAL SIGNS: Temperature 98, pulse of 84, blood pressure is 110/64, respiration is 18. GENERAL: The patient comfortable, in no acute distress. HEENT: Anicteric sclerae. Moist mucosa. NECK: No JVD or adenopathy. CARDIAC: S1/S2. No murmurs. No rubs. Regular. RESPIRATORY: Clear to auscultation bilaterally. No wheezes, rales, or rhonchi. Good air entry. ABDOMEN: Bowel sounds are positive, soft, nontender, and nondistended. EXTREMITIES: No edema. Has 1+ pulses. Left above knee amputation. ASSESSMENT: 1. Dysphagia. 2. Malnutrition. 3. Status post above knee amputation. 4. Hypokalemia, improved. 5. Cerebrovascular accident with left-sided residual weakness. 6. Dyslipidemia. 7. Hypophosphatemia, improved. 8. Do not resuscitate/do not intubate. PLAN: The patient is currently comfortable. He is being followed by GI. The patient is on heparin for deep venous thrombosis prophylaxis. This is on hold. The patient is on daptomycin for antibiotics. He is on Protonix IV. He is on his Timolol eyedrops. Awaiting patient's family's decision regarding percutaneous endoscopic gastrostomy placement. Jerome Diez MD cc: [phone] TT: 03/10/2017 07:43:07 Confirmation # [id number] Dictation # [id number] en MTDD
[2017-03-10] MEDS: Insulin Reg-LOW-Coverage SC SCH ×5 (08:30→21:42)
[2017-03-10] MEDS ORDERED: POTASSIUM CHL IV SCH (09:11)
[2017-03-10] MEDS ORDERED: D5W IV SCH (09:11)
[2017-03-10] MEDS: Pilocarpine 2% Opht (15ml) OS SCH (09:34)
[2017-03-10] MEDS: NEPAFENAC 0.3% OS SCH (09:34)
[2017-03-10] MEDS: levETIRAcetam 500mg IVPB 500 MG/100 ML BAG IVPB SCH ×2 (09:34→21:40)
--- NOTE | 2017-03-10 10:53 | CP.PCM.PN ---
Subjective - Date & Time of Evaluation Date of Evaluation: 03/10/17 Time of Evaluation: 10:00 - Subjective Subjective: Lethargic, answers simple questions. Denies pain. Non productive cough. Dysphagia, NPO Objective - Vital Signs/Intake and Output Vital Signs (last 24 hours): Temp Pulse Resp BP Pulse Ox 98.5 F 104 H 20 103/64 95 03/10/17 07:30 03/10/17 07:30 03/10/17 07:30 03/10/17 07:30 03/10/17 07:30 Intake and Output: 03/10/17 03/10/17 06:59 18:59 Intake Total 0 Output Total 800 Balance -800 - Medications Medications: Current Medications Heparin Sodium (Porcine) (Heparin) 5,000 units SC Q12 [facility] PRN Reason: Protocol Last Admin: 03/01/17 22:16 Dose: 5,000 units Home Med (Home Med) 1 unit OS DAILY [facility] Last Admin: 03/10/17 09:34 Dose: 1 unit Levetiracetam (Keppra 500mg Ivpb) 500 mg in 100 mls @ 400 mls/hr IVPB Q12 [facility] Last Admin: 03/10/17 09:34 Dose: 400 mls/hr Daptomycin 290 mg/ Sodium (Chloride) 100 mls @ 200 mls/hr IV DAILY [facility] PRN Reason: Protocol Stop: 03/11/17 10:01 Last Admin: 03/09/17 10:30 Dose: 200 mls/hr Chromium/Copper/Manganese/Zinc 1 ml/ Multivitamins/Vitamin C 10 ml/ Amino Acids/ Electrolytes/Dextrose 1,011 mls @ 42 mls/hr IV .Q24H [facility] Last Admin: 03/09/17 17:05 Dose: 42 mls/hr Fat Emulsion Intravenous (Intralipid 20%) 250 mls @ 21 mls/hr IV 1800 [facility] Last Admin: 03/09/17 18:00 Dose: 21 mls/hr Potassium Chloride (Potassium Chloride 20 Meq/100 Ml) 20 meq in 100 mls @ 50 mls/hr IVPB Q2H [facility] Stop: 03/10/17 13:44 Insulin Human Regular (Humulin R Low) 0 units SC ACHS [facility] PRN Reason: Protocol Last Admin: 03/10/17 08:30 Dose: Not Given Latanoprost (Xalatan Opht) 0 ml OS HS [facility] Last Admin: 03/09/17 22:28 Dose: 2.5 ml Pantoprazole Sodium (Protonix Inj) 40 mg IVP DAILY [facility] Last Admin: 03/10/17 09:33 Dose: 40 mg Pilocarpine HCl (Isopto Carpine 2% Opht Soln) 0 ml OS DAILY [facility] Last Admin: 03/10/17 09:34 Dose: 1 drop Timolol Maleate (Timoptic 0.5% Ophth Soln) 1 drop OS BID [facility] Last Admin: 03/10/17 09:35 Dose: 1 drop - Labs Labs: 03/08/17 06:30 03/08/17 06:30 PT 12.1 Seconds (9.9-11.8) H 03/03/17 05:30 INR 1.12 (0.93-1.08) H 03/03/17 05:30 APTT 32.2 Seconds (23.7-30.8) H 03/03/17 05:30 - Constitutional Appears: Cachectic, Chronically Ill - Head Exam Head Exam: NORMAL INSPECTION - Eye Exam Eye Exam: Normal appearance, PERRL - ENT Exam ENT Exam: Mucous Membranes Moist - Respiratory Exam Respiratory Exam: Decreased Breath Sounds, Rhonchi, NORMAL BREATHING PATTERN - Cardiovascular Exam Cardiovascular Exam: REGULAR RHYTHM, +S1, +S2 - GI/Abdominal Exam GI & Abdominal Exam: Soft, Diminished Bowel Sounds - Extremities Exam Additional comments: left AKA, dressing dry - Skin Skin Exam: Dry Additional comments: stage 1 decubiti both lower buttocks Assessment and Plan - Assessment and Plan (Free Text) Assessment: 89 year old male admitted with LLE vascular occlusion s/p left AKA, sepsis, dysphagia, malnutrition, hypokalemia, hypophosphatemia. History of CVA, left sided weakness. The patient is DNR/DNI. Family had been considering hospice care, but have since decided to transfer patient to LTAC for completion of antibiotic therapy He has dysphagia and is receiving TPN. Family considering PEG. Benefits and burdens of PEG discussed at length. Psychosocial support given. Time spent in discussion with daughter regarding goals of care, 15 minutes Plan: Transfer to LTAC. Thank you for allowing me to participate i this patient care.
[2017-03-10] MEDS ORDERED: Levalbuterol 0.63 MG/3 ML Inhal Soln UD IH STA (14:10)
--- NOTE | 2017-03-10 15:00 | CP.PCM.PN ---
Subjective - Date & Time of Evaluation Date of Evaluation: 03/10/17 Time of Evaluation: 07:00 - Subjective Subjective: Surgery: Dr. Nagel Pt seen and examined. No acute overnight events. Pt continues to be minimally responsive. Denies pain. No fevers overnight. Objective - Vital Signs/Intake and Output Vital Signs (last 24 hours): Temp Pulse Resp BP Pulse Ox 102.2 F H 104 H 20 103/64 95 03/10/17 14:11 03/10/17 07:30 03/10/17 07:30 03/10/17 07:30 03/10/17 07:30 Intake and Output: 03/10/17 03/10/17 06:59 18:59 Intake Total 0 Output Total 800 Balance -800 - Medications Medications: Current Medications Acetaminophen (Tylenol 650 Mg Supp) 650 mg RC Q4H PRN PRN Reason: Fever >100.4 F Last Admin: 03/10/17 14:11 Dose: 650 mg Heparin Sodium (Porcine) (Heparin) 5,000 units SC Q12 [facility] PRN Reason: Protocol Last Admin: 03/01/17 22:16 Dose: 5,000 units Home Med (Home Med) 1 unit OS DAILY [facility] Last Admin: 03/10/17 09:34 Dose: 1 unit Levetiracetam (Keppra 500mg Ivpb) 500 mg in 100 mls @ 400 mls/hr IVPB Q12 [facility] Last Admin: 03/10/17 09:34 Dose: 400 mls/hr Daptomycin 290 mg/ Sodium (Chloride) 100 mls @ 200 mls/hr IV DAILY [facility] PRN Reason: Protocol Stop: 03/11/17 10:01 Last Admin: 03/10/17 12:40 Dose: Not Given Chromium/Copper/Manganese/Zinc 1 ml/ Multivitamins/Vitamin C 10 ml/ Amino Acids/ Electrolytes/Dextrose 1,011 mls @ 42 mls/hr IV .Q24H [facility] Last Admin: 03/09/17 17:05 Dose: 42 mls/hr Fat Emulsion Intravenous (Intralipid 20%) 250 mls @ 21 mls/hr IV 1800 [facility] Last Admin: 03/09/17 18:00 Dose: 21 mls/hr Insulin Human Regular (Humulin R Low) 0 units SC ACHS [facility] PRN Reason: Protocol Last Admin: 03/10/17 12:30 Dose: Not Given Latanoprost (Xalatan Opht) 0 ml OS HS [facility] Last Admin: 03/09/17 22:28 Dose: 2.5 ml Pantoprazole Sodium (Protonix Inj) 40 mg IVP DAILY [facility] Last Admin: 03/10/17 09:33 Dose: 40 mg Pilocarpine HCl (Isopto Carpine 2% Opht Soln) 0 ml OS DAILY [facility] Last Admin: 03/10/17 09:34 Dose: 1 drop Timolol Maleate (Timoptic 0.5% Ophth Soln) 1 drop OS BID [facility] Last Admin: 03/10/17 09:35 Dose: 1 drop - Labs Labs: 03/08/17 06:30 03/08/17 06:30 PT 12.1 Seconds (9.9-11.8) H 03/03/17 05:30 INR 1.12 (0.93-1.08) H 03/03/17 05:30 APTT 32.2 Seconds (23.7-30.8) H 03/03/17 05:30 - Constitutional Appears: Well, No Acute Distress - Head Exam Head Exam: ATRAUMATIC, NORMOCEPHALIC - ENT Exam ENT Exam: Mucous Membranes Moist - Respiratory Exam Respiratory Exam: NORMAL BREATHING PATTERN - Cardiovascular Exam Cardiovascular Exam: RRR - GI/Abdominal Exam GI & Abdominal Exam: Soft. absent: Tenderness - Extremities Exam Additional comments: L AKA stump with kike in place, C/D/I - Neurological Exam Neurological Exam: Alert, Awake - Skin Skin Exam: Dry, Warm Assessment and Plan - Assessment and Plan (Free Text) Assessment: 89M s/p L AKA; POD# 8 Plan: - no further surgical intervention at this time - Keep dressing dry and intact; kike will stay in for another week - d/w Dr. Robe Lee, PGY-2 Surgery
[2017-03-10 15:52] LABS: ADD MANUAL DIFF? NO
[2017-03-10 16:16] LABS: BASO # 0.01 [, K/mm3] (0.0-2.0); BASO % 0.1 % (0.0-3.0); EOS % 0.1 % (1.5-5.0); GRAN # 11.66 (1.4-6.5); LYMPH # 0.3 (1.2-3.4); LYMPH % 2.7 % (22.0-35.0); MEAN CORPUSCULAR HEMOGLOBIN 30.5 pg (25.0-35.0); MEAN CORPUSCULAR HGB CONC 33.9 g/dl (31.0-37.0); MEAN PLATELET VOLUME 9.5 fl (7.0-11.0); MONO # 0.4 (0.1-0.6); MONO % 3.1 % (1.0-6.0); PLATELET COUNT 136 [, 10^3/uL] (120.0-450.0); RED CELL DISTRIBUTION WIDTH 15.6 % (11.5-14.5); WHITE BLOOD COUNT 12.4 [, 10^3/ul] (4.5-11.0)
--- NOTE | 2017-03-10 16:31 | CP.PCM.PN ---
Subjective - Date & Time of Evaluation Date of Evaluation: 03/10/17 Time of Evaluation: 14:00 - Subjective Subjective: callled by nurse pt is sob and hypoxic and has temp of 102.2 . pt has multiple medical problems including cva bed ridden sepsis. s/ left aka ,copd is in moderarte resiratory distress , pulse ox is 75 , hr 143 bp 124/67 obtunded. Objective - Vital Signs/Intake and Output Vital Signs (last 24 hours): Temp Pulse Resp BP Pulse Ox 100.6 F H 110 H 18 90/50 L 98 03/10/17 16:00 03/10/17 16:00 03/10/17 16:00 03/10/17 16:00 03/10/17 16:00 Intake and Output: 03/10/17 03/10/17 06:59 18:59 Intake Total 0 Output Total 800 425 Balance -800 -425 - Medications Medications: Current Medications Acetaminophen (Tylenol 650 Mg Supp) 650 mg RC Q4H PRN PRN Reason: Fever >100.4 F Last Admin: 03/10/17 14:11 Dose: 650 mg Heparin Sodium (Porcine) (Heparin) 5,000 units SC Q12 [facility] PRN Reason: Protocol Last Admin: 03/01/17 22:16 Dose: 5,000 units Home Med (Home Med) 1 unit OS DAILY [facility] Last Admin: 03/10/17 09:34 Dose: 1 unit Levetiracetam (Keppra 500mg Ivpb) 500 mg in 100 mls @ 400 mls/hr IVPB Q12 [facility] Last Admin: 03/10/17 09:34 Dose: 400 mls/hr Daptomycin 290 mg/ Sodium (Chloride) 100 mls @ 200 mls/hr IV DAILY [facility] PRN Reason: Protocol Stop: 03/11/17 10:01 Last Admin: 03/10/17 15:46 Dose: 200 mls/hr Chromium/Copper/Manganese/Zinc 1 ml/ Multivitamins/Vitamin C 10 ml/ Amino Acids/ Electrolytes/Dextrose 1,011 mls @ 42 mls/hr IV .Q24H [facility] Last Admin: 03/09/17 17:05 Dose: 42 mls/hr Fat Emulsion Intravenous (Intralipid 20%) 250 mls @ 21 mls/hr IV 1800 [facility] Last Admin: 03/09/17 18:00 Dose: 21 mls/hr Insulin Human Regular (Humulin R Low) 0 units SC ACHS [facility] PRN Reason: Protocol Last Admin: 03/10/17 12:30 Dose: Not Given Latanoprost (Xalatan Opht) 0 ml OS HS [facility] Last Admin: 03/09/17 22:28 Dose: 2.5 ml Pantoprazole Sodium (Protonix Inj) 40 mg IVP DAILY [facility] Last Admin: 03/10/17 09:33 Dose: 40 mg Pilocarpine HCl (Isopto Carpine 2% Opht Soln) 0 ml OS DAILY [facility] Last Admin: 03/10/17 09:34 Dose: 1 drop Timolol Maleate (Timoptic 0.5% Ophth Soln) 1 drop OS BID [facility] Last Admin: 03/10/17 09:35 Dose: 1 drop - Labs Labs: 03/10/17 15:25 03/08/17 06:30 PT 12.1 Seconds (9.9-11.8) H 03/03/17 05:30 INR 1.12 (0.93-1.08) H 03/03/17 05:30 APTT 32.2 Seconds (23.7-30.8) H 03/03/17 05:30 - Constitutional Appears: In Acute Distress - Head Exam Head Exam: NORMOCEPHALIC - ENT Exam ENT Exam: Mucous Membranes Moist - Neck Exam Additional comments: n/a. - Respiratory Exam Respiratory Exam: Accessory Muscle Use, Decreased Breath Sounds - Cardiovascular Exam Cardiovascular Exam: Tachycardia, RRR, +S1, +S2 - Rectal Exam Rectal Exam: Deferred - Extremities Exam Additional comments: n/a pt is obtunded. - Neurological Exam Neurological Exam: Altered - Skin Skin Exam: Dry, Warm Assessment and Plan - Assessment and Plan (Free Text) Assessment: sepsis/ hypoxia /sob/ copd.fever. cva. dnr dni. Plan: tylenol stst given to pt. xopnex nebs tretment given pt is placed on bipap. cbc ,blood c/sx2.
[2017-03-10] MEDS: Fat Emulsion 20% IV 250 ML IV SCH (18:02)
--- NOTE | 2017-03-10 21:32 | PN ---
DATE: 03/10/2017 ADDENDUM SUBJECTIVE: This patient was seen and evaluated earlier. The patient's family was at bedside. VITAL SIGNS: Temperature was 102.2 this afternoon T-max, blood pressure 190/50 , respirations 18, O2 sat is 98. This patient was originally scheduled for LTAC transfer, but it was held because of the fever and ____ episode with respiratory distress and poor respiratory status. PHYSICAL EXAMINATION: ABDOMEN: Soft. There is no tenderness. HEENT: Atraumatic, anicteric. NECK: Supple. HEART: S1, S2 heard. Tachycardic. Heart rate was 110. EXTREMITIES: No cyanosis. IMPRESSION/PLAN: This is an 89-year-old patient with dysphagia, status post cerebrovascular accident, dyslipidemia, now admitted with sepsis. The patient has spiked a fever, the transfer was canceled. I have detailed discussion with the patient's daughter who was there at bedside. She still is reluctant to have a PEG tube placement. Still they have not made any decision about the PEG tube. However, this procedure cannot be scheduled at this stage unless the patient's condition is optimized to withstand anesthesia. Thank you very much for allowing us to participate in the care of the patient. Ihsan Calderon MD cc: [phone] TT: 03/10/2017 21:31:59 Confirmation # [id number] Dictation # [id number] jn MTDD
[2017-03-10] MEDS: Latanoprost 2.5 ml Opht Soln OS SCH (21:41)
--- NOTE | 2017-03-10 22:45 | PN ---
DATE: 03/10/2017 The patient is in bed in no acute distress. Nontoxic. PHYSICAL EXAMINATION: VITAL SIGNS: Temperature is 100.6, blood pressure is 190/50, respiratory rate of 18, a heart rate of 110. HEENT: Unremarkable. NECK: Supple. LUNGS: Decreased breath sounds. HEART: Normal S1, S2. ABDOMEN: Soft. LABORATORY DATA: Reveals a white count of 12.4. Microbiology is noted. The repeat cultures are neg ative. ASSESSMENT AND PLAN: This is an 89-year-old male seen earlier this morning with severe sepsis; left lower ischemia, status post left above-knee amputation post-procedure with corynebacterium bact eremia. Repeat cultures negative. Currently on daptomycin, now day #8 of 28 days, now with no fever s and tachycardia . Overall, prognosis is quite poor for this 89-year-old male with multiple m edical problems. The patient, this morning, was lethargic and overall in poor condition. 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 Jesus Brenner MD cc: [phone] TT: 03/10/2017 22:44:56 Confirmation # [id number] Dictation # [id number] tn
[2017-03-11] MEDS ORDERED: Levalbuterol 0.63 MG/3 ML Inhal Soln UD IH STA (06:24)
--- NOTE | 2017-03-11 07:11 | CP.PCM.PN ---
Subjective - Date & Time of Evaluation Date of Evaluation: 03/11/17 Time of Evaluation: 06:49 - Subjective Subjective: Patient evaluated for SOB by the nurse, requested by PMD. Patient has h/o cornebacterium bacterimia, left AKA, right picc line, has klein, on TPN, lethargic, DNR/DNI was suppose to go to [facility] but developed fever and sob, overnight has been on 100% FIO2 BIPAP 10/08, got sob this am as per the nursing. Upon exam VS reviewed, RR 34/min, SPO2 100% on above setting, temp 100F, HR 115/ min, 200/100. Patient is lethargic, exhausted, nonverbal No JVD, dermoid cyst on the left side of neck Chest scattered ronchi CVS regular tachycardia PA soft Ext left AKA, right reduced turgor Skin dry reduced turgor, picc line on the left side. CXR done now shows reduced volume on the right side with opacity suggesting atelectesis/pna with effusion, picc line on the right side. Assessment SOB resp distress, cxr with opacity on the right DD of PNA/PE, sepsis Failure to thrive Clinically dehydrated Elevated BP/Pulse from the current stress, clinically not chf DNR/DNI Plan Discussed with the attending on the phone, stat, labs, abg, bc, urine, ordered, EKG, cxr done, w/u for DD ICU Eval called Will empirically add broad spectrum coverage See orders for detail. Objective - Vital Signs/Intake and Output Vital Signs (last 24 hours): Temp Pulse Resp BP Pulse Ox 100.6 F H 110 H 18 90/50 L 98 03/10/17 16:00 03/11/17 04:00 03/10/17 16:00 03/10/17 16:00 03/10/17 16:00 Intake and Output: 03/10/17 03/11/17 18:59 06:59 Intake Total 0 Output Total 425 200 Balance -425 -200 - Medications Medications: Current Medications Acetaminophen (Tylenol 650 Mg Supp) 650 mg RC Q4H PRN PRN Reason: Fever >100.4 F Last Admin: 03/10/17 14:11 Dose: 650 mg Heparin Sodium (Porcine) (Heparin) 5,000 units SC Q12 [facility] PRN Reason: Protocol Last Admin: 03/01/17 22:16 Dose: 5,000 units Home Med (Home Med) 1 unit OS DAILY [facility] Last Admin: 03/10/17 09:34 Dose: 1 unit Levetiracetam (Keppra 500mg Ivpb) 500 mg in 100 mls @ 400 mls/hr IVPB Q12 [facility] Last Admin: 03/10/17 21:40 Dose: 400 mls/hr Daptomycin 290 mg/ Sodium (Chloride) 100 mls @ 200 mls/hr IV DAILY [facility] PRN Reason: Protocol Stop: 03/11/17 10:01 Last Admin: 03/10/17 15:46 Dose: 200 mls/hr Chromium/Copper/Manganese/Zinc 1 ml/ Multivitamins/Vitamin C 10 ml/ Amino Acids/ Electrolytes/Dextrose 1,011 mls @ 42 mls/hr IV .Q24H [facility] Last Admin: 03/10/17 18:01 Dose: 42 mls/hr Fat Emulsion Intravenous (Intralipid 20%) 250 mls @ 21 mls/hr IV 1800 [facility] Last Admin: 03/10/17 18:02 Dose: 21 mls/hr Insulin Human Regular (Humulin R Low) 0 units SC ACHS [facility] PRN Reason: Protocol Last Admin: 03/10/17 21:42 Dose: Not Given Latanoprost (Xalatan Opht) 0 ml OS HS [facility] Last Admin: 03/10/17 21:41 Dose: 2.5 ml Pantoprazole Sodium (Protonix Inj) 40 mg IVP DAILY [facility] Last Admin: 03/10/17 09:33 Dose: 40 mg Pilocarpine HCl (Isopto Carpine 2% Opht Soln) 0 ml OS DAILY [facility] Last Admin: 03/10/17 09:34 Dose: 1 drop Timolol Maleate (Timoptic 0.5% Ophth Soln) 1 drop OS BID [facility] Last Admin: 03/10/17 18:11 Dose: 1 drop - Labs Labs: 03/10/17 15:25 03/08/17 06:30 PT 12.1 Seconds (9.9-11.8) H 03/03/17 05:30 INR 1.12 (0.93-1.08) H 03/03/17 05:30 APTT 32.2 Seconds (23.7-30.8) H 03/03/17 05:30
[2017-03-11] MEDS ORDERED: Meropenem 500 MG in Sodium Chloride 0.9% 100 ML IVPB STA (07:12)
[2017-03-11 07:22] LABS: ARTERIAL BLOOD GAS HCO3 20.9 mmol/L (21-28); ARTERIAL BLOOD GAS PH 7.45 (7.35-7.45); ATERIAL BLOOD GAS PEEP 6
[2017-03-11 07:28] LABS: ADD MANUAL DIFF? NO
[2017-03-11 07:31] LABS: BASO # 0.01 [, K/mm3] (0.0-2.0); BASO % 0.1 % (0.0-3.0); EOS % 0.4 % (1.5-5.0); GRAN # 10.05 (1.4-6.5); GRAN % 91.3 % (50.0-68.0); HEMATOCRIT 26.2 % (42.0-52.0); LYMPH # 0.6 (1.2-3.4); LYMPH % 5.5 % (22.0-35.0); MEAN CELL VOLUME 89.4 fL (80.0-105.0); MEAN CORPUSCULAR HEMOGLOBIN 30.4 pg (25.0-35.0); MEAN PLATELET VOLUME 9.7 fl (7.0-11.0); MONO # 0.3 (0.1-0.6); MONO % 2.7 % (1.0-6.0); PLATELET COUNT 140 [, 10^3/uL] (120.0-450.0); RED CELL DISTRIBUTION WIDTH 15.6 % (11.5-14.5)
[2017-03-11 07:41] LABS: INR 1.22 (0.93-1.08); PARTIAL THROMBOPLASTIN TIME 30.3 Seconds (23.7-30.8)
[2017-03-11 07:44] LABS: ALB/GLOB RATIO 0.7 (1.1-1.8); ALKALINE PHOSPHATASE 232 U/L (38-133); ALT/SGPT 67 U/L (7-56); AST/SGOT 41 U/L (15-59); BLOOD UREA NITROGEN 27 mg/dL (7-21); CALCIUM 7.9 mg/dL (8.4-10.5); CARBON DIOXIDE 22 mmol/L (21-33); CHLORIDE 109 mmol/L (95-110); GFR AFRICAN-AMERICAN > 60; GLUCOSE,RANDOM 128 mg/dL (70-110); MAGNESIUM 1.6 mg/dL (1.7-2.2); POTASSIUM 3.8 mmol/L (3.6-5.0); SODIUM 139 mmol/L (132-148); TOTAL PROTEIN 5.6 g/dL (5.8-8.3)
--- NOTE | 2017-03-11 07:59 | RAD ---
HISTORY: sob COMPARISON: 02/26/2017 FINDINGS: LUNGS: There is an increasing infiltrate at the right lung base which obscures the diaphragmatic border PLEURA: No significant pleural effusion identified, no pneumothorax apparent. CARDIOVASCULAR: Normal. OSSEOUS STRUCTURES: No significant abnormalities. VISUALIZED UPPER ABDOMEN: Normal. OTHER FINDINGS: There is a new right-sided PICC line in the right atrium IMPRESSION: Increasing infiltrate at the right lung base obscuring the diaphragmatic border
[2017-03-11] MEDS: Insulin Reg-LOW-Coverage SC SCH ×5 (08:11→21:57)
--- NOTE | 2017-03-11 08:32 | PN ---
DATE: 03/11/2017 The patient seen and examined at bedside. He is comfortable. His mental status is at baseline (patient has advanced dementia). The patient is on BiPAP 12/6 with FiO2 of 60%. ABG on 100% FiO2, revealed pO2 276 with O2 sat 100%. Thus, FiO2 was reduced to 60%. The rest of pH showed 7.45/30. Lactic acid was 1. PHYSICAL EXAMINATION: VITAL SIGNS: Heart rate 110, oxygen saturation 100%, blood pressure 200/100. HEAD AND NECK: Atraumatic. LUNGS: Clear to auscultation bilaterally. HEART: Regular rate and rhythm. S1, S2 distant. ABDOMEN: Soft, nontender, nondistended. MUSCULOSKELETAL: Status post AKA on the left side. The right lower extremity does not show any swelling. SKIN: Moist. PSYCHIATRIC: The patient has advanced dementia. LABORATORIES: WBC 12.4, hemoglobin 9.5, platelet count 136. Sodium 142, potassium 3.4, chloride 115, BUN 26, creatinine 0.9, glucose 113, AST 93, ALT 84. MEDICATIONS: Tylenol p.r.n., TPN, daptomycin, regular insulin sliding scale low protocol, Keppra, meropenem, Protonix, eyedrops. Chest x-ray showed chronic interstitial changes bilaterally, some vascular congestion bilaterally, right more than left. It appears that the vascular congestion is a little bit worse on today's chest x-ray compared with 02/26. ASSESSMENT AND PLAN: This is an 89-year-old gentleman with increased vascular congestion and hypertension up to 200/100 in the setting of LV diastolic dysfunction. The patient also has corynebacterium bacteremia, most likely due to cellulitis/osteomyelitis, for which he had AKA during this admission. I would repeat all labs including electrolytes. I would continue with gentle diuresis. The patient's do not resuscitate/do not intubate status duly noted. Continues on BiPAP and appears to be comfortable, not in respiratory distress. At present time, if decision to proceed with aggressive monitoring is made, telemetry might appear to be a reasonable choice provided all above. I would continue to target euvolemia, euglycemia, normothermia and oxygen saturation more than 90%. I would continue with deep venous thrombosis and gastrointestinal prophylaxis. Please call for ICU evaluation if patient's status deteriorates and he would require IV drip of medication for the blood pressure management. I would continue antibiotics. ccm time 40 min Duy Silva MD cc: [phone] TT: 03/11/2017 08:31:40 Confirmation # [id number] Dictation # [id number] en AWA
[2017-03-11 09:11] LABS: TROPONIN I 0.3 ng/mL
--- NOTE | 2017-03-11 09:51 | DS ---
This is an 89-year-old male who had come into the hospital and was found to have a gangrenous left le g. The patient was hemodynamically unstable as well as having significant dehydration with hypernatr emia. The patient was reluctantly taken to the OR after multiple discussions with the family to unde rgo a left wwuqt-aym-[id number] amputation. The patient had a successful kwvvg-xgk-cwfs amputation and has had improvement of his symptoms as well as his mental status. The patient has not been eating well and has dysphagia. He will most likely need a PEG placement. The patient's family is still deciding . Meanwhile, he has been placed on PPN. The patient's family does understand that he is at risk of having significant complications, given that he has failed and has multiple medical issues. They are aware he had been a DNR. The patient was going to be sent to an LTAC but became short of breath yes terday, so he was kept in the hospital. The patient does not communicate well. Hospice has been dis cussed multiple times with the patient's family. He is scheduled to go to LTAC for further managemen t. PHYSICAL EXAMINATION: VITAL SIGNS: T-max is 102.2. O2 saturation 94%, pulse 110, blood pressure is 90/50. GENERAL: The patient comfortable, in no acute distress. HEENT: Anicteric sclerae. Moist mucosa. NECK: No JVD or adenopathy. CARDIAC: S1/S2. No murmurs. No rubs. Regular. RESPIRATORY: Clear to auscultation bilaterally. No wheezes, rales, or rhonchi. Good air entry. ABDOMEN: Bowel sounds are positive, soft, nontender, and nondistended. EXTREMITIES: No edema. Has 1+ pulses. ASSESSMENT: 1. Sepsis. 2. Dysphagia. 3. Malnutrition. 4. Left above-knee amputation. 5. Hypokalemia. 6. History of cerebrovascular accident with left-sided residual weakness. 7. Dyslipidemia. 8. Hypophosphatemia, improved. 9. Do not resuscitate/do not intubate. PLAN: The patient is on day #9 of 28 of antibiotics with daptomycin. The patient is on heparin for DVT prophylaxis. He is on Protonix daily. He is on eyedrops. He is on Xopenex. He is on levetirac etam 500 mg IV q. 12. He remained n.p.o. He is being followed by multiple consultants. I did speak to the patient's daughter, Gisselle, yesterday to give her an update on the patient's diagnosis and plan of care. Jerome Diez MD cc: [id number] TT: 03/11/2017 09:51:00 mn
--- NOTE | 2017-03-11 09:52 | CARD ---
APPROVED REPORT EKG Measurement Heart [id number] MD [id number] <Conclusion> Sinus tachycardia Left anterior fascicular block Possible Inferior infarct, age undetermined Possible Anteroseptal infarct, age undetermined Abnormal ECG
[2017-03-11] MEDS: levETIRAcetam 500mg IVPB 500 MG/100 ML BAG IVPB SCH ×2 (11:19→21:13)
[2017-03-11] MEDS: NEPAFENAC 0.3% OS SCH (11:20)
[2017-03-11] MEDS: Pilocarpine 2% Opht (15ml) OS SCH (11:34)
[2017-03-11] MEDS ORDERED: Fat Emulsion 20% IV 250 ML IV SCH ×2 (12:45→18:00)
--- NOTE | 2017-03-11 15:13 | PN ---
DATE: 03/11/2017 This is a covering note for Dr. Myers. Seen and examined at the bedside earlier this afternoon. The patient reported to have fever yesterda y, shortness of breath. The patient's transfer to LTAC was canceled. He is currently on BiPAP and a ppears lethargic. VITAL SIGNS: Temperature is 97.6, blood pressure is 180/90, pulse rate 98, respirations , 99% r oom air. LABORATORIES: WBCs 11.0, H and H is 8.9 and 26.2, platelets is 140. PT 13.2, INR is 1.22, PTT is 30 .3. Sodium 139, K is 3.8, BUN is 27, creatinine is 1.0. His magnesium is 1.6, total bilirubin is 1. 0, AST 41, ALT 67, alkaline phosphatase is 232. His troponin is 0.30. BNP is 3370. Procalcitonin w as done at 20.02. He had a chest x-ray this morning and it showed increasing infiltrate at the right lung base obscurin g the diaphragmatic border. PHYSICAL EXAMINATION: HEENT: Sclera is anicteric. NECK: Supple. CARDIAC: S1, S2. LUNG SOUNDS: With decreased breath sounds. Positive air entry. ABDOMEN: With bowel sounds, soft, nontender, no organomegaly. EXTREMITIES: No edema. NEUROLOGIC: The patient is lethargic on BiPAP. ASSESSMENT: Sepsis, dysphagia, malnutrition. The patient with left above knee amputation, history o f cerebrovascular accident with left-sided weakness, hypokalemia. PLAN: The patient is currently on PPN. The patient's family is still reluctant regarding PEG tube p lacement. No decision has been made, although the patient's current condition is poor and patient wo uld need to be optimized in order to withstand anesthesia if family does decide for PEG tube. Mariana montalvo, the patient is on deep venous thrombosis prophylaxis. He is also on PPI. He did receive a dose of IV antibiotics of meropenem and daptomycin this morning. He is being followed by palliative care , ID and cardiology. The patient is noted to have elevated troponins. The patient was seen and case discussed with Dr. Calderon. Ange FRANCOIS cc: [id number] TT: 03/11/2017 15:12:21 Confirmation # [id number] Dictation # [id number] en
--- NOTE | 2017-03-11 16:12 | CP.PCM.PN ---
Subjective - Date & Time of Evaluation Date of Evaluation: 03/11/17 Time of Evaluation: 10:30 - Subjective Subjective: On a BiPAP, afebrile overnight. Had low grade fever yestersday afternoon. Objective - Vital Signs/Intake and Output Vital Signs (last 24 hours): Temp Pulse Resp BP Pulse Ox 97.6 F 98 H 34 H 180/90 H 99 03/11/17 07:30 03/11/17 07:30 03/11/17 07:30 03/11/17 08:20 03/11/17 07:30 Intake and Output: 03/11/17 03/11/17 06:59 18:59 Intake Total 0 Output Total 200 1600 Balance -200 -1600 - Medications Medications: Current Medications Acetaminophen (Tylenol 650 Mg Supp) 650 mg RC Q4H PRN PRN Reason: Fever >100.4 F Last Admin: 03/10/17 14:11 Dose: 650 mg Daptomycin (Cubicin) 290 mg 6 mg/kg (290 mg) IV Q24H [facility] PRN Reason: Protocol Stop: 03/31/17 16:16 Heparin Sodium (Porcine) (Heparin) 5,000 units SC Q12 [facility] PRN Reason: Protocol Last Admin: 03/01/17 22:16 Dose: 5,000 units Home Med (Home Med) 1 unit OS DAILY [facility] Last Admin: 03/11/17 11:20 Dose: 1 unit Levetiracetam (Keppra 500mg Ivpb) 500 mg in 100 mls @ 400 mls/hr IVPB Q12 [facility] Last Admin: 03/11/17 11:19 Dose: 400 mls/hr Chromium/Copper/Manganese/Zinc 1 ml/ Multivitamins/Vitamin C 10 ml/ Amino Acids/ Electrolytes/Dextrose 1,011 mls @ 42 mls/hr IV .Q24H [facility] Fat Emulsion Intravenous (Intralipid 20%) 250 mls @ 21 mls/hr IV 1800 [facility] Doxycycline Hyclate 100 mg/ (Sodium Chloride) 100 mls @ 100 mls/hr IVPB Q12 [facility] PRN Reason: Protocol Meropenem 1g/NS 100mL IVPB (Meropenem 1g/Ns 100ml Ivpb) 100 mls @ 100 mls/hr IVPB Q8 [facility] PRN Reason: Protocol Stop: 03/18/17 16:16 Insulin Human Regular (Humulin R Low) 0 units SC ACHS [facility] PRN Reason: Protocol Last Admin: 03/11/17 12:08 Dose: 1 units Latanoprost (Xalatan Opht) 0 ml OS HS [facility] Last Admin: 03/10/17 21:41 Dose: 2.5 ml Pantoprazole Sodium (Protonix Inj) 40 mg IVP DAILY [facility] Last Admin: 03/11/17 11:19 Dose: 40 mg Pilocarpine HCl (Isopto Carpine 2% Opht Soln) 0 ml OS DAILY [facility] Last Admin: 03/11/17 11:34 Dose: 1 drop Timolol Maleate (Timoptic 0.5% Ophth Soln) 1 drop OS BID [facility] Last Admin: 03/11/17 11:19 Dose: 1 drop - Labs Labs: 03/11/17 07:00 03/11/17 07:00 PT 13.2 Seconds (9.9-11.8) H 03/11/17 07:00 INR 1.22 (0.93-1.08) H 03/11/17 07:00 APTT 30.3 Seconds (23.7-30.8) 03/11/17 07:00 - Constitutional Appears: Cachectic, Other (On a BiPAP) - Head Exam Head Exam: NORMOCEPHALIC - Neck Exam Neck Exam: absent: Meningismus - Respiratory Exam Respiratory Exam: Decreased Breath Sounds - Cardiovascular Exam Cardiovascular Exam: +S1, +S2 - GI/Abdominal Exam GI & Abdominal Exam: Soft. absent: Tenderness Assessment and Plan - Assessment and Plan (Free Text) Plan: Assessment Severe sepsis secondary to left lower leg ischemia S/P left above the knee amputation POD #8, as well as Corynebacterium bacteremia (cannot R/O endocarditis); patient also has new onset right sided HCAP history of UTI with Enterococcus faecalis history of urinary tract infection with Proteus history of obstructive uropathy and chronic Mcintosh catheter use HTN history of subarachnoid hemorrhage and cerebrovascular accident with left sided residual weakness seizure disorder Plan continue Daptomycin; also started Merrem and Doxycycline pending repeat septic work up; repeat PCT is elevated will monitor clinically Overall prognosis is poor
[2017-03-11] MEDS ORDERED: DAPTOmycin 500 mg Inj (Cubicin) IV SCH (16:15)
[2017-03-11 16:22] LABS: URINE BILIRUBIN NEGATIVE (NEGATIVE); URINE BLOOD SMALL (NEGATIVE); URINE GLUCOSE (UA) NEGATIVE (NEGATIVE); URINE KETONE NEGATIVE (NEGATIVE); URINE LEUKOCYTE ESTERASE NEGATIVE Leu/uL (NEGATIVE); URINE PROTEIN TRACE mg/dL (<30 mg/dL); URINE UROBILINOGEN 0.2 E.U./dL (<1 E.U./dL)
[2017-03-11 16:25] LABS: URINE APPEARANCE CLEAR (CLEAR); URINE COLOR YELLOW (YELLOW)
[2017-03-11 16:54] LABS: URINE BACTERIA FEW (NEG); URINE EPITHELIAL CELLS 0 - 2 /hpf (0-5); URINE RBC 0 - 2 /hpf (0-2); URINE WBC 0 - 2 /hpf (0-6)
[2017-03-11 17:08] VITALS: RESP 33
[2017-03-11] MEDS: Meropenem 1g/NS 100mL IVPB 1 GM/100 ML PIGGYBACK IVPB SCH ×2 (17:19→21:44)
[2017-03-11] MEDS: Latanoprost 2.5 ml Opht Soln OS SCH (21:13)
--- NOTE | 2017-03-12 01:20 | PN ---
DATE: 03/11/2017 ADDENDUM This is an addendum to the GI progress report dictated by DMITRY Ventura. The patient still is on BiPAP. The family has not made decision . GI Consult was initially requested for evaluation of the feeding tube and family earlier was reluctant about the feeding tube placement. Presently, his respiratory status, the patient has been on BiPAP for his poor status for any anesthesia. The patient needs to be optimized before even considering for the feeding tube. We will sign off now and reconsult as needed. The family is agreeable. If the patient's condition is optimized, we will consider feeding tube placement. Thank you very much for allowing us to participate in the care of the patient. Ihsan Calderon MD cc: [id number] TT: 03/12/2017 01:19:57 Confirmation # [id number] Dictation # [id number] lizett BILLINGS
[2017-03-12] MEDS: Meropenem 1g/NS 100mL IVPB 1 GM/100 ML PIGGYBACK IVPB SCH ×2 (05:35→14:19)
[2017-03-12 07:31] VITALS: BP 141/57; TEMP 97.4; O2SAT 90
[2017-03-12] MEDS: Insulin Reg-LOW-Coverage SC SCH ×2 (07:56→12:15)
--- NOTE | 2017-03-12 08:53 | PN ---
DATE: 03/12/2017 SUBJECTIVE: The patient is on BiPAP machine. He is not able to communicate. PHYSICAL EXAMINATION: VITAL SIGNS: Temperature is 97.4, pulse of 125, blood pressure 141/57, respirations 30. GENERAL: The patient comfortable, in no acute distress. HEENT: Anicteric sclerae. Moist mucosa. NECK: No JVD or adenopathy. CARDIAC: S1/S2. No murmurs. No rubs. Regular. RESPIRATORY: Clear to auscultation bilaterally. No wheezes, rales, or rhonchi. Good air entry. ABDOMEN: Bowel sounds are positive, soft, nontender, and nondistended. EXTREMITIES: No edema. Has 1+ pulses. Left AKA. LABS: White count of 11.0, hemoglobin 8.9, creatinine is 1.0, potassium is 3.8. ASSESSMENT: 1. Sepsis. 2. Dysphagia. 3. Malnutrition. 4. Left above-knee amputation. 5. Hypokalemia. 6. Dyslipidemia. 7. Hypophosphatemia. 8. History of cerebrovascular accident with left-sided residual weakness. 9. Do not resuscitate/do not intubate. 10. Hospital-acquired pneumonia. PLAN: The patient is currently comfortable. The patient is continuing on daptomycin. The patient's blood cultures x 2 have been negative from yesterday. The patient is afebrile. There was a chest x -ray that was done yesterday that showed increasing infiltrate at the right lung base. The patient w as not able to go in LTAC yesterday because he had unstable vital signs. His overall prognosis is po or. He is on doxycycline for antibiotics. He is on PPN; this will be continued. He is on timolol e yedrops. The patient is on Xopenex as needed. He is n.p.o. because of his dysphagia. Jerome Diez MD cc: [id number] TT: 03/12/2017 08:53:24 Confirmation # [id number] Dictation # [id number] [email or web address]
[2017-03-12 10:42] LABS: MEAN CELL VOLUME 91.2 fL (80.0-105.0); MEAN CORPUSCULAR HEMOGLOBIN 30.8 pg (25.0-35.0); MEAN CORPUSCULAR HGB CONC 33.8 g/dl (31.0-37.0); MEAN PLATELET VOLUME 9.7 fl (7.0-11.0); RED CELL DISTRIBUTION WIDTH 15.6 % (11.5-14.5); WHITE BLOOD COUNT 9.8 [, 10^3/ul] (4.5-11.0)
[2017-03-12 10:53] LABS: ALB/GLOB RATIO 0.7 (1.1-1.8); ALKALINE PHOSPHATASE 180 U/L (38-133); ALT/SGPT 50 U/L (7-56); AST/SGOT 28 U/L (15-59); BILIRUBIN,TOTAL 0.8 mg/dL (0.2-1.3); BLOOD UREA NITROGEN 33 mg/dL (7-21); CALCIUM 7.6 mg/dL (8.4-10.5); CARBON DIOXIDE 24 mmol/L (21-33); CHLORIDE 110 mmol/L (95-110); GFR AFRICAN-AMERICAN > 60; GLUCOSE,RANDOM 154 mg/dL (70-110); POTASSIUM 3.5 mmol/L (3.6-5.0); SODIUM 140 mmol/L (132-148)
[2017-03-12 10:54] LABS: HEMATOCRIT 23.7 % (42.0-52.0)
--- NOTE | 2017-03-12 11:46 | CP.PCM.PN ---
Subjective - Date & Time of Evaluation Date of Evaluation: 03/12/17 Time of Evaluation: 10:00 - Subjective Subjective: Patient continues to be on the BiPAP, arousable, but not very responsive. Afebrile overnight. Objective - Vital Signs/Intake and Output Vital Signs (last 24 hours): Temp Pulse Resp BP Pulse Ox 97.4 F L 113 H 33 H 141/57 L 90 L 03/12/17 07:30 03/12/17 11:12 03/12/17 07:30 03/12/17 07:30 03/12/17 07:30 Intake and Output: 03/12/17 03/12/17 06:59 18:59 Output Total 600 Balance -600 - Medications Medications: Current Medications Acetaminophen (Tylenol 650 Mg Supp) 650 mg RC Q4H PRN PRN Reason: Fever >100.4 F Last Admin: 03/12/17 03:42 Dose: 650 mg Heparin Sodium (Porcine) (Heparin) 5,000 units SC Q12 [facility] PRN Reason: Protocol Last Admin: 03/01/17 22:16 Dose: 5,000 units Home Med (Home Med) 1 unit OS DAILY [facility] Last Admin: 03/11/17 11:20 Dose: 1 unit Levetiracetam (Keppra 500mg Ivpb) 500 mg in 100 mls @ 400 mls/hr IVPB Q12 [facility] Last Admin: 03/11/17 21:13 Dose: 400 mls/hr Chromium/Copper/Manganese/Zinc 1 ml/ Multivitamins/Vitamin C 10 ml/ Amino Acids/ Electrolytes/Dextrose 1,011 mls @ 42 mls/hr IV .Q24H [facility] Last Admin: 03/11/17 17:28 Dose: 42 mls/hr Fat Emulsion Intravenous (Intralipid 20%) 250 mls @ 21 mls/hr IV 1800 [facility] Last Admin: 03/11/17 17:29 Dose: 21 mls/hr Doxycycline Hyclate 100 mg/ (Sodium Chloride) 100 mls @ 100 mls/hr IVPB Q12 [facility] PRN Reason: Protocol Last Admin: 03/11/17 22:25 Dose: 100 mls/hr Meropenem 1g/NS 100mL IVPB (Meropenem 1g/Ns 100ml Ivpb) 1 gm in 100 mls @ 100 mls/hr IVPB Q8 [facility] PRN Reason: Protocol Stop: 03/18/17 16:16 Last Admin: 03/12/17 05:35 Dose: 100 mls/hr Daptomycin 290 mg/ Sodium (Chloride) 100 mls @ 200 mls/hr IV 1200 [facility] Stop: 03/16/17 16:16 Insulin Human Regular (Humulin R Low) 0 units SC ACHS [facility] PRN Reason: Protocol Last Admin: 03/11/17 21:57 Dose: Not Given Latanoprost (Xalatan Opht) 0 ml OS HS [facility] Last Admin: 03/11/17 21:13 Dose: 2.5 ml Pantoprazole Sodium (Protonix Inj) 40 mg IVP DAILY [facility] Last Admin: 03/11/17 11:19 Dose: 40 mg Pilocarpine HCl (Isopto Carpine 2% Opht Soln) 0 ml OS DAILY [facility] Last Admin: 03/11/17 11:34 Dose: 1 drop Timolol Maleate (Timoptic 0.5% Ophth Soln) 1 drop OS BID [facility] Last Admin: 03/11/17 17:20 Dose: 1 drop - Labs Labs: 03/12/17 10:30 03/12/17 10:30 PT 13.2 Seconds (9.9-11.8) H 03/11/17 07:00 INR 1.22 (0.93-1.08) H 03/11/17 07:00 APTT 30.3 Seconds (23.7-30.8) 03/11/17 07:00 - Constitutional Appears: Other (On BiPAP, not very responsive) - Neck Exam Neck Exam: absent: Lymphadenopathy, Meningismus - Respiratory Exam Respiratory Exam: Decreased Breath Sounds - Cardiovascular Exam Cardiovascular Exam: +S1, +S2 - GI/Abdominal Exam GI & Abdominal Exam: Soft. absent: Tenderness - Extremities Exam Additional comments: left AKA stump with dry dressings in place Assessment and Plan - Assessment and Plan (Free Text) Plan: Assessment Severe sepsis secondary to left lower leg ischemia S/P left above the knee amputation POD #9, as well as Corynebacterium bacteremia (cannot R/O endocarditis); patient also has new onset right sided HCAP history of UTI with Enterococcus faecalis history of urinary tract infection with Proteus history of obstructive uropathy and chronic Mcintosh catheter use HTN history of subarachnoid hemorrhage and cerebrovascular accident with left sided residual weakness seizure disorder Plan continue Daptomycin; continue Merrem and Doxycycline (day 2); repeat PCT is elevated at 20.02, urine and blood cx from yesterday are negative so far will continue to monitor clinically Overall prognosis is poor
--- NOTE | 2017-03-12 12:36 | CON ---
DATE: 03/12/2017 REQUESTING PHYSICIAN: Dr. Diez. REASON FOR CONSULTATION: Elevated troponin. HISTORY OF PRESENT ILLNESS: This is an 89-year-old man well known to me from prior evaluations with a history of coronary artery disease and carotid disease as well as a prior cerebrovascular accident who was noted to have elevated troponin. Evaluation was requested. The patient underwent a recent l eft johvt-[id number] amputation for severe peripheral vascular disease and gangrene. He has had progre ssive clinical deterioration and currently is on BiPAP for ventilatory support and is awaiting transf er to an LTAC facility. He is currently seen on 5R in bed. He is on a BiPAP machine. He is not alberto usable. He does have known coronary artery disease. When last seen for evaluation, a stress test wa s performed in 2009. This revealed a fixed inferior and inferolateral defect, but no ischemia and no rmal ejection fraction. He has significant carotid disease and underwent bilateral carotid endartere ctomy. In the past he suffered a prior cerebrovascular accident, has a history of hypertension, hype rlipidemia and glaucoma. CURRENT MEDICATIONS: Include daptomycin, doxycycline, subcutaneous heparin, insulin coverage, Keppra , meropenem, Protonix, timolol eyedrops and Xalatan eyedrops. ALLERGIES: No known drug allergies. SOCIAL HISTORY: He is a former smoker. FAMILY HISTORY: Unobtainable. REVIEW OF SYSTEMS: Also unobtainable. PHYSICAL EXAMINATION: GENERAL: He is a chronically ill-appearing elderly man who appears somewhat cachectic. VITAL SIGNS: His blood pressure is 140/60 with a pulse of 110, respirations are 20. He is afebrile. HEENT: Temporal wasting is noted. BiPAP mask is in place. CHEST: Bilateral coarse rhonchi are heard. HEART: PMI is displaced laterally with soft tones present. ABDOMEN: Soft with bowel sounds present. EXTREMITIES: A dressing is present on his left above-knee amputation. Distal pulses are diminished on the right. SKIN: Warm and dry. PSYCHIATRIC: Unable to assess. NEUROLOGIC: Moving all 4 extremities. Does not follow commands at present. DIAGNOSTIC DATA: Potassium is 3.5, BUN and creatinine are 33 and 1.0. Hemoglobin and hematocrit are 8.0 and 23.7 with a white count of 9.8. A recent electrocardiogram reveals sinus tachycardia with a remote inferior wall myocardial infarction, possible anteroseptal myocardial infarction as well as l eft anterior hemiblock. Chest x-ray reveals a right lower lobe infiltrate, normal cardiac silhouette . Recent troponin was 0.30 with a BNP 3370. IMPRESSION: 1. Elevated troponin following peripheral vascular surgery. Doubt true cardiac injury at this time. 2. Known coronary artery disease, status post remote myocardial infarction. 3. Bilateral carotid disease. 4. Severe peripheral vascular disease. 5. Sepsis and altered mental status. RECOMMENDATIONS: At this time, no further cardiac workup appears necessary at this time. A DNR orde r is in place. Comfort measures should be employed. Transfer to LTAC would be reasonable at this ti me. We would be happy to see in the future as needed. Pancho Mariee MD cc: [id number] TT: 03/12/2017 12:36:22 Confirmation # [id number] Dictation # [id number] mn
--- NOTE | 2017-03-12 12:47 | CP.PCM.PN ---
Subjective - Date & Time of Evaluation Date of Evaluation: 03/12/17 Time of Evaluation: 10:00 - Subjective Subjective: Lethargic. BIPAP in use, resting comfortably Objective - Vital Signs/Intake and Output Vital Signs (last 24 hours): Temp Pulse Resp BP Pulse Ox 97.4 F L 113 H 33 H 141/57 L 90 L 03/12/17 07:30 03/12/17 11:12 03/12/17 07:30 03/12/17 07:30 03/12/17 07:30 Intake and Output: 03/12/17 03/12/17 06:59 18:59 Output Total 600 Balance -600 - Medications Medications: Current Medications Acetaminophen (Tylenol 650 Mg Supp) 650 mg RC Q4H PRN PRN Reason: Fever >100.4 F Last Admin: 03/12/17 03:42 Dose: 650 mg Heparin Sodium (Porcine) (Heparin) 5,000 units SC Q12 [facility] PRN Reason: Protocol Last Admin: 03/01/17 22:16 Dose: 5,000 units Home Med (Home Med) 1 unit OS DAILY [facility] Last Admin: 03/11/17 11:20 Dose: 1 unit Levetiracetam (Keppra 500mg Ivpb) 500 mg in 100 mls @ 400 mls/hr IVPB Q12 [facility] Last Admin: 03/11/17 21:13 Dose: 400 mls/hr Chromium/Copper/Manganese/Zinc 1 ml/ Multivitamins/Vitamin C 10 ml/ Amino Acids/ Electrolytes/Dextrose 1,011 mls @ 42 mls/hr IV .Q24H [facility] Last Admin: 03/11/17 17:28 Dose: 42 mls/hr Fat Emulsion Intravenous (Intralipid 20%) 250 mls @ 21 mls/hr IV 1800 [facility] Last Admin: 03/11/17 17:29 Dose: 21 mls/hr Doxycycline Hyclate 100 mg/ (Sodium Chloride) 100 mls @ 100 mls/hr IVPB Q12 [facility] PRN Reason: Protocol Last Admin: 03/11/17 22:25 Dose: 100 mls/hr Meropenem 1g/NS 100mL IVPB (Meropenem 1g/Ns 100ml Ivpb) 1 gm in 100 mls @ 100 mls/hr IVPB Q8 [facility] PRN Reason: Protocol Stop: 03/18/17 16:16 Last Admin: 03/12/17 05:35 Dose: 100 mls/hr Daptomycin 290 mg/ Sodium (Chloride) 100 mls @ 200 mls/hr IV 1200 [facility] Stop: 03/16/17 16:16 Insulin Human Regular (Humulin R Low) 0 units SC ACHS [facility] PRN Reason: Protocol Last Admin: 03/11/17 21:57 Dose: Not Given Latanoprost (Xalatan Opht) 0 ml OS HS [facility] Last Admin: 03/11/17 21:13 Dose: 2.5 ml Pantoprazole Sodium (Protonix Inj) 40 mg IVP DAILY [facility] Last Admin: 03/11/17 11:19 Dose: 40 mg Pilocarpine HCl (Isopto Carpine 2% Opht Soln) 0 ml OS DAILY [facility] Last Admin: 03/11/17 11:34 Dose: 1 drop Timolol Maleate (Timoptic 0.5% Ophth Soln) 1 drop OS BID [facility] Last Admin: 03/11/17 17:20 Dose: 1 drop - Labs Labs: 03/12/17 10:30 03/12/17 10:30 PT 13.2 Seconds (9.9-11.8) H 03/11/17 07:00 INR 1.22 (0.93-1.08) H 03/11/17 07:00 APTT 30.3 Seconds (23.7-30.8) 03/11/17 07:00 - Constitutional Appears: Cachectic, Chronically Ill - Eye Exam Eye Exam: Normal appearance, PERRL - ENT Exam ENT Exam: Mucous Membranes Moist - Respiratory Exam Respiratory Exam: Decreased Breath Sounds, Rhonchi, NORMAL BREATHING PATTERN - Cardiovascular Exam Cardiovascular Exam: REGULAR RHYTHM, +S1, +S2 - GI/Abdominal Exam GI & Abdominal Exam: Soft, Diminished Bowel Sounds - Extremities Exam Additional comments: left AKA, [id number] dry and intact - Skin Skin Exam: Dry, Pallor Additional comments: stage 1 decubit of both buttocks Assessment and Plan - Assessment and Plan (Free Text) Assessment: 89 year old male admitted with LLE vascular occlusion s/p left AKA, sepsi, respiratory insufficiency, dyphagia. History of CVA left hemiparesis, dementia, UTI ,pneumonia. Patient's daughter Iris at bedside. Family wants to continue supportive medical management. Patient to be transferred to LTAC for additional care. Spoke with daughter about out of hospital DNR/DNI. Purpose of POLST explained. Daughter prefers not to initiate a POLST at this time Psychical support given. Time spent in discussion with daughter regarding advance care planning, 15 minutes Plan: Transfer to LTAC. Advance care planning discussion
[2017-03-12] MEDS: Pilocarpine 2% Opht (15ml) OS SCH (12:57)
[2017-03-12] MEDS: levETIRAcetam 500mg IVPB 500 MG/100 ML BAG IVPB SCH (12:58)
[2017-03-12] MEDS: NEPAFENAC 0.3% OS SCH (12:59)
[2017-03-12 14:14] VITALS: PULSE 60
--- NOTE | 2017-03-23 14:22 | DS ---
Please see the discharge summary that was dictated on 03/11/2017 for details. Jerome Diez MD cc: [id number] TT: 03/23/2017 14:22:04 en
== END 2017-03-12 16:25 | DRG 853 ==
LOC: ED 19:46 → ERH 21:15 → CCU 02-27 01:05 → 5RNO 02-27 19:02
PROVIDERS: ADMIT Internal Medicine Nephrology; ATTEND Internal Medicine Nephrology
PROC: 02HV33Z Insertion of Infusion Device into Superior Vena Cava, Percutaneous Approach (ICD-10-PCS; 2017-02-28)
PROC: B548ZZA Ultrasonography of Superior Vena Cava, Guidance (ICD-10-PCS; 2017-02-28)
PROC: 0Y680ZZ Detachment at Left Femoral Region, Open Approach (ICD-10-PCS; principal; 2017-03-03 14:00)
PROC: 3E0336Z Introduction of Nutritional Substance into Peripheral Vein, Percutaneous Approach (ICD-10-PCS; 2017-03-04)
PROC: 5A09457 Assistance with Respiratory Ventilation, 24-96 Consecutive Hours, Continuous Positive Airway Pressure (ICD-10-PCS; 2017-03-10)
PROC: 3E0F7GC Introduction of Other Therapeutic Substance into Respiratory Tract, Via Natural or Artificial Opening (ICD-10-PCS; 2017-03-10)
DX: A41.9 Sepsis, unspecified organism (principal); R65.21 Severe sepsis with septic shock; I96 Gangrene, not elsewhere classified; J18.9 Pneumonia, unspecified organism; N17.9 Acute kidney failure, unspecified; R64 Cachexia; E87.0 Hyperosmolality and hypernatremia; J44.0 Chronic obstructive pulmonary disease with (acute) lower respiratory infection; R13.12 Dysphagia, oropharyngeal phase; E46 Unspecified protein-calorie malnutrition; E87.2 Acidosis; I69.354 Hemiplegia and hemiparesis following cerebral infarction affecting left non-dominant side; N13.8 Other obstructive and reflux uropathy; Z68.1 Body mass index [BMI] 19.9 or less, adult; E87.1 Hypo-osmolality and hyponatremia; N39.0 Urinary tract infection, site not specified; F03.90 Unspecified dementia, unspecified severity, without behavioral disturbance, psychotic disturbance, mood disturbance, and anxiety; E86.0 Dehydration; I73.9 Peripheral vascular disease, unspecified; E78.5 Hyperlipidemia, unspecified; K21.9 Gastro-esophageal reflux disease without esophagitis; Z66 Do not resuscitate; I25.10 Atherosclerotic heart disease of native coronary artery without angina pectoris; R62.7 Adult failure to thrive; G40.909 Epilepsy, unspecified, not intractable, without status epilepticus; E87.6 Hypokalemia; E83.39 Other disorders of phosphorus metabolism; I10 Essential (primary) hypertension; D64.9 Anemia, unspecified; R09.02 Hypoxemia; Y95 Nosocomial condition; N40.1 Benign prostatic hyperplasia with lower urinary tract symptoms; Z74.01 Bed confinement status; I25.2 Old myocardial infarction; Z96.642 Presence of left artificial hip joint; Z87.440 Personal history of urinary (tract) infections; Z87.891 Personal history of nicotine dependence; Z91.010 Allergy to peanuts